=== PATIENT | female | born 1965 | race Two or more races ===

== ENCOUNTER → 2020-04-05 14:44 | Outpatient (BNVA) | payer OTHER, SELFPAY | PROVIDERS: PCP Internal Medicine; Visit Provider Internal Medicine | DX: J40 Bronchitis, not specified as acute or chronic (principal); J45.41 Moderate persistent asthma with (acute) exacerbation; J98.4 Other disorders of lung; G47.33 Obstructive sleep apnea (adult) (pediatric); E66.01 Morbid (severe) obesity due to excess calories; Z68.43 Body mass index [BMI] 50.0-59.9, adult; Z79.51 Long term (current) use of inhaled steroids; Z71.3 Dietary counseling and surveillance; Z87.891 Personal history of nicotine dependence | CPT/HCPCS: 99214 ==

== ENCOUNTER 2020-04-19 10:56 | Outpatient (REF) | payer OTHER, SELFPAY ==
[2020-04-19 11:46] LABS: MANUAL DIFF FLAG NO
[2020-04-19 12:02] LABS: Basophils Percent Auto 0.2 % (0-2); Eosinophils Absolute Auto 0.1 X10*3/uL (0.0-0.4); Eosinophils Percent Auto 1.7 % (0-4); Hematocrit 39.7 % (37-47); Hemoglobin 11.8 g/dl (12.0-16.0); Imm Gran Abs Auto 0.05 X10*3/uL (0.00-0.03); Imm Gran Pct Auto 0.8 % (0.0-0.4); Lymphocytes Absolute Auto 0.7 X10*3/uL (1.2-4.9); Lymphocytes Percent Auto 11.9 % (20-40); Mean Corpuscular HGB Conc 29.7 g/dl (31.0-35.0); Mean Corpuscular Hemoglobin 24.9 pg (27.0-33.0); Mean Corpuscular Volume 83.8 fL (80-98); Mean Platelet Volume 10.2 fL (9.4-12.3); Monocytes Absolute Auto 0.5 X10*3/uL (0.1-1.2); Monocytes Percent Auto 7.8 % (2-11); Neutrophils Absolute Auto 4.6 X10*3/uL (2.0-8.3); Neutrophils Percent Auto 77.6 % (45-73); Platelet Count 288 X10*3/uL (160-400); Red Blood Count 4.74 X10*6/uL (4.20-5.50); Red Cell Distribution Width 16.1 % (11.0-16.0); White Blood Count 5.9 X10*3/uL (4.8-10.8)
[2020-04-19 12:17] LABS: Estimated Average Glucose 123 mg/dL; Hemoglobin A1c % 5.9 %
[2020-04-19 12:28] LABS: Alanine Aminotransferase 15 U/L (0-31); Alkaline Phosphatase 74 U/L (39-117); Anion Gap 12 (12-20); Aspartate Amino Transferase 15 U/L (5-31); Bilirubin Total 0.2 mg/dL (0.0-1.0); Blood Urea Nitrogen 23 mg/dL (9-16); Calcium 8.5 mg/dL (8.4-10.2); Carbon Dioxide 27 mmol/L (22-29); Chloride 103 mmol/L (96-108); Cholesterol 142 mg/dL; Estimated Glomerular Filt Rate 51; Glucose Fasting 113 mg/dL (60-99); HDL Cholesterol 32 mg/dL; LDL Cholesterol Calculated 92 mg/dl; Potassium 4.9 mmol/l (3.3-5.1); Sodium 137 mmol/L (135-145); Total Protein 7.4 g/dL (6.5-8.0); Triglycerides 92 mg/dL
[2020-04-19 12:52] LABS: Thyroid Stimulating Hormone 1.64 uIU/mL (0.32-4.0)
== END 2020-04-19 10:57 | disposition home or self-care (01) ==
LOC: HO.LAB 10:56
PROVIDERS: Absent Provider Nurse Practitioner Gerontology; PCP Internal Medicine; Visit Provider Physician Assistant
DX: E11.8 Type 2 diabetes mellitus with unspecified complications (principal); I10 Essential (primary) hypertension; E11.42 Type 2 diabetes mellitus with diabetic polyneuropathy; J98.4 Other disorders of lung; G47.33 Obstructive sleep apnea (adult) (pediatric); E66.01 Morbid (severe) obesity due to excess calories; R05 Cough
CPT/HCPCS: 36415; 80053; 80061; 83036; 84443; 85025; 99212

== ENCOUNTER → 2020-04-23 09:06 | Outpatient (BNVA) | payer OTHER, SELFPAY | PROVIDERS: PCP Internal Medicine; Referring Provider Internal Medicine; Visit Provider Nurse Practitioner Gerontology | DX: Z76.89 Persons encountering health services in other specified circumstances (principal) ==

== ENCOUNTER → 2020-04-25 19:47 | Outpatient (REF) | payer OTHER, SELFPAY | LOC: HO.SL 19:47 | PROVIDERS: PCP Internal Medicine; Visit Provider Internal Medicine | DX: G47.33 Obstructive sleep apnea (adult) (pediatric) (principal); Z79.4 Long term (current) use of insulin; Z79.899 Other long term (current) drug therapy | CPT/HCPCS: 95811 ==

== ENCOUNTER → 2020-05-31 13:24 | Outpatient (BNVA) | payer OTHER, SELFPAY | PROVIDERS: PCP Internal Medicine; Visit Provider Internal Medicine | DX: G47.33 Obstructive sleep apnea (adult) (pediatric) (principal); E66.01 Morbid (severe) obesity due to excess calories; J45.41 Moderate persistent asthma with (acute) exacerbation; J98.4 Other disorders of lung | CPT/HCPCS: 99212 ==

== ENCOUNTER → 2020-06-30 13:29 | Outpatient (BNVA) | payer OTHER, SELFPAY | PROVIDERS: PCP Internal Medicine; Visit Provider Internal Medicine ==

== ENCOUNTER → 2020-07-15 12:56 | Outpatient (BNVA) | payer OTHER, SELFPAY | PROVIDERS: PCP Internal Medicine; Visit Provider Internal Medicine Cardiovascular Disease ==

== ENCOUNTER 2020-07-23 13:08 | Emergency (ER) | payer OTHER, SELFPAY ==
--- NOTE | ~2020-07-23 | XR_ITS ---
EXAMINATION: XR CHEST CLINICAL INFORMATION: SOB. COMPARISON: None TECHNIQUE: Frontal view of the chest was obtained. FINDINGS: No significant abnormality is noted involving the heart, lungs, mediastinum, bony thorax or soft tissues. XR/XR chest 1V IMPRESSION: Unremarkable chest examination.
[2020-07-23 13:20] VITALS: BP 171/86; PULSE 85; RESP 36; TEMP 36.8; O2SAT 97; BMI 56.9
--- NOTE | 2020-07-23 13:34 | ECG_ITS ---
Test Reason : SOB Blood Pressure : / mmHG Vent. Rate : 069 BPM Atrial Rate : 069 BPM P-R Int : 152 ms QRS Dur : 080 ms QT Int : 394 ms P-R-T Axes : 067 044 053 degrees QTc Int : 422 ms Normal sinus rhythm Low voltage QRS Borderline ECG No previous ECGs available Referred By: Olive Quispe Electronically Signed By:MAIRA SANCHEZ MD
[2020-07-23] MEDS: Albuterol Sulfate (0.083%) 2.5 MG/3 ML VIAL.NEB 10 MG INHALE (13:51)
[2020-07-23 13:54] VITALS: O2SAT 97
[2020-07-23 14:00] VITALS: PULSE 75; O2SAT 97
[2020-07-23 14:04] VITALS: PULSE 74; RESP 29; O2SAT 97
[2020-07-23 14:04] LABS: Pt Ventilation O2% ROOM AIR
--- NOTE | 2020-07-23 14:07 | ED_ITS ---
HPI - SOB/Dyspnea General Chief Complaint: Dyspnea Stated Complaint: sob Time Seen by Provider: 07/23/20 13:19 Source: patient and old records reviewed Mode of arrival: ambulatory Limitations: language barrier History of Present Illness HPI Narrative: 55 y/o female with history of morbid obesity with restrictive maria de jesus g disease, asthma, SHANIQUA on QHS BiPAP, HLD, DM2 with polyneuropathy, HTN, anxiety who presents with SOB, wheezing, and worsening asthma over the last 2 days. She has been using her inhalers & nebulizers at home without improvement. She has been coughing for the last 4-5 days. Non-productive, no fevers or body aches. No known COVID-19 exposures. MD elicited complaint: shortness of breath and asthma attack Pertinent past history: asthma Onset (ago): week(s) (1) Timing: constant Severity: moderate Exacerbating factors: movement Relieving factors: rest and bronchodilators Known history of: asthma and diabetes Associated symptoms: chest pain, pain with inspiration, cough and wheezing Treatment prior to arrival: none Related Data Home oxygen amount: none Home Medications Medication Instructions Recorded Confirmed albuterol sulfate 2.5 mg INHALATION Q8H PRN ml 03/19/20 07/15/20 albuterol sulfate 90 mcg/actuation 2 puff INHALATION Q6H PRN 03/19/20 07/15/20 aerosol inhaler aspirin 81 mg tablet 81 mg PO DAILY 03/19/20 07/15/20 cyclobenzaprine 10 mg tablet 10 mg PO TID 03/19/20 07/15/20 doxepin 100 mg capsule 100 mg PO BEDTIME 03/19/20 07/15/20 fluticasone propionate 50 1 spray INTRANASAL DAILY 03/19/20 07/15/20 mcg/actuation nasal spray,suspension levothyroxine 50 mcg tablet 50 mcg PO DAILY 03/19/20 07/15/20 meclizine 12.5 mg tablet 12.5 mg PO TID 03/19/20 07/15/20 pantoprazole 40 mg granules 40 mg PO DAILY 03/19/20 07/15/20 delayed-release for susp in packet lancets 28 gauge #100 ea 04/23/20 07/15/20 sertraline 100 mg tablet 100 mg PO DAILY 04/23/20 07/15/20 levocetirizine 5 mg tablet 5 mg PO DAILY 04/27/20 07/15/20 aspirin 81 mg chewable tablet 1 tab PO DAILY 05/31/20 07/15/20 buprenorphine 2 mg-naloxone 0.5 mg 5 mg SUBLINGUAL DAILY 05/31/20 07/15/20 sublingual film triamcinolone acetonide 0.5 % 1 appl TOPICAL DAILY 06/10/20 07/15/20 topical ointment pantoprazole 40 mg tablet,delayed 40 mg PO DAILY 07/15/20 07/15/20 release Previous Rx's Medication Instructions Recorded butalbital 50 mg-acetaminophen 300 1 cap PO Q6H PRN #15 cap 03/19/20 mg-caffeine 40 mg-codeine 30 mg cap dulaglutide 1.5 mg/0.5 mL 1.5 mg SUBCUT QWEEK 28 Days #2 ml 03/19/20 subcutaneous pen injector fluticasone 55 mcg-salmeterol 14 1 inh INHALATION Q12H 30 Days #1 ea 04/19/20 mcg/actuation breath activated powder insulin glargine 100 unit/mL (3 36 unit SUBCUT ONCE 30 Days #15 ml 04/23/20 mL) subcutaneous pen empagliflozin 10 mg tablet 10 mg PO DAILY #30 tab 04/27/20 levocetirizine 5 mg tablet 5 mg PO BEDTIME #30 tab 04/27/20 CPAP full face mask medium AF 20 #1 ea 05/24/20 bilevel pressure 25/16 cm humidified air blood sugar diagnostic 1 strip MISCELLANEOUS DAILY 30 05/27/20 Days #50 strip metformin 500 mg tablet,extended 500 mg PO BID #60 tab 05/30/20 release 24 hr pen needle, diabetic 32 gauge x 1 ea SUBCUT DAILY #30 ea 06/08/20 5/32 amlodipine 10 mg tablet 10 mg PO DAILY #30 tab 07/01/20 atorvastatin 80 mg tablet 80 mg PO QPM #30 tab 07/01/20 carvedilol 12.5 mg tablet 12.5 mg PO BID #60 tab 07/01/20 lisinopril 20 1 tab PO DAILY #30 tab 07/01/20 mg-hydrochlorothiazide 25 mg tablet cholecalciferol (vitamin D3) 50 50 mcg PO DAILY #30 cap 07/05/20 mcg (2,000 unit) capsule trazodone 50 mg tablet 50 mg PO BEDTIME PRN #30 tab 07/05/20 oxycodone 30 mg tablet 30 mg PO BID PRN #60 tab 07/22/20 azithromycin [Zithromax Z-Max] See Rx Instructions .ROUTE 07/23/20 .COMPLEX #6 tab prednisone 10 mg PO PER PKG DIR #48 ea 07/23/20 Allergies Allergy/AdvReac Type Severity Reaction Status Date / Time No Known Allergies Allergy Verified 07/15/20 12:17 Review of Systems Review of Systems: Constitutional: No Fever, No Chills ENT/Mouth: No sore throat, No Rhinorrhea, No Swallowing Difficulty Eyes: No Eye Pain, No Swelling, No Redness Cardiovascular: + Chest Pain, + SOB, + Orthopnea, No Edema Respiratory: + Cough, No Sputum, + Wheezing, + dyspnea Gastrointestinal: No Nausea, No Vomiting, No Diarrhea, No abdominal Pain, No Hematochezia, No Melena Genitourinary: No Dysuria, No Urinary Frequency, No Hematuria Musculoskeletal: No joint pain, No Myalgias Skin: No Skin Lesions, No rash Neuro: No Weakness, No Numbness, No Dizziness, No Headache Psych: N+ Anxiety/Panic, No Depression Heme/Lymph: No Bruising, No Lymphadenopathy Endocrine: No Polyuria, No Polydipsia PMFSH Past Medical History Medical History (Updated 07/23/20 @ 17:37 by ADAM Hernandez) Anxiety Asthma Diabetic nephropathy Essential hypertension GERD (gastroesophageal reflux disease) Hyperlipidemia LDL goal <70 Hypertension Hypothyroidism Hypoventilation associated with obesity syndrome Left ventricular hypertrophy Lumbar back pain Migraines Morbid obesity Opioid dependence SHANIQUA (obstructive sleep apnea) Restrictive lung disease Restrictive lung disease Type 2 diabetes mellitus with diabetic polyneuropathy Vitamin D deficiency Surgical History Deficient knowledge of leg surgery Hx of spinal surgery Family History Family History Father SHANIQUA (obstructive sleep apnea) Prostate cancer HTN (hypertension) Mother Asthma Diabetes Brother Epilepsy Social History Social History Alcohol intake: never Smoking Status: Never smoker Use of substances other than those prescribed or required for medical reasons: No Advance Directives: No Advance Directives Information Provided: No Physical Exam Vital Signs: Vital Signs: Last Vital Signs Temp 98.2 F 07/23/20 18:00 Pulse 88 07/23/20 18:00 Resp 16 07/23/20 18:00 BP 141/71 H 07/23/20 18:00 Pulse Ox 97 07/23/20 18:00 Body Mass Index 56.9 Appearance: Alert. Oriented X3. Moderate respiratory distress with increase WOB and RR Eyes: Pupils equal, round and reactive to light. ENT: Pharynx normal. Neck: Normal inspection. Neck supple. CVS: Normal heart rate and rhythm. Pulses normal. Respiratory: Moderate respiratory distress with inspiratory and expiratory wheezes throughout Abdomen: Morbidly obese, soft and nontender. +BS x4 Skin: Skin warm and dry. Normal skin color. Normal skin turgor. No rashes. Extremities: No lower extremity edema. Negative Abner's sign Neuro: Oriented X 3. Moves all 4 extremities spontaneously, non-focal Course Course Course Narrative: 55 y/o female presenting with asthma exacerbation. RR 30s on arrival with increased WOB and diffuse wheezing throughout. Will place on rescue BiPAP now. CXR, EKG, labs ordered and will treat with hour long nebulizer, IV solumedrol and IV Magnesium now. RT called to bedside to ABG and assessment. Reevaluation(s) Reevaluation #1: Improvement in WOB on BiPAP. Will monitor closely. Reevaluation #2: CXR unremarkable. COVID negative. She has been taken off the BiPAP and is feeling much better. She is on room air with SpO2 97%. RR now in the teens and wheezing has improved. Will monitor off BiPAP and see how she does. Reevaluation #3: Patient continues to be stable on room air. She feels well enough to be discharged home. Counseled on close follow up with her PCP next week as well as Pulmonology. Will start prednisone taper for acute asthma exacerbation. She is stable for discharge. MDM - SOB/Dyspnea Lab Data Attestation: I reviewed the patient's lab results. Result diagrams: 07/23/20 14:12 07/23/20 14:11 Labs: Lab Results 07/23/20 07/23/20 07/23/20 Range/Units 13:59 14:11 14:11 WBC (4.8-10.8) X10*3/uL RBC (4.20-5.50) X10*6/uL Hgb (12.0-16.0) g/dl Hct (37-47) % MCV (80-98) fL MCH (27.0-33.0) pg MCHC (31.0-35.0) g/dl RDW (11.0-16.0) % Plt Count (160-400) X10*3/uL MPV (9.4-12.3) fL Immature Gran % (Auto) (0.0-0.4) % Neut % (Auto) (45-73) % Lymph % (Auto) (20-40) % [place] % (Auto) (2-11) % Eos % (Auto) (0-4) % Baso % (Auto) (0-2) % Lymph # (Auto) (1.2-4.9) X10*3/uL [place] # (Auto) (0.1-1.2) X10*3/uL Eos # (Auto) (0.0-0.4) X10*3/uL Baso # (Auto) (0.0-0.2) X10*3/uL Abs Immat Gran (auto) (0.00-0.03) X10*3/uL Absolute Neuts (auto) (2.0-8.3) X10*3/uL Absolute Nucleated RBC (0.0-0.012) X10*3/uL Nucleated RBC % (auto) (0.0-0.2) /100WBC Hold Blue Top ABG pH 7.31 L (7.35-7.45) ABG pCO2 41 (32-45) mmHg ABG pO2 68 L (83-108) mmHg ABG HCO3 41 H (22-26) mmol/L ABG O2 Saturation 92.0 % ABG Base Excess -4.3 Oxygen Given ROOM AIR Sodium 139 (135-145) mmol/L Potassium 4.9 (3.3-5.1) mmol/L Chloride 104 (96-108) mmol/L Carbon Dioxide 28 (22-29) mmol/L Anion Gap 12 (12-20) BUN 50 H D (9-16) mg/dL Creatinine 1.36 (0.5-1.4) mg/dL Estim Creat Clear Calc 63.8 Estimated GFR 40 Random Glucose 87 (60-115) mg/dL Lactic Acid 0.8 (0.5-2.0) mmol/L Calcium 9.1 D (8.4-10.2) mg/dL Magnesium 2.2 (1.6-2.6) mg/dL Total Bilirubin 0.3 (0.0-1.0) mg/dL Direct Bilirubin 0.2 (0.0-0.5) mg/dL AST 20 (5-31) U/L ALT 41 H (0-31) U/L Alkaline Phosphatase 106 D (39-117) U/L Troponin I High Sens (<3.5-17.0) ng/L B-Natriuretic Peptide (<100) pg/mL Total Protein 8.5 H (6.5-8.0) g/dL Albumin 4.3 (3.5-5.0) g/dL COVID-19 ([facility]) (Negative) COVID-19 Clin Com 07/23/20 07/23/20 07/23/20 Range/Units 14:11 14:12 14:12 WBC 10.4 (4.8-10.8) X10*3/uL RBC 5.25 (4.20-5.50) X10*6/uL Hgb 12.8 (12.0-16.0) g/dl Hct 42.7 (37-47) % MCV 81.3 (80-98) fL MCH 24.4 L (27.0-33.0) pg MCHC 30.0 L (31.0-35.0) g/dl RDW 17.7 H (11.0-16.0) % Plt Count 248 (160-400) X10*3/uL MPV 10.8 (9.4-12.3) fL Immature Gran % (Auto) 0.3 (0.0-0.4) % Neut % (Auto) 68.8 (45-73) % Lymph % (Auto) 19.2 L (20-40) % [place] % (Auto) 5.4 (2-11) % Eos % (Auto) 6.0 H (0-4) % Baso % (Auto) 0.3 (0-2) % Lymph # (Auto) 2.0 (1.2-4.9) X10*3/uL [place] # (Auto) 0.6 (0.1-1.2) X10*3/uL Eos # (Auto) 0.6 H (0.0-0.4) X10*3/uL Baso # (Auto) 0.0 (0.0-0.2) X10*3/uL Abs Immat Gran (auto) 0.03 (0.00-0.03) X10*3/uL Absolute Neuts (auto) 7.1 (2.0-8.3) X10*3/uL Absolute Nucleated RBC 0.000 (0.0-0.012) X10*3/uL Nucleated RBC % (auto) 0.0 (0.0-0.2) /100WBC Hold Blue Top SEE NOTE ABG pH (7.35-7.45) ABG pCO2 (32-45) mmHg ABG pO2 (83-108) mmHg ABG HCO3 (22-26) mmol/L ABG O2 Saturation % ABG Base Excess Oxygen Given Sodium (135-145) mmol/L Potassium (3.3-5.1) mmol/L Chloride (96-108) mmol/L Carbon Dioxide (22-29) mmol/L Anion Gap (12-20) BUN (9-16) mg/dL Creatinine (0.5-1.4) mg/dL Estim Creat Clear Calc Estimated GFR Random Glucose (60-115) mg/dL Lactic Acid (0.5-2.0) mmol/L Calcium (8.4-10.2) mg/dL Magnesium (1.6-2.6) mg/dL Total Bilirubin (0.0-1.0) mg/dL Direct Bilirubin (0.0-0.5) mg/dL AST (5-31) U/L ALT (0-31) U/L Alkaline Phosphatase (39-117) U/L Troponin I High Sens < 3.5 (<3.5-17.0) ng/L B-Natriuretic Peptide < 10 (<100) pg/mL Total Protein (6.5-8.0) g/dL Albumin (3.5-5.0) g/dL COVID-19 ([facility]) (Negative) COVID-19 Clin Com 02/12/21 Range/Units 16:14 WBC (4.8-10.8) X10*3/uL RBC (4.20-5.50) X10*6/uL Hgb (12.0-16.0) g/dl Hct (37-47) % MCV (80-98) fL MCH (27.0-33.0) pg MCHC (31.0-35.0) g/dl RDW (11.0-16.0) % Plt Count (160-400) X10*3/uL MPV (9.4-12.3) fL Immature Gran % (Auto) (0.0-0.4) % Neut % (Auto) (45-73) % Lymph % (Auto) (20-40) % [place] % (Auto) (2-11) % Eos % (Auto) (0-4) % Baso % (Auto) (0-2) % Lymph # (Auto) (1.2-4.9) X10*3/uL [place] # (Auto) (0.1-1.2) X10*3/uL Eos # (Auto) (0.0-0.4) X10*3/uL Baso # (Auto) (0.0-0.2) X10*3/uL Abs Immat Gran (auto) (0.00-0.03) X10*3/uL Absolute Neuts (auto) (2.0-8.3) X10*3/uL Absolute Nucleated RBC (0.0-0.012) X10*3/uL Nucleated RBC % (auto) (0.0-0.2) /100WBC Hold Blue Top ABG pH (7.35-7.45) ABG pCO2 (32-45) mmHg ABG pO2 (83-108) mmHg ABG HCO3 (22-26) mmol/L ABG O2 Saturation % ABG Base Excess Oxygen Given Sodium (135-145) mmol/L Potassium (3.3-5.1) mmol/L Chloride (96-108) mmol/L Carbon Dioxide (22-29) mmol/L Anion Gap (12-20) BUN (9-16) mg/dL Creatinine (0.5-1.4) mg/dL Estim Creat Clear Calc Estimated GFR Random Glucose (60-115) mg/dL Lactic Acid (0.5-2.0) mmol/L Calcium (8.4-10.2) mg/dL Magnesium (1.6-2.6) mg/dL Total Bilirubin (0.0-1.0) mg/dL Direct Bilirubin (0.0-0.5) mg/dL AST (5-31) U/L ALT (0-31) U/L Alkaline Phosphatase (39-117) U/L Troponin I High Sens (<3.5-17.0) ng/L B-Natriuretic Peptide (<100) pg/mL Total Protein (6.5-8.0) g/dL Albumin (3.5-5.0) g/dL COVID-19 ([facility]) Negative (Negative) COVID-19 Clin Com See Note ECG Data Attestation: I personally reviewed and interpreted this ECG as follows: ECG interpretation date: 07/23/20 ECG interpretation time: 16:07 Interpretation: normal sinus rhythm, HR 69 bpm, normal NV interval, normal QTc Critical Care Time Critical Care Time Critical Care Time: Yes Total Critical Care Time: 45 Attestation: I attest to critical care time spent caring for this patient with acute respiratory failure requiring rescue BiPAP; time spent frequently reassessing the patient's respiratory status at the bedside as well as reviewing records and coordinating care. Discharge Plan Discharge Clinical Impression: Asthma Qualifiers: Asthma severity: moderate Asthma persistence: persistent Asthma complication type: with acute exacerbation Qualified Code(s): J45.41 - Moderate persistent asthma with (acute) exacerbation Patient Disposition: Home, Self-Care Instructions: Asthma (ED), Wheezing (ED) Additional Instructions: Recommend using your nebulizers every 4 hours until you are feeling better. Take the prednisone as directed. Follow up with your [employer] next week. If your breathing worsens come back to the ER for further evaluation. Prescriptions: New prednisone 10 mg tablets,dose pack 10 mg PO PER PKG DIR Qty: 48 RF: 0 azithromycin [Zithromax Z-Max] 250 mg tablet See Rx Instructions .ROUTE .COMPLEX Qty: 6 RF: 0 No Action Trulicity 1.5 mg/0.5 mL pen injector 1.5 mg subcut QWEEK 28 Days Qty: 2 RF: 3 levocetirizine 5 mg tablet 5 mg PO DAILY RF: 0 levocetirizine 5 mg tablet 5 mg PO BEDTIME Qty: 30 RF: 2 empagliflozin [Jardiance] 10 mg tablet 10 mg PO DAILY Qty: 30 RF: 5 (DME) CPAP full face mask medium AF 20 bilevel pressure 25/16 cm humidified air See Rx Instructions .Route .MEDSUPPLY Qty: 1 RF: 0 blood sugar diagnostic [FreeStyle Lite Strips] Strip 1 strip miscellaneous DAILY 30 Days Qty: 50 RF: 11 metformin 500 mg tablet extended release 24 hr 500 mg PO BID Qty: 60 RF: 5 pen needle, diabetic [BD Ultra-Fine Veena Pen Needle] 32 gauge x /32 needle 1 ea subcut DAILY Qty: 30 RF: 6 triamcinolone acetonide 0.5 % ointment 1 appl topical DAILY RF: 0 amlodipine 10 mg tablet 10 mg PO DAILY Qty: 30 RF: 1 atorvastatin 80 mg tablet 80 mg PO QPM Qty: 30 RF: 1 carvedilol 12.5 mg tablet 12.5 mg PO BID Qty: 60 RF: 1 lisinopril-hydrochlorothiazide 20-25 mg tablet 1 tab PO DAILY Qty: 30 RF: 1 cholecalciferol (vitamin D3) 50 mcg (2,000 unit) capsule 50 mcg PO DAILY Qty: 30 RF: 5 trazodone 50 mg tablet 50 mg PO BEDTIME PRN (Reason: insomnia) Qty: 30 RF: 5 oxycodone 30 mg tablet 30 mg PO BID PRN (Reason: pain) Qty: 60 RF: 0 meclizine 12.5 mg tablet 12.5 mg PO TID RF: 0 albuterol sulfate 2.5 mg /3 mL (0.083 %) solution for nebulization 2.5 mg inhalation Q8H PRNRF: 0 albuterol sulfate [Ventolin HFA] 90 mcg/actuation HFA aerosol inhaler 2 puff inhalation Q6H PRNRF: 0 doxepin 100 mg capsule 100 mg PO BEDTIME RF: 0 pantoprazole [Protonix] [address] for susp in packet 40 mg PO DAILY RF: 0 fluticasone propionate 50 mcg/actuation spray,suspension 1 spray intranasal DAILY RF: 0 levothyroxine 50 mcg tablet 50 mcg PO DAILY RF: 0 cyclobenzaprine 10 mg tablet 10 mg PO TID RF: 0 aspirin 81 mg tablet 81 mg PO DAILY RF: 0 [id number]-ugwqidefph-pxr-cod [Fioricet with Codeine] [id number] mg capsule 1 cap PO Q6H PRN (Reason: pain) Qty: 15 RF: 0 pantoprazole 40 mg tablet,delayed release (DR/EC) 40 mg PO DAILY RF: 0 sertraline 100 mg tablet 100 mg PO DAILY RF: 0 (DME) lancets 28 gauge misc See Rx Instructions lancet topical TID Qty: 100 RF: 0 Basaglar KwikPen U-100 Insulin 100 unit/mL (3 mL) insulin pen 36 unit subcut ONCE 30 Days Qty: 15 RF: 6 fluticasone propion-salmeterol [AirDuo RespiClick] 55-14 mcg/actuation aerosol powdr breath activated 1 inh inhalation Q12H 30 Days Qty: 1 RF: 3 aspirin 81 mg tablet,chewable 1 tab PO DAILY RF: 0 buprenorphine-naloxone 2-0.5 mg film 5 mg sublingual DAILY RF: 0 Interventions: ED Discharge Assessment Last Done: 07/23/20 19:02 Discharge Date/Time: 07/23/20 19:03
[2020-07-23 14:09] LABS: ABG PCO2 41 mmHg (32-45); PO2 ABG 68 mmHg (83-108); pH ABG 7.31 (7.35-7.45)
[2020-07-23 14:10] LABS: Base Excess ABG -4.3; HCO3 ABG 41 mmol/L (22-26)
[2020-07-23] MEDS: methylPREDNISolone Sod Succ/PF 125 MG/2 ML VIAL IVPUSH (14:14)
[2020-07-23] MEDS: Magnesium Sulfate/H2O 2 GM/50 ML PIGGYBACK IV (14:15)
[2020-07-23 14:24] LABS: MANUAL DIFF FLAG NO
[2020-07-23 14:25] LABS: Basophils Percent Auto 0.3 % (0-2); Eosinophils Absolute Auto 0.6 X10*3/uL (0.0-0.4); Hematocrit 42.7 % (37-47); Hemoglobin 12.8 g/dl (12.0-16.0); Imm Gran Abs Auto 0.03 X10*3/uL (0.00-0.03); Imm Gran Pct Auto 0.3 % (0.0-0.4); Lymphocytes Percent Auto 19.2 % (20-40); Mean Corpuscular Hemoglobin 24.4 pg (27.0-33.0); Mean Corpuscular Volume 81.3 fL (80-98); Mean Platelet Volume 10.8 fL (9.4-12.3); Monocytes Absolute Auto 0.6 X10*3/uL (0.1-1.2); Monocytes Percent Auto 5.4 % (2-11); Neutrophils Absolute Auto 7.1 X10*3/uL (2.0-8.3); Neutrophils Percent Auto 68.8 % (45-73); Platelet Count 248 X10*3/uL (160-400); Red Blood Count 5.25 X10*6/uL (4.20-5.50); Red Cell Distribution Width 17.7 % (11.0-16.0); White Blood Count 10.4 X10*3/uL (4.8-10.8)
[2020-07-23 14:49] LABS: Lactic Acid 0.8 mmol/L (0.5-2.0)
[2020-07-23 14:53] LABS: Alanine Aminotransferase 41 U/L (0-31); Albumin Level 4.3 g/dL (3.5-5.0); Alkaline Phosphatase 106 U/L (39-117); Anion Gap 12 (12-20); Aspartate Amino Transferase 20 U/L (5-31); Bilirubin Direct 0.2 mg/dL (0.0-0.5); Bilirubin Total 0.3 mg/dL (0.0-1.0); Blood Urea Nitrogen 50 mg/dL (9-16); Calcium 9.1 mg/dL (8.4-10.2); Carbon Dioxide 28 mmol/L (22-29); Chloride 104 mmol/L (96-108); Creatinine Clr Calc Pharmacy 63.8; Estimated Glomerular Filt Rate 40; Glucose Random 87 mg/dL (60-115); Magnesium 2.2 mg/dL (1.6-2.6); Potassium 4.9 mmol/L (3.3-5.1); Sodium 139 mmol/L (135-145); Total Protein 8.5 g/dL (6.5-8.0)
[2020-07-23 14:57] LABS: B Type Natriuretic Peptide < 10 pg/mL (<100); Troponin-I High Sensitivity < 3.5 ng/L (<3.5-17.0)
[2020-07-23] MEDS: 0.9 % Sodium Chloride 1,000 ML 999 ML IVCONT (15:18)
[2020-07-23 16:15] VITALS: BP 154/75; PULSE 72; RESP 14; O2SAT 100
[2020-07-23 16:39] LABS: COVID-19 Test Negative (Negative)
--- NOTE | 2020-07-23 16:54 | PC.NURSE ---
PT TAKEN ON BIPAP, PT REPORTS FEELING MARKEDLY BETTER, RR NOW 16, SPO REMAINS WNL ON RA, RR EVEN UNLABORED, PROVIDER AWARE.
[2020-07-23 18:00] VITALS: BP 141/71; PULSE 88; RESP 16; TEMP 36.8; O2SAT 97
== END 2020-07-23 19:03 | disposition home or self-care (01) ==
PROVIDERS: Physician Assistant; Emergency Provider Emergency Medicine Emergency Medical Services; PCP Internal Medicine
DX: J45.41 Moderate persistent asthma with (acute) exacerbation (principal); Z20.822 Contact with and (suspected) exposure to COVID-19; Z79.899 Other long term (current) drug therapy; I10 Essential (primary) hypertension; F11.20 Opioid dependence, uncomplicated; E11.9 Type 2 diabetes mellitus without complications
CPT/HCPCS: 36415; 71045; 80048; 80076; 82803; 83605; 83735; 83880; 84484; 85025; 87040; 87635; 93005; 94640; 94644; 94660; 96365; 96366; 96375; 99284; 99291; J2930; J3475

== ENCOUNTER → 2020-07-28 14:26 | Outpatient (BNVA) | payer OTHER, SELFPAY | PROVIDERS: PCP Internal Medicine; Visit Provider Internal Medicine | DX: E66.2 Morbid (severe) obesity with alveolar hypoventilation (principal); G47.33 Obstructive sleep apnea (adult) (pediatric); J45.41 Moderate persistent asthma with (acute) exacerbation | CPT/HCPCS: 99212 ==

== ENCOUNTER 2020-10-09 11:27 | Emergency (ER) | payer OTHER, SELFPAY ==
--- NOTE | ~2020-10-09 | XR_ITS ---
EXAMINATION: XR CHEST CLINICAL INFORMATION: Shortness of breath COMPARISON: Previous chest x-ray July 2020 TECHNIQUE: 2 views of the chest were obtained. FINDINGS: The cardiac silhouette appears slightly enlarged. There are increased hilar markings. Some of these changes may be due to AP and apical lordotic film technique. The lungs are otherwise clear. There is no pleural effusion or pneumothorax. There are degenerative changes of the spine. XR/XR chest 2V IMPRESSION: Slightly enlarged cardiac silhouette and increased perihilar markings. This may be due to AP apical lordotic film technique.
[2020-10-09 11:34] VITALS: BP 138/77; PULSE 81; RESP 22; TEMP 36.2; O2SAT 96
[2020-10-09 12:14] VITALS: BP 142/65; PULSE 76; RESP 20; TEMP 36.9; O2SAT 93; BMI 57.0
--- NOTE | 2020-10-09 12:19 | ECG_ITS ---
Test Reason : ASTHMA Blood Pressure : / mmHG Vent. Rate : 069 BPM Atrial Rate : 069 BPM P-R Int : 148 ms QRS Dur : 076 ms QT Int : 386 ms P-R-T Axes : 070 039 057 degrees QTc Int : 413 ms Normal sinus rhythm Normal ECG When compared with ECG of 23-JUL-2020 15:12, No significant change was found Referred By: Rebeca Larry Electronically Signed By:MAIRA SANCHEZ MD
--- NOTE | 2020-10-09 12:26 | ED.ASTHMA ---
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 History of hypercholesteremia, hypertension type 2 diabetes, hypoventilation associated with obesity syndrome, SHANIQUA, morbid obesity, lumbar back pain. She presents to ED with symptoms of SOB since yesterday. Today her SOB has worsened. She tried to rescue inhalers as well to updraft with no affect. Patient denies any fever or chills. Denies any nausea, vomiting, cough or body aches. Reports that she had COVID vaccine ( Moderna) about a month ago. She states that she received both doses. Denies any COVID exposures. MD complaint: asthma attack , shortness of breath and wheezing Onset (ago): day(s) (one) Severity: moderate and similar to prior Treatments Prior to Arrival: inhaled bronchodilator Related Data Home Medications Medication Instructions Recorded Confirmed albuterol sulfate 2.5 mg INHALATION Q8H PRN ml 03/19/20 09/02/20 albuterol sulfate 90 mcg/actuation 2 puff INHALATION Q6H PRN 03/19/20 09/02/20 aerosol inhaler aspirin 81 mg tablet 81 mg PO DAILY 03/19/20 09/02/20 cyclobenzaprine 10 mg tablet 10 mg PO TID 03/19/20 09/02/20 doxepin 100 mg capsule 100 mg PO BEDTIME 03/19/20 09/02/20 levothyroxine 50 mcg tablet 50 mcg PO DAILY 03/19/20 09/02/20 meclizine 12.5 mg tablet 12.5 mg PO TID 03/19/20 09/02/20 pantoprazole 40 mg granules 40 mg PO DAILY 03/19/20 09/02/20 delayed-release for susp in packet lancets 28 gauge #100 ea 04/23/20 07/29/20 sertraline 100 mg tablet 100 mg PO DAILY 04/23/20 09/02/20 levocetirizine 5 mg tablet 5 mg PO DAILY 04/27/20 09/02/20 buprenorphine 2 mg-naloxone 0.5 mg 5 mg SUBLINGUAL DAILY 12/21/20 03/25/21 sublingual film triamcinolone acetonide 0.5 % 1 appl TOPICAL DAILY 06/10/20 09/02/20 topical ointment Previous Rx's Medication Instructions Recorded fluticasone 55 mcg-salmeterol 14 1 inh INHALATION Q12H 30 Days #1 ea 04/19/20 mcg/actuation breath activated powder empagliflozin 10 mg tablet 10 mg PO DAILY #30 tab 04/27/20 CPAP full face mask medium AF 20 #1 ea 05/24/20 bilevel pressure 25/16 cm humidified air blood sugar diagnostic 1 strip MISCELLANEOUS DAILY 30 05/27/20 Days #50 strip metformin 500 mg tablet,extended 500 mg PO BID #60 tab 05/30/20 release 24 hr pen needle, diabetic 32 gauge x 1 ea SUBCUT DAILY #30 ea 06/08/20 amlodipine 10 mg tablet 10 mg PO DAILY #30 tab 07/01/20 atorvastatin 80 mg tablet 80 mg PO QPM #30 tab 07/01/20 carvedilol 12.5 mg tablet 12.5 mg PO BID #60 tab 07/01/20 lisinopril 20 1 tab PO DAILY #30 tab 07/01/20 mg-hydrochlorothiazide 25 mg tablet cholecalciferol (vitamin D3) 50 50 mcg PO DAILY #30 cap 07/05/20 mcg (2,000 unit) capsule trazodone 50 mg tablet 50 mg PO BEDTIME PRN #30 tab 07/05/20 oxycodone 30 mg tablet 30 mg PO BID PRN #60 tab 09/17/20 dulaglutide 1.5 mg/0.5 mL 1.5 mg SUBCUT QWEEK #2 ml 09/26/20 subcutaneous pen injector fluticasone propionate 50 1 spray INTRANASAL DAILY #16 ml 09/26/20 mcg/actuation nasal spray,suspension Lantus Solostar U-100 Insulin 100 36 unit SUBCUT ONCE 30 Days #15 ml 09/30/20 unit/mL (3 mL) subcutaneous pen NS fluticasone propionate [Flonase 1 spray INTRANASAL DAILY #16 g 10/09/20 Allergy Relief] loratadine [Claritin] 10 mg PO DAILY #20 tab 10/09/20 prednisone 40 mg PO DAILY #10 tab 10/09/20 Allergies Allergy/AdvReac Type Severity Reaction Status Date / Time No Known Allergies Allergy Verified 09/02/20 10:47 Review of Systems Review of Systems: Constitutional : No Weight loss, No Fever, No Chills, No Night Sweats, No Fatigue, No Malaise ENT/Mouth : No Hearing loss, No Ear Pain, No Nasal Congestion, No Sinus Pain, No Hoarseness, No sore throat, No Rhinorrhea, No Swallowing Difficulty Eyes: No Eye Pain, No Swelling, No Redness, No Foreign Body, No Discharge, No Vision Changes Cardiovascular : No Chest Pain, SOB, Dyspnea on Exertion, No Edema, No Palpitations Respiratory : No Cough, No Sputum, Wheezing, No Smoke Exposure, Dyspnea Gastrointestinal : No Nausea, No Vomiting, No Diarrhea, No Constipation, No abdominal Pain, No Hematochezia, No Melena Genitourinary : no irregular bleeding, No Dysuria, No Urinary Frequency, No Hematuria, No Urinary Incontinence, No Urgency, No Flank Pain, No Urinary Flow Changes, No Hesitancy Musculoskeletal : No joint pain, No Myalgias, No Joint Swelling Skin : No Skin Lesions, No rash Neuro : No Weakness, No Numbness, No Paresthesias, No Loss of Consciousness, No Dizziness, No Headache Psych : No Anxiety/Panic, No Depression, No SI/HI/AH/VH, No Social Issues, Heme/Lymph: No Bruising, No Bleeding,No Lymphadenopathy Endocrine : No Polyuria, No Polydipsia, No Temperature Intolerance Yes all other systems are reviewed and are negative [facility] Past Medical History Medical History Anxiety Asthma Diabetic nephropathy Essential hypertension GERD (gastroesophageal reflux disease) Hypertension Hypothyroidism Hypoventilation associated with obesity syndrome Left ventricular hypertrophy Lumbar back pain Migraines Morbid obesity Opioid dependence SHANIQUA (obstructive sleep apnea) Type 2 diabetes mellitus with diabetic polyneuropathy Vitamin D deficiency Surgical History Deficient knowledge of leg surgery Hx of spinal surgery Family History Family History Father SHANIQUA (obstructive sleep apnea) Prostate cancer HTN (hypertension) Mother Asthma Diabetes Brother Epilepsy Social History Social History Alcohol intake: never Smoking Status: Never smoker Smoked in Last 30 Days: No Use of substances other than those prescribed or required for medical reasons: No Advance Directives: Yes Advance Directives Information Provided: Yes Advance Directives on File: No Physical Exam Vital Signs: Vital Signs: Last Vital Signs Temp 98.4 F 10/09/20 12:14 Pulse 69 10/09/20 14:19 Resp 20 10/09/20 12:14 BP 142/65 H 10/09/20 12:14 Pulse Ox 93 10/09/20 12:14 Body Mass Index 57.0 Const: General: cooperative, healthy appearing and comfortable Nutritional Appearance: average body habitus Orientation/consciousness: patient oriented x3 Limitations: no limitations HENMT: Head: Yes normal to inspection Ears: hearing grossly normal bilaterally General nose exam: Normal external nose present Face and sinus: Yes normal facial exam Mouth: Normal oral and palatal mucosa present Throat: Yes posterior oropharynx normal Eyes: General: appearance normal, both eyes and all related structures Eyelids: Yes eyelids normal Conjunctivae: conjunctivae normal Sclerae: sclerae normal Pupils: Equal, round and reactive pupils present Neck: Neck: Yes normal visual inspection, Yes full ROM, Yes no lymphadenopathy, Yes trachea midline and Yes supple Thyroid: Thyroid normal Lymphatic: no lymphadenopathy noted Chest: Chest palpation & inspection: normal inspection of the chest Resp: Effort & Inspection: able to speak in complete sentences and audible wheezes Auscultation: wheezes expiratory wheezes, inspiratory wheezes and posterior Cardio: Rate: regular rate Rhythm: regular rhythm Heart sounds: no gallops, no murmurs and no rubs Peripheral pulses: Peripheral pulses 2+ throughout GI: Inspection: Yes normal to inspection and No distended Palpation (GI): No hepatosplenomegaly present and No Rebound tenderness present Percussion: Yes normal to percussion Auscultation: normal bowel sounds Back/Spine/Pelvis: Cervical Spine: cervical ROM normal and No cervical muscular tenderness Thoracic/Lumbar Spine: thoracic and lumbar spine normal to inspection Skin: General skin exam: no rashes or lesions noted, elasticity normal and turgor normal Neuro: General: patient oriented x3 Cranial nerves: Yes Equal, round and reactive pupils present Extrem: General: Yes normal to inspection, Yes full ROM and Yes capillary refill normal Psych: Appearance: grossly normal Mental Status: mental status grossly normal Speech and movement: Normal speech and movement present Affect: normal affect Attitude: cooperative Thought process: Normal thought process present Insight: Good insight present (Psych) Course Course Course Narrative: 55-year-old female here today for worsening SOB since yesterday. History of asthma and SHANIQUA with BiPAP use at night. Denies CP, PND, syncope, presyncope. Will ordered CXR, EKG, will give her dose of Solu-Medrol. Patient had Moderna COVID vaccine about a month ago no known COVID exposures. Will order nebulizer treatment. Reevaluation(s) Reevaluation #1: Chest x-ray negative for acute processes. Potassium mildly elevated at 5.8. Will give her 500 nl of fluid. Patient awaiting for her COVID test. Will receive nebulizer treatment. Patient reports feeling better after the Solu-Medrol. Reevaluation #2: COVID test negative. Patient is feeling better after updraft. Lung sounds clear O2 sat 98-100% on room air. Will send her home with Flonase, Claritin and prednisone. MDM - Asthma Differential Diagnosis Differential diagnosis: Likely Acute exacerbation and Acute asthmatic bronchitis Lab Data Result diagrams: 10/09/20 12:48 10/09/20 13:14 Labs: Lab Results 10/09/20 10/09/20 10/09/20 Range/Units 12:44 12:48 12:48 WBC 8.3 (4.8-10.8) X10*3/uL RBC 4.10 L D (4.20-5.50) X10*6/uL Hgb 10.9 L (12.0-16.0) g/dl Hct 34.8 L (37-47) % MCV 84.9 (80-98) fL MCH 26.6 L (27.0-33.0) pg MCHC 31.3 (31.0-35.0) g/dl RDW 17.2 H (11.0-16.0) % Plt Count 220 (160-400) X10*3/uL MPV 10.3 (9.4-12.3) fL Immature Gran % (Auto) 0.6 H (0.0-0.4) % Neut % (Auto) 69.0 (45-73) % Lymph % (Auto) 18.1 L (20-40) % Sebastian % (Auto) 6.6 (2-11) % Eos % (Auto) 5.5 H (0-4) % Baso % (Auto) 0.2 (0-2) % Lymph # (Auto) 1.5 (1.2-4.9) X10*3/uL Sebastian # (Auto) 0.6 (0.1-1.2) X10*3/uL Eos # (Auto) 0.5 H (0.0-0.4) X10*3/uL Baso # (Auto) 0.0 (0.0-0.2) X10*3/uL Abs Immat Gran (auto) 0.05 H (0.00-0.03) X10*3/uL Absolute Neuts (auto) 5.7 (2.0-8.3) X10*3/uL Absolute Nucleated RBC 0.000 (0.0-0.012) X10*3/uL Nucleated RBC % (auto) 0.0 (0.0-0.2) /100WBC Hold Blue Top SEE NOTE Sodium (135-145) mmol/L Potassium (3.3-5.1) mmol/L Chloride (96-108) mmol/L Carbon Dioxide (22-29) mmol/L Anion Gap (12-20) BUN (9-16) mg/dL Creatinine (0.5-1.4) mg/dL Estim Creat Clear Calc Estimated GFR Random Glucose (60-115) mg/dL Calcium (8.4-10.2) mg/dL Coronavirus (PCR) NEGATIVE (Negative) Influenza Type A (PCR) NEGATIVE (Negative) Influenza Type B (PCR) NEGATIVE (Negative) RSV RNA Qual (PCR) NEGATIVE (Negative) 10/09/20 Range/Units 13:14 WBC (4.8-10.8) X10*3/uL RBC (4.20-5.50) X10*6/uL Hgb (12.0-16.0) g/dl Hct (37-47) % MCV (80-98) fL MCH (27.0-33.0) pg MCHC (31.0-35.0) g/dl RDW (11.0-16.0) % Plt Count (160-400) X10*3/uL MPV (9.4-12.3) fL Immature Gran % (Auto) (0.0-0.4) % Neut % (Auto) (45-73) % Lymph % (Auto) (20-40) % Sebastian % (Auto) (2-11) % Eos % (Auto) (0-4) % Baso % (Auto) (0-2) % Lymph # (Auto) (1.2-4.9) X10*3/uL Sebastian # (Auto) (0.1-1.2) X10*3/uL Eos # (Auto) (0.0-0.4) X10*3/uL Baso # (Auto) (0.0-0.2) X10*3/uL Abs Immat Gran (auto) (0.00-0.03) X10*3/uL Absolute Neuts (auto) (2.0-8.3) X10*3/uL Absolute Nucleated RBC (0.0-0.012) X10*3/uL Nucleated RBC % (auto) (0.0-0.2) /100WBC Hold Blue Top Sodium 139 (135-145) mmol/L Potassium 5.8 H (3.3-5.1) mmol/L Chloride 103 (96-108) mmol/L Carbon Dioxide 27 (22-29) mmol/L Anion Gap 15 (12-20) BUN 26 H (9-16) mg/dL Creatinine 1.05 (0.5-1.4) mg/dL Estim Creat Clear Calc 82.8 Estimated GFR 54 Random Glucose 83 (60-115) mg/dL Calcium 9.4 (8.4-10.2) mg/dL Coronavirus (PCR) (Negative) Influenza Type A (PCR) (Negative) Influenza Type B (PCR) (Negative) RSV RNA Qual (PCR) (Negative) Imaging Data Chest x-ray: Radiologist's impression: FINDINGS: The cardiac silhouette appears slightly enlarged. There are increased hilar markings. Some of these changes may be due to AP and apical lordotic film technique. The lungs are otherwise clear. There is no pleural effusion or pneumothorax. There are degenerative changes of the spine. XR/XR chest 2V IMPRESSION: Slightly enlarged cardiac silhouette and increased perihilar markings. This may be due to AP apical lordotic film technique. ECG Data Attestation: I personally reviewed and interpreted this ECG as follows: (Normal sinus, rate 69, QTC 413 no ischemic changes) Discharge Plan Discharge Clinical Impression: Asthma Qualifiers: Asthma severity: mild Asthma persistence: unspecified Asthma complication type: uncomplicated Qualified Code(s): J45.909 - Unspecified asthma, uncomplicated Patient Disposition: Home, Self-Care Instructions: Asthma (ED), Allergies (ED) Additional Instructions: Lo vieron aqu? hoy por s?ntomas de asma. Le dieron medicamentos esteroides para ayudar con la inflamaci?n. Vallecillo radiograf?a de t?rax fue negativa para cualquier infecci?n. Se le jan? un freeman?n para Flonase, Claritin y prednisona. Puede regresar al departamento de emergencias si kami s?ntomas empeoran o si experimenta cualquier otro s?ntoma preocupante. Prescriptions: New prednisone 20 mg tablet 40 mg PO DAILY Qty: 10 RF: 0 fluticasone propionate [Flonase Allergy Relief] 50 mcg/actuation spray,suspension 1 spray intranasal DAILY Qty: 16 RF: 0 loratadine [Claritin] 10 mg tablet 10 mg PO DAILY Qty: 20 RF: 0 No Action levocetirizine 5 mg tablet 5 mg PO DAILY RF: 0 empagliflozin [Jardiance] 10 mg tablet 10 mg PO DAILY Qty: 30 RF: 5 (DME) CPAP full face mask medium AF 20 bilevel pressure 25/16 cm humidified air See Rx Instructions .Route .MEDSUPPLY Qty: 1 RF: 0 blood sugar diagnostic [FreeStyle Lite Strips] Strip 1 strip miscellaneous DAILY 30 Days Qty: 50 RF: 11 metformin 500 mg tablet extended release 24 hr 500 mg PO BID Qty: 60 RF: 5 pen needle, diabetic [BD Ultra-Fine Veena Pen Needle] 32 gauge x 5/32 needle 1 ea subcut DAILY Qty: 30 RF: 6 triamcinolone acetonide 0.5 % ointment 1 appl topical DAILY RF: 0 amlodipine 10 mg tablet 10 mg PO DAILY Qty: 30 RF: 1 atorvastatin 80 mg tablet 80 mg PO QPM Qty: 30 RF: 1 carvedilol 12.5 mg tablet 12.5 mg PO BID Qty: 60 RF: 1 lisinopril-hydrochlorothiazide 20-25 mg tablet 1 tab PO DAILY Qty: 30 RF: 1 cholecalciferol (vitamin D3) 50 mcg (2,000 unit) capsule 50 mcg PO DAILY Qty: 30 RF: 5 trazodone 50 mg tablet 50 mg PO BEDTIME PRN (Reason: insomnia) Qty: 30 RF: 5 oxycodone 30 mg tablet 30 mg PO BID PRN (Reason: pain) Qty: 60 RF: 0 fluticasone propionate 50 mcg/actuation spray,suspension 1 spray intranasal DAILY Qty: 16 RF: 2 dulaglutide [Trulicity] 1.5 mg/0.5 mL pen injector 1.5 mg subcut QWEEK Qty: 2 RF: 1 Lantus Solostar U-100 Insulin 100 unit/mL (3 mL) insulin pen 36 unit subcut ONCE 30 Days Qty: 15 RF: 6 meclizine 12.5 mg tablet 12.5 mg PO TID RF: 0 albuterol sulfate 2.5 mg /3 mL (0.083 %) solution for nebulization 2.5 mg inhalation Q8H PRNRF: 0 albuterol sulfate [Ventolin HFA] 90 mcg/actuation HFA aerosol inhaler 2 puff inhalation Q6H PRNRF: 0 doxepin 100 mg capsule 100 mg PO BEDTIME RF: 0 pantoprazole [Protonix] [address] for susp in packet 40 mg PO DAILY RF: 0 levothyroxine 50 mcg tablet 50 mcg PO DAILY RF: 0 cyclobenzaprine 10 mg tablet 10 mg PO TID RF: 0 aspirin 81 mg tablet 81 mg PO DAILY RF: 0 sertraline 100 mg tablet 100 mg PO DAILY RF: 0 (DME) lancets 28 gauge misc See Rx Instructions lancet topical TID Qty: 100 RF: 0 fluticasone propion-salmeterol [AirDuo RespiClick] 55-14 mcg/actuation aerosol powdr breath activated 1 inh inhalation Q12H 30 Days Qty: 1 RF: 3 buprenorphine-naloxone 2-0.5 mg film 5 mg sublingual DAILY RF: 0 Interventions: ED Discharge Assessment Last Done: 10/09/20 16:17 Discharge Date/Time: 10/09/20 16:20 Print Language: Persian
[2020-10-09 12:53] LABS: MANUAL DIFF FLAG NO
[2020-10-09 12:55] LABS: Basophils Percent Auto 0.2 % (0-2); Eosinophils Absolute Auto 0.5 X10*3/uL (0.0-0.4); Eosinophils Percent Auto 5.5 % (0-4); Hematocrit 34.8 % (37-47); Hemoglobin 10.9 g/dl (12.0-16.0); Imm Gran Abs Auto 0.05 X10*3/uL (0.00-0.03); Imm Gran Pct Auto 0.6 % (0.0-0.4); Lymphocytes Absolute Auto 1.5 X10*3/uL (1.2-4.9); Lymphocytes Percent Auto 18.1 % (20-40); Mean Corpuscular HGB Conc 31.3 g/dl (31.0-35.0); Mean Corpuscular Hemoglobin 26.6 pg (27.0-33.0); Mean Corpuscular Volume 84.9 fL (80-98); Mean Platelet Volume 10.3 fL (9.4-12.3); Monocytes Absolute Auto 0.6 X10*3/uL (0.1-1.2); Monocytes Percent Auto 6.6 % (2-11); Neutrophils Absolute Auto 5.7 X10*3/uL (2.0-8.3); Platelet Count 220 X10*3/uL (160-400); Red Cell Distribution Width 17.2 % (11.0-16.0); White Blood Count 8.3 X10*3/uL (4.8-10.8)
[2020-10-09] MEDS: methylPREDNISolone Sod Succ 125 MG/2 ML VIAL IVPUSH (13:05)
[2020-10-09 13:44] LABS: Anion Gap 15 (12-20); Blood Urea Nitrogen 26 mg/dL (9-16); Calcium 9.4 mg/dL (8.4-10.2); Carbon Dioxide 27 mmol/L (22-29); Chloride 103 mmol/L (96-108); Creatinine Clr Calc Pharmacy 82.8; Estimated Glomerular Filt Rate 54; Glucose Random 83 mg/dL (60-115); Potassium 5.8 mmol/L (3.3-5.1); Sodium 139 mmol/L (135-145)
[2020-10-09 13:46] LABS: Influenza A PCR NEGATIVE (Negative); Influenza B PCR NEGATIVE (Negative); Resp Syncy Virus RNA Qual PCR NEGATIVE (Negative); SARS COV2 PCR INHOUSE NEGATIVE (Negative)
[2020-10-09 14:19] VITALS: PULSE 69; O2SAT 97
[2020-10-09] MEDS: Albuterol Sulfate (0.083%) 2.5 MG/3 ML VIAL.NEB 5 MG INHALE (14:19)
[2020-10-09] MEDS: 0.9 % Sodium Chloride 500 ML IV (14:54)
== END 2020-10-09 16:20 | disposition home or self-care (01) ==
PROVIDERS: Nurse Practitioner Family; Emergency Provider Emergency Medicine; PCP Internal Medicine
DX: J45.909 Unspecified asthma, uncomplicated (principal); R06.02 Shortness of breath; Z20.822 Contact with and (suspected) exposure to COVID-19; Z79.899 Other long term (current) drug therapy
CPT/HCPCS: 0241U; 36415; 71046; 80048; 85025; 93005; 94640; 96365; 96375; 99285; J2930

== ENCOUNTER → 2020-10-13 13:16 | Outpatient (BNVA) | payer OTHER, SELFPAY | PROVIDERS: PCP Internal Medicine; Visit Provider Internal Medicine Cardiovascular Disease | DX: E78.5 Hyperlipidemia, unspecified (principal); E78.00 Pure hypercholesterolemia, unspecified; I10 Essential (primary) hypertension | CPT/HCPCS: 99212 ==

== ENCOUNTER 2020-10-21 10:43 | Outpatient (REF) | payer OTHER, SELFPAY ==
[2020-10-21 11:26] LABS: MANUAL DIFF FLAG NO
[2020-10-21 11:38] LABS: Glucose Urine UA NEG (NEG); Leukocyte Esterase Urine 2+ (NEG); Nitrite Urine NEG (NEG); PH 5.5 (5.0-8.0); UACC Culture Trigger YES; Urine Blood NEG (NEG); Urine Ketones NEG (NEG); Urine Protein NEG (NEG-TRACE)
[2020-10-21 11:39] LABS: Appearance Urine HAZY; Color Urine YELLOW
[2020-10-21 11:39] LABS: Basophils Percent Auto 0.3 % (0-2); Eosinophils Absolute Auto 0.3 X10*3/uL (0.0-0.4); Eosinophils Percent Auto 2.5 % (0-4); Hematocrit 36.3 % (37-47); Hemoglobin 11.3 g/dl (12.0-16.0); Imm Gran Abs Auto 0.14 X10*3/uL (0.00-0.03); Imm Gran Pct Auto 1.2 % (0.0-0.4); Lymphocytes Absolute Auto 1.5 X10*3/uL (1.2-4.9); Mean Corpuscular HGB Conc 31.1 g/dl (31.0-35.0); Mean Corpuscular Hemoglobin 26.6 pg (27.0-33.0); Mean Corpuscular Volume 85.4 fL (80-98); Mean Platelet Volume 10.1 fL (9.4-12.3); Monocytes Percent Auto 8.5 % (2-11); Neutrophils Absolute Auto 8.4 X10*3/uL (2.0-8.3); Neutrophils Percent Auto 74.5 % (45-73); Platelet Count 230 X10*3/uL (160-400); Red Blood Count 4.25 X10*6/uL (4.20-5.50); Red Cell Distribution Width 15.9 % (11.0-16.0); White Blood Count 11.3 X10*3/uL (4.8-10.8)
[2020-10-21 11:50] LABS: Estimated Average Glucose 117 mg/dL; Hemoglobin A1c % 5.7 %
[2020-10-21 11:51] LABS: Bacteria Urine 1+ /LPF; RBC Urine 0-2 /HPF (0); Squamous Epithelial Cell Urine 2+ /LPF
[2020-10-21 12:06] LABS: Blood Urea Nitrogen 24 mg/dL (9-16); Cholesterol 123 mg/dL; Estimated Glomerular Filt Rate 56; HDL Cholesterol 33 mg/dL; LDL Cholesterol Calculated 69 mg/dl; Potassium 5.3 mmol/L (3.3-5.1); Triglycerides 105 mg/dL
[2020-10-21 12:15] LABS: TSH reflex Free T4 4.04 uIU/mL (0.32-4.0)
[2020-10-21 12:20] LABS: Alanine Aminotransferase 31 U/L (0-31); Alkaline Phosphatase 95 U/L (39-117); Anion Gap 13 (12-20); Aspartate Amino Transferase 15 U/L (5-31); Bilirubin Total 0.4 mg/dL (0.0-1.0); Blood Urea Nitrogen 25 mg/dL (9-16); Carbon Dioxide 27 mmol/L (22-29); Chloride 99 mmol/L (96-108); Cholesterol 124 mg/dL; Estimated Glomerular Filt Rate 53; Glucose Fasting 119 mg/dL (60-99); HDL Cholesterol 33 mg/dL; LDL Cholesterol Calculated 70 mg/dl; Potassium 5.2 mmol/L (3.3-5.1); Sodium 134 mmol/L (135-145); Total Protein 7.4 g/dL (6.5-8.0); Triglycerides 107 mg/dL
[2020-10-21 12:28] LABS: Creatinine Urine 57.48 mg/dL
[2020-10-21 13:05] LABS: Free T4 (Free Thyroxine) 1.15 ng/dL (0.71-1.85)
== END 2020-10-21 10:44 | disposition home or self-care (01) ==
LOC: HO.LAB 10:43
PROVIDERS: Internal Medicine Cardiovascular Disease; Absent Provider Internal Medicine; PCP Internal Medicine; Referring Provider Nurse Practitioner Gerontology; Visit Provider Internal Medicine
DX: Z00.00 Encounter for general adult medical examination without abnormal findings (principal); E87.5 Hyperkalemia; G47.33 Obstructive sleep apnea (adult) (pediatric); I10 Essential (primary) hypertension; E78.00 Pure hypercholesterolemia, unspecified; E66.01 Morbid (severe) obesity due to excess calories; E11.65 Type 2 diabetes mellitus with hyperglycemia; E11.42 Type 2 diabetes mellitus with diabetic polyneuropathy; Z79.4 Long term (current) use of insulin
CPT/HCPCS: 36415; 80053; 80061; 81001; 81003; 82043; 82565; 83036; 84132; 84439; 84443; 84520; 85025; 87086

== ENCOUNTER → 2020-10-22 11:17 | Outpatient (BNVA) | payer OTHER, SELFPAY | PROVIDERS: PCP Internal Medicine; Visit Provider Nurse Practitioner Gerontology ==

== ENCOUNTER 2020-10-26 17:48 | Outpatient (REF) | payer OTHER, SELFPAY ==
[2020-10-26 18:21] LABS: Amphetamine Screen Urine Not Detected (Not Detect); Barbiturates, Urine Not Detected (Not Detect); Benzodiazepines Screen Urine Not Detected (Not Detect); Cannabinoid Screen Urine Not Detected (Not Detect); Cocaine Screen Urine Not Detected (Not Detect); Opiate Screen Urine POSITIVE (Not Detect); Phencyclidine Screen Urine Not Detected (Not Detect)
== END 2020-10-26 17:49 | disposition home or self-care (01) ==
LOC: HO.LNP 17:48
PROVIDERS: Visit Provider Internal Medicine
DX: M54.5 Low back pain (principal)
CPT/HCPCS: 80307

== ENCOUNTER → 2020-11-18 14:15 | Outpatient (BNVA) | payer OTHER, SELFPAY | PROVIDERS: PCP Internal Medicine; Visit Provider Internal Medicine | DX: E66.01 Morbid (severe) obesity due to excess calories (principal); G47.33 Obstructive sleep apnea (adult) (pediatric); E66.2 Morbid (severe) obesity with alveolar hypoventilation; J44.9 Chronic obstructive pulmonary disease, unspecified | CPT/HCPCS: 99212 ==

== ENCOUNTER → 2020-12-09 10:49 | Outpatient (BNVA) | payer OTHER, SELFPAY | PROVIDERS: PCP Internal Medicine; Visit Provider Nurse Practitioner Gerontology | DX: E11.42 Type 2 diabetes mellitus with diabetic polyneuropathy (principal); E78.5 Hyperlipidemia, unspecified; E66.01 Morbid (severe) obesity due to excess calories; I10 Essential (primary) hypertension; Z79.4 Long term (current) use of insulin; Z68.43 Body mass index [BMI] 50.0-59.9, adult | CPT/HCPCS: 82947; 99212 ==

== ENCOUNTER → 2020-12-20 12:53 | Outpatient (BNVA) | payer OTHER, SELFPAY | PROVIDERS: PCP Internal Medicine; Referring Provider Internal Medicine; Visit Provider Internal Medicine Cardiovascular Disease | DX: I10 Essential (primary) hypertension (principal) | CPT/HCPCS: 93005; 99212 ==

== ENCOUNTER → 2020-12-22 12:53 | Outpatient (BNVA) | payer OTHER, SELFPAY | PROVIDERS: PCP Internal Medicine; Visit Provider Internal Medicine | DX: E66.01 Morbid (severe) obesity due to excess calories (principal); G47.33 Obstructive sleep apnea (adult) (pediatric); J44.9 Chronic obstructive pulmonary disease, unspecified | CPT/HCPCS: 99212 ==

== ENCOUNTER 2021-01-17 07:43 | Outpatient (REF) | payer OTHER, SELFPAY ==
[2021-01-17 08:04] LABS: MANUAL DIFF FLAG NO
[2021-01-17 08:07] LABS: Basophils Percent Auto 0.2 % (0-2); Eosinophils Absolute Auto 0.3 X10*3/uL (0.0-0.4); Hematocrit 39.1 % (37-47); Hemoglobin 11.8 g/dl (12.0-16.0); Imm Gran Abs Auto 0.06 X10*3/uL (0.00-0.03); Imm Gran Pct Auto 0.7 % (0.0-0.4); Lymphocytes Absolute Auto 2.2 X10*3/uL (1.2-4.9); Lymphocytes Percent Auto 26.9 % (20-40); Mean Corpuscular HGB Conc 30.2 g/dl (31.0-35.0); Mean Corpuscular Hemoglobin 24.3 pg (27.0-33.0); Mean Corpuscular Volume 80.5 fL (80-98); Mean Platelet Volume 10.5 fL (9.4-12.3); Monocytes Absolute Auto 0.7 X10*3/uL (0.1-1.2); Monocytes Percent Auto 8.6 % (2-11); Neutrophils Percent Auto 59.6 % (45-73); Platelet Count 276 X10*3/uL (160-400); Red Blood Count 4.86 X10*6/uL (4.20-5.50); Red Cell Distribution Width 15.3 % (11.0-16.0); White Blood Count 8.3 X10*3/uL (4.8-10.8)
[2021-01-17 08:28] LABS: Estimated Average Glucose 114 mg/dL; Hemoglobin A1c % 5.6 %
[2021-01-17 08:40] LABS: Alanine Aminotransferase 17 U/L (0-31); Albumin Level 4.2 g/dL (3.5-5.0); Alkaline Phosphatase 91 U/L (39-117); Anion Gap 14 (12-20); Aspartate Amino Transferase 15 U/L (5-31); Bilirubin Total 0.2 mg/dL (0.0-1.0); Blood Urea Nitrogen 26 mg/dL (9-16); Calcium 9.2 mg/dL (8.4-10.2); Carbon Dioxide 24 mmol/L (22-29); Chloride 106 mmol/L (96-108); Estimated Glomerular Filt Rate 47; Glucose Random 111 mg/dL (60-115); Potassium 4.7 mmol/L (3.3-5.1); Sodium 139 mmol/L (135-145); Total Protein 8.6 g/dL (6.5-8.0)
[2021-01-17 08:54] LABS: Free T4 (Free Thyroxine) 1.27 ng/dL (0.71-1.85); Thyroid Stimulating Hormone 4.82 uIU/mL (0.32-4.0)
== END 2021-01-17 07:44 | disposition home or self-care (01) ==
LOC: HO.LAB 07:43
PROVIDERS: Absent Provider Internal Medicine Cardiovascular Disease; PCP Internal Medicine; Visit Provider Internal Medicine
DX: E11.65 Type 2 diabetes mellitus with hyperglycemia (principal); E11.42 Type 2 diabetes mellitus with diabetic polyneuropathy; I10 Essential (primary) hypertension; Z79.4 Long term (current) use of insulin
CPT/HCPCS: 36415; 80053; 83036; 84439; 84443; 85025

== ENCOUNTER → 2021-01-18 13:05 | Outpatient (BNVA) | payer OTHER, SELFPAY | PROVIDERS: PCP Internal Medicine; Referring Provider Internal Medicine; Visit Provider Nurse Practitioner Family | DX: I10 Essential (primary) hypertension (principal); E66.01 Morbid (severe) obesity due to excess calories; Z68.43 Body mass index [BMI] 50.0-59.9, adult | CPT/HCPCS: 99212 ==

== ENCOUNTER 2021-02-04 08:53 | Outpatient (REF) | payer OTHER, SELFPAY ==
--- NOTE | ~2021-02-04 | FL_ITS ---
EXAMINATION: FL BARIUM SWALLOW CLINICAL INFORMATION: E03.9 - Hypothyroidism, unspecified. Patient notes dysphagia and proximal cervical region. COMPARISON: Chest radiographs 10/09/2020 TECHNIQUE: Barium swallow examination is performed using fluoroscopic evaluation in addition to multiple fluoroscopic spot views, including cine images during swallowing. Barium pill used as well. The patient is imaged both upright and prone and using both thick and thin sulfate along with effervescent granules. Portions of exam assisted with Hospital provided stem threshing machine operator. Fluoroscopy time: 2.0 minutes DAP: 15.813 Gycm2 Images: 45 FINDINGS: Swallowing function is normal and there is no aspiration. The cervical esophagus has no definite cervical web. No Zenker's diverticulum or stricture. No cervical achalasia. The cervical thoracic junction appears normal. Barium pill rapidly progressed from the mouth to stomach with swallowing. The thoracic esophagus shows normal motility with patient upright and decreased primary peristaltic activity with some minimal tertiary contractions with prone imaging. There is no obstruction, stricture, or ulceration. Small intermittent sliding hiatal hernia only seen during prone Valsalva maneuver. No spontaneous reflux or reflux seen during water siphon test. No visible gastric outlet obstruction. FL/FL barium swallow IMPRESSION: 1. Decreased primary esophageal peristalsis with some minimal tertiary contractions when patient is positioned prone. Normal motility upright positioning. 2. Small intermittent sliding hiatal hernia only seen during prone Valsalva maneuver. No reflux.
[2021-02-04 10:20] LABS: Free T4 (Free Thyroxine) 1.09 ng/dL (0.71-1.85); Thyroid Stimulating Hormone 1.22 uIU/mL (0.32-4.0)
== END 2021-02-04 08:54 | disposition home or self-care (01) ==
LOC: HO.XRAY 08:53
PROVIDERS: PCP Internal Medicine; Visit Provider Internal Medicine
DX: E03.9 Hypothyroidism, unspecified (principal)
CPT/HCPCS: 36415; 74220; 84439; 84443

== ENCOUNTER → 2021-06-13 10:51 | Outpatient (BNVA) | payer OTHER, SELFPAY | PROVIDERS: PCP Internal Medicine; Visit Provider Nurse Practitioner Gerontology ==

== ENCOUNTER → 2021-06-16 13:03 | Outpatient (BNVA) | payer OTHER, SELFPAY | PROVIDERS: PCP Internal Medicine; Visit Provider Internal Medicine | DX: G47.33 Obstructive sleep apnea (adult) (pediatric) (principal); J44.9 Chronic obstructive pulmonary disease, unspecified; E66.01 Morbid (severe) obesity due to excess calories; J30.9 Allergic rhinitis, unspecified; Z68.43 Body mass index [BMI] 50.0-59.9, adult | CPT/HCPCS: 99212 ==

== ENCOUNTER 2021-07-19 13:23 | Outpatient (REF) | payer OTHER, SELFPAY ==
--- NOTE | ~2021-07-19 | MM_ITS ---
EXAMINATION: MM SCREENING DIGITAL BREAST TOMOSYNTHESIS, BILATERAL CLINICAL INFORMATION: Screening. Asymptomatic. The lifetime risk of breast cancer based on the Tyrer-Cuzick Model is 7%. COMPARISON: Mammography: 12/29/2019; outside exams 08/16/2017, 12/16/2015 ([facility] [place], [place]). TECHNIQUE: Digital breast tomosynthesis is performed in both the craniocaudal and mediolateral oblique views along with computer-aided detection (CAD). Synthesized 2D images are generated from the tomosynthesis. Additional views are obtained: Right CC x2, or right MLO, left CC x2, left MLO. FINDINGS: There are scattered areas of fibroglandular density (ACR BI-RADS breast composition Category b). Breast parenchymal is predominantly in the bilateral anterior breasts with remainder of the breasts fatty replaced. Background stromal and fibroglandular densities are similar to prior studies. There is no interval mass or architectural abnormality or abnormal calcifications. No developing density. No significant changes. MM/MM tomosynthesis screening BI IMPRESSION: There are no significant changes from prior study. ASSESSMENT: BI-RADS 2: Benign RECOMMENDATION: Routine annual mammography screening. This patient's information was entered into a reminder system with a target due date for their next mammogram.
== END 2021-07-19 13:24 | disposition home or self-care (01) ==
LOC: HO.MAMMO 13:23
PROVIDERS: PCP Internal Medicine; Visit Provider Internal Medicine
DX: Z12.31 Encounter for screening mammogram for malignant neoplasm of breast (principal)
CPT/HCPCS: 77063; 77067

== ENCOUNTER → 2021-07-21 12:54 | Outpatient (BNVA) | payer OTHER, SELFPAY | PROVIDERS: PCP Internal Medicine; Referring Provider Internal Medicine; Visit Provider Internal Medicine Cardiovascular Disease | DX: E66.01 Morbid (severe) obesity due to excess calories (principal); I10 Essential (primary) hypertension; Z68.43 Body mass index [BMI] 50.0-59.9, adult | CPT/HCPCS: 99212 ==

== ENCOUNTER → 2021-09-12 11:23 | Outpatient (BNVA) | payer OTHER, SELFPAY | PROVIDERS: PCP Internal Medicine; Visit Provider Nurse Practitioner Gerontology | DX: E11.42 Type 2 diabetes mellitus with diabetic polyneuropathy (principal); E11.21 Type 2 diabetes mellitus with diabetic nephropathy; Z79.4 Long term (current) use of insulin; E78.00 Pure hypercholesterolemia, unspecified; I10 Essential (primary) hypertension; E66.09 Other obesity due to excess calories; Z68.43 Body mass index [BMI] 50.0-59.9, adult | CPT/HCPCS: 82947; 99212 ==

== ENCOUNTER → 2021-09-19 14:36 | Outpatient (BNVA) | payer OTHER, SELFPAY | PROVIDERS: PCP Internal Medicine; Referring Provider Internal Medicine; Visit Provider Internal Medicine Cardiovascular Disease | DX: I10 Essential (primary) hypertension (principal) | CPT/HCPCS: 99212 ==

== ENCOUNTER → 2021-10-06 09:44 | Outpatient (BNVA) | payer OTHER, SELFPAY | PROVIDERS: PCP Internal Medicine; Referring Provider Internal Medicine; Visit Provider Physician Assistant | DX: E66.01 Morbid (severe) obesity due to excess calories (principal); Z68.43 Body mass index [BMI] 50.0-59.9, adult; K44.9 Diaphragmatic hernia without obstruction or gangrene; E03.9 Hypothyroidism, unspecified; J44.9 Chronic obstructive pulmonary disease, unspecified; E78.00 Pure hypercholesterolemia, unspecified; I10 Essential (primary) hypertension; E11.65 Type 2 diabetes mellitus with hyperglycemia; G47.33 Obstructive sleep apnea (adult) (pediatric); Z79.4 Long term (current) use of insulin; Z79.899 Other long term (current) drug therapy | CPT/HCPCS: 99202 ==

== ENCOUNTER → 2021-11-09 13:22 | Outpatient (BNVA) | payer OTHER, SELFPAY | PROVIDERS: PCP Internal Medicine; Visit Provider Internal Medicine | DX: G47.33 Obstructive sleep apnea (adult) (pediatric) (principal); J44.9 Chronic obstructive pulmonary disease, unspecified; J30.9 Allergic rhinitis, unspecified; E66.2 Morbid (severe) obesity with alveolar hypoventilation; Z68.43 Body mass index [BMI] 50.0-59.9, adult | CPT/HCPCS: 99212 ==

== ENCOUNTER 2021-12-19 10:48 | Outpatient (REF) | payer OTHER, SELFPAY ==
[2021-12-19 11:01] LABS: MANUAL DIFF FLAG NO
[2021-12-19 11:33] LABS: Basophils Percent Auto 0.3 % (0-2); Eosinophils Absolute Auto 0.3 X10*3/uL (0.0-0.4); Eosinophils Percent Auto 3.7 % (0-4); Hematocrit 39.2 % (37.0-47.0); Hemoglobin 11.7 g/dl (12.0-16.0); Imm Gran Abs Auto 0.05 X10*3/uL (0.00-0.03); Imm Gran Pct Auto 0.6 % (0.0-0.4); Lymphocytes Absolute Auto 1.7 X10*3/uL (1.2-4.9); Lymphocytes Percent Auto 21.3 % (20-40); Mean Corpuscular HGB Conc 29.8 g/dl (31.0-35.0); Mean Corpuscular Hemoglobin 24.5 pg (27.0-33.0); Mean Platelet Volume 10.7 fL (9.4-12.3); Monocytes Absolute Auto 0.6 X10*3/uL (0.1-1.2); Monocytes Percent Auto 7.7 % (2-11); Neutrophils Absolute Auto 5.1 x10*3/uL (2.0-8.3); Neutrophils Percent Auto 66.4 % (45-73); Platelet Count 232 X10*3/uL (160-400); Red Blood Count 4.78 X10*6/uL (4.20-5.50); Red Cell Distribution Width 16.4 % (11.0-16.0); White Blood Count 7.8 X10*3/uL (4.8-10.8)
[2021-12-19 11:51] LABS: Estimated Average Glucose 111 mg/dL; Hemoglobin A1c % 5.5 %
[2021-12-19 12:17] LABS: Alanine Aminotransferase 21 U/L (0-31); Albumin Level 4.1 g/dL (3.5-5.0); Alkaline Phosphatase 93 U/L (39-117); Anion Gap 14 (12-20); Aspartate Amino Transferase 16 U/L (5-31); Bilirubin Total < 0.2 mg/dL (0.0-1.0); Blood Urea Nitrogen 27 mg/dL (9-16); Calcium 9.2 mg/dL (8.4-10.2); Carbon Dioxide 23 mmol/L (22-29); Chloride 106 mmol/L (96-108); Cholesterol 126 mg/dL; Estimated Glomerular Filt Rate 41; Glucose Random 136 mg/dL (60-115); HDL Cholesterol 37 mg/dL; LDL Cholesterol Calculated 66 mg/dl; Potassium 4.6 mmol/L (3.3-5.1); Sodium 138 mmol/L (135-145); Total Protein 8.9 g/dL (6.5-8.0); Triglycerides 117 mg/dL
[2021-12-19 12:20] LABS: Free T4 (Free Thyroxine) 1.18 ng/dL (0.71-1.85); Thyroid Stimulating Hormone 3.09 uIU/mL (0.32-4.0); Vitamin D 25-OH Total 31.8 ng/mL (>30)
[2021-12-19 12:24] LABS: Creatinine Urine 93.74 mg/dL
[2021-12-19 12:48] LABS: Folate 7.7 ng/mL (> or = 4.0); Vitamin B12 1221 pg/mL (200-900)
== END 2021-12-19 10:49 | disposition home or self-care (01) ==
LOC: HO.LAB 10:48
PROVIDERS: Absent Provider Internal Medicine; PCP Internal Medicine; Visit Provider Nurse Practitioner Gerontology
DX: I10 Essential (primary) hypertension (principal); E11.65 Type 2 diabetes mellitus with hyperglycemia; E78.00 Pure hypercholesterolemia, unspecified; Z79.4 Long term (current) use of insulin
CPT/HCPCS: 36415; 80053; 80061; 82043; 82306; 82607; 82746; 83036; 84439; 84443; 85025

== ENCOUNTER → 2022-02-22 13:28 | Outpatient (BNVA) | payer OTHER, SELFPAY | PROVIDERS: PCP Internal Medicine; Visit Provider Internal Medicine | DX: G47.33 Obstructive sleep apnea (adult) (pediatric) (principal); J44.9 Chronic obstructive pulmonary disease, unspecified; J30.9 Allergic rhinitis, unspecified; E66.2 Morbid (severe) obesity with alveolar hypoventilation; E66.01 Morbid (severe) obesity due to excess calories; Z68.43 Body mass index [BMI] 50.0-59.9, adult | CPT/HCPCS: 99212 ==

== ENCOUNTER → 2022-03-01 12:50 | Outpatient (BNVA) | payer OTHER, SELFPAY | PROVIDERS: PCP Internal Medicine; Referring Provider Internal Medicine; Visit Provider Internal Medicine Cardiovascular Disease | DX: I10 Essential (primary) hypertension (principal); E78.00 Pure hypercholesterolemia, unspecified; Z79.899 Other long term (current) drug therapy | CPT/HCPCS: 93005; 99212 ==

== ENCOUNTER → 2022-06-20 11:08 | Outpatient (BNVA) | payer OTHER, SELFPAY | PROVIDERS: PCP Internal Medicine; Visit Provider Internal Medicine | DX: Z01.818 Encounter for other preprocedural examination (principal); R31.9 Hematuria, unspecified; J44.9 Chronic obstructive pulmonary disease, unspecified; E66.2 Morbid (severe) obesity with alveolar hypoventilation; G47.33 Obstructive sleep apnea (adult) (pediatric); Z68.43 Body mass index [BMI] 50.0-59.9, adult | CPT/HCPCS: 99202 ==

== ENCOUNTER 2022-06-21 12:24 | Outpatient (REF) | payer OTHER, SELFPAY ==
[2022-06-21 12:55] LABS: Appearance Urine Clear; Color Urine Yellow; Glucose Urine UA 500 mg/dL (Negative); Leukocyte Esterase Urine Moderate (2+) (Negative); Nitrite Urine Negative (Negative); UMIC TRIGGER UACC YES; Urine Blood Trace (Negative); Urine Ketones Negative (Negative); Urine Protein Trace mg/dL (Neg-Trace)
[2022-06-21 12:58] LABS: Bacteria Urine Trace (None Seen); Hyaline Casts Urine 0-2 /LPF (0-2); RBC Urine 0-2 /HPF (0-2); UACC Culture Trigger YES; WBC Urine >50 /HPF (0-5)
== END 2022-06-21 12:25 | disposition home or self-care (01) ==
LOC: HO.LAB 12:24
PROVIDERS: PCP Internal Medicine; Visit Provider Nurse Practitioner
DX: J44.9 Chronic obstructive pulmonary disease, unspecified (principal); J30.9 Allergic rhinitis, unspecified; E66.2 Morbid (severe) obesity with alveolar hypoventilation; R82.90 Unspecified abnormal findings in urine
CPT/HCPCS: 81001; 87086; 99212

== ENCOUNTER 2022-07-07 07:39 | Outpatient (REF) | payer OTHER, SELFPAY ==
--- NOTE | ~2022-07-07 | XR_ITS ---
EXAMINATION: XR HIP, LEFT CLINICAL INFORMATION: Pain COMPARISON: August 2019 TECHNIQUE: Two views of the left hip. FINDINGS: Redemonstration of chronic comminuted unhealed fracture of the left femoral neck, dystrophic changes around the left hip, soft tissue calcifications and new bone formations, fracture gap has not healed. There is migration of the left femoral shaft by approximately 2.4 cm cephalad. Adjacent pubic rami and iliac bone has not changed. XR/XR hip LT min 2V IMPRESSION: * Chronic unhealed comminuted fracture of the left femoral neck. * Dystrophic changes around the left hip, soft tissue calcifications and new bone formations. * migration of the left femoral shaft.
--- NOTE | ~2022-07-07 | XR_ITS ---
EXAMINATION: XR HIP, RIGHT , AP pelvis CLINICAL INFORMATION: Pain COMPARISON: None available at the time of this dictation. TECHNIQUE: Frontal and lateral views of the hip acquired. , AP pelvis FINDINGS: There is no evidence of acute fracture or dislocation right hip. There are mild to moderate degenerative arthritic changes of the hip evident by sclerotic changes of the acetabular roof and narrowing of the joint space. Mild degenerative changes of the symphysis pubis. Mild degenerative changes of the SI joints. Adjacent pubic rami are intact. Surrounding soft tissues are unremarkable. Old comminuted fracture of the left hip described on the x-ray of the left hip. XR/XR hip RT w [id number] IMPRESSION: * Right hip Mild to moderate degenerative osteoarthritis.
== END 2022-07-07 07:40 | disposition home or self-care (01) ==
LOC: HO.HOSX 07:39
PROVIDERS: Visit Provider Physician Assistant
DX: M16.52 Unilateral post-traumatic osteoarthritis, left hip (principal); M25.551 Pain in right hip
CPT/HCPCS: 73502; 99202

== ENCOUNTER 2022-07-11 09:02 | Outpatient (REF) | payer OTHER, SELFPAY ==
--- NOTE | ~2022-07-11 | XR_ITS ---
EXAMINATION: XR CHEST CLINICAL INFORMATION: Morbid/severe obesity due to excess calories COMPARISON: None TECHNIQUE: 2 views of the chest were obtained. FINDINGS: No significant abnormality is noted involving the heart, lungs, mediastinum, bony thorax or soft tissues. XR/XR chest 2V IMPRESSION: Unremarkable chest examination.
== END 2022-07-11 09:03 | disposition home or self-care (01) ==
LOC: HO.XRAY 09:02
PROVIDERS: PCP Internal Medicine; Visit Provider Internal Medicine
DX: E66.01 Morbid (severe) obesity due to excess calories (principal); E11.65 Type 2 diabetes mellitus with hyperglycemia; Z79.4 Long term (current) use of insulin
CPT/HCPCS: 71046

== ENCOUNTER → 2022-08-17 13:22 | Outpatient (BNVA) | payer OTHER, SELFPAY | PROVIDERS: PCP Internal Medicine; Referring Provider Internal Medicine; Visit Provider Internal Medicine Cardiovascular Disease | DX: I10 Essential (primary) hypertension (principal); E11.42 Type 2 diabetes mellitus with diabetic polyneuropathy; E66.01 Morbid (severe) obesity due to excess calories; E78.00 Pure hypercholesterolemia, unspecified; Z68.43 Body mass index [BMI] 50.0-59.9, adult; Z79.82 Long term (current) use of aspirin; Z79.4 Long term (current) use of insulin; Z79.899 Other long term (current) drug therapy | CPT/HCPCS: 99212 ==

== ENCOUNTER 2022-08-23 11:58 | Outpatient (REF) | payer OTHER, SELFPAY ==
--- NOTE | ~2022-08-23 | MM_ITS ---
EXAMINATION: MM SCREENING DIGITAL BREAST TOMOSYNTHESIS, BILATERAL CLINICAL INFORMATION: Screening. Asymptomatic. The lifetime risk of breast cancer based on the Tyrer-Cuzick Model is 7%. COMPARISON: Mammography: 07/19/2021, 12/29/2019, outside mammography 08/16/2017 and 12/16/2015. TECHNIQUE: Digital breast tomosynthesis is performed in both the craniocaudal and mediolateral oblique views along with computer-aided detection (CAD). Synthesized 2D images are generated from the tomosynthesis. Additional bilateral exaggerated CC views CAD bilateral additional MLO views are provided. FINDINGS: There are scattered areas of fibroglandular density (ACR BI-RADS breast composition Category b). There are no significant masses, abnormal calcifications, or other abnormalities. Parenchymal pattern is similar to prior studies. There is no developing density or architectural abnormality. The axilla and skin contours are unremarkable. No significant changes. MM/MM tomosynthesis screening BI IMPRESSION: No mammographic evidence of malignancy. ASSESSMENT: BI-RADS 1: Negative RECOMMENDATION: Routine annual mammography screening. This patient's information was entered into a reminder system with a target due date for their next mammogram.
== END 2022-08-23 11:59 | disposition home or self-care (01) ==
LOC: HO.MAMMO 11:58
PROVIDERS: Visit Provider Internal Medicine
DX: Z12.31 Encounter for screening mammogram for malignant neoplasm of breast (principal)
CPT/HCPCS: 77063; 77067

== ENCOUNTER → 2022-09-28 11:33 | Outpatient (BNVA) | payer OTHER, SELFPAY | PROVIDERS: PCP Internal Medicine; Visit Provider Nurse Practitioner | DX: Z12.11 Encounter for screening for malignant neoplasm of colon (principal); E66.2 Morbid (severe) obesity with alveolar hypoventilation; R31.9 Hematuria, unspecified; Z68.43 Body mass index [BMI] 50.0-59.9, adult | CPT/HCPCS: 99212 ==

== ENCOUNTER → 2022-10-18 13:37 | Outpatient (BNVA) | payer OTHER, SELFPAY | PROVIDERS: PCP Internal Medicine; Visit Provider Internal Medicine | DX: G47.33 Obstructive sleep apnea (adult) (pediatric) (principal); J44.9 Chronic obstructive pulmonary disease, unspecified; J30.9 Allergic rhinitis, unspecified; E66.2 Morbid (severe) obesity with alveolar hypoventilation; E66.01 Morbid (severe) obesity due to excess calories; Z68.43 Body mass index [BMI] 50.0-59.9, adult | CPT/HCPCS: 99212 ==

== ENCOUNTER 2023-01-02 10:44 | Outpatient (REF) | payer OTHER, SELFPAY | END 2023-01-02 10:45 | disposition home or self-care (01) | LOC: HO.SH 10:44 | PROVIDERS: Visit Provider Internal Medicine | DX: H93.293 Other abnormal auditory perceptions, bilateral (principal) | CPT/HCPCS: 92557 ==

== ENCOUNTER 2023-02-19 15:04 | Emergency (ER) | payer OTHER, SELFPAY ==
--- NOTE | ~2023-02-19 | CT_ITS ---
EXAMINATION: CTA CHEST PE STUDY CLINICAL INFORMATION: recent travel. SOB. PE? COMPARISON: No pertinent prior studies are available for comparison. TECHNIQUE: Prior to contrast administration, noncontrast localization images were obtained. After the administration of 80 mL of Omnipaque nonionic IV contrast, contiguous thin slice helical images were obtained through the thorax. Reformatted MIP images in the coronal and sagittal planes were obtained at the acquisition workstation. This CT examination was performed using dose optimization techniques as appropriate, variously including the following: *Automated exposure control *Adjustment of mA and/or kV according to patient size (this includes techniques or standardized protocols for targeted exams where dose is matched to indication/reason for exam; i.e. extremities or head) *Use of iterative reconstruction technique DLP: 575 mGy-cm. FINDINGS: The bolus timing on this study was acceptable for visualization of the pulmonary arterial tree. There are no intraluminal pulmonary arterial filling defects present to suggest pulmonary embolism. The lungs are clear. No abnormal pulmonary nodules or masses are appreciated. No significant hilar or mediastinal adenopathy. There is no evidence of pleural effusion or pneumothorax. The heart is normal in size. No evidence of ventricular septal bowing or right heart strain. Great vessels are normal. Otherwise the mediastinum is unremarkable. There is no pericardial effusion or pericardial thickening. Limited evaluation of the upper abdominal viscera demonstrates pneumobilia possibly from prior papillotomy. Gallbladder is not seen and presumably surgically absent.. CT/CT angio chest PE protocol IMPRESSION: 1. No evidence for pulmonary emboli. No focal airspace disease. 2. Partially visualized pneumobilia in the abdomen suggesting prior papillotomy and cholecystectomy. VTE: Negative
--- NOTE | ~2023-02-19 | XR_ITS ---
EXAMINATION: XR CHEST CLINICAL INFORMATION: Cough, shortness of breath COMPARISON: Chest 07/11/2022 TECHNIQUE: AP upright portable view of the chest was obtained. 1615 p.m. FINDINGS: Cardiac leads overlie the chest. The lungs are well expanded. No focal consolidation, interstitial pulmonary edema or pneumothorax. Mild central peribronchial thickening is noted, as before. No significant abnormality is noted involving the heart, mediastinum, bony thorax or soft tissues. XR/XR chest 1V IMPRESSION: No acute abnormality.
--- NOTE | ~2023-02-19 | US_ITS ---
EXAMINATION: US ABDOMEN LIMITED CLINICAL INFORMATION: Abdominal pain.. COMPARISON: Correlation made with CT performed the same day. TECHNIQUE: Real-time imaging of the right upper quadrant abdominal viscera. FINDINGS: There is limitation related to patient body habitus. PANCREAS: Visualized portions of the head and body of the pancreas are within normal limits. The tail of the pancreas is obscured by bowel gas. LIVER: Normal. The liver is normal in size. The liver contour is normal. Parenchymal echogenicity is normal. No focal hepatic lesion. There is no intrahepatic biliary duct dilatation seen. There are echogenic areas within the biliary ducts left lobe of the liver. GALLBLADDER: The gallbladder is not visualized. COMMON BILE DUCT: Normal in caliber measuring 0.6 cm in diameter. RIGHT KIDNEY: Normal. No hydronephrosis. No renal calculi or focal parenchymal lesions. The kidney measures 11.1 cm in maximum dimension. FREE FLUID: None. US/US abdomen limited IMPRESSION: The gallbladder is not seen and may have been surgically removed previously. Echogenic areas in the biliary ducts left lobe of the liver consistent with pneumobilia as seen on recent CT. No evidence of significant biliary dilatation.
[2023-02-19 15:14] VITALS: BP 134/59; BP 154/80; PULSE 85; PULSE 88; RESP 20; TEMP 36.7; O2SAT 92; O2SAT 95; BMI 55.7
--- NOTE | 2023-02-19 15:15 | ED_ITS ---
HPI - SOB/Dyspnea General Chief Complaint: Dyspnea Stated Complaint: Diff breathing, COPD Time Seen by Provider: 02/19/23 15:14 Source: patient, EMS, RN notes reviewed and old records reviewed Mode of arrival: EMS History of Present Illness HPI Narrative: 57-year-old female with a past medical history of COPD, hypoventilation associated with obesity, diabetes, SHANIQUA with use of BiPAP, GERD, hypothyroid, anxiety, asthma, presenting to the ED via EMS complaining of dry cough and SOB starting last night with associated chest tightness. Per EMS patient was satting 92% on room air, given albuterol and DuoNeb with treatment currently running on ED arrival. Patient admits to returning from [place] yesterday. Denies fever, pedal edema, calf pain, sick contacts, abdominal pain, nausea/vomiting. Admits to using inhalers at home without relief MD elicited complaint: shortness of breath Related Data Home Medications Medication Instructions Recorded Confirmed doxepin 25 mg capsule 25 mg PO BEDTIME 03/01/22 12/06/22 Previous Rx's Medication Instructions Recorded CPAP full face mask medium AF 20 #1 ea 05/24/20 bilevel pressure 25/16 cm humidified air levocetirizine 5 mg tablet 5 mg PO DAILY allergy 30 days #30 02/17/21 tabs triamcinolone acetonide 55 mcg 2 spray intranasal DAILY 30 days 06/16/21 nasal spray aerosol (Nasacort) #16.9 mL doxepin 100 mg capsule 100 mg PO BEDTIME 90 days #90 caps 01/10/22 blood sugar diagnostic (FreeStyle 1 strip miscellaneous DAILY 30 04/24/22 Lite Strips) days #50 strips flash glucose scanning reader #1 ea 05/26/22 (FreeStyle Telma 2 [place]) flash glucose sensor (FreeStyle #2 ea 05/26/22 Telma 2 Sensor kit) peg 3350-electrolytes 236 240 ml PO Q10M 1 day #4,000 mL 06/20/22 gram-22.74 gram-6.74 gram-5.86 gram solution (Golytely) levothyroxine 75 mcg tablet 75 mcg PO DAILY 90 days #90 tabs 06/24/22 blood pressure monitor (Blood #1 ea 07/13/22 Pressure Kit) lancets 28 gauge #100 ea 08/21/22 pen needle, diabetic 32 gauge x 1 ea subcut DAILY 90 days #100 ea 08/21/22 5/32 (BD Ultra-Fine Veena Pen Needle) sennosides 8.6 mg-docusate sodium 2 tab-cap (2 x 8.6-50 mg) PO 09/06/22 50 mg tablet (Senna-S) BEDTIME 30 days #60 tabs amlodipine 10 mg tablet 10 mg PO DAILY 90 days #90 tabs 09/08/22 dulaglutide 3 mg/0.5 mL 3 mg (0.5 mL) subcut QWEEK 28 days 10/14/22 subcutaneous pen injector #2 mL (Trulicity) empagliflozin 10 mg tablet 10 mg PO DAILY #30 tabs 10/14/22 (Jardiance) sertraline 100 mg tablet 100 mg PO DAILY 90 days #90 tabs 10/14/22 fluticasone 232 mcg-salmeterol 14 1 inh inhalation BID copd 30 days 10/18/22 mcg/actuation breath activated #1 ea powdr (AirDuo RespiClick) aspirin 81 mg tablet,delayed 81 mg PO DAILY #90 tabs 11/07/22 release insulin glargine 100 unit/mL (3 26 unit (0.26 mL) subcut DAILY 90 12/06/22 mL) subcutaneous pen (Lantus days #23.4 ea Solostar U-100 Insulin) metformin 500 mg tablet,extended 500 mg PO BID 90 days #180 tabs 12/07/22 release 24 hr cholecalciferol (vitamin D3) 50 50 mcg PO DAILY 90 days #90 caps 12/27/22 mcg (2,000 unit) capsule atorvastatin 80 mg tablet 80 mg PO QPM 90 days #90 tabs 01/08/23 oxycodone 30 mg tablet 30 mg PO BID PRN pain 30 days #60 01/19/23 tabs Ventolin HFA 90 mcg/actuation 2 puff inhalation Q4-6H PRN for 02/19/23 aerosol inhaler (albuterol sulfate) wheezing #18 ea carvedilol 25 mg tablet 25 mg PO BID #180 tabs 02/20/23 prednisone 20 mg tablet 60 mg (3 x 20 mg) PO DAILY 5 days 02/20/23 #15 tabs Allergies Allergy/AdvReac Type Severity Reaction Status Date / Time lisinopril AdvReac Severe hyperkalemi Verified 12/06/22 15:04 a Review of Systems 2 Review of Systems: Constitutional: No Fever, No Chills, No Fatigue, No Malaise ENT/Mouth: No Ear Pain, No Nasal Congestion, No sore throat, No Rhinorrhea, No Swallowing Difficulty Eyes: No Eye Pain, No Swelling, No Redness, No Vision Changes Cardiovascular: + Chest tightness, + SOB, + Dyspnea on Exertion, No Orthopnea, No Edema, No Palpitations Respiratory: + Cough, No Sputum, + Wheezing, No Smoke Exposure, No Dyspnea Gastrointestinal: No Nausea, No Vomiting, No Diarrhea, No Constipation, No Abdominal pain Genitourinary: No Dysuria, No Urinary Frequency, No Hematuria, No Flank Pain Musculoskeletal: No joint pain, No Myalgias, No Joint Swelling Skin: No Skin Lesions, No rash Neuro: No Weakness, No Dizziness, No Headache Yes all other systems are reviewed and are negative Constitutional: Constitutional: Reports as per [facility] Past Medical History Attestation statement: The following information was validated with the patient. Source: old records reviewed Medical History Allergic rhinitis COPD (chronic obstructive pulmonary disease) Hyperkalemia Hypoventilation associated with obesity syndrome Left ventricular hypertrophy Diabetic nephropathy Opioid dependence SHANIQUA (obstructive sleep apnea) Morbid obesity GERD (gastroesophageal reflux disease) Migraines Hypothyroidism Vitamin D deficiency Anxiety Essential hypertension Type 2 diabetes mellitus with diabetic polyneuropathy Lumbar back pain Asthma Surgical History History of hip surgery Hx of bladder endoscopy Deficient knowledge of leg surgery Hx of spinal surgery Family History Family History Father HTN (hypertension) SHANIQUA (obstructive sleep apnea) Prostate cancer Additional heart attack (anterolateral wall) Mother Asthma Diabetes Brother Epilepsy Sister HTN (hypertension) Maternal Aunt Throat cancer Social History Social History Household Members Other:: brother Housing: Apartment Alcohol intake: never Patient Tobacco Use Status: Former Tobacco user Quit Date: 2009 Years Smoked: 4 +/- Smoked in Last 30 Days: No e-Cigarette/Vaping Use: Never Used Second Hand Smoke Exposure: No Use of substances other than those prescribed or required for medical reasons: No Advance Directives: No Advance Directives Information Provided: Yes service: No Current occupational status: disabled Cognitive needs: Yes (cane ) Hearing needs: No Vision needs: Yes (glasses ) Physical Exam 2 Vital Signs: Vital Signs: Last Vital Signs Temp 98.3 F 02/19/23 22:35 Pulse 78 02/19/23 22:35 Resp 15 02/19/23 22:35 BP 129/54 L 02/19/23 22:35 Pulse Ox 93 02/19/23 22:35 O2 Del Method Room Air 02/19/23 22:35 BMI result Body Mass Index 55.7 Const: General: cooperative, healthy appearing and no acute distress O rientation/consciousness: patient oriented x3 Limitations: no limitations HEENT: Head: Yes normal to inspection and Yes atraumatic Ears: hearing grossly normal bilaterally General nose exam: Normal external nose present Face and sinus: Yes normal facial exam Eyes: General: appearance normal, both eyes and all related structures EOM: EOMs intact bilaterally Neck: Neck: Yes normal visual inspection and Yes no meningeal signs Chest: Chest palpation & inspection: normal inspection of the chest Resp: Effort & Inspection: labored and no respiratory distress A uscultation: wheezes expiratory wheezes, inspiratory wheezes and throughout Cardio: Rate: regular rate Heart sounds: S1 normal heart sound present and S2 normal heart sound present GI: Inspection: Yes normal to inspection Palpation (GI): Soft to palpation, nontender, no guarding and not rigid Skin: Rashes: no rashes Wounds: no wounds Neuro: General: patient oriented x3, tone normal, moves all extremities and no meningeal signs Cranial nerves: Yes CN's II-XII intact bilaterally Gait exam (Neuro): Normal gait present Extrem: General: Yes normal to inspection, Yes no pedal edema and Yes no calf tenderness Course Course Course Narrative: -1630--ED care transferred to [facility] pending labs and imaging and re-evaluation Reevaluation(s) Reevaluation #1: Patient states she feel better. Wheezing has improved significantly. On bed rest O2 saturation 95%. Patient would like to be discharged, but first admission was discussed.. On ambulation patient's O2 saturation dropped to 92- 93%. Case was discussed with hospitalist Dr. Tripp who evaluated patient and states if patient's chest CTA came back negative for PE patient could be discharged and states due to patient's Obesity and pmh of COPD and Asthma 92% oxygen saturation on ambulation is fine and normal. Chest CTA came back negative for PE but does show pneumobilia as per radiologist due to gallbladder being removed. Patient herself denies ever having any abdominal surgery and gallbladder removal. This was discussed with radiologist recommend doing ultrasound. Ultrasound confirmed pneumobilia and shows there is no gallbladder and patient had gallbladder removed in the past. Patient to be discharged with oral steroids as recommended by Dr. Tripp Time: 01:18 Medications Administered Discontinued Medications Generic Name Dose Route Start Last Admin Trade Name Freq PRN Reason Stop Dose Admin Albuterol Sulfate 7.5 mg/ 0 mg 02/19/23 16:12 02/19/23 16:32 Albuterol/Ipratropium 3 ml INHALE 02/19/23 16:13 5 each ONCE ONE Administration Magnesium Sulfate 2 gm in 50 mls @ 25 mls/hr 02/19/23 15:24 02/19/23 16:57 Magnesium Sulfate/H2o IV 02/19/23 17:23 Infused ONCE ONE Infusion Iohexol 100 ml 02/19/23 19:44 02/19/23 19:45 Iohexol 350 Mg/Ml 100 Ml Infus..Btl IV 02/19/23 19:45 80 ml ONCE ONE Administration Methylprednisolone Sodium Succinate 125 mg 02/19/23 15:24 02/19/23 16:00 Methylprednisolone Sod Succ 125 Mg/2 Ml Vial IVPUSH 02/19/23 15:25 125 mg ONCE ONE Administration Medical Decision Making Medical Decision Making MDM Narrative: 57-year-old female with a past medical history of COPD, hypoventilation associated with obesity, diabetes, SHANIQUA with use of BiPAP, GERD, hypothyroid, anxiety, asthma, presenting to the ED via EMS complaining of dry cough and SOB starting last night with associated chest tightness. On exam satting 100% on non-rebreather, 95% on room air, diffuse inspiratory and expiratory wheezing noted, dry cough appreciated, no pitting edema or calf tenderness. Concern for COPD/asthma exacerbation vs viral syndrome vs pneumonia. Lower suspicion for ACS/PE, PTX, DVT, dissection at this time Plan: EKG, labs, CXR, viral testing, DuoNeb currently running, IV Solu-Medrol, IV magnesium, re-evaluate Please refer to course for remaining clinical decision making, interpretation of labs/imaging results, and discussions with consultants and/or family members. Differential Diagnosis Differential Diagnoses: The differential diagnosis associated with the presentation includes As above Admission/Observation Consideration of admission/observation: Escalation of care including admission/observation considered Lab Data MDM Lab Attestation statement: I reviewed the patient's lab results. 02/19/23 15:59 02/19/23 15:59 Labs: Lab Results 02/19/23 02/19/23 02/19/23 Range/Units 15:58 15:59 16:20 WBC 8.5 (4.8-10.8) X10*3/uL RBC 5.35 (4.20-5.50) X10*6/uL Hgb 13.2 (12.0-16.0) g/dl Hct 43.8 (37.0-47.0) % MCV 81.9 (80.0-98.0) fL MCH 24.7 L (27.0-33.0) pg MCHC 30.1 L (31.0-35.0) g/dl RDW 16.5 H (11.0-16.0) % Plt Count 268 (160-400) X10*3/uL MPV 10.1 (9.4-12.3) fL Immature Gran % (Auto) 0.2 (0.0-0.4) % Neut % (Auto) 72.4 (45-73) % Lymph % (Auto) 15.1 L (20-40) % Greene % (Auto) 7.6 (2-11) % Eos % (Auto) 4.5 H (0-4) % Baso % (Auto) 0.2 (0-2) % Lymph # (Auto) 1.3 (1.2-4.9) X10*3/uL Greene # (Auto) 0.6 (0.1-1.2) X10*3/uL Eos # (Auto) 0.4 (0.0-0.4) X10*3/uL Baso # (Auto) 0.0 (0.0-0.2) X10*3/uL Abs Immat Gran (auto) 0.02 (0.00-0.03) X10*3/uL Absolute Neuts (auto) 6.1 (2.0-8.3) x10*3/uL Absolute Nucleated RBC 0.000 (0.0-0.012) X10*3/uL Nucleated RBC % (auto) 0.0 (0.0-0.2) /100WBC PT 12.6 (11.1-13.3) SEC INR 1.0 (0.9-1.1) D-Dimer High Sensitivty 176 NG/ML Sodium 140 (135-145) mmol/L Potassium 4.5 (3.3-5.1) mmol/L Chloride 108 (96-108) mmol/L Carbon Dioxide 25 (22-29) mmol/L Anion Gap 12 (12-20) BUN 21 H (9-16) mg/dL Creatinine 0.99 (0.5-1.4) mg/dL Estim Creat Clear Calc 84.4 Estimated GFR 58 Random Glucose 93 (60-115) mg/dL Calcium 9.6 (8.4-10.2) mg/dL Magnesium 2.1 (1.6-2.6) mg/dL Total Bilirubin 0.4 (0.0-1.0) mg/dL Direct Bilirubin 0.2 (0.0-0.5) mg/dL AST 13 (5-31) U/L ALT 14 (0-31) U/L Alkaline Phosphatase 89 (39-117) U/L Troponin I High Sens < 2.7 (<3.5-17.0) ng/L B-Natriuretic Peptide 29 (<100) pg/mL Total Protein 8.0 (6.5-8.0) g/dL Albumin 4.0 (3.5-5.0) g/dL COVID-19 ([facility]) Negative (Negative) COVID-19 Clin Com See Note Influenza Type A ([facility]) Negative (Negative) Influenza Type B ([facility]) Negative (Negative) Influenza A & B Note See Note 02/19/23 Range/Units 18:44 WBC (4.8-10.8) X10*3/uL RBC (4.20-5.50) X10*6/uL Hgb (12.0-16.0) g/dl Hct (37.0-47.0) % MCV (80.0-98.0) fL MCH (27.0-33.0) pg MCHC (31.0-35.0) g/dl RDW (11.0-16.0) % Plt Count (160-400) X10*3/uL MPV (9.4-12.3) fL Immature Gran % (Auto) (0.0-0.4) % Neut % (Auto) (45-73) % Lymph % (Auto) (20-40) % Greene % (Auto) (2-11) % Eos % (Auto) (0-4) % Baso % (Auto) (0-2) % Lymph # (Auto) (1.2-4.9) X10*3/uL Greene # (Auto) (0.1-1.2) X10*3/uL Eos # (Auto) (0.0-0.4) X10*3/uL Baso # (Auto) (0.0-0.2) X10*3/uL Abs Immat Gran (auto) (0.00-0.03) X10*3/uL Absolute Neuts (auto) (2.0-8.3) x10*3/uL Absolute Nucleated RBC (0.0-0.012) X10*3/uL Nucleated RBC % (auto) (0.0-0.2) /100WBC PT (11.1-13.3) SEC INR (0.9-1.1) D-Dimer High Sensitivty NG/ML Sodium (135-145) mmol/L Potassium (3.3-5.1) mmol/L Chloride (96-108) mmol/L Carbon Dioxide (22-29) mmol/L Anion Gap (12-20) BUN (9-16) mg/dL Creatinine (0.5-1.4) mg/dL Estim Creat Clear Calc Estimated GFR Random Glucose (60-115) mg/dL Calcium (8.4-10.2) mg/dL Magnesium (1.6-2.6) mg/dL Total Bilirubin (0.0-1.0) mg/dL Direct Bilirubin (0.0-0.5) mg/dL AST (5-31) U/L ALT (0-31) U/L Alkaline Phosphatase (39-117) U/L Troponin I High Sens < 2.7 (<3.5-17.0) ng/L B-Natriuretic Peptide (<100) pg/mL Total Protein (6.5-8.0) g/dL Albumin (3.5-5.0) g/dL COVID-19 ([facility]) (Negative) COVID-19 Clin Com Influenza Type A ([facility]) (Negative) Influenza Type B ([facility]) (Negative) Influenza A & B Note Independent Interpretation I performed an independent interpretation of an: EKG (EKG normal sinus rhythm at a rate of 71. ND interval 154. Low-voltage QRS. QTC 423. No STEMI) Radiology Impression Discussion of test interpretation with radiology: I have reviewed the radiologist's reading. Independent Historian Clinical information obtained from an independent historian. History obtained from or confirmed by: EMS External Record Review External record reviewed: Inpatient record, Office record, Outpatient record, Prior outpatient labs, Prior outpatient radiology, Primary care record and Outside ED record Tests considered The following testing was considered but not selected: As above Chronic Conditions Patient?s care impacted by: Hypertension and Other (Asthma/COPD) Critical Care Time Critical Care Time Critical Care Time: Yes Total Critical Care Time: 50 Attestation: I have personally provided critical care time exclusive of time spent on separately billable procedures. Time includes review of lab data, radiology results, discussion with consultants, and monitoring for potential decompensation. Intervention performed as documented. Discharge Plan Discharge Clinical Impression: Asthma with exacerbation Patient Disposition: Home, Self-Care Instructions: Asthma (DC) Additional Instructions: Se recomienda utilizar inhalador y nebulizador de albuterol en casa. Le jan?n el waqas con esteroides. Micheal un seguimiento con sandoval proveedor de atenci?n primaria. Regrese al servicio de urgencias de inmediato si presenta dolor en el pecho, dificultad para respirar, hinchaz?n de las piernas, dolor en la pantorrilla, tos con francheska, pleures?a, debilidad, mareos, tos con francheska, fiebre, escalofr?os o cualquier otro s?ntoma preocupante. Prescriptions: New prednisone 20 mg tablet 60 mg PO DAILY 5 Days Qty: 15 0RF No Action (DME) CPAP full face mask medium AF 20 bilevel pressure 25/16 cm humidified air See Rx Instructions .Route .MEDSUPPLY Qty: 1 0RF Rx Instructions: As directed levocetirizine 5 mg tablet 5 mg PO DAILY 30 Days Qty: 30 1RF doxepin 100 mg capsule 100 mg PO BEDTIME 90 Days Qty: 90 0RF FreeStyle Lite Strips Strip 1 strip miscellaneous DAILY 30 Days Qty: 50 11RF (DME) FreeStyle Telma 2 Sensor Kit See Rx Instructions .ROUTE .MEDSUPPLY Qty: 2 11RF Rx Instructions: every 2 weeks (DME) FreeStyle Telma 2 [place] Misc See Rx Instructions .ROUTE .MEDSUPPLY Qty: 1 0RF Rx Instructions: As directed levothyroxine 75 mcg tablet 75 mcg PO DAILY 90 Days Qty: 90 2RF (DME) lancets 28 gauge misc See Rx Instructions topical TID Qty: 100 0RF Rx Instructions: daily pen needle, diabetic [BD Ultra-Fine Veena Pen Needle] 32 gauge x 5/32 needle 1 ea subcut DAILY 90 Days Qty: 100 3RF amlodipine 10 mg tablet 10 mg PO DAILY 90 Days Qty: 90 2RF Trulicity 3 mg/0.5 mL pen injector 3 mg subcut QWEEK 28 Days Qty: 2 6RF Jardiance 10 mg tablet 10 mg PO DAILY Qty: 30 5RF sertraline 100 mg tablet 100 mg PO DAILY 90 Days Qty: 90 1RF aspirin 81 mg tablet,delayed release (DR/EC) 81 mg PO DAILY Qty: 90 3RF metformin 500 mg tablet extended release 24 hr 500 mg PO BID 90 Days Qty: 180 2RF cholecalciferol (vitamin D3) 50 mcg (2,000 unit) capsule 50 mcg PO DAILY 90 Days Qty: 90 3RF atorvastatin 80 mg tablet 80 mg PO QPM 90 Days Qty: 90 1RF oxycodone 30 mg tablet 30 mg PO BID PRN (Reason: pain) 30 Days Qty: 60 0RF albuterol sulfate [Ventolin HFA] 90 mcg/actuation HFA aerosol inhaler 2 puff inhalation Q4-6H PRN (Reason: for wheezing) Qty: 18 3RF carvedilol 25 mg tablet 25 mg PO BID Qty: 180 3RF sennosides-docusate sodium [Senna-S] 8.6-50 mg tablet 2 tab-cap PO BEDTIME 30 Days Qty: 60 5RF (DME) blood pressure monitor [Blood Pressure Kit] Kit See Rx Instructions .ROUTE .MEDSUPPLY Qty: 1 0RF Rx Instructions: As directed XXL blood pressure cuff insulin glargine [Lantus Solostar U-100 Insulin] 100 unit/mL (3 mL) insulin pen 26 unit subcut DAILY 90 Days Qty: 23.4 3RF Rx Instructions: taking 32 units - advised 26 units triamcinolone acetonide [Nasacort] 55 mcg aerosol,spray 2 spray intranasal DAILY 30 Days Qty: 16.9 5RF Rx Instructions: administer into each nostril doxepin 25 mg capsule 25 mg PO BEDTIME peg 3350-electrolytes [Golytely] 236-22.74-6.74 -5.86 gram recon soln 240 ml PO Q10M 1 Days Qty: 4000 0RF Rx Instructions: until fecal effluent is clear; do not exceed a total volume of 2,000 mL fluticasone propion-salmeterol [AirDuo RespiClick] 232-14 mcg/actuation aerosol powdr breath activated 1 inh inhalation BID 30 Days Qty: 1 5RF Stand Alone Forms: Work/School Release Interventions: ED Discharge Assessment Last Done: 02/20/23 01:44 Discharge Date/Time: 02/20/23 01:45 Print Language: Nigerien
--- NOTE | 2023-02-19 15:23 | ECG_ITS ---
Test Reason : DYSPNEA Blood Pressure : / mmHG Vent. Rate : 071 BPM Atrial Rate : 071 BPM P-R Int : 154 ms QRS Dur : 084 ms QT Int : 390 ms P-R-T Axes : 068 032 049 degrees QTc Int : 423 ms Normal sinus rhythm Low voltage QRS Borderline ECG When compared with ECG of 09-OCT-2020 11:43, No significant change was found Referred By: Sue Orr Electronically Signed By:ALFRED ABREU
[2023-02-19] MEDS: methylPREDNISolone Sod Succ 125 MG/2 ML VIAL IVPUSH (16:00)
[2023-02-19 16:05] LABS: MANUAL DIFF FLAG NO
[2023-02-19] MEDS: Magnesium Sulfate/H2O 2 GM/50 ML PIGGYBACK IV (16:07)
[2023-02-19 16:08] LABS: Basophils Percent Auto 0.2 % (0-2); Eosinophils Absolute Auto 0.4 X10*3/uL (0.0-0.4); Eosinophils Percent Auto 4.5 % (0-4); Hematocrit 43.8 % (37.0-47.0); Hemoglobin 13.2 g/dl (12.0-16.0); Imm Gran Abs Auto 0.02 X10*3/uL (0.00-0.03); Imm Gran Pct Auto 0.2 % (0.0-0.4); Lymphocytes Absolute Auto 1.3 X10*3/uL (1.2-4.9); Lymphocytes Percent Auto 15.1 % (20-40); Mean Corpuscular HGB Conc 30.1 g/dl (31.0-35.0); Mean Corpuscular Hemoglobin 24.7 pg (27.0-33.0); Mean Corpuscular Volume 81.9 fL (80.0-98.0); Mean Platelet Volume 10.1 fL (9.4-12.3); Monocytes Absolute Auto 0.6 X10*3/uL (0.1-1.2); Monocytes Percent Auto 7.6 % (2-11); Neutrophils Absolute Auto 6.1 x10*3/uL (2.0-8.3); Neutrophils Percent Auto 72.4 % (45-73); Platelet Count 268 X10*3/uL (160-400); Red Blood Count 5.35 X10*6/uL (4.20-5.50); Red Cell Distribution Width 16.5 % (11.0-16.0); White Blood Count 8.5 X10*3/uL (4.8-10.8)
[2023-02-19 16:20] LABS: COVID-19 Test Negative (Negative); IDNOW Serial# BCCEAD1C
[2023-02-19 16:22] LABS: Alanine Aminotransferase 14 U/L (0-31); Alkaline Phosphatase 89 U/L (39-117); Anion Gap 12 (12-20); Aspartate Amino Transferase 13 U/L (5-31); Bilirubin Direct 0.2 mg/dL (0.0-0.5); Bilirubin Total 0.4 mg/dL (0.0-1.0); Blood Urea Nitrogen 21 mg/dL (9-16); Calcium 9.6 mg/dL (8.4-10.2); Carbon Dioxide 25 mmol/L (22-29); Chloride 108 mmol/L (96-108); Creatinine Clr Calc Pharmacy 84.4; Estimated Glomerular Filt Rate 58; Glucose Random 93 mg/dL (60-115); Magnesium 2.1 mg/dL (1.6-2.6); Potassium 4.5 mmol/L (3.3-5.1); Sodium 140 mmol/L (135-145)
[2023-02-19 16:26] LABS: B Type Natriuretic Peptide 29 pg/mL (<100)
[2023-02-19 16:29] LABS: Troponin-I High Sensitivity < 2.7 ng/L (<3.5-17.0)
[2023-02-19] MEDS: Albuterol Sulfate 7.5 MG, Albuterol/Iprat 2.5/0.5MG 3 ML 3 ML INHALE (16:32)
[2023-02-19 16:35] VITALS: PULSE 68; RESP 24; O2SAT 93
[2023-02-19 16:41] LABS: IDNOW Serial# BCCEAD1C; Influenza A Negative (Negative); Influenza B2 Negative (Negative)
[2023-02-19 16:48] LABS: Prothrombin Time 12.6 SEC (11.1-13.3)
[2023-02-19 18:13] LABS: D Dimer High Sensitivity 176 NG/ML
[2023-02-19 18:24] VITALS: BP 141/60; PULSE 76; RESP 15; O2SAT 92
[2023-02-19 18:31] VITALS: O2SAT 92
[2023-02-19 19:12] LABS: Troponin-I High Sensitivity < 2.7 ng/L (<3.5-17.0)
[2023-02-19] MEDS: iohexoL 350 MG/ML 100 ML INFUS..BTL IV (19:45)
--- NOTE | 2023-02-19 19:48 | PC.NURSE ---
I assumed car eof the pt at 1900. Pt is resting in bed at this time, A&Ox4, GCS 15. Pt stated she feels better, denies pain. No apparent distress or shortness of breath. Pt has a 20g IV in her left AC. Pt CTA obtained, waiting results at this time.
[2023-02-19 20:23] VITALS: BP 131/59; PULSE 77; RESP 19; TEMP 37; O2SAT 93
[2023-02-19 22:35] VITALS: BP 129/54; PULSE 78; RESP 15; TEMP 36.8; O2SAT 93
--- NOTE | 2023-02-20 01:07 | PC.NURSE ---
Pt ambulated to bathroom with cane and standby assist. Pt is steady, but has a limp. Pt had no complaints while walking to bathroom.
== END 2023-02-20 01:45 | disposition home or self-care (01) ==
PROVIDERS: Physician Assistant; Emergency Provider Emergency Medicine; PCP Internal Medicine
DX: J45.901 Unspecified asthma with (acute) exacerbation (principal); J44.9 Chronic obstructive pulmonary disease, unspecified; R06.02 Shortness of breath; R05.9 Cough, unspecified; E11.9 Type 2 diabetes mellitus without complications; Z79.4 Long term (current) use of insulin; Z20.822 Contact with and (suspected) exposure to COVID-19; Z20.828 Contact with and (suspected) exposure to other viral communicable diseases; Z79.899 Other long term (current) drug therapy; Z87.891 Personal history of nicotine dependence
CPT/HCPCS: 36415; 71045; 71275; 76705; 80048; 80076; 83735; 83880; 84484; 85025; 85379; 85610; 87502; 87635; 93005; 94640; 96365; 96375; 99284; 99285; J2930; J3475; Q9967

== ENCOUNTER 2023-02-21 09:32 | Outpatient (AMB) | payer OTHER, SELFPAY ==
[2023-02-21 10:13] VITALS: BP 120/54; PULSE 66; BMI 55.5
--- NOTE | 2023-02-21 10:13 | A.OFFVIS_ITS ---
Intake Vital Signs 02/21/23 10:13 Height 5 ft 2 in Weight 303 lb 5.697 oz BMI 55.5 BP 120/54 L Blood Pressure Location Lt radial Position Sitting Pulse 66 Intake Visit Reasons: 6 mth f/up Intake Note: 6mth f/u System Administration Manager Required: Yes System Administration Manager Name: maría elena sepulveda [id number] Allergies lisinopril Adverse Reaction (Severe, Verified 02/21/23 11:39) hyperkalemia Medication List - Last Reconciled 02/21/23 by Leoncio Le MD amlodipine 10 mg PO DAILY 90 days aspirin 81 mg PO DAILY atorvastatin 80 mg PO QPM 90 days blood pressure monitor (Blood Pressure Kit) As directed XXL blood pressure cuff blood sugar diagnostic (FreeStyle Lite Strips) 1 strip miscellaneous DAILY 30 days carvedilol 25 mg PO BID cholecalciferol (vitamin D3) 50 mcg PO DAILY 90 days [CPAP full face mask medium AF 20 bilevel pressure 25/16 cm humidified air As directed] doxepin 100 mg PO BEDTIME 90 days doxepin 25 mg PO BEDTIME dulaglutide (Trulicity) 3 mg (0.5 mL) subcut QWEEK 28 days empagliflozin (Jardiance) 10 mg PO DAILY flash glucose scanning reader (SkyhoodStyle Telma 2 [place]) As directed flash glucose sensor (FreeStyle Telma 2 Sensor kit) every 2 weeks fluticasone propion-salmeterol 232-14 mcg/actuation (AirDuo RespiClick) 1 inh inhalation BID 30 days insulin glargine (Lantus Solostar U-100 Insulin) 26 units (0.26 mL) subcut DAILY 90 days lancets daily levocetirizine 5 mg PO DAILY 30 days levothyroxine 75 mcg PO DAILY 90 days metformin ER 500 mg PO BID 90 days oxycodone 30 mg PO BID PRN 30 days peg 3350-electrolytes 236-22.74-6.74 -5.86 gram (Golytely) 240 mL PO Q10M 1 day pen needle, diabetic (BD Ultra-Fine Veena Pen Needle) 1 ea subcut DAILY 90 days prednisone 60 mg (3 x 20 mg) PO DAILY 5 days sennosides-docusate sodium 8.6-50 mg (Senna-S) 2 tab-caps (2 x 8.6-50 mg) PO BEDTIME 30 days sertraline 100 mg PO DAILY 90 days triamcinolone acetonide (Nasacort) 2 sprays intranasal DAILY 30 days Ventolin HFA 90 mcg/actuation (albuterol sulfate) 2 puffs inhalation Q4-6H PRN NS HPI HPI Comments History of Present Illness Details Pleasant 57-year-old female who is here for follow-up. She has background history of hypertension. She has been doing well. 02/21/2023: She returns for follow-up. B lood pressure control is good. She is taking amlodipine 10 mg daily along with carvedilol 25 mg twice a day. Blood pressure control is good. She is denying chest discomfort shortness of breath. Overall clinically stable. [facility]LY [facility] Medical History Allergic rhinitis COPD (chronic obstructive pulmonary disease) Hyperkalemia Hypoventilation associated with obesity syndrome Left ventricular hypertrophy Diabetic nephropathy Opioid dependence SHANIQUA (obstructive sleep apnea) Morbid obesity GERD (gastroesophageal reflux disease) Migraines Hypothyroidism Vitamin D deficiency Anxiety Essential hypertension Type 2 diabetes mellitus with diabetic polyneuropathy Lumbar back pain Asthma Surgical History History of hip surgery Hx of bladder endoscopy Deficient knowledge of leg surgery Hx of spinal surgery Family History Father HTN (hypertension) SHANIQUA (obstructive sleep apnea) Prostate cancer Additional heart attack (anterolateral wall) Mother Asthma Diabetes Brother Epilepsy Sister HTN (hypertension) Maternal Aunt Throat cancer Social History Household Members Other:: brother Housing: Apartment Alcohol intake: never Patient Tobacco Use Status: Former Tobacco user Quit Date: 2009 Years Smoked: 4 +/- e-Cigarette/Vaping Use: Never Used Second Hand Smoke Exposure: No service: No Current occupational status: disabled Cognitive needs: Yes (cane ) Hearing needs: No Vision needs: Yes (glasses ) Review of Systems ENT Reports dizziness Card Denies chest pain, Denies chest pain at rest, Denies chest pain with activity, Denies rapid heart rate, Denies pedal edema, Denies edema, Denies leg edema, Denies lightheadedness, Denies palpitations, Denies dyspnea, Denies dyspnea on exertion and Denies orthopnea Resp Denies cough, Denies dyspnea and Denies dyspnea on exertion GI Denies hematochezia and Denies change in stool character Musc Denies abnormal gait, Reports limited range of motion, Reports muscle cramps, Denies muscle weakness, Denies numbness, Denies radiating pain into limb, Denies stiffness and Denies tingling Neuro Denies abnormal gait, Reports dizziness, Denies numbness and Denies tingling Endo Denies palpitations Physical Exam Vital Signs: Last Vital Signs Pulse 66 02/21/23 10:13 BP 120/54 L 02/21/23 10:13 BMI result Body Mass Index 55.5 GENERAL APPEARANCE: in no acute distress, pleasant. NECK/THYROID: no carotid bruit, no jugular venous distention. SKIN: no suspicious lesions, warm and dry. HEART: no murmurs, regular rate and rhythm. LUNGS: clear to auscultation bilaterally. ABDOMEN: soft, nontender. EXTREMITIES: no edema. PERIPHERAL PULSES: equal. NEUROLOGIC: No gross deficits, AAO X 3 Office Procedures EKG Details: Sinus rhythm 66 beats per minute, normal ECG, QTC 425 milliseconds. [id number], Complete Assessment & Plan Assessment & Plan (1) Hypertension: Code(s): I10 - Essential (primary) hypertension (2) Essential hypertension: Code(s): I10 - Essential (primary) hypertension (3) Hypercholesterolemia: Code(s): E78.00 - Pure hypercholesterolemia, unspecified Plan Pleasant 57-year-old lady here for follow-up. She has background history of hypertension and hyperlipidemia. She is on atorvastatin 80 mg once a day. She should have repeat lipid panel once a year. Her last LDL was 66. Blood pressure control is good with amlodipine 10 mg and carvedilol 25 mg twice a day. Clinically stable. Thank you for allowing me to participate in the care of your patient. Please feel free to contact me if you have any questions. Coding Level of Care Code Est Pt Level 3 (04123) Diagnoses Hypertension I10 Essential hypertension I10 Hypercholesterolemia E78.00 CPT Codes EKG - CPT: 63296-[id number], Complete ([id number])
== END 2023-02-21 10:38 | disposition home or self-care (01) ==
PROVIDERS: PCP Internal Medicine; Referring Provider Internal Medicine; Visit Provider Internal Medicine Cardiovascular Disease
DX: I10 Essential (primary) hypertension (principal); E78.00 Pure hypercholesterolemia, unspecified
CPT/HCPCS: 93010; 99213

== ENCOUNTER → 2023-02-21 09:32 | Outpatient (BNVA) | payer OTHER, SELFPAY | PROVIDERS: PCP Internal Medicine; Referring Provider Internal Medicine; Visit Provider Internal Medicine Cardiovascular Disease | DX: I12.9 Hypertensive chronic kidney disease with stage 1 through stage 4 chronic kidney disease, or unspecified chronic kidney disease (principal); E11.65 Type 2 diabetes mellitus with hyperglycemia; E11.42 Type 2 diabetes mellitus with diabetic polyneuropathy; E11.21 Type 2 diabetes mellitus with diabetic nephropathy; E66.2 Morbid (severe) obesity with alveolar hypoventilation; E78.00 Pure hypercholesterolemia, unspecified; J44.9 Chronic obstructive pulmonary disease, unspecified; J30.9 Allergic rhinitis, unspecified; Z68.43 Body mass index [BMI] 50.0-59.9, adult; Z79.4 Long term (current) use of insulin; Z99.89 Dependence on other enabling machines and devices; Z79.52 Long term (current) use of systemic steroids | CPT/HCPCS: 93005; 99212 ==

== ENCOUNTER 2023-02-21 10:46 | Outpatient (AMB) | payer OTHER, SELFPAY ==
[2023-02-21 11:13] VITALS: BP 130/82; PULSE 72; O2SAT 98; BMI 56.2
--- NOTE | 2023-02-21 11:13 | A.OFFVIS_ITS ---
Intake Vital Signs 02/21/23 11:13 Height 5 ft 2 in Weight 307 lb 8.717 oz BMI 56.2 BP 130/82 Blood Pressure Location Lt radial Position Sitting Pulse 72 Pulse Source Pulse Oximeter Pulse Oximetry (%) 98 Oxygen Delivery Method Room Air Intake Visit Reasons: Obstructive sleep apnea Intake Note: pt is here for follow up of SHANIQUA and states she is feeling good, and doing well with cpap. pt is on prednisone for asthma right now, started taper yesterday Commander Internal Affairs Required: Yes Commander Internal Affairs Name: [id number] amai Allergies lisinopril Adverse Reaction (Severe, Verified 02/21/23 11:39) hyperkalemia Medication List - Last Reconciled 02/21/23 by Yusuf Whitfield MD amlodipine 10 mg PO DAILY 90 days aspirin 81 mg PO DAILY atorvastatin 80 mg PO QPM 90 days blood pressure monitor (Blood Pressure Kit) As directed XXL blood pressure cuff blood sugar diagnostic (FreeStyle Lite Strips) 1 strip miscellaneous DAILY 30 days carvedilol 25 mg PO BID cholecalciferol (vitamin D3) 50 mcg PO DAILY 90 days [CPAP full face mask medium AF 20 bilevel pressure 25/16 cm humidified air As directed] doxepin 100 mg PO BEDTIME 90 days doxepin 25 mg PO BEDTIME dulaglutide (Trulicity) 3 mg (0.5 mL) subcut QWEEK 28 days empagliflozin (Jardiance) 10 mg PO DAILY flash glucose scanning reader (ProximicStyle Telma 2 [place]) As directed flash glucose sensor (FreeStyle Telma 2 Sensor kit) every 2 weeks fluticasone propion-salmeterol 232-14 mcg/actuation (AirDuo RespiClick) 1 inh inhalation BID 30 days insulin glargine (Lantus Solostar U-100 Insulin) 26 units (0.26 mL) subcut DAILY 90 days lancets daily levocetirizine 5 mg PO DAILY 30 days levothyroxine 75 mcg PO DAILY 90 days metformin ER 500 mg PO BID 90 days oxycodone 30 mg PO BID PRN 30 days peg 3350-electrolytes 236-22.74-6.74 -5.86 gram (Golytely) 240 mL PO Q10M 1 day pen needle, diabetic (BD Ultra-Fine Veena Pen Needle) 1 ea subcut DAILY 90 days prednisone 60 mg (3 x 20 mg) PO DAILY 5 days sennosides-docusate sodium 8.6-50 mg (Senna-S) 2 tab-caps (2 x 8.6-50 mg) PO BEDTIME 30 days sertraline 100 mg PO DAILY 90 days triamcinolone acetonide (Nasacort) 2 sprays intranasal DAILY 30 days Ventolin HFA 90 mcg/actuation (albuterol sulfate) 2 puffs inhalation Q4-6H PRN NS Do you need a note to return to daycare/school/sports/work: No HPI Obstructive sleep apnea HPI Details This 57 years old very pleasant Panamanian-speaking female comes for follow-up for her sleep apnea. She remains morbidly obese current BMI 56.3. She is on BiPAP ( ) and uses it very regularly every night.. Recently she had gone to [place] for about 10 days and missed using the BiPAP over there. Now that she is back she is starting to use every night. He has no issues with the CPAP machine or the mask. Breathing has remained okay except that after she came back from [place] she had some cough and wheezing. She has been seen by her primary care physician and started on a short course of prednisone. Today she feels better and denies having any. cough or wheezing PFSH Medical History Allergic rhinitis COPD (chronic obstructive pulmonary disease) Hyperkalemia Hypoventilation associated with obesity syndrome Left ventricular hypertrophy Diabetic nephropathy Opioid dependence SHANIQUA (obstructive sleep apnea) Morbid obesity GERD (gastroesophageal reflux disease) Migraines Hypothyroidism Vitamin D deficiency Anxiety Essential hypertension Type 2 diabetes mellitus with diabetic polyneuropathy Lumbar back pain Asthma Surgical History History of hip surgery Hx of bladder endoscopy Deficient knowledge of leg surgery Hx of spinal surgery Family History Father HTN (hypertension) SHANIQUA (obstructive sleep apnea) Prostate cancer Additional heart attack (anterolateral wall) Mother Asthma Diabetes Brother Epilepsy Sister HTN (hypertension) Maternal Aunt Throat cancer Social History Household Members Other:: brother Housing: Apartment Alcohol intake: never Patient Tobacco Use Status: Former Tobacco user Quit Date: 2009 Years Smoked: 4 +/- e-Cigarette/Vaping Use: Never Used Second Hand Smoke Exposure: No service: No Current occupational status: disabled Cognitive needs: Yes (cane ) Hearing needs: No Vision needs: Yes (glasses ) Review of Systems Const All systems reviewed & are unremarkable except as noted in HPI and below Eyes Reports no additional complaints ENT Reports nasal congestion (Off and on) Card Denies chest pain, Denies irregular heart rhythm and Denies leg edema Resp Reports as per HPI GI Denies no additional complaints Denies no additional complaints Musc Reports abnormal gait (Slightly impaired locomotion due to morbid obesity, uses cane), Reports back pain and Reports arthralgias Skin/Breast Reports system reviewed and no additional complaints, except as documented Neuro Reports abnormal gait (Slightly impaired locomotion due to morbid obesity, uses cane) Psych Reports no additional complaints Physical Exam Vital Signs: Last Vital Signs Pulse 72 02/21/23 11:13 BP 130/82 02/21/23 11:13 Pulse Ox 98 02/21/23 11:13 Oxygen Delivery Method Room Air 02/21/23 11:13 BMI result Body Mass Index 56.2 Const General: comfortable, no acute distress, alert and awake Orientation/consciousness: patient oriented x3 HEENT Head: Yes normal to inspection General nose exam: No nasal polyps present and No nasal discharge present Face and sinus: Yes sinuses nontender Mouth: oropharynx abnormals (Crowded with Mallampati class 4) Throat: Yes posterior oropharynx normal Eyes General: appearance normal, both eyes and all related structures Neck Neck: Yes normal visual inspection, Yes no lymphadenopathy, Yes trachea midline, Yes no JVD and Yes other (Neck is grossly obese) Thyroid: Thyroid normal Chest Chest palpation & inspection: normal inspection of the chest, normal palpation of entire chest wall and no tenderness Resp Other: Percussion note not perceptible due to thick chest wall Breath sounds are distant especially over the basilar areas. No audible wheezes rhonchi or Creps. Cardio Palpation: PMI not normal (Not palpable) Rate: regular rate Rhythm: regular rhythm Heart sounds: no gallops and no murmurs GI Palpation (GI): Soft to palpation, nontender, No hepatosplenomegaly present, no masses and Other GI palpation findings present (Abdomen is grossly obese and protuberant) Auscultation: normal bowel sounds Back/Spine/Pelvis Thoracic/Lumbar Spine: thoracic and lumbar spine normal to inspection and thoraco-lumbar ROM limited Skin General skin exam: no rashes or lesions noted Neuro General: patient oriented x3, No gait normal (Slightly impaired and uses cane) and no focal motor deficits Cranial nerves: Yes CN's II-XII intact bilaterally Extrem General: Yes normal to inspection, Yes no clubbing, cyanosis or edema and Yes no calf tenderness Psych Appearance: grossly normal Speech and movement: Normal speech and movement present Results Reviewed Results Reviewed: Compliance report for the last 30 nights is reviewed. She missed using for about 13 nights as she was visiting in [place]. Otherwise she has been very compliant. Average use per night 7 hours 16 minutes. There is slight air leak, Residual AHI 4.0 Assessment & Plan Assessment & Plan (1) Morbid obesity: Comment: THIS IS A CHRONIC PROBLEM, DIFFICULT FOR HER TO LOSE WEIGHT. BUT SHE IS TRYING HER BEST TO RESTRICT THE CALORIES INTAKE AND FOLLOW THE DIETARY INSTRUCTIONS. Code(s): E66.01 - Morbid (severe) obesity due to excess calories (2) SHANIQUA (obstructive sleep apnea): Comment: CHRONIC SLEEP APNEA ALONG WITH CHRONIC HYPOVENTILATION SYNDROME. WELL TREATED WITH THE USE OF BIPAP.( AF-20 PRESSURE 25/16 CMs ) SHE IS VERY COMPLIANT AND BENEFITTING. ADVISED TO CONTINUE THE SAME AND INSTRUCTED TO TIGHTEN THE STRAPS LITTLE BIT MORE AT NIGHT. Code(s): G47.33 - Obstructive sleep apnea (adult) (pediatric) (3) Hypoventilation associated with obesity syndrome: Comment: SEE UNDER SHANIQUA , BEING TREATED SUCCESSFULLY WITH THE USE OF BIPAP. Code(s): E66.2 - Morbid (severe) obesity with alveolar hypoventilation (4) Allergic rhinitis: Comment: HAS INTERMITTENT NASAL CONGESTION DUE TO ALLERGIC RHINITIS, CONTROLLED WITH USE OF NASACORT NASAL SPRAY 2 SPRAYS IN EACH NOSTRIL DAILY. Code(s): J30.9 - Allergic rhinitis, unspecified (5) COPD (chronic obstructive pulmonary disease): Comment: DOING WELL ON THE CURRENT REGIMEN, AND WILL CONTINUE THE SAME. [place] AirDuo 232-14 2 puffs BID VENTOLIN 2 PUFFS Q 4-6 HRS PRN ALSO USES ALBUTEROL SOLUTION IN THE NEBULIZER, Q 4-6 HOURS P.R.N. WHEN AT HOME. Code(s): J44.9 - Chronic obstructive pulmonary disease, unspecified Coding Level of Care Code Est Pt Level 3 (49832) Diagnoses Morbid obesity E66.01 SHANIQUA (obstructive sleep apnea) G47.33 Hypoventilation associated with obesity syndrome E66.2 Allergic rhinitis J30.9 COPD (chronic obstructive pulmonary disease) J44.9
== END 2023-02-21 11:36 | disposition home or self-care (01) ==
PROVIDERS: PCP Internal Medicine; Visit Provider Internal Medicine
DX: J44.9 Chronic obstructive pulmonary disease, unspecified (principal); G47.33 Obstructive sleep apnea (adult) (pediatric); E66.01 Morbid (severe) obesity due to excess calories; Z68.43 Body mass index [BMI] 50.0-59.9, adult
CPT/HCPCS: 99213

== ENCOUNTER 2023-03-15 09:46 | Outpatient (REF) | payer OTHER, SELFPAY | END 2023-03-15 09:47 | disposition home or self-care (01) | LOC: HO.LAB 09:46 | PROVIDERS: PCP Internal Medicine; Visit Provider Internal Medicine | DX: E11.65 Type 2 diabetes mellitus with hyperglycemia (principal); E78.00 Pure hypercholesterolemia, unspecified; Z79.4 Long term (current) use of insulin | CPT/HCPCS: 36415; 80053; 80061; 82043; 82306; 82570; 82607; 82746; 83036; 83735; 84439; 84443; 85025 ==

== ENCOUNTER 2023-03-19 12:41 | Outpatient (AMB) | payer OTHER, SELFPAY ==
[2023-03-19 12:43] VITALS: BP 134/66; PULSE 87; O2SAT 97; BMI 55.6
--- NOTE | 2023-03-19 12:43 | MHC.PC.OV ---
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 Last seen in November 2022. Patient follows up with Pulmonary February 2023 for the obstructive sleep apnea on BiPAP very compliant benefiting from this has the COPD with Ventolin and AirDuo.. Patient also follows up with Cardiology good blood pressure control. Patient did have an ER visit for shortness of breath diagnosis of asthma exacerbation given steroids. [facility] Medical History (Updated 03/19/23 @ 13:17 by Bozena Dobbins MD) Hearing decreased Hypertension Post-traumatic osteoarthritis of left hip Hematuria Leg length discrepancy Otitis externa Colon cancer screening Allergic rhinitis COPD (chronic obstructive pulmonary disease) Hyperkalemia Hypoventilation associated with obesity syndrome Left ventricular hypertrophy Diabetic nephropathy Opioid dependence SHANIQUA (obstructive sleep apnea) Morbid obesity GERD (gastroesophageal reflux disease) Migraines Hypothyroidism Vitamin D deficiency Anxiety Essential hypertension Type 2 diabetes mellitus with diabetic polyneuropathy Lumbar back pain Asthma Surgical History (Updated 03/19/23 @ 13:08 by Bozena Dobbins MD) Deficient knowledge of leg surgery History of hip surgery Hx of bladder endoscopy Hx of spinal surgery Family History Father HTN (hypertension) SHANIQUA (obstructive sleep apnea) Prostate cancer Additional heart attack (anterolateral wall) Mother Asthma Diabetes Brother Epilepsy Sister HTN (hypertension) Maternal Aunt Throat cancer Social History Household Members Other:: brother Housing: Apartment Alcohol intake: never Patient Tobacco Use Status: Former Tobacco user Quit Date: 2009 Tobacco use type: Cigarette Years Smoked: 4 +/- e-Cigarette/Vaping Use: Never Used Second Hand Smoke Exposure: No service: No Current occupational status: disabled Cognitive needs: Yes (cane ) Hearing needs: No Vision needs: Yes (glasses ) Questionnaire PHQ-9 Over the last 2 weeks, how often have you been bothered by any of the following problems? 1. Little interest or pleasure in doing things: not at all 2. Feeling down, depressed, or hopeless: not at all 3. Trouble falling or staying asleep, or sleeping too much: not at all 4. Feeling tired or having little energy: not at all 5. Poor appetite or overeating: not at all 6. Feeling bad about yourself - or that you are a failure or have let yourself or your family down: not at all 7. Trouble concentrating on things, such as reading the newspaper or watching television: not at all 8. Moving or speaking so slowly that other people could have noticed. Or the opposite - being so fidgety or restless that you have been moving around a lot more than usual: not at all 9. Thoughts that you would be better off or of hurting yourself in some way: not at all Total score: 0 Depression Screening Interpretation: Negative Depression Screening Done: Yes Source: Developed by Drs. Waqas Albarran, Thelma Dumont, Ruben Oden and colleagues, with an educational valente from [employer]. Thrive Questionnaire Date Thrive assessed: 09/06/22 AUDIT C Alcohol Use Questionnaire (AUDIT-C) 1. How often do you have a drink containing alcohol?: Never 2. How many drinks containing alcohol do you have on a typical day when you are drinking?: 1 or 2 3. How often do you have six or more drinks on one occasion?: Never Total Score: 0 BEULAH-7 AMB Questionnaire BEULAH-7 Date BEULAH - 7 assessed: 09/06/22 Source: Developed by Drs. Waqas Albarran, Thelma Dumont, Ruben Oden and colleagues, with an educational valente from [employer]. Physical exam (Primary Care) Vital Signs: Last Vital Signs Pulse 87 03/19/23 12:43 BP 134/66 10/09/23 12:43 Pulse Ox 97 03/19/23 12:43 Oxygen Delivery Method Room Air 03/19/23 12:43 BMI result Body Mass Index 55.6 Tobacco/Smoking Status: Tobacco use Status Tobacco use date assessed 03/19/23 03/19/23 12:50 Patient Tobacco Use Status Former Tobacco user 03/19/23 12:50 Tobacco use type Cigarette 03/19/23 12:50 e-Cigarette/Vaping Use Never Used 03/19/23 12:50 PHQ-9: PHQ-9 Score PHQ-9: Total score 0 03/19/23 19:21 Depression Screening Interpretation: Negative Thrive Assessment: Date of Thrive Assessment Date Thrive assessed 09/06/22 03/19/23 12:50 Const General: alert; No acute distress Eyes Conjunctivae: conjunctivae normal Resp Auscultation: clear to auscultation bilaterally Cardio Rate: regular rate Rhythm: regular rhythm GI Inspection: Yes normal to inspection Extrem General: Yes normal to inspection and No edema Office Procedures Flu Questionnaire Does the patient have a severe egg allergy?: No Does the patient have severe life threatening allergies?: No Does the patient have a fever or illness today?: No Has the patient ever had Guillain-Blackstone Syndrome?: No Has the patient ever had any past reaction to a flu shot?: No Immunizations flu vacc [id number] 6mos up(PF) 60 mcg(15 mcgx4)/0.5 mL IM syringe Performing Provider: Bozena Dobbins MD Performing Location: [facility] Administered by: REBECA Cristobal on 03/19/23 12:52 Dose Route Admin Location Dispensed Lot Number Expiration Date NDC [employer] 0.5 mL IM Left Deltoid 0.5 mL [id number] 12/09/23 [id number] [employer] VIS Given Date VIS Provided VIS Publication Date 03/19/23 Single Vaccine 21 Eligibility Eligibility Date Funding Source Not [facility] Eligible 03/19/23 Private Assessment and Plan Assessment & Plan (1) Type 2 diabetes mellitus with hyperglycemia: Comment: Tre eye 03/2023 Code(s): E11.65 - Type 2 diabetes mellitus with hyperglycemia Qualifiers: Diabetes mellitus intermission coordinator insulin use: with group home use Qualified Code(s): E11.65 - Type 2 diabetes mellitus with hyperglycemia; Z79.4 - FDC (current) use of insulin Plan: Decrease the amount of carbohydrate intake, pasta, bread, rice and potatoes are all sugar and that is aside from all the sweet stuff, remember that fruits are good but they are Sweet also. Hemoglobin A1c goal of less than 6.5. Patient is on Trulicity, Jardiance Lantus metformin 500 twice a day (2) SHANIQUA (obstructive sleep apnea): Comment: CHRONIC SLEEP APNEA ALONG WITH CHRONIC HYPOVENTILATION SYNDROME. WELL TREATED WITH THE USE OF BIPAP.( AF-20 PRESSURE 25/16 CMs ) SHE IS VERY COMPLIANT AND BENEFITTING. ADVISED TO CONTINUE THE SAME AND INSTRUCTED TO TIGHTEN THE STRAPS LITTLE BIT MORE AT NIGHT. Code(s): G47.33 - Obstructive sleep apnea (adult) (pediatric) Plan: Patient follows up with Pulmonary continue with CPAP more than 4 hours a night and benefits from this (3) Morbid obesity: Comment: THIS IS A CHRONIC PROBLEM, DIFFICULT FOR HER TO LOSE WEIGHT. BUT SHE IS TRYING HER BEST TO RESTRICT THE CALORIES INTAKE AND FOLLOW THE DIETARY INSTRUCTIONS. Code(s): E66.01 - Morbid (severe) obesity due to excess calories Plan: Diet and exercise (4) Essential hypertension: Code(s): I10 - Essential (primary) hypertension Plan: Continue with blood pressure medication. Decrease salt intake and exercise continue with carvedilol 25 mg twice a day amlodipine 10 mg once a day. Had hyperkalemia with lisinopril (5) Hypercholesterolemia: Code(s): E78.00 - Pure hypercholesterolemia, unspecified Plan: Avoid fried foods, chicken skin, eggs, butter margarine, pastries and meat. Be it pork or beef they have a lot of cholesterol LDL goal of less than 100. Patient on atorvastatin 80 mg once a day (6) Hypothyroidism: Code(s): E03.9 - Hypothyroidism, unspecified Plan: Continue with thyroid medication (7) GERD (gastroesophageal reflux disease): Code(s): K21.9 - Gastro-esophageal reflux disease without esophagitis Plan: Avoid the foods that causes that usually spicy foods, tomato products, juices, coffee, soda and foods that your sensitive to. After eating do not lie down, allow 3-4 hours before in lie down. And keep the head of bed above 30 degrees to avoid the acid from going up. (8) Generalized anxiety disorder: Comment: psychiatry q 2 weeks with counselling Code(s): F41.1 - Generalized anxiety disorder Plan: Continue with counseling and therapy (9) Closed left hip fracture: Comment: X-ray April 2022 Chronic unhealed comminuted fracture of the left femoral neck. * Dystrophic changes around the left hip, soft tissue calcifications and new bone formations. * migration of the left femoral shaft. hx of L hip surgery 6 screws Code(s): S72.002A - Fracture of unspecified part of neck of left femur, initial encounter for closed fracture Orders: Orders Influenza [id number] Immunization Today Z23 - Encounter for immunization XR lumbar spine 2-3V Today M54.5 - Low back pain Coding Level of Care Code Est Pt Level 4 (50316) Diagnoses Type 2 diabetes mellitus with hyperglycemia, with long-term current use of insulin E11.65; Z79.4 Diabetes mellitus group home insulin use: with group home use SHANIQUA (obstructive sleep apnea) G47.33 Morbid obesity E66.01 Essential hypertension I10 Hypercholesterolemia E78.00 Hypothyroidism E03.9 GERD (gastroesophageal reflux disease) K21.9 Generalized anxiety disorder F41.1 Closed left hip fracture S72.002A
== END 2023-03-19 13:23 | disposition home or self-care (01) ==
PROVIDERS: PCP Internal Medicine; Visit Provider Internal Medicine
DX: E11.65 Type 2 diabetes mellitus with hyperglycemia (principal); Z79.4 Long term (current) use of insulin; E66.01 Morbid (severe) obesity due to excess calories; Z68.43 Body mass index [BMI] 50.0-59.9, adult; S72.002A Fracture of unspecified part of neck of left femur, initial encounter for closed fracture; Z23 Encounter for immunization; G47.33 Obstructive sleep apnea (adult) (pediatric); I10 Essential (primary) hypertension; E78.00 Pure hypercholesterolemia, unspecified; E03.9 Hypothyroidism, unspecified; K21.9 Gastro-esophageal reflux disease without esophagitis; F41.1 Generalized anxiety disorder
CPT/HCPCS: 90471; 90686; 99214

== ENCOUNTER 2023-06-15 11:08 | Outpatient (REF) | payer OTHER, SELFPAY ==
--- NOTE | ~2023-06-15 | XR_ITS ---
EXAMINATION: XR LUMBOSACRAL SPINE CLINICAL INFORMATION: Low back pain COMPARISON: None available. TECHNIQUE: Three views of the lumbosacral spine. FINDINGS: Vertebral bodies are well aligned there is grade 1 anterior listhesis of L4 over L5 and marginal spurring along the entire lumbar spine. Pedicles are preserved. There is narrowing of L5-S1 as well. There is facets arthropathy at the level of L2-L5. There are changes of severe osteoarthritis in the partially visualized left hip joint. XR/XR lumbar spine 2-3V IMPRESSION: Multilevel degenerative changes with grade 1 anterior listhesis of L4 over L5 and facets arthropathy. Severe changes of osteoarthritis of the partially visualized left hip joint.
== END 2023-06-15 11:09 | disposition home or self-care (01) ==
LOC: HO.XRAY 11:08
PROVIDERS: PCP Internal Medicine; Visit Provider Internal Medicine
DX: M54.50 Low back pain, unspecified (principal)
CPT/HCPCS: 72100

== ENCOUNTER 2023-06-21 12:58 | Outpatient (AMB) | payer OTHER, SELFPAY ==
[2023-06-21 13:02] VITALS: BP 178/90; PULSE 88; O2SAT 98; BMI 56.3
--- NOTE | 2023-06-21 13:02 | A.OFFPC_ITS ---
Vital Signs 06/21/23 13:02 Height 5 ft 2 in Weight 308 lb 0.4 oz BMI 56.3 BP 178/90 H Blood Pressure Location Lt radial Position Sitting Pulse 88 Pulse Source Pulse Oximeter Pulse Oximetry (%) 98 Oxygen Delivery Method Room Air Intake Visit Reasons: LBP Director Heart Required: No Allergies lisinopril Adverse Reaction (Severe, Verified 06/21/23 13:03) hyperkalemia Tobacco use date assessed: 06/21/23 HPI LBP HPI Details 58-year-old morbidly obese female with c ontrolled diabetes mellitus hypertension hypercholesterolemia hypothyroidism GERD and generalized anxiety disorder last seen in March 2023. Pap mammogram is up-to-date. Patient has chronic low back pain having multilevel degenerative changes with grade 1 anterior listhesis L4 over L5 and severe osteoarthritis of the left hip joint. went to [place] and weight is up - had fall last may and still has pain on the knee Left [facility] Medical History (Updated 06/21/23 @ 13:57 by Bozena Dobbins MD) Hearing decreased Hypertension Post-traumatic osteoarthritis of left hip Hematuria Leg length discrepancy Otitis externa Colon cancer screening Allergic rhinitis COPD (chronic obstructive pulmonary disease) Hyperkalemia Hypoventilation associated with obesity syndrome Left ventricular hypertrophy Diabetic nephropathy Opioid dependence SHANIQUA (obstructive sleep apnea) Morbid obesity GERD (gastroesophageal reflux disease) Migraines Hypothyroidism Vitamin D deficiency Anxiety Essential hypertension Type 2 diabetes mellitus with diabetic polyneuropathy Lumbar back pain Asthma Surgical History (Updated 03/19/23 @ 13:08 by Bozena Dobbins MD) Deficient knowledge of leg surgery History of hip surgery Hx of bladder endoscopy Hx of spinal surgery Family History Father HTN (hypertension) SHANIQUA (obstructive sleep apnea) Prostate cancer Additional heart attack (anterolateral wall) Mother Asthma Diabetes Brother Epilepsy Sister HTN (hypertension) Maternal Aunt Throat cancer Social History Household Members Other:: brother Housing: Apartment Alcohol intake: never Patient Tobacco Use Status: Former Tobacco user Quit Date: 2009 Tobacco use type: Cigarette Years Smoked: 4 +/- e-Cigarette/Vaping Use: Never Used Second Hand Smoke Exposure: No service: No Current occupational status: disabled Cognitive needs: Yes (cane ) Hearing needs: No Vision needs: Yes (glasses ) Questionnaire PHQ-9 Over the last 2 weeks, how often have you been bothered by any of the following problems? 1. Little interest or pleasure in doing things: not at all 2. Feeling down, depressed, or hopeless: not at all 3. Trouble falling or staying asleep, or sleeping too much: not at all 4. Feeling tired or having little energy: not at all 5. Poor appetite or overeating: not at all 6. Feeling bad about yourself - or that you are a failure or have let yourself or your family down: not at all 7. Trouble concentrating on things, such as reading the newspaper or watching television: not at all 8. Moving or speaking so slowly that other people could have noticed. Or the opposite - being so fidgety or restless that you have been moving around a lot more than usual: not at all 9. Thoughts that you would be better off or of hurting yourself in some way: not at all Total score: 0 Depression Screening Interpretation: Negative Depression Screening Done: Yes Source: Developed by Drs. Waqas Albarran, Thelma Dumont, Ruben Oden and colleagues, with an educational valente from [employer] Thrive Questionnaire Date Thrive assessed: 06/21/23 AUDIT C Alcohol Use Questionnaire (AUDIT-C) 1. How often do you have a drink containing alcohol?: Never 2. How many drinks containing alcohol do you have on a typical day when you are drinking?: 1 or 2 3. How often do you have six or more drinks on one occasion?: Never Total Score: 0 BEULAH-7 AMB Questionnaire BEULAH-7 Date BEULAH - 7 assessed: 06/21/23 Source: Developed by Drs. Waqas Albarran, Thelma Dumont, Ruben Oden and colleagues, with an educational valente from [employer] Physical exam (Primary Care) Vital Signs: Last Vital Signs Pulse 88 06/21/23 13:02 BP 178/90 H 06/21/23 13:02 Pulse Ox 98 06/21/23 13:02 Oxygen Delivery Method Room Air 06/21/23 13:02 BMI result Body Mass Index 56.3 Tobacco/Smoking Status: Tobacco use Status Tobacco use date assessed 06/21/23 06/21/23 13:04 Patient Tobacco Use Status Former Tobacco user 06/21/23 13:04 Tobacco use type Cigarette 06/21/23 13:04 e-Cigarette/Vaping Use Never Used 06/21/23 13:04 PHQ-9: PHQ-9 Score PHQ-9: Total score 0 06/21/23 13:30 Depression Screening Interpretation: Negative Thrive Assessment: Date of Thrive Assessment Date Thrive assessed 06/21/23 06/21/23 13:04 Const General: alert; No acute distress Eyes Conjunctivae: conjunctivae normal Resp Auscultation: clear to auscultation bilaterally Cardio Rate: regular rate Rhythm: regular rhythm GI Inspection: Yes normal to inspection Extrem General: Yes normal to inspection and No edema Results AMB Hemoglobin A1c AMB Hemoglobin A1c 5.8 % Last Edit by REBECA Cristobal on 06/21/23 13:31 Results Reviewed Results Reviewed: Laboratory Last Values Hgb A1c (Clinic) 5.8 % (4.0-6.0) 06/21/23 13:31 Assessment and Plan Assessment & Plan (1) Colon cancer screening: Code(s): Z12.11 - Encounter for screening for malignant neoplasm of colon (2) GERD (gastroesophageal reflux disease): Code(s): K21.9 - Gastro-esophageal reflux disease without esophagitis Plan: Avoid the foods that causes that usually spicy foods, tomato products, juices, coffee, soda and foods that your sensitive to. After eating do not lie down, allow 3-4 hours before in lie down. And keep the head of bed above 30 degrees to avoid the acid from going up. (3) Morbid obesity: Comment: THIS IS A CHRONIC PROBLEM, DIFFICULT FOR HER TO LOSE WEIGHT. BUT SHE IS TRYING HER BEST TO RESTRICT THE CALORIES INTAKE AND FOLLOW THE DIETARY INSTRUCTIONS. Code(s): E66.01 - Morbid (severe) obesity due to excess calories Plan: Diet and exercise (4) SHANIQUA (obstructive sleep apnea): Comment: CHRONIC SLEEP APNEA ALONG WITH CHRONIC HYPOVENTILATION SYNDROME. WELL TREATED WITH THE USE OF BIPAP.( AF-20 PRESSURE 25/16 CMs ) SHE IS VERY COMPLIANT AND BENEFITTING. ADVISED TO CONTINUE THE SAME AND INSTRUCTED TO TIGHTEN THE STRAPS LITTLE BIT MORE AT NIGHT. 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 Hemoglobin A1c goal of less than 6.5 patient is on Trulicity Jardiance metformin (6) Essential hypertension: Code(s): I10 - Essential (primary) hypertension Plan: Continue with blood pressure medication. Decrease salt intake and exercise patient is taking carvedilol 25 mg twice a day and amlodipine 10 mg once a day (7) Hypercholesterolemia: Code(s): E78.00 - Pure hypercholesterolemia, unspecified Plan: Avoid fried foods, chicken skin, eggs, butter margarine, pastries and meat. Be it pork or beef they have a lot of cholesterol March 2023 last blood work LDL goal of less than 100 and triglyceride of less than 150 (8) COPD (chronic obstructive pulmonary disease): Comment: DOING WELL ON THE CURRENT REGIMEN, AND WILL CONTINUE THE SAME. [place] AirDuo [id number] 2 puffs BID VENTOLIN 2 PUFFS Q 4-6 HRS PRN ALSO USES ALBUTEROL SOLUTION IN THE NEBULIZER, Q 4-6 HOURS P.R.N. WHEN AT HOME. Code(s): J44.9 - Chronic obstructive pulmonary disease, unspecified Plan: Continue with the inhalers (9) Hypothyroidism: Code(s): E03.9 - Hypothyroidism, unspecified Plan: Continue with thyroid medication March 2023 last blood work (10) Knee pain, left: Code(s): M25.562 - Pain in left knee (11) Osteoarthritis of left hip: Comment: severe xray 06/2023 Code(s): M16.12 - Unilateral primary osteoarthritis, left hip (12) Lumbar degenerative disc disease: Code(s): M51.36 - Other intervertebral disc degeneration, lumbar region Orders: Orders AMB Hemoglobin A1c Today E11.42 - Type 2 diabetes mellitus with diabetic polyneuropathy XR knee LT 2V Today M25.562 - Pain in left knee Referrals Gastroenterology Referral Z12.11 - Encounter for screening for malignant neoplasm of colon Medications: New [transport Wheelchair] As directed 1 ea 0RF M16.12 - Unilateral primary osteoarthritis, left hip, M51.36 - Other intervertebral disc degeneration, lumbar region, M54.5 - Low back pain Refilled oxycodone 30 mg PO BID PRN 60 tabs 0RF pain 30 days M54.5 - Low back pain Coding Level of Care Code Est Pt Level 4 (38371) Diagnoses Colon cancer screening Z12.11 GERD (gastroesophageal reflux disease) K21.9 Morbid obesity E66.01 SHANIQUA (obstructive sleep apnea) G47.33 Type 2 diabetes mellitus with hyperglycemia, with long-term current use of insulin E11.65; Z79.4 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
== END 2023-06-21 14:08 | disposition home or self-care (01) ==
PROVIDERS: PCP Internal Medicine; Visit Provider Internal Medicine
DX: E11.42 Type 2 diabetes mellitus with diabetic polyneuropathy (principal)
CPT/HCPCS: 83036; 99214

== ENCOUNTER 2023-06-28 10:59 | Outpatient (REF) | payer OTHER, SELFPAY ==
--- NOTE | ~2023-06-28 | XR_ITS ---
EXAMINATION: XR KNEE, LEFT CLINICAL INFORMATION: Reason for Exam M25.562 - Pain in left knee COMPARISON: None TECHNIQUE: 3 views of the knee FINDINGS: No acute fracture or dislocation. Advanced degenerative changes of the knee with complete loss of lateral compartment joint space. An bulky tricompartmental osteophytes. There is angulation of the knee. Cortical thickening and trabeculation is noted.. No joint effusion. Soft tissues are unremarkable. XR/XR knee LT 2V IMPRESSION: * No acute osseous abnormality. * Advanced degenerative changes of the knee.
== END 2023-06-28 11:00 | disposition home or self-care (01) ==
LOC: HO.XRAY 10:59
PROVIDERS: Absent Provider Internal Medicine; PCP Internal Medicine; Visit Provider Internal Medicine
DX: M25.562 Pain in left knee (principal); J44.9 Chronic obstructive pulmonary disease, unspecified; J30.9 Allergic rhinitis, unspecified; G47.33 Obstructive sleep apnea (adult) (pediatric); E66.01 Morbid (severe) obesity due to excess calories; Z68.43 Body mass index [BMI] 50.0-59.9, adult; Z99.89 Dependence on other enabling machines and devices
CPT/HCPCS: 73560; 99212

== ENCOUNTER 2023-06-28 10:59 | Outpatient (AMB) | payer OTHER, SELFPAY ==
--- NOTE | 2023-06-28 11:04 | A.OFFVIS_ITS ---
Intake Vital Signs 06/28/23 11:06 Height 5 ft 2 in Weight 314 lb 2.539 oz BMI 57.5 BP 122/80 Blood Pressure Location Lt radial Position Sitting Pulse 82 Pulse Source Pulse Oximeter Pulse Oximetry (%) 97 Oxygen Delivery Method Room Air Intake Visit Reasons: Obstructive sleep apnea Intake Note: pt is here for follow up of SHANIQUA, she is feeling well and using the machine. Senior Engineering Tech Required: Yes Senior Engineering Tech Name: Vivian Allergies lisinopril Adverse Reaction (Severe, Verified 06/28/23 11:17) hyperkalemia Medication List - Last Reconciled 06/28/23 by Yusuf Whitfield MD amlodipine 10 mg PO DAILY 90 days aspirin 81 mg PO DAILY atorvastatin 80 mg PO QPM 90 days blood pressure monitor (Blood Pressure Kit) As directed XXL blood pressure cuff blood sugar diagnostic (FreeStyle Lite Strips) 1 strip miscellaneous DAILY 30 days budesonide-formoterol 160-4.5 mcg/actuation 2 puffs inhalation BID carvedilol 25 mg PO BID cholecalciferol (vitamin D3) 50 mcg PO DAILY 90 days [CPAP full face mask medium AF 20 bilevel pressure 25/16 cm humidified air As directed] doxepin 100 mg PO BEDTIME 90 days doxepin 25 mg PO BEDTIME dulaglutide (Trulicity) 3 mg (0.5 mL) subcut QWEEK 28 days empagliflozin (Jardiance) 10 mg PO DAILY flash glucose scanning reader (EmbueStyle Telma 2 [place]) As directed flash glucose sensor (FreeStyle Telma 2 Sensor kit) every 2 weeks insulin glargine (Lantus Solostar U-100 Insulin) 26 units (0.26 mL) subcut DAILY 90 days lancets daily levocetirizine 5 mg PO DAILY 30 days levothyroxine 75 mcg PO DAILY 90 days metformin ER 500 mg PO BID 90 days oxycodone 30 mg PO BID PRN 30 days peg 3350-electrolytes 236-22.74-6.74 -5.86 gram (Golytely) 240 mL PO Q10M 1 day pen needle, diabetic (BD Ultra-Fine Veena Pen Needle) 1 ea subcut DAILY 90 days sennosides-docusate sodium 8.6-50 mg (Senexon-S) 2 tabs PO BEDTIME sertraline 100 mg PO DAILY 90 days [transport Wheelchair As directed] triamcinolone acetonide (Nasacort) 2 sprays intranasal DAILY 30 days Ventolin HFA 90 mcg/actuation (albuterol sulfate) 2 puffs inhalation Q4-6H PRN NS Do you need a note to return to daycare/school/sports/work: No HPI Obstructive sleep apnea HPI Details GISELE IS 58 YEARS OLD MORBIDLY OBESE PATIENT, WITH DIAGNOSIS OBSTRUCTIVE SLEEP APNEA. SHE IS BEING TREATED WITH BILEVEL CPAP, USING FULLFACE MASK, PRESSURE SETTING 25/16 CM. SHE USES THE BIPAP EVERY NIGHT REGULARLY, AND SLEEPS WELL. SHE DENIES ANY AIR LEAK OR OTHER ISSUES WITH THE MASK. SHE REMAINS ALERT DURING THE DAYTIME. HER BREATHING HAS BEEN RELATIVELY CONTROLLED AND STABLE, AND SHE CONTINUES TO USE SYMBICORT 2 PUFFS B.I.D. WELL ALBUTEROL HFA P.R.N.. THERE HAS BEEN NO PROGRESS IN HER WEIGHT REDUCTION, HAS IN THE WINTER MONTHS SHE IS NOT ABLE TO WALK OUTDOORS. [facility] Medical History Hearing decreased Hypertension Post-traumatic osteoarthritis of left hip Hematuria Leg length discrepancy Otitis externa Colon cancer screening Allergic rhinitis COPD (chronic obstructive pulmonary disease) Hyperkalemia Hypoventilation associated with obesity syndrome Left ventricular hypertrophy Diabetic nephropathy Opioid dependence SHANIQUA (obstructive sleep apnea) Morbid obesity GERD (gastroesophageal reflux disease) Migraines Hypothyroidism Vitamin D deficiency Anxiety Essential hypertension Type 2 diabetes mellitus with diabetic polyneuropathy Lumbar back pain Asthma Surgical History Deficient knowledge of leg surgery History of hip surgery Hx of bladder endoscopy Hx of spinal surgery Family History Father HTN (hypertension) SHANIQUA (obstructive sleep apnea) Prostate cancer Additional heart attack (anterolateral wall) Mother Asthma Diabetes Brother Epilepsy Sister HTN (hypertension) Maternal Aunt Throat cancer Social History Household Members Other:: brother Housing: Apartment Alcohol intake: never Patient Tobacco Use Status: Former Tobacco user Quit Date: 2009 Tobacco use type: Cigarette Years Smoked: 4 +/- e-Cigarette/Vaping Use: Never Used Second Hand Smoke Exposure: No service: No Current occupational status: disabled Cognitive needs: Yes (cane ) Hearing needs: No Vision needs: Yes (glasses ) Review of Systems Const All systems reviewed & are unremarkable except as noted in HPI and below Eyes Reports no additional complaints ENT Reports nasal congestion (Off and on) Card Denies chest pain, Denies irregular heart rhythm and Denies leg edema Resp Reports as per HPI GI Denies no additional complaints Denies no additional complaints Musc Reports abnormal gait (Slightly impaired locomotion due to morbid obesity, uses cane), Reports back pain and Reports arthralgias Skin/Breast Reports system reviewed and no additional complaints, except as documented Neuro Reports abnormal gait (Slightly impaired locomotion due to morbid obesity, uses cane) Psych Reports no additional complaints Physical Exam Vital Signs: Last Vital Signs Pulse 82 06/28/23 11:06 BP 122/80 06/28/23 11:06 Pulse Ox 97 06/28/23 11:06 Oxygen Delivery Method Room Air 06/28/23 11:06 BMI result Body Mass Index 57.5 Const General: comfortable, no acute distress, alert and awake Orientation/consciousness: patient oriented x3 HEENT Head: Yes normal to inspection General nose exam: No nasal polyps present and No nasal discharge present Face and sinus: Yes sinuses nontender Mouth: oropharynx abnormals (Crowded with Mallampati class 4) Throat: Yes posterior oropharynx normal Eyes General: appearance normal, both eyes and all related structures Neck Neck: Yes normal visual inspection, Yes no lymphadenopathy, Yes trachea midline, Yes no JVD and Yes other (Neck is grossly obese) Thyroid: Thyroid normal Chest Chest palpation & inspection: normal inspection of the chest, normal palpation of entire chest wall and no tenderness Resp Other: Percussion note not perceptible due to thick chest wall Breath sounds are distant especially over the basilar areas. No audible wheezes rhonchi or Creps. Cardio Palpation: PMI not normal (Not palpable) Rate: regular rate Rhythm: regular rhythm Heart sounds: no gallops and no murmurs GI Palpation (GI): Soft to palpation, nontender, No hepatosplenomegaly present, no masses and Other GI palpation findings present (Abdomen is grossly obese and protuberant) Auscultation: normal bowel sounds Back/Spine/Pelvis Thoracic/Lumbar Spine: thoracic and lumbar spine normal to inspection and thoraco-lumbar ROM limited Skin General skin exam: no rashes or lesions noted Neuro General: patient oriented x3, No gait normal (Slightly impaired and uses cane) and no focal motor deficits Cranial nerves: Yes CN's II-XII intact bilaterally Extrem General: Yes normal to inspection, Yes no clubbing, cyanosis or edema and Yes no calf tenderness Psych Appearance: grossly normal Speech and movement: Normal speech and movement present Results Reviewed Results Reviewed: Compliance report for the last 30 nights is reviewed She has used 30/30 nights, 100%. Average use per night 9 hours 26 minutes that is excellent. There is moderate degree of air leak maximum 69 L/minute. Residual AHI 7.9. No central apneas were recorded Assessment & Plan Assessment & Plan (1) Morbid obesity: Comment: THIS IS A CHRONIC PROBLEM, DIFFICULT FOR HER TO LOSE WEIGHT. BUT SHE IS TRYING HER BEST TO RESTRICT THE CALORIES INTAKE AND FOLLOW THE DIETARY INSTRUCTIONS. Code(s): E66.01 - Morbid (severe) obesity due to excess calories Plan: Once again discussed with him about the need to lose weight. Diet and any possible amount of walking or exercise is explained. (2) SHANIQUA (obstructive sleep apnea): Comment: CHRONIC SLEEP APNEA ALONG WITH CHRONIC HYPOVENTILATION SYNDROME. WELL TREATED WITH THE USE OF BIPAP.( AF-20 PRESSURE 25/16 CMs ) SHE IS VERY COMPLIANT AND BENEFITTING. ADVISED TO CONTINUE THE SAME AND INSTRUCTED TO TIGHTEN THE STRAPS LITTLE BIT MORE AT NIGHT. Code(s): G47.33 - Obstructive sleep apnea (adult) (pediatric) Plan: COMMENDED HER FOR EXCELLENT COMPLIANCE. ADVISED TO KEEP THE STRAPS TIGHT SO THAT TO AVOID THE AIR LEAKAGE. (3) Allergic rhinitis: Comment: HAS INTERMITTENT NASAL CONGESTION DUE TO ALLERGIC RHINITIS, CONTROLLED WITH USE OF NASACORT NASAL SPRAY 2 SPRAYS IN EACH NOSTRIL DAILY. Code(s): J30.9 - Allergic rhinitis, unspecified Plan: ABOVE (4) COPD (chronic obstructive pulmonary disease): Comment: DOING WELL ON THE CURRENT REGIMEN, AND WILL CONTINUE THE SAME. Code(s): J44.9 - Chronic obstructive pulmonary disease, unspecified Plan: [place] SYMBICORT 160/4.5 2 PUFFS BID VENTOLIN 2 PUFFS Q 4-6 HRS PRN ALSO USES ALBUTEROL SOLUTION IN THE NEBULIZER, Q 4-6 HOURS P.R.N. WHEN AT HOME. Coding Level of Care Code Est Pt Level 3 (93863) Diagnoses Morbid obesity E66.01 SHANIQUA (obstructive sleep apnea) G47.33 Allergic rhinitis J30.9 COPD (chronic obstructive pulmonary disease) J44.9
[2023-06-28 11:06] VITALS: BP 122/80; PULSE 82; O2SAT 97; BMI 57.5
== END 2023-06-28 11:18 | disposition home or self-care (01) ==
PROVIDERS: PCP Internal Medicine; Visit Provider Internal Medicine
DX: E66.01 Morbid (severe) obesity due to excess calories (principal); G47.33 Obstructive sleep apnea (adult) (pediatric); J30.9 Allergic rhinitis, unspecified; J44.9 Chronic obstructive pulmonary disease, unspecified
CPT/HCPCS: 99213

== ENCOUNTER 2023-08-29 11:43 | Outpatient (REF) | payer OTHER, SELFPAY | END 2023-08-29 11:44 | disposition home or self-care (01) | LOC: HO.MAMMO 11:43 | PROVIDERS: PCP Internal Medicine; Visit Provider Internal Medicine | DX: Z12.31 Encounter for screening mammogram for malignant neoplasm of breast (principal) | CPT/HCPCS: 77063; 77067 ==

== ENCOUNTER → 2023-08-29 12:15 | Outpatient (BNV) | payer OTHER, SELFPAY | PROVIDERS: PCP Internal Medicine; Visit Provider Radiology Diagnostic Radiology | DX: Z12.31 Encounter for screening mammogram for malignant neoplasm of breast (principal) | CPT/HCPCS: 77063; 77067 ==

== ENCOUNTER 2023-09-18 11:15 | Outpatient (AMB) | payer OTHER, SELFPAY ==
[2023-09-18 11:26] VITALS: BP 158/98; PULSE 88; O2SAT 96; BMI 55.8
--- NOTE | 2023-09-18 11:26 | MHC.PC.OV ---
Vital Signs 09/18/23 11:26 Height 5 ft 2 in Weight 305 lb BMI 55.8 BP 158/98 H Blood Pressure Location Lt brachial Position Sitting Pulse 88 Pulse Source Pulse Oximeter Pulse Oximetry (%) 96 Oxygen Delivery Method Room Air Intake Visit Reasons: Abdomen pain, CLBP, DM morbid obesity, Cough and congested Allergies lisinopril Adverse Reaction (Severe, Verified 09/18/23 11:27) hyperkalemia Tobacco use date assessed: 06/21/23 Dental Screening Dental Screen Date: 09/18/23 Did you have a dental visit in the last 12 months?: No Did you have a dental problem in the last 6 months where you did not have access to dental care?: No Was dental information given to patient?: No HPI CLBP, DM morbid obesity HPI Details 58-year-old morbidly obese female with controlled diabetes mellitus obstructive sleep apnea hypertension hypercholesterolemia COPD hypothyroidism patient has osteoarthritis of the hip as well as lumbar degenerative disc disease on narcotic pain medication. Last seen in June 2023. Patient follows up with Pulmonary seen in June for the obstructive sleep apnea on BiPAP compliance has COPD inhalers Ventolin Symbicort. yoli [id number] interpret. noted BP high today. for the COPD- has the inhalers. [facility] Medical History Hearing decreased Hypertension Post-traumatic osteoarthritis of left hip Hematuria Leg length discrepancy Otitis externa Colon cancer screening Allergic rhinitis COPD (chronic obstructive pulmonary disease) Hyperkalemia Hypoventilation associated with obesity syndrome Left ventricular hypertrophy Diabetic nephropathy Opioid dependence SHANIQUA (obstructive sleep apnea) Morbid obesity GERD (gastroesophageal reflux disease) Migraines Hypothyroidism Vitamin D deficiency Anxiety Essential hypertension Type 2 diabetes mellitus with diabetic polyneuropathy Lumbar back pain Asthma Surgical History Deficient knowledge of leg surgery History of hip surgery Hx of bladder endoscopy Hx of spinal surgery Family History Father HTN (hypertension) SHANIQUA (obstructive sleep apnea) Prostate cancer Additional heart attack (anterolateral wall) Mother Asthma Diabetes Brother Epilepsy Sister HTN (hypertension) Maternal Aunt Throat cancer Social History Household Members Other:: brother Housing: Apartment Alcohol intake: never Patient Tobacco Use Status: Former Tobacco user Quit Date: 2009 Tobacco use type: Cigarette Years Smoked: 4 +/- e-Cigarette/Vaping Use: Never Used Second Hand Smoke Exposure: No service: No Current occupational status: disabled Cognitive needs: Yes (cane ) Hearing needs: No Vision needs: Yes (glasses ) Questionnaire PHQ-9 Over the last 2 weeks, how often have you been bothered by any of the following problems? 1. Little interest or pleasure in doing things: not at all 2. Feeling down, depressed, or hopeless: not at all 3. Trouble falling or staying asleep, or sleeping too much: not at all 4. Feeling tired or having little energy: not at all 5. Poor appetite or overeating: not at all 6. Feeling bad about yourself - or that you are a failure or have let yourself or your family down: not at all 7. Trouble concentrating on things, such as reading the newspaper or watching television: not at all 8. Moving or speaking so slowly that other people could have noticed. Or the opposite - being so fidgety or restless that you have been moving around a lot more than usual: not at all 9. Thoughts that you would be better off or of hurting yourself in some way: not at all Total score: 0 Depression Screening Interpretation: Negative Depression Screening Done: Yes Source: Developed by Drs. Waqas Albarran, Thelma Dumont, Ruben Oden and colleagues, with an educational valente from [employer]. Thrive Questionnaire Date Thrive assessed: 09/18/23 I am a: Patient What is your living situation today?: I have a steady place to live Within the past 12 months, did the food you bought not last and you didn't have the money to get more?: Never true Within the past 12 months, did you worry whether your food would run out before you got money to buy more?: Never true Do you have trouble paying for medicines?: No Do you have trouble getting transportation to medical appointments?: No Do you have trouble paying your heating and electricity bill?: No Do you have trouble taking care of your child, family member or friend?: No Do you have trouble with day-to-day activities such as bathing, preparing meals, shopping, managing finances, etc.?: No Are you currently unemployed and looking for a job?: No Are you interested in more education?: No Currently or been in a relationship where the following occur: no concerns reported THRIVE Score: 0 AUDIT C Alcohol Use Questionnaire (AUDIT-C) 1. How often do you have a drink containing alcohol?: Never 2. How many drinks containing alcohol do you have on a typical day when you are drinking?: 1 or 2 3. How often do you have six or more drinks on one occasion?: Never Total Score: 0 BEULAH-7 AMB Questionnaire BEULAH-7 Date BEULAH - 7 assessed: 09/18/23 Feeling nervous, anxious, or on edge: 0 = Not at all Not being able to stop or control worryin = Not at all Worrying too much about different things: 0 = Not at all Trouble relaxin = Not at all Being so restless that it is hard to sit still: 0 = Not at all Becoming easily annoyed or irritable: 0 = Not at all Feeling afraid as if something awful might happen: 0 = Not at all Total BEULAH-7 score (0-4 normal; 5-9 mild; 10-14 moderate; 15-21 severe): 0 Source: Developed by Drs. Waqas Albarran, Thelma Dumont, Ruben Oden and colleagues, with an educational valente from [employer]. Physical exam (Primary Care) Vital Signs: Last Vital Signs Pulse 88 09/18/23 11:26 BP 158/98 H 09/18/23 11:26 Pulse Ox 96 09/18/23 11:26 Oxygen Delivery Method Room Air 09/18/23 11:26 BMI result Body Mass Index 55.8 Tobacco/Smoking Status: Tobacco use Status Tobacco use date assessed 06/21/23 09/18/23 11:26 Patient Tobacco Use Status Former Tobacco user 09/18/23 11:26 Tobacco use type Cigarette 09/18/23 11:26 e-Cigarette/Vaping Use Never Used 09/18/23 11:26 PHQ-9: PHQ-9 Score PHQ-9: Total score 0 09/18/23 11:42 Depression Screening Interpretation: Negative Thrive Assessment: Date of Thrive Assessment Date Thrive assessed 09/18/23 09/18/23 11:36 Currently or been in a relationship where the following occur: no concerns reported Const General: alert; No acute distress Eyes Conjunctivae: conjunctivae normal Resp Auscultation: clear to auscultation bilaterally Cardio Rate: regular rate Rhythm: regular rhythm GI Inspection: Yes normal to inspection Extrem General: Yes normal to inspection and No edema Results AMB Hemoglobin A1c AMB Hemoglobin A1c 5.9 % Last Edit by Marissa Humphrey CMA on 09/18/23 11:44 Results Reviewed Results Reviewed: Laboratory Last Values Hgb A1c (Clinic) 5.9 % (4.0-6.0) 09/18/23 11:43 Assessment and Plan Assessment & Plan (1) Morbid obesity: Comment: THIS IS A CHRONIC PROBLEM, DIFFICULT FOR HER TO LOSE WEIGHT. BUT SHE IS TRYING HER BEST TO RESTRICT THE CALORIES INTAKE AND FOLLOW THE DIETARY INSTRUCTIONS. Code(s): E66.01 - Morbid (severe) obesity due to excess calories Plan: Diet and exercise continue to lose the weight (2) Type 2 diabetes mellitus with hyperglycemia: Comment: [place] [facility] 03/2023 Code(s): E11.65 - Type 2 diabetes mellitus with hyperglycemia Qualifiers: Diabetes mellitus long term care administrator insulin use: with long term care administrator use Qualified Code(s): E11.65 - Type 2 diabetes mellitus with hyperglycemia; Z79.4 - long term care administrator (current) use of insulin Plan: Decrease the amount of carbohydrate intake, pasta, bread, rice and potatoes are all sugar and that is aside from all the sweet stuff, remember that fruits are good but they are Sweet also. Hemoglobin A1c goal of less than 6.5 presently on Trulicity, Jardiance Lantus and metformin (3) SHANIQUA (obstructive sleep apnea): Comment: CHRONIC SLEEP APNEA ALONG WITH CHRONIC HYPOVENTILATION SYNDROME. WELL TREATED WITH THE USE OF BIPAP.( AF-20 PRESSURE 25/16 CMs ) SHE IS VERY COMPLIANT AND BENEFITTING. ADVISED TO CONTINUE THE SAME AND INSTRUCTED TO TIGHTEN THE STRAPS LITTLE BIT MORE AT NIGHT. Code(s): G47.33 - Obstructive sleep apnea (adult) (pediatric) Plan: Patient follows up with Pulmonary and continues to use the CPAP more than 4 hours a night and benefits from this (4) Essential hypertension: Code(s): I10 - Essential (primary) hypertension Plan: Continue with blood pressure medication. Decrease salt intake and exercise on carvedilol 25 mg twice a day amlodipine 10 mg once a day. BP is high today. admits has not taken med for today (5) Hypercholesterolemia: Code(s): E78.00 - Pure hypercholesterolemia, unspecified Plan: Avoid fried foods, chicken skin, eggs, butter margarine, pastries and meat. Be it pork or beef they have a lot of cholesterol LDL goal of less than 100 and triglyceride of less than 150 on atorvastatin 80 mg once a day (6) COPD (chronic obstructive pulmonary disease): Comment: DOING WELL ON THE CURRENT REGIMEN, AND WILL CONTINUE THE SAME. Code(s): J44.9 - Chronic obstructive pulmonary disease, unspecified Plan: Follows up with Pulmonary and continuing with the inhalers Symbicort (7) Hypothyroidism: Code(s): E03.9 - Hypothyroidism, unspecified Plan: Continue with thyroid medication (8) Generalized anxiety disorder: Comment: psychiatry q 2 weeks with counselling Code(s): F41.1 - Generalized anxiety disorder Plan: Continue with counseling and therapy (9) Osteoarthritis of left hip: Comment: severe xray 06/2023 Code(s): M16.12 - Unilateral primary osteoarthritis, left hip Plan: Narcotic pain meds: Is being prescribed with the understanding that these medications are potentially addictive and should be used only when absolutely necessary and must always be secured. Any remaining pills should be safely disposed off appropriately. Patient is advised that narcotics can impaired judgment and one should not drive or operate heavy machinery while taking these medications. Never share these medications with anybody and do not leave them unattended. They will not be replaced under any circumstances. Orders: Orders AMB Hemoglobin A1c Today Z13.9 - Encounter for screening, unspecified Medications: Refilled flash glucose sensor (FreeStyle Telma 2 Sensor kit) every 2 weeks 2 ea 11RF E11.42 - Type 2 diabetes mellitus with diabetic polyneuropathy, Z79.4 - penitentiary (current) use of insulin oxycodone 30 mg PO BID 30 days PRN 60 tabs 0RF pain M54.5 - Low back pain flash glucose sensor (FreeStyle Telma 2 Sensor kit) every 2 weeks 2 ea 11RF E11.42 - Type 2 diabetes mellitus with diabetic polyneuropathy, Z79.4 - long term care administrator (current) use of insulin Coding Level of Care Code Est Pt Level 4 (52130) Diagnoses Morbid obesity E66.01 Type 2 diabetes mellitus with hyperglycemia, with long-term current use of insulin E11.65; Z79.4 Diabetes mellitus long term care administrator insulin use: with long term care administrator use SHANIQUA (obstructive sleep apnea) G47.33 Essential hypertension I10 Hypercholesterolemia E78.00 COPD (chronic obstructive pulmonary disease) J44.9 Hypothyroidism E03.9 Generalized anxiety disorder F41.1 Osteoarthritis of left hip M16.12
== END 2023-09-18 12:28 | disposition home or self-care (01) ==
PROVIDERS: PCP Internal Medicine; Visit Provider Internal Medicine
DX: E11.65 Type 2 diabetes mellitus with hyperglycemia (principal); E66.01 Morbid (severe) obesity due to excess calories; Z79.4 Long term (current) use of insulin; Z68.43 Body mass index [BMI] 50.0-59.9, adult; J44.9 Chronic obstructive pulmonary disease, unspecified; G47.33 Obstructive sleep apnea (adult) (pediatric); I10 Essential (primary) hypertension; E78.00 Pure hypercholesterolemia, unspecified; E03.9 Hypothyroidism, unspecified; F41.1 Generalized anxiety disorder; M16.12 Unilateral primary osteoarthritis, left hip
CPT/HCPCS: 83036; 99214

== ENCOUNTER 2023-11-01 13:05 | Outpatient (AMB) | payer OTHER, SELFPAY ==
[2023-11-01 13:16] VITALS: BP 140/68; PULSE 77; O2SAT 97; BMI 56.2
--- NOTE | 2023-11-01 13:16 | MHC.OFFVIS ---
Vital Signs 11/01/23 13:16 Height 5 ft 2 in Weight 307 lb 8.717 oz BMI 56.2 BP 140/68 H Blood Pressure Location Lt radial Position Sitting Pulse 77 Pulse Source Pulse Oximeter Pulse Oximetry (%) 97 Oxygen Delivery Method Room Air Intake Visit Reasons: Obstructive sleep apnea Intake Note: pt is here for follow up and states she is having issues with allergies, and also cpap is going well, with only the machine shutting off yesterday for a few hours, back on last night Teaching Fellow Required: Yes Teaching Fellow Name: Derian Allergies lisinopril Adverse Reaction (Severe, Verified 11/01/23 13:38) hyperkalemia Medication List - Last Reconciled 11/01/23 by Yusuf Whitfield MD amlodipine 10 mg PO DAILY aspirin 81 mg PO DAILY atorvastatin 80 mg PO QPM 90 days blood pressure monitor (Blood Pressure Kit) As directed XXL blood pressure cuff blood sugar diagnostic (FreeStyle Lite Strips) 1 strip miscellaneous DAILY 30 days budesonide-formoterol 160-4.5 mcg/actuation (Symbicort) 2 puffs inhalation BID carvedilol 25 mg PO BID cholecalciferol (vitamin D3) 50 mcg PO DAILY 90 days [CPAP full face mask medium AF 20 bilevel pressure 25/16 cm humidified air As directed] doxepin 100 mg PO BEDTIME 90 days doxepin 25 mg PO BEDTIME dulaglutide (Trulicity) 3 mg (0.5 mL) subcut QWEEK 28 days empagliflozin (Jardiance) 10 mg PO DAILY flash glucose scanning reader (FreeStyle Telma 2 [place]) As directed flash glucose sensor (FreeStyle Telma 2 Sensor kit) every 2 weeks insulin glargine (Lantus Solostar U-100 Insulin) 26 units (0.26 mL) subcut DAILY 90 days lancets daily levocetirizine 5 mg PO DAILY 30 days levothyroxine 75 mcg PO DAILY 90 days metformin ER 500 mg PO BID 90 days oxycodone 30 mg PO BID PRN 30 days peg 3350-electrolytes 236-22.74-6.74 -5.86 gram (Golytely) 240 mL PO Q10M 1 day pen needle, diabetic (BD Ultra-Fine Veena Pen Needle) 1 ea subcut DAILY 90 days sennosides-docusate sodium 8.6-50 mg (Senexon-S) 2 tabs PO BEDTIME sertraline 100 mg PO DAILY 90 days [transport Wheelchair As directed] triamcinolone acetonide (Nasacort) 2 sprays intranasal DAILY 30 days Ventolin HFA 90 mcg/actuation (albuterol sulfate) 2 puffs inhalation Q4-6H PRN NS Do you need a note to return to daycare/school/sports/work: No HPI HPI Obstructive sleep apnea: Details: 58 YEARS OLD FEMALE WITH SUPER MORBID OBESITY CURRENT BMI 56, COMES FOR FOLLOW-UP FOR HAS SHANIQUA AND CPAP USAGE. SHE IS USING BIPAP DEVICE EVERY NIGHT. SHE CLAIMS THAT SHE SLEEPS GOOD DURING. THE NIGHT HER BREATHING REMAINS GOOD DURING THE DAYTIME SHE DOES NOT COMPLAIN OF ANY COUGH. OR WHEEZING THESE DAYS .SHE USES HER INHALERS REGULARLY SHE HAS NOT MADE ANY PROGRESS. IN LOSING WEIGHT PFSH Medical History Hearing decreased Hypertension Post-traumatic osteoarthritis of left hip Hematuria Leg length discrepancy Otitis externa Colon cancer screening Allergic rhinitis COPD (chronic obstructive pulmonary disease) Hyperkalemia Hypoventilation associated with obesity syndrome Left ventricular hypertrophy Diabetic nephropathy Opioid dependence SHANIQUA (obstructive sleep apnea) Morbid obesity GERD (gastroesophageal reflux disease) Migraines Hypothyroidism Vitamin D deficiency Anxiety Essential hypertension Type 2 diabetes mellitus with diabetic polyneuropathy Lumbar back pain Asthma Surgical History Deficient knowledge of leg surgery History of hip surgery Hx of bladder endoscopy Hx of spinal surgery Family History Father HTN (hypertension) SHANIQUA (obstructive sleep apnea) Prostate cancer Additional heart attack (anterolateral wall) Mother Asthma Diabetes Brother Epilepsy Sister HTN (hypertension) Maternal Aunt Throat cancer Social History Household Members Other:: brother Housing: Apartment Alcohol intake: never Patient Tobacco Use Status: Former Tobacco user Quit Date: 2009 Tobacco use type: Cigarette Years Smoked: 4 +/- e-Cigarette/Vaping Use: Never Used Second Hand Smoke Exposure: No service: No Current occupational status: disabled Cognitive needs: Yes (cane ) Hearing needs: No Vision needs: Yes (glasses ) Review of Systems Const All systems reviewed & are unremarkable except as noted in HPI and below Eyes Reports no additional complaints ENT Reports nasal congestion (Off and on) Card Denies chest pain, Denies irregular heart rhythm and Denies leg edema Resp Reports as per HPI GI Denies no additional complaints Denies no additional complaints Musc Reports abnormal gait (Slightly impaired locomotion due to morbid obesity, uses cane), Reports back pain and Reports arthralgias Skin/Breast Reports system reviewed and no additional complaints, except as documented Neuro Reports abnormal gait (Slightly impaired locomotion due to morbid obesity, uses cane) Psych Reports no additional complaints Physical Exam Vital Signs: Last Vital Signs Pulse 77 11/01/23 13:16 BP 140/68 H 11/01/23 13:16 Pulse Ox 97 11/01/23 13:16 Oxygen Delivery Method Room Air 11/01/23 13:16 BMI result Body Mass Index 56.2 Const General: comfortable, no acute distress, alert and awake Orientation/consciousness: patient oriented x3 HEENT Head: Yes normal to inspection General nose exam: No nasal polyps present and No nasal discharge present Face and sinus: Yes sinuses nontender Mouth: oropharynx abnormals (Crowded with Mallampati class 4) Throat: Yes posterior oropharynx normal Eyes General: appearance normal, both eyes and all related structures Neck Neck: Yes normal visual inspection, Yes no lymphadenopathy, Yes trachea midline, Yes no JVD and Yes other (Neck is grossly obese) Thyroid: Thyroid normal Chest Chest palpation & inspection: normal inspection of the chest, normal palpation of entire chest wall and no tenderness Resp Other: Percussion note not perceptible due to thick chest wall Breath sounds are distant especially over the basilar areas. No audible wheezes rhonchi or Creps. Cardio Palpation: PMI not normal (Not palpable) Rate: regular rate Rhythm: regular rhythm Heart sounds: no gallops and no murmurs GI Palpation (GI): Soft to palpation, nontender, No hepatosplenomegaly present, no masses and Other GI palpation findings present (Abdomen is grossly obese and protuberant) Auscultation: normal bowel sounds Back/Spine/Pelvis Thoracic/Lumbar Spine: thoracic and lumbar spine normal to inspection and thoraco-lumbar ROM limited Skin General skin exam: no rashes or lesions noted Neuro General: patient oriented x3, No gait normal (Slightly impaired and uses cane) and no focal motor deficits Cranial nerves: Yes CN's II-XII intact bilaterally Extrem General: Yes normal to inspection, Yes no clubbing, cyanosis or edema and Yes no calf tenderness Psych Appearance: grossly normal Speech and movement: Normal speech and movement present Results Reviewed Results Reviewed: COMPLIANCE REPORT FOR THE LAST 30 NIGHTS IS REVIEWED. SHE HAS USED 30/30 NIGHTS, 100%. AVERAGE USE IT PER NIGHT 9 HOURS 20 MINUTES. PRESSURE 25/16 CM ( BIPAP ) THERE IS SOME AIR LEAK MAXIMUM 76 L/MINUTE, THIS IS DUE TO HER URGE TO SCRATCH HER NOSE DURING THE NIGHT. RESIDUAL AHI 4.6 Assessment & Plan Assessment & Plan (1) Morbid obesity: Comment: THIS IS A CHRONIC PROBLEM, DIFFICULT FOR HER TO LOSE WEIGHT. BUT SHE IS TRYING HER BEST TO RESTRICT THE CALORIES INTAKE AND FOLLOW THE DIETARY INSTRUCTIONS. Code(s): E66.01 - Morbid (severe) obesity due to excess calories Category: Medical Plan: AGAIN STRESS THE IMPORTANCE OF DIET AND ALSO WALKING DAILY MUCH POSSIBLE (2) SHANIQUA (obstructive sleep apnea): Comment: CHRONIC SLEEP APNEA ALONG WITH CHRONIC HYPOVENTILATION SYNDROME. WELL TREATED WITH THE USE OF BIPAP.( AF-20 PRESSURE 25/16 CMs ) SHE IS VERY COMPLIANT AND BENEFITTING. ADVISED TO CONTINUE THE SAME AND INSTRUCTED TO TIGHTEN THE STRAPS LITTLE BIT MORE AT NIGHT. Code(s): G47.33 - Obstructive sleep apnea (adult) (pediatric) Category: Medical Plan: COMMENDED FOR EXCELLENT COMPLIANCE. ADVISED TO TIGHTEN. THE STRAPS LITTLE BUT MORE KEEP ON USING REGULARLY EVERY NIGHT (3) Hypoventilation associated with obesity syndrome: Comment: SEE UNDER SHANIQUA , BEING TREATED SUCCESSFULLY WITH THE USE OF BIPAP. Code(s): E66.2 - Morbid (severe) obesity with alveolar hypoventilation Category: Medical Plan: UNDER SHANIQUA (4) COPD (chronic obstructive pulmonary disease): Comment: DOING WELL ON THE CURRENT REGIMEN, AND WILL CONTINUE THE SAME. Code(s): J44.9 - Chronic obstructive pulmonary disease, unspecified Category: Medical Plan: CONTINUE USING BUDESONIDE-FORMOTEROL 160-4.52 PUFFS B.I.D. AND VENTOLIN HFA 2 PUFFS Q.6 HOURS ONLY P.R.N. (5) Allergic rhinitis: Comment: HAS INTERMITTENT NASAL CONGESTION DUE TO ALLERGIC RHINITIS, CONTROLLED WITH USE OF NASACORT NASAL SPRAY 2 SPRAYS IN EACH NOSTRIL DAILY. Code(s): J30.9 - Allergic rhinitis, unspecified Category: Medical Plan: USE NASACORT NASAL SPRAY 2 SPRAY IN EACH NOSTRIL DAILY Coding Level of Care Code Est Pt Level 4 (66322) Diagnoses Morbid obesity E66.01 SHANIQUA (obstructive sleep apnea) G47.33 Hypoventilation associated with obesity syndrome E66.2 COPD (chronic obstructive pulmonary disease) J44.9 Allergic rhinitis J30.9
== END 2023-11-01 13:41 | disposition home or self-care (01) ==
PROVIDERS: PCP Internal Medicine; Visit Provider Internal Medicine
DX: G47.33 Obstructive sleep apnea (adult) (pediatric) (principal); J44.9 Chronic obstructive pulmonary disease, unspecified; E66.01 Morbid (severe) obesity due to excess calories; J30.9 Allergic rhinitis, unspecified
CPT/HCPCS: 99214

== ENCOUNTER → 2023-11-01 13:05 | Outpatient (BNVA) | payer OTHER, SELFPAY | PROVIDERS: PCP Internal Medicine; Visit Provider Internal Medicine | DX: E66.2 Morbid (severe) obesity with alveolar hypoventilation (principal); J44.9 Chronic obstructive pulmonary disease, unspecified; J30.9 Allergic rhinitis, unspecified; Z68.43 Body mass index [BMI] 50.0-59.9, adult; Z99.89 Dependence on other enabling machines and devices | CPT/HCPCS: 99212 ==

== ENCOUNTER 2023-11-07 12:25 | Outpatient (AMB) | payer OTHER, SELFPAY ==
[2023-11-07 12:47] VITALS: BP 124/64; PULSE 73; O2SAT 97; BMI 56.4
--- NOTE | 2023-11-07 12:47 | MHC.OFFVIS ---
Vital Signs 11/07/23 12:47 Height 5 ft 2 in Weight 308 lb 10.354 oz BMI 56.4 BP 124/64 Blood Pressure Location Lt radial Position Sitting Pulse 73 Pulse Source Pulse Oximeter Pulse Oximetry (%) 97 Intake Visit Reasons: 6 mnth f/up Community Health Program Coordinator Required: Yes Community Health Program Coordinator Name: [id number]/galejanelle/Ukrainian Accompanied by: Self / Same As Patient Allergies lisinopril Adverse Reaction (Severe, Verified 11/01/23 13:38) hyperkalemia Medication List - Last Reconciled 11/07/23 by Leoncio Le MD amlodipine 10 mg PO DAILY aspirin 81 mg PO DAILY atorvastatin 80 mg PO QPM 90 days blood pressure monitor (Blood Pressure Kit) As directed XXL blood pressure cuff blood sugar diagnostic (FreeStyle Lite Strips) 1 strip miscellaneous DAILY 30 days budesonide-formoterol 160-4.5 mcg/actuation (Symbicort) 2 puffs inhalation BID carvedilol 25 mg PO BID cholecalciferol (vitamin D3) 50 mcg PO DAILY 90 days [CPAP full face mask medium AF 20 bilevel pressure 25/16 cm humidified air As directed] doxepin 100 mg PO BEDTIME 90 days doxepin 25 mg PO BEDTIME dulaglutide (Trulicity) 3 mg (0.5 mL) subcut QWEEK 28 days empagliflozin (Jardiance) 10 mg PO DAILY flash glucose scanning reader (FreeStyle Telma 2 [place]) As directed flash glucose sensor (FreeStyle Telma 2 Sensor kit) every 2 weeks insulin glargine (Lantus Solostar U-100 Insulin) 26 units (0.26 mL) subcut DAILY 90 days lancets daily levocetirizine 5 mg PO DAILY 30 days levothyroxine 75 mcg PO DAILY 90 days metformin ER 500 mg PO BID 90 days oxycodone 30 mg PO BID PRN 30 days peg 3350-electrolytes 236-22.74-6.74 -5.86 gram (Golytely) 240 mL PO Q10M 1 day pen needle, diabetic (BD Ultra-Fine Veena Pen Needle) 1 ea subcut DAILY 90 days sennosides-docusate sodium 8.6-50 mg (Senexon-S) 2 tabs PO BEDTIME sertraline 100 mg PO DAILY 90 days [transport Wheelchair As directed] triamcinolone acetonide (Nasacort) 2 sprays intranasal DAILY 30 days Ventolin HFA 90 mcg/actuation (albuterol sulfate) 2 puffs inhalation Q4-6H PRN NS HPI Comments Details: Pleasant 58-year-old female who is here for follow-up. She has background history of hypertension. She has been doing well. 02/21/2023: She returns for follow-up. Blood pressure control is good. She is taking amlodipine 10 mg daily along with carvedilol 25 mg twice a day. Blood pressure control is good. She is denying chest discomfort shortness of breath. Overall clinically stable. 11/07/23: She is here for follow-up. Blood pressure is well controlled. She is taking atorvastatin and last LDL cholesterol was 69, total cholesterol 122, triglycerides 98 and HDL 34. Denying chest pain or shortness of breath. [facility] Medical History Hearing decreased Hypertension Post-traumatic osteoarthritis of left hip Hematuria Leg length discrepancy Otitis externa Colon cancer screening Allergic rhinitis COPD (chronic obstructive pulmonary disease) Hyperkalemia Hypoventilation associated with obesity syndrome Left ventricular hypertrophy Diabetic nephropathy Opioid dependence SHANIQUA (obstructive sleep apnea) Morbid obesity GERD (gastroesophageal reflux disease) Migraines Hypothyroidism Vitamin D deficiency Anxiety Essential hypertension Type 2 diabetes mellitus with diabetic polyneuropathy Lumbar back pain Asthma Surgical History Deficient knowledge of leg surgery History of hip surgery Hx of bladder endoscopy Hx of spinal surgery Family History Father HTN (hypertension) SHANIQUA (obstructive sleep apnea) Prostate cancer Additional heart attack (anterolateral wall) Mother Asthma Diabetes Brother Epilepsy Sister HTN (hypertension) Maternal Aunt Throat cancer Social History Household Members Other:: brother Housing: Apartment Alcohol intake: never Patient Tobacco Use Status: Former Tobacco user Quit Date: 2009 Tobacco use type: Cigarette Years Smoked: 4 +/- e-Cigarette/Vaping Use: Never Used Second Hand Smoke Exposure: No service: No Current occupational status: disabled Cognitive needs: Yes (cane ) Hearing needs: No Vision needs: Yes (glasses ) Review of Systems Const Denies chills, Denies fatigue, Denies fever(s), Denies frequent falls, Denies weakness, Denies weight gain and Denies weight loss ENT Denies dizziness Card Denies chest pain, Denies leg edema, Denies lightheadedness, Denies palpitations, Denies dyspnea and Denies dyspnea on exertion Resp Denies cough, Denies dyspnea and Denies dyspnea on exertion GI Denies hematochezia Musc Denies abnormal gait, Denies muscle weakness, Denies numbness, Denies radiating pain into limb and Denies tingling Neuro Denies abnormal gait, Denies dizziness, Denies frequent falls, Denies numbness, Denies tingling and Denies weakness Endo Denies fatigue and Denies palpitations Physical Exam Vital Signs: Last Vital Signs Pulse 73 11/07/23 12:47 BP 124/64 11/07/23 12:47 Pulse Ox 97 11/07/23 12:47 BMI result Body Mass Index 56.4 GENERAL APPEARANCE: in no acute distress, pleasant. NECK/THYROID: no carotid bruit, no jugular venous distention. SKIN: no suspicious lesions, warm and dry. HEART: no murmurs, regular rate and rhythm. LUNGS: clear to auscultation bilaterally. ABDOMEN: soft, nontender. EXTREMITIES: no edema. PERIPHERAL PULSES: equal. NEUROLOGIC: No gross deficits, AAO X 3 Assessment & Plan Assessment & Plan (1) Hypercholesterolemia: Code(s): E78.00 - Pure hypercholesterolemia, unspecified Category: Medical (2) Essential hypertension: Code(s): I10 - Essential (primary) hypertension Category: Medical Plan Pleasant 57-year-old lady here for follow-up. She has background history of hypertension and hyperlipidemia. She is on atorvastatin 80 mg once a day. Lipid panel appears stable. Blood pressure is well controlled currently. She will get do same medications for now. She will see us back in 1 year Thank you for allowing me to participate in the care of your patient. Please feel free to contact me if you have any questions. Coding Level of Care Code Est Pt Level 4 (09670) Diagnoses Hypercholesterolemia E78.00 Essential hypertension I10
== END 2023-11-07 13:29 | disposition home or self-care (01) ==
PROVIDERS: PCP Internal Medicine; Visit Provider Internal Medicine Cardiovascular Disease
DX: E78.00 Pure hypercholesterolemia, unspecified (principal); I10 Essential (primary) hypertension
CPT/HCPCS: 99214

== ENCOUNTER → 2023-11-07 12:25 | Outpatient (BNVA) | payer OTHER, SELFPAY | PROVIDERS: PCP Internal Medicine; Visit Provider Internal Medicine Cardiovascular Disease | DX: E78.00 Pure hypercholesterolemia, unspecified (principal); I10 Essential (primary) hypertension | CPT/HCPCS: 99212 ==

== ENCOUNTER 2024-01-31 10:41 | Outpatient (AMB) | payer OTHER, SELFPAY ==
[2024-01-31 10:44] VITALS: BP 158/68; PULSE 88; O2SAT 95; BMI 55.6
--- NOTE | 2024-01-31 10:44 | A.OFFPC_ITS ---
Vital Signs 01/31/24 10:44 Height 5 ft 2 in Weight 304 lb BMI 55.6 BP 158/68 H Blood Pressure Location Lt brachial Position Sitting Pulse 88 Pulse Source Pulse Oximeter Pulse Oximetry (%) 95 Oxygen Delivery Method Room Air Intake Visit Reasons: DM , HTN , CLBP Intake Note: Patient did have coffee and breakfast prior to coming in. Allergies lisinopril Adverse Reaction (Severe, Verified 01/31/24 10:44) hyperkalemia Tobacco use date assessed: 06/21/23 Dental Screening Dental Screen Date: 01/31/24 Did you have a dental visit in the last 12 months?: Yes Did you have a dental problem in the last 6 months where you did not have access to dental care?: No Was dental information given to patient?: Patient has dentist HPI DM , HTN , CLBP HPI Details 58-year-old morbidly obese female with c ontrolled diabetes mellitus obstructive sleep apnea hypertension hypercholesterolemia COPD hypothyroidism generalized anxiety disorder and left hip osteoarthritis coming in for follow- up. Last seen in 09/29/2023. Patient's mammogram is up-to-date August 2023. Re view of the notes has seen Cardiology in October controlled blood pressure with amlodipine and carvedilol. She has followed with Pulmonary 11/01/2023 for the obstructive sleep apnea compliant with the BiPAP and benefitting from this continuing with inhalers for the COPD 100-78 ([id number]) complains of pain on R shouolder to wrist - 1 week [facility] Medical History Hearing decreased Hypertension Post-traumatic osteoarthritis of left hip Hematuria Leg length discrepancy Otitis externa Colon cancer screening Allergic rhinitis COPD (chronic obstructive pulmonary disease) Hyperkalemia Hypoventilation associated with obesity syndrome Left ventricular hypertrophy Diabetic nephropathy Opioid dependence SHANIQUA (obstructive sleep apnea) Morbid obesity GERD (gastroesophageal reflux disease) Migraines Hypothyroidism Vitamin D deficiency Anxiety Essential hypertension Type 2 diabetes mellitus with diabetic polyneuropathy Lumbar back pain Asthma Surgical History Deficient knowledge of leg surgery History of hip surgery Hx of bladder endoscopy Hx of spinal surgery Family History Father HTN (hypertension) SHANIQUA (obstructive sleep apnea) Prostate cancer Additional heart attack (anterolateral wall) Mother Asthma Diabetes Brother Epilepsy Sister HTN (hypertension) Maternal Aunt Throat cancer Social History (Reviewed 11/07/23 @ 12:50 by Alexandria Reis [facility]) Household Members Other:: brother Housing: Apartment Alcohol intake: never Patient Tobacco Use Status: Former Tobacco user Tobacco use type: Cigarette Years Smoked: 4 +/- e-Cigarette/Vaping Use: Never Used Second Hand Smoke Exposure: No service: No Current occupational status: disabled Cognitive needs: Yes (cane ) Hearing needs: No Vision needs: Yes (glasses ) Questionnaire PHQ-9 Over the last 2 weeks, how often have you been bothered by any of the following problems? 1. Little interest or pleasure in doing things: not at all 2. Feeling down, depressed, or hopeless: not at all 3. Trouble falling or staying asleep, or sleeping too much: not at all 4. Feeling tired or having little energy: not at all 5. Poor appetite or overeating: not at all 6. Feeling bad about yourself - or that you are a failure or have let yourself or your family down: not at all 7. Trouble concentrating on things, such as reading the newspaper or watching television: not at all 8. Moving or speaking so slowly that other people could have noticed. Or the opposite - being so fidgety or restless that you have been moving around a lot more than usual: not at all 9. Thoughts that you would be better off or of hurting yourself in some way: not at all Total score: 0 Depression Screening Interpretation: Negative Depression Screening Done: Yes Source: Developed by Drs. Waqas Albarran, Thelma Dumont, Ruben Oden and colleagues, with an educational valente from [employer]. Thrive Questionnaire Date Thrive assessed: 09/18/23 AUDIT C Alcohol Use Questionnaire (AUDIT-C) 1. How often do you have a drink containing alcohol?: Never 2. How many drinks containing alcohol do you have on a typical day when you are drinking?: 1 or 2 3. How often do you have six or more drinks on one occasion?: Never Total Score: 0 BEULAH-7 AMB Questionnaire BEULAH-7 Date BEULAH - 7 assessed: 04/09/24 Source: Developed by Drs. Waqas Albarran, Thelma Dumont, Ruben Oden and colleagues, with an educational valente from [employer]. Physical exam (Primary Care) Vital Signs: Last Vital Signs Pulse 88 01/31/24 10:44 BP 158/68 H 01/31/24 10:44 Pulse Ox 95 01/31/24 10:44 Oxygen Delivery Method Room Air 01/31/24 10:44 BMI result Body Mass Index 55.6 Tobacco/Smoking Status: Tobacco use Status Tobacco use date assessed 06/21/23 01/31/24 10:50 Patient Tobacco Use Status Former Tobacco user 01/31/24 10:50 Tobacco use type Cigarette 01/31/24 10:50 e-Cigarette/Vaping Use Never Used 01/31/24 10:50 PHQ-9: PHQ-9 Score PHQ-9: Total score 0 01/31/24 10:55 Depression Screening Interpretation: Negative Thrive Assessment: Date of Thrive Assessment Date Thrive assessed 09/18/23 01/31/24 10:50 Const General: alert; No acute distress Eyes Conjunctivae: conjunctivae normal Resp Auscultation: clear to auscultation bilaterally Cardio Rate: regular rate Rhythm: regular rhythm GI Inspection: Yes normal to inspection Extrem General: Yes normal to inspection and No edema Results AMB Hemoglobin A1c AMB Hemoglobin A1c 5.7 % Last Edit by Marissa Humphrey CMA on 01/31/24 10 :56 Results Reviewed Results Reviewed: Laboratory Last Values Hgb A1c (Clinic) 5.7 % (4.0-6.0) 01/31/24 10:55 Assessment and Plan Assessment & Plan (1) SHANIQUA (obstructive sleep apnea): Comment: CHRONIC SLEEP APNEA ALONG WITH CHRONIC HYPOVENTILATION SYNDROME. WELL TREATED WITH THE USE OF BIPAP.( AF-20 PRESSURE 25/16 CMs ) SHE IS VERY COMPLIANT AND BENEFITTING. ADVISED TO CONTINUE THE SAME AND INSTRUCTED TO TIGHTEN THE STRAPS LITTLE BIT MORE AT NIGHT. Code(s): G47.33 - Obstructive sleep apnea (adult) (pediatric) Plan: Continue to use the CPAP more than 4 hours a night and benefits from this patient follows up with Pulmonary (2) Morbid obesity: Comment: THIS IS A CHRONIC PROBLEM, DIFFICULT FOR HER TO LOSE WEIGHT. BUT SHE IS TRYING HER BEST TO RESTRICT THE CALORIES INTAKE AND FOLLOW THE DIETARY INSTRUCTIONS. Code(s): E66.01 - Morbid (severe) obesity due to excess calories Plan: Diet and exercise (3) Type 2 diabetes mellitus with hyperglycemia: Comment: [place] eye 03/2023 Code(s): E11.65 - Type 2 diabetes mellitus with hyperglycemia Qualifiers: Diabetes mellitus retirement insulin use: with retirement use Qualified Code(s): E11.65 - Type 2 diabetes mellitus with hyperglycemia; Z79.4 - shelter (current) use of insulin Plan: Decrease the amount of carbohydrate intake, pasta, bread, rice and potatoes are all sugar and that is aside from all the sweet stuff, remember that fruits are good but they are Sweet also. Hemoglobin A1c has been under control on Trulicity 3 mg once a week Jardiance 10 mg once a day Lantus 26 units once a day metformin 500 twice a day (4) Essential hypertension: Code(s): I10 - Essential (primary) hypertension Plan: Continue with blood pressure medication. Decrease salt intake and exercise continue with carvedilol 25 mg twice a day and amlodipine 10 mg once a day patient had hyperkalemia with lisinopril (5) Hypercholesterolemia: Code(s): E78.00 - Pure hypercholesterolemia, unspecified Plan: Avoid fried foods, chicken skin, eggs, butter margarine, pastries and meat. Be it pork or beef they have a lot of cholesterol patient needs to have blood work done on atorvastatin 80 mg at bedtime. (6) COPD (chronic obstructive pulmonary disease): Comment: DOING WELL ON THE CURRENT REGIMEN, AND WILL CONTINUE THE SAME. Code(s): J44.9 - Chronic obstructive pulmonary disease, unspecified Plan: Continue with the inhalers follows up with Pulmonary (7) Hypothyroidism: Code(s): E03.9 - Hypothyroidism, unspecified Plan: Continue with thyroid medication and blood work requested. (8) Generalized anxiety disorder: Comment: psychiatry q 2 weeks with counselling Code(s): F41.1 - Generalized anxiety disorder Plan: Continue with counseling and therapy (9) GERD (gastroesophageal reflux disease): Code(s): K21.9 - Gastro-esophageal reflux disease without esophagitis Plan: Avoid the foods that causes that usually spicy foods, tomato products, juices, coffee, soda and foods that your sensitive to. After eating do not lie down, allow 3-4 hours before in lie down. And keep the head of bed above 30 degrees to avoid the acid from going up. (10) Osteoarthritis of left hip: Comment: severe xray 06/2023 Code(s): M16.12 - Unilateral primary osteoarthritis, left hip Plan: Narcotic pain meds: Is being prescribed with the understanding that these medications are potentially addictive and should be used only when absolutely necessary and must always be secured. Any remaining pills should be safely disposed off appropriately. Patient is advised that narcotics can impaired judgment and one should not drive or operate heavy machinery while taking these medications. Never share these medications with anybody and do not leave them unattended. They will not be replaced under any circumstances. (11) Wrist pain, right: Code(s): M25.531 - Pain in right wrist (12) Right shoulder pain: Code(s): M25.511 - Pain in right shoulder Orders: Orders Thyroid Stimulating Hormone Today E11.65 - Type 2 diabetes mellitus with hyperglycemia, Z79.4 - shelter (current) use of insulin Lipid Panel Today E11.65 - Type 2 diabetes mellitus with hyperglycemia, E78.00 - Pure hypercholesterolemia, unspecified, Z79.4 - shelter (current) use of insulin Hemoglobin A1c Today E11.65 - Type 2 diabetes mellitus with hyperglycemia, Z79.4 - long term acute care registered nurse (current) use of insulin Creatinine Urine Today E11.65 - Type 2 diabetes mellitus with hyperglycemia, Z79.4 - shelter (current) use of insulin Vitamin D 25-OH Total Today E11.65 - Type 2 diabetes mellitus with h yperglycemia, Z79.4 - shelter (current) use of insulin AMB Hemoglobin A1c Today Z13.9 - Encounter for screening, unspecified Complete Blood Count Auto Diff Today E11.65 - Type 2 diabetes mellitus with hyperglycemia, Z79.4 - long term acute care registered nurse (current) use of insulin Comprehensive Met. Panel Today E11.65 - Type 2 diabetes mellitus with hyperglycemia, Z79.4 - shelter (current) use of insulin Free T4 (Free Thyroxine) Today E11.65 - Type 2 diabetes mellitus with hyperglycemia, Z79.4 - shelter (current) use of insulin Microalbumin, Random (w Creat) Today E11.65 - Type 2 diabetes mellitus with hyperglycemia, Z79.4 - long term acute care registered nurse (current) use of insulin Vitamin B12 and Folate Today E11.65 - Type 2 diabetes mellitus with hyperglycemia, Z79.4 - long term acute care registered nurse (current) use of insulin XR shoulder RT min 2V Today M25.511 - Pain in right shoulder XR hand wrist RT Today M25.531 - Pain in right wrist Medications: New tirzepatide (Mounjaro) 7.5 mg (0.5 mL) subcut QWEEK 2 mL 2RF E11.65 - Type 2 diabetes mellitus with hyperglycemia, Z79.4 - shelter (current) use of insulin Discontinued dulaglutide (Trulicity) Discontinued Reason: Doctor's Order 3 mg (0.5 mL) subcut QWEEK 28 days 2 mL 6RF I10 - Essential (primary) hypertension Coding Level of Care Code Est Pt Level 4 (85867) Complex EM visit Add On G2211 Diagnoses SHANIQUA (obstructive sleep apnea) G47.33 Morbid obesity E66.01 Type 2 diabetes mellitus with hyperglycemia, with long-term current use of insulin E11.65; Z79.4 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
== END 2024-01-31 11:47 | disposition home or self-care (01) ==
PROVIDERS: PCP Internal Medicine; Visit Provider Internal Medicine
DX: G47.33 Obstructive sleep apnea (adult) (pediatric) (principal); E66.01 Morbid (severe) obesity due to excess calories; E11.65 Type 2 diabetes mellitus with hyperglycemia; Z68.43 Body mass index [BMI] 50.0-59.9, adult; Z79.4 Long term (current) use of insulin; J44.9 Chronic obstructive pulmonary disease, unspecified; I10 Essential (primary) hypertension; E78.00 Pure hypercholesterolemia, unspecified; E03.9 Hypothyroidism, unspecified; F41.1 Generalized anxiety disorder; K21.9 Gastro-esophageal reflux disease without esophagitis; M16.12 Unilateral primary osteoarthritis, left hip
CPT/HCPCS: 83036; 99214; G2211

== ENCOUNTER 2024-02-04 11:37 | Outpatient (REF) | payer OTHER, SELFPAY ==
--- NOTE | ~2024-02-04 | XR_ITS ---
EXAMINATION: XR HAND/WRIST, RIGHT CLINICAL INFORMATION: Right wrist pain. COMPARISON: None available. TECHNIQUE: PA, lateral, oblique, and scaphoid views of the right hand and wrist. FINDINGS: No acute fracture or dislocation. Mild joint space narrowing with tiny marginal osteophytes at the first carpometacarpal joint. Normal carpal alignment. No osseous erosion. No abnormal soft tissue calcification. XR/XR hand wrist RT IMPRESSION: Mild osteoarthritis at the first carpometacarpal joint. Electronically signed by: Wayne Chapa MD 02/08/2024 10:23 AM EDT
--- NOTE | ~2024-02-04 | XR_ITS ---
EXAMINATION: XR SHOULDER, RIGHT CLINICAL INFORMATION: Right shoulder pain. COMPARISON: None available. TECHNIQUE: AP external rotation, Grashey, scapular Y, and axillary views of the right shoulder. FINDINGS: Severe acromioclavicular joint space narrowing with large marginal osteophytes. Prominent subacromial spurring and lateral acromial spurring. Moderate glenohumeral joint space narrowing with prominent marginal osteophytes. No acute fracture or dislocation. Mild chronic superior subluxation of the humeral head, likely indicating underlying rotator cuff tendon tears. Lobulated calcification adjacent to the greater tuberosity measuring up to 0.7 cm which could represent a loose body versus distal infraspinatus calcific tendinitis. No concerning lytic or blastic osseous lesion. XR/XR shoulder RT min 2V IMPRESSION: 1. Severe acromioclavicular osteoarthritis with prominent subacromial spurring and lateral acromial spurring. 2. Moderate glenohumeral osteoarthritis. 3. Mild superior subluxation of the humeral head, likely indicating underlying rotator cuff tendon tears. 4. Calcification adjacent to the greater tuberosity which could represent a loose body versus distal infraspinatus calcific tendinitis. Electronically signed by: Wayne Chapa MD 02/08/2024 10:45 AM EDT
[2024-02-04 12:00] LABS: MANUAL DIFF FLAG NO
[2024-02-04 12:44] LABS: Basophils Percent Auto 0.3 % (0-2); Eosinophils Absolute Auto 0.3 X10*3/uL (0.0-0.4); Eosinophils Percent Auto 3.6 % (0-4); Hematocrit 43.1 % (37.0-47.0); Imm Gran Abs Auto 0.04 X10*3/uL (0.00-0.03); Imm Gran Pct Auto 0.5 % (0.0-0.4); Lymphocytes Absolute Auto 1.4 X10*3/uL (1.2-4.9); Lymphocytes Percent Auto 17.6 % (20-40); Mean Corpuscular HGB Conc 30.2 g/dl (31.0-35.0); Mean Corpuscular Hemoglobin 24.6 pg (27.0-33.0); Mean Corpuscular Volume 81.5 fL (80.0-98.0); Mean Platelet Volume 10.6 fL (9.4-12.3); Monocytes Absolute Auto 0.6 X10*3/uL (0.1-1.2); Monocytes Percent Auto 7.1 % (2-11); Neutrophils Absolute Auto 5.6 x10*3/uL (2.0-8.3); Neutrophils Percent Auto 70.9 % (45-73); Platelet Count 258 X10*3/uL (160-400); Red Blood Count 5.29 X10*6/uL (4.20-5.50); Red Cell Distribution Width 16.1 % (11.0-16.0); White Blood Count 7.9 X10*3/uL (4.8-10.8)
[2024-02-04 13:10] LABS: Estimated Average Glucose 108 mg/dL; Hemoglobin A1c % 5.4 % (<6.0)
[2024-02-04 13:16] LABS: Alanine Aminotransferase 21 U/L (0-31); Albumin Level 4.2 g/dL (3.5-5.0); Alkaline Phosphatase 99 U/L (39-117); Anion Gap 13 (12-20); Aspartate Amino Transferase 14 U/L (5-31); Bilirubin Total 0.3 mg/dL (0.0-1.0); Blood Urea Nitrogen 30 mg/dL (9-16); Calcium 9.9 mg/dL (8.4-10.2); Carbon Dioxide 27 mmol/L (22-29); Chloride 106 mmol/L (96-108); Cholesterol 127 mg/dL (<200); Estimated Glomerular Filt Rate 50; Glucose Random 118 mg/dL (60-115); HDL Cholesterol 34 mg/dL (>40); LDL Cholesterol Calculated 74 mg/dL (<100); Potassium 4.5 mmol/L (3.3-5.1); Sodium 141 mmol/L (135-145); Total Protein 8.4 g/dL (6.5-8.0); Triglycerides 96 mg/dL (<150)
[2024-02-04 13:33] LABS: Free T4 (Free Thyroxine) 1.09 ng/dL (0.71-1.85); Thyroid Stimulating Hormone 1.81 uIU/mL (0.32-4.0); Vitamin D 25-OH Total 33.7 ng/mL (>30)
[2024-02-04 13:41] LABS: Folate 9.9 ng/mL (> or = 4.0); Vitamin B12 783 pg/mL (200-900)
[2024-02-04 14:01] LABS: Creatinine Urine 114.78 mg/dL; Microalbum/Creatinine Ratio Ur 145.4 ug/mg cr (<30)
== END 2024-02-04 11:38 | disposition home or self-care (01) ==
LOC: HO.LAB 11:37
PROVIDERS: PCP Internal Medicine; Visit Provider Internal Medicine
DX: M25.531 Pain in right wrist (principal); E11.65 Type 2 diabetes mellitus with hyperglycemia; Z79.4 Long term (current) use of insulin; E78.00 Pure hypercholesterolemia, unspecified; M25.511 Pain in right shoulder
CPT/HCPCS: 36415; 73030; 73110; 73130; 80053; 80061; 82043; 82306; 82570; 82607; 82746; 83036; 84439; 84443; 85025

== ENCOUNTER 2024-02-19 12:56 | Outpatient (AMB) | payer OTHER, SELFPAY ==
[2024-02-19 13:14] VITALS: BP 160/70; PULSE 82; O2SAT 97; BMI 55.6
--- NOTE | 2024-02-19 13:14 | MHC.OFFVIS ---
Vital Signs 02/19/24 13:14 Height 5 ft 2 in Weight 304 lb 3.806 oz BMI 55.6 BP 160/70 H Blood Pressure Location Lt brachial Position Sitting Pulse 82 Pulse Source Pulse Oximeter Pulse Oximetry (%) 97 Oxygen Delivery Method Room Air Intake Visit Reasons: Obstructive sleep apnea Intake Note: pt is here for SHANIQUA follow up and is feeling well. Corrugated Sheet Material Sheeter Required: Yes Corrugated Sheet Material Sheeter Name: [email or web address] [id number] Allergies lisinopril Adverse Reaction (Severe, Verified 02/19/24 13:26) hyperkalemia Medication List - Last Reconciled 02/19/24 by Yusuf Whitfield MD amlodipine 10 mg PO DAILY aspirin 81 mg PO DAILY atorvastatin 80 mg PO QPM 90 days blood pressure monitor (Blood Pressure Kit) As directed XXL blood pressure cuff blood sugar diagnostic (FreeStyle Lite Strips) 1 strip miscellaneous DAILY 30 days budesonide-formoterol 160-4.5 mcg/actuation (Symbicort) 2 puffs inhalation BID carvedilol 25 mg PO BID cholecalciferol (vitamin D3) 50 mcg PO DAILY 90 days [CPAP full face mask medium AF 20 bilevel pressure 25/16 cm humidified air As directed] doxepin 100 mg PO BEDTIME 90 days doxepin 25 mg PO BEDTIME dulaglutide 4.5 mg (0.5 mL) subcut QWEEK 28 days empagliflozin (Jardiance) 10 mg PO DAILY flash glucose scanning reader (FreeStyle Telma 2 [place]) As directed flash glucose sensor (FreeStyle Telma 2 Sensor kit) every 2 weeks insulin glargine (Lantus Solostar U-100 Insulin) 26 units (0.26 mL) subcut DAILY 90 days lancets daily levocetirizine 5 mg PO DAILY 30 days levothyroxine 75 mcg PO DAILY 90 days metformin ER 500 mg PO BID 90 days oxycodone 30 mg PO BID PRN 30 days peg 3350-electrolytes 236-22.74-6.74 -5.86 gram (Golytely) 240 mL PO Q10M 1 day pen needle, diabetic (BD Ultra-Fine Veena Pen Needle) 1 ea subcut DAILY 90 days sennosides-docusate sodium 8.6-50 mg (Senexon-S) 2 tabs PO BEDTIME sertraline 100 mg PO DAILY 90 days [transport Wheelchair As directed] triamcinolone acetonide (Nasacort) 2 sprays intranasal DAILY 30 days Ventolin HFA 90 mcg/actuation (albuterol sulfate) 2 puffs inhalation Q4-6H PRN NS Do you need a note to return to daycare/school/sports/work: No HPI HPI Obstructive sleep apnea: Details: 58 YEARS OLD SUPER MORBIDLY OBESE, WITH DIAGNOSIS OF SEVERE OBSTRUCTIVE SLEEP APNEA, AND BRONCHIAL ASTHMA. IS HERE FOR HER 6 MONTHS FOLLOW-UP. STATES THAT SHE HAS BEEN VERY STABLE, WITHOUT ANY NEW OR ACTIVE SYMPTOMS. USES BIPAP 25/16 CM WITH FULL FACE MASK, EVERY NIGHT AND SLEEPS WELL. BREATHING DOWNING STABLE SHE CONTINUES TO USE SYMBICORT TWICE A DAY AND VENTOLIN ONLY ONCE IN A WHILE. SHE HAS MILD INTERMITTENT NASAL CONGESTION AND USES FLONASE NEEDED. WEIGHT DOWNING THERE HAS BEEN NO PROGRESS IT IS DIFFICULT FOR HER TO LOSE WEIGHT. [facility] Medical History (Updated 02/19/24 @ 13:34 by Yusuf Whitfield MD) Asthma Right shoulder pain Hearing decreased Hypertension Post-traumatic osteoarthritis of left hip Hematuria Leg length discrepancy Otitis externa Colon cancer screening Allergic rhinitis COPD (chronic obstructive pulmonary disease) Hyperkalemia Hypoventilation associated with obesity syndrome Left ventricular hypertrophy Diabetic nephropathy Opioid dependence SHANIQUA (obstructive sleep apnea) Morbid obesity GERD (gastroesophageal reflux disease) Migraines Hypothyroidism Vitamin D deficiency Anxiety Essential hypertension Type 2 diabetes mellitus with diabetic polyneuropathy Lumbar back pain Surgical History Deficient knowledge of leg surgery History of hip surgery Hx of bladder endoscopy Hx of spinal surgery Family History Father HTN (hypertension) SHANIQUA (obstructive sleep apnea) Prostate cancer Additional heart attack (anterolateral wall) Mother Asthma Diabetes Brother Epilepsy Sister HTN (hypertension) Maternal Aunt Throat cancer Social History Household Members Other:: brother Housing: Apartment Alcohol intake: never Patient Tobacco Use Status: Former Tobacco user Tobacco use type: Cigarette Years Smoked: 4 +/- e-Cigarette/Vaping Use: Never Used Second Hand Smoke Exposure: No service: No Current occupational status: disabled Cognitive needs: Yes (cane ) Hearing needs: No Vision needs: Yes (glasses ) Review of Systems Const All systems reviewed & are unremarkable except as noted in HPI and below Eyes Reports no additional complaints ENT Reports nasal congestion (Off and on) Card Denies chest pain, Denies irregular heart rhythm and Denies leg edema Resp Reports as per HPI GI Denies no additional complaints Denies no additional complaints Musc Reports abnormal gait (Slightly impaired locomotion due to morbid obesity, uses cane), Reports back pain and Reports arthralgias Skin/Breast Reports system reviewed and no additional complaints, except as documented Neuro Reports abnormal gait (Slightly impaired locomotion due to morbid obesity, uses cane) Psych Reports no additional complaints Physical Exam Vital Signs: Last Vital Signs Pulse 82 02/19/24 13:14 BP 160/70 H 02/19/24 13:14 Pulse Ox 97 02/19/24 13:14 Oxygen Delivery Method Room Air 02/19/24 13:14 BMI result Body Mass Index 55.6 Const General: comfortable, no acute distress, alert and awake Orientation/consciousness: patient oriented x3 HEENT Head: Yes normal to inspection General nose exam: No nasal polyps present and No nasal discharge present Face and sinus: Yes sinuses nontender Mouth: oropharynx abnormals (Crowded with Mallampati class 4) Throat: Yes posterior oropharynx normal Eyes General: appearance normal, both eyes and all related structures Neck Neck: Yes normal visual inspection, Yes no lymphadenopathy, Yes trachea midline, Yes no JVD and Yes other (Neck is grossly obese) Thyroid: Thyroid normal Chest Chest palpation & inspection: normal inspection of the chest, normal palpation of entire chest wall and no tenderness Resp Other: Percussion note not perceptible due to thick chest wall Breath sounds are distant especially over the basilar areas. No audible wheezes rhonchi or Creps. Cardio Palpation: PMI not normal (Not palpable) Rate: regular rate Rhythm: regular rhythm Heart sounds: no gallops and no murmurs GI Palpation (GI): Soft to palpation, nontender, No hepatosplenomegaly present, no masses and Other GI palpation findings present (Abdomen is grossly obese and protuberant) Auscultation: normal bowel sounds Back/Spine/Pelvis Thoracic/Lumbar Spine: thoracic and lumbar spine normal to inspection and thoraco-lumbar ROM limited Skin General skin exam: no rashes or lesions noted Neuro General: patient oriented x3, No gait normal (Slightly impaired and uses cane) and no focal motor deficits Cranial nerves: Yes CN's II-XII intact bilaterally Extrem General: Yes normal to inspection, Yes no clubbing, cyanosis or edema and Yes no calf tenderness Psych Appearance: grossly normal Speech and movement: Normal speech and movement present Results Reviewed Results Reviewed: COMPLIANCE REPORT FOR THE LAST 30 NIGHTS IS REVIEWED AND SHOWS THAT SHE HAS USED 30/30 NIGHTS,. 100% AVERAGE USE PER NIGHT 8 HOURS 45 MINUTES. BILEVEL PRESSURE 25-16 CM, FULLFACE MASK. THERE IS SOME AIR LEAK AND THERE IS RESIDUAL AHI OF 6.2. Assessment & Plan Assessment & Plan (1) Morbid obesity: Comment: BMI= 55.6 THIS IS A CHRONIC PROBLEM, DIFFICULT FOR HER TO LOSE WEIGHT. BUT SHE IS TRYING HER BEST TO RESTRICT THE CALORIES INTAKE AND FOLLOW THE DIETARY INSTRUCTIONS. Code(s): E66.01 - Morbid (severe) obesity due to excess calories Category: Medical Plan: TALKED TO HER ABOUT HER DIET AGAIN . TRY TO CUT DOWN THE CARBOHYDRATES MUCH POSSIBLE. SHE IS NOT ABLE TO DO MUCH EXERCISE (2) SHANIQUA (obstructive sleep apnea): Comment: CHRONIC SLEEP APNEA ALONG WITH CHRONIC HYPOVENTILATION SYNDROME. WELL TREATED WITH THE USE OF BIPAP.( AF-20 PRESSURE 25/16 CMs ) SHE IS VERY COMPLIANT AND BENEFITTING. Code(s): G47.33 - Obstructive sleep apnea (adult) (pediatric) Category: Medical Plan: ADVISED TO CONTINUE THE SAME AND INSTRUCTED TO TIGHTEN THE STRAPS LITTLE BIT MORE AT NIGHT. (3) Hypoventilation associated with obesity syndrome: Comment: SEE UNDER SHANIQUA , BEING TREATED SUCCESSFULLY WITH THE USE OF BIPAP. Code(s): E66.2 - Morbid (severe) obesity with alveolar hypoventilation Category: Medical Plan: ABOVE (4) Allergic rhinitis: Comment: HAS INTERMITTENT NASAL CONGESTION DUE TO ALLERGIC RHINITIS, CONTROLLED WITH USE OF NASACORT NASAL SPRAY 2 SPRAYS IN EACH NOSTRIL DAILY. Code(s): J30.9 - Allergic rhinitis, unspecified Category: Medical Plan: CONTINUE TO USE NASACORT NASAL SPRAY 1 SPRAY IN EACH NOSTRIL DAILY (5) Asthma: Comment: SHE HAS MILD REACTIVE AIRWAYS AND HAS INTERMITTENT COUGH WITH SOME WHEEZING, PROBABLY DUE TO MILD BRONCHIAL ASTHMA. Code(s): J45.909 - Unspecified asthma, uncomplicated Category: Medical Qualifiers: Asthma severity: mild Asthma persistence: unspecified Asthma complication type: uncomplicated Qualified Code(s): J45.909 - Unspecified asthma, uncomplicated Plan: CONTINUE SYMBICORT 160-4.5 2 PUFFS B.I.D. AND USE ALBUTEROL HFA Q 6 HOURS P.R.N. Coding Level of Care Code Est Pt Level 4 (68238) Diagnoses Morbid obesity E66.01 SHANIQUA (obstructive sleep apnea) G47.33 Hypoventilation associated with obesity syndrome E66.2 Allergic rhinitis J30.9 Moderate persistent asthma with acute exacerbation J45.909 Asthma severity: mild Asthma persistence: unspecified Asthma complication type: uncomplicated
== END 2024-02-19 13:27 | disposition home or self-care (01) ==
PROVIDERS: PCP Internal Medicine; Visit Provider Internal Medicine
DX: E66.01 Morbid (severe) obesity due to excess calories (principal); G47.33 Obstructive sleep apnea (adult) (pediatric); E66.2 Morbid (severe) obesity with alveolar hypoventilation; J30.9 Allergic rhinitis, unspecified; J45.909 Unspecified asthma, uncomplicated
CPT/HCPCS: 99214

== ENCOUNTER → 2024-02-19 12:56 | Outpatient (BNVA) | payer OTHER, SELFPAY | PROVIDERS: PCP Internal Medicine; Visit Provider Internal Medicine | DX: G47.33 Obstructive sleep apnea (adult) (pediatric) (principal); J45.909 Unspecified asthma, uncomplicated; E66.01 Morbid (severe) obesity due to excess calories; E66.2 Morbid (severe) obesity with alveolar hypoventilation; Z68.43 Body mass index [BMI] 50.0-59.9, adult | CPT/HCPCS: 99212 ==

== ENCOUNTER 2024-03-14 12:38 | Outpatient (AMB) | payer OTHER, SELFPAY ==
--- NOTE | 2024-03-14 12:57 | A.OFFVIS_ITS ---
Intake Visit Reasons: Newprob-Primary osteoarthritis, right shoulder Intake Note: Irene is a 58 year old female who presents today for anew patient visit with complaints of right shoulder pain. Patient was referred to us by Bozena De Jesus for primary OA of right shoulder. Pt states she has had the pain for about 2-3 months with no known injury. Pt denies any previous surgeries or injections. News Specialist Required: Yes News Specialist Language: Raw Shellfish Preparer Services: News Specialist Present News Specialist Name: Cory ([id number])[email or web address]-LM Allergies lisinopril Adverse Reaction (Severe, Verified 03/14/24 12:59) hyperkalemia HPI HPI Newprob-Primary osteoarthritis, right shoulder: Details: 58-year-old female who presents in the office today, as a new patient, referred by Bozena DE JESUS for an evaluation of primary osteoarthritis of right shoulder. While in the office today, the patient reports she has been experiencing pain for about 2-3 months with no known injury. She denies any surgeries or injections in the past. Patient has a significant medical history of Type 2 diabetes mellitus, hypercholesterolemia, hypertension and COPD. [facility], LATER [facility] Medical History Asthma Right shoulder pain Hearing decreased Hypertension Post-traumatic osteoarthritis of left hip Hematuria Leg length discrepancy Otitis externa Colon cancer screening Allergic rhinitis COPD (chronic obstructive pulmonary disease) Hyperkalemia Hypoventilation associated with obesity syndrome Left ventricular hypertrophy Diabetic nephropathy Opioid dependence SHANIQUA (obstructive sleep apnea) Morbid obesity GERD (gastroesophageal reflux disease) Migraines Hypothyroidism Vitamin D deficiency Anxiety Essential hypertension Type 2 diabetes mellitus with diabetic polyneuropathy Lumbar back pain Surgical History Deficient knowledge of leg surgery History of hip surgery Hx of bladder endoscopy Hx of spinal surgery Family History Father HTN (hypertension) SHANIQUA (obstructive sleep apnea) Prostate cancer Additional heart attack (anterolateral wall) Mother Asthma Diabetes Brother Epilepsy Sister HTN (hypertension) Maternal Aunt Throat cancer Social History Household Members Other:: brother Housing: Apartment Alcohol intake: never Patient Tobacco Use Status: Former Tobacco user Tobacco use type: Cigarette Years Smoked: 4 +/- e-Cigarette/Vaping Use: Never Used Second Hand Smoke Exposure: No service: No Current occupational status: disabled Cognitive needs: Yes (cane ) Hearing needs: No Vision needs: Yes (glasses ) Physical Exam Extrem Other: Right shoulder: Normal to inspection. No ecchymosis, erythema, or edema. Forward flexion lacking 20 degrees. Abduction to 90 degrees. Able to reach the back pocket. 45 degrees external rotation. Pain with crossbody reach. 3/5 strength with an empty can. Negative drop arm. NVI. Office Procedures Joint Injection/Aspiration Joint Injection/Aspiration Primary Site: right shoulder Prep: site was prepped using aseptic technique, ethochloride spray was applied and injection warnings given Injected: 40 mg of, DepoMedrol, with 8 mL of (2% plain lido ) and in the subcromial space Approach Used: posterolateral Procedure: The patient tolerated the procedure well, but had some pain with the injection and there was some relief with the local anesthesia Coding 00668 - Large joint Procedure code (CPT) selection complete Assessment & Plan Assessment & Plan (1) Osteoarthritis of right shoulder: Comment: Severe osteoarthritis 01/29/2024 Code(s): M19.011 - Primary osteoarthritis, right shoulder Category: Medical (2) Diabetes: Code(s): E11.9 - Type 2 diabetes mellitus without complications Plan Ms. Bello Rocha is a 58-year-old female who presents in the office today, as a new patient, referred by Bozena DE JESUS for an evaluation of primary osteoarthritis of right shoulder. While in the office today, the patient reports she has been experiencing pain for about 2-3 months with no known injury. She denies any surgeries or injections in the past. Patient has a significant medical history of Type 2 diabetes mellitus, hypercholesterolemia, hypertension and COPD. The patient was offered a cortisone injection in the right shoulder with 40 mg of Depo-Medrol. The patient was explained the risks, benefits, and alternatives to receiving this injection. After receiving consent for the injection, the patient had the procedure done while in the office today. The patient tolerated the procedure well with no complication. Due to the patient?s history of diabetes, they were instructed to monitor her blood glucose level. The patient was informed that they could see a rise in their numbers and if the numbers became too high, they were instructed to call their pcp. The patient was also informed that they could have facial flushing as a side effect of the injection, but this will pass. We discussed the role of physical therapy; however, the patient deferred at this time. She will contact the office should the injection fails to provide her any relief. We will then discuss potential proceeding with a glenohumeral joint injection, under imaging guidance. Follow up will be PRN, or sooner if needed. X-rays of the right shoulder, obtained on 02/04/24, revealed: 1. Severe acromioclavicular osteoarthritis with prominent subacromial spurring and lateral acromial spurring. 2. Moderate glenohumeral osteoarthritis. 3. Mild superior subluxation of the humeral head, likely indicating underlying rotator cuff tendon tears. 4. Calcification adjacent to the greater tuberosity which could represent a loose body versus distal infraspinatus calcific tendinitis. Patient Instructions: Scribed by Dee Gatica district medical examiner, for Katy White PA-C on 03/14/24 at 1:18 pm EST. Coding Level of Care Code Est Pt Level 4 (09821) Diagnoses Osteoarthritis of right shoulder M19.011 Diabetes E11.9 CPT Codes Coding - 11646 Large joint: 67059 - Large joint ([id number])
== END 2024-03-14 14:00 | disposition home or self-care (01) ==
PROVIDERS: PCP Internal Medicine; Visit Provider Physician Assistant
DX: M19.011 Primary osteoarthritis, right shoulder (principal); E11.9 Type 2 diabetes mellitus without complications
CPT/HCPCS: 20610; 99214

== ENCOUNTER → 2024-03-14 12:38 | Outpatient (BNVA) | payer OTHER, SELFPAY | PROVIDERS: PCP Internal Medicine; Visit Provider Physician Assistant | DX: M19.011 Primary osteoarthritis, right shoulder (principal) | CPT/HCPCS: 20610; 99212; J1010; J2003 ==

== ENCOUNTER 2024-04-08 15:21 | Outpatient (AMB) | payer OTHER, SELFPAY ==
[2024-04-08 15:27] VITALS: BP 150/78; PULSE 84; O2SAT 97; BMI 54.3
--- NOTE | 2024-04-08 15:27 | A.OFFPC_ITS ---
Vital Signs 04/08/24 15:27 Height 5 ft 2 in Weight 297 lb BMI 54.3 BP 150/78 H Blood Pressure Location Lt radial Position Sitting Pulse 84 Pulse Source Pulse Oximeter Pulse Oximetry (%) 97 Oxygen Delivery Method Room Air Intake Visit Reasons: Cataract Surgery with [facility] Intake Note: Patient is here for a Pre-op for Cataract Surgery scheduled with on Allergies lisinopril Adverse Reaction (Severe, Verified 04/08/24 15:29) hyperkalemia Medication List - Last Reconciled 04/08/24 by Bozena Dobbins MD amlodipine 10 mg PO DAILY aspirin 81 mg PO DAILY atorvastatin 80 mg PO QPM 90 days blood pressure monitor (Blood Pressure Kit) As directed XXL blood pressure cuff blood sugar diagnostic (FreeStyle Lite Strips) 1 strip miscellaneous DAILY 30 days budesonide-formoterol 160-4.5 mcg/actuation (Symbicort) 2 puffs PO BID carvedilol 25 mg PO BID cholecalciferol (vitamin D3) 50 mcg PO DAILY 90 days [CPAP full face mask medium AF 20 bilevel pressure 25/16 cm humidified air As directed] doxepin 100 mg PO BEDTIME 90 days doxepin 25 mg PO BEDTIME dulaglutide 4.5 mg (0.5 mL) subcut QWEEK 28 days empagliflozin (Jardiance) 10 mg PO DAILY flash glucose scanning reader (FreeStyle Telma 2 Gobles) As directed flash glucose sensor (FreeStyle Telma 2 Sensor kit) every 2 weeks insulin glargine (Lantus Solostar U-100 Insulin) 26 units (0.26 mL) subcut DAILY 90 days lancets daily levothyroxine 75 mcg PO DAILY 90 days metformin ER 500 mg PO BID 90 days oxycodone 30 mg PO BID PRN 30 days peg 3350-electrolytes 236-22.74-6.74 -5.86 gram (Golytely) 240 mL PO Q10M 1 day pen needle, diabetic (BD Ultra-Fine Veena Pen Needle) 1 ea subcut DAILY 90 days sennosides-docusate sodium 8.6-50 mg (Senexon-S) 2 tabs PO BEDTIME sertraline 100 mg PO DAILY 90 days [transport Wheelchair As directed] Ventolin HFA 90 mcg/actuation (albuterol sulfate) 2 puffs inhalation Q4-6H PRN NS Tobacco use date assessed: 06/21/23 Dental Screening Dental Screen Date: 01/31/24 HPI Cataract Surgery with [facility] HPI Details 58-year-old morbidly obese female with a BMI of 54.3(noted 7 lb weight loss) with obstructive sleep apnea diabetes mellitus controlled hypertension hypercholesterolemia COPD hypothyroidism generalized anxiety disorder GERD with left hip osteoarthritis coming in for preoperative evaluation for cataract surgery. Last seen in January 2024. Review of the notes has seen Orthopedics for the right shoulder arthritis and was given a shot with steroids. January 2024 severe osteoarthritis of the right shoulder. Patient also follows up with Pulmonary 02/29/2024 for the obstructive sleep apnea patient is compliant with the CPAP and uses it 8 hours and 45 minutes every night this is benefitting her. For the asthma on Symbicort. Scheduled cataract April 14 right April 28 left [facility] [id number] interpret. does bike exercise . has stairs at home. [facility] Medical History Asthma Right shoulder pain Hearing decreased Hypertension Post-traumatic osteoarthritis of left hip Hematuria Leg length discrepancy Otitis externa Colon cancer screening Allergic rhinitis COPD (chronic obstructive pulmonary disease) Hyperkalemia Hypoventilation associated with obesity syndrome Left ventricular hypertrophy Diabetic nephropathy Opioid dependence SHANIQUA (obstructive sleep apnea) Morbid obesity GERD (gastroesophageal reflux disease) Migraines Hypothyroidism Vitamin D deficiency Anxiety Essential hypertension Type 2 diabetes mellitus with diabetic polyneuropathy Lumbar back pain Surgical History Deficient knowledge of leg surgery History of hip surgery Hx of bladder endoscopy Hx of spinal surgery Family History Father HTN (hypertension) SHANIQUA (obstructive sleep apnea) Prostate cancer Additional heart attack (anterolateral wall) Mother Asthma Diabetes Brother Epilepsy Sister HTN (hypertension) Maternal Aunt Throat cancer Social History Household Members Other:: brother Housing: Apartment Alcohol intake: never Patient Tobacco Use Status: Former Tobacco user Tobacco use type: Cigarette Years Smoked: 4 +/- e-Cigarette/Vaping Use: Never Used Second Hand Smoke Exposure: No service: No Current occupational status: disabled Cognitive needs: Yes (cane ) Hearing needs: No Vision needs: Yes (glasses ) Questionnaire PHQ-9 Over the last 2 weeks, how often have you been bothered by any of the following problems? 1. Little interest or pleasure in doing things: not at all 2. Feeling down, depressed, or hopeless: not at all 3. Trouble falling or staying asleep, or sleeping too much: not at all 4. Feeling tired or having little energy: not at all 5. Poor appetite or overeating: not at all 6. Feeling bad about yourself - or that you are a failure or have let yourself or your family down: not at all 7. Trouble concentrating on things, such as reading the newspaper or watching television: not at all 8. Moving or speaking so slowly that other people could have noticed. Or the opposite - being so fidgety or restless that you have been moving around a lot more than usual: not at all 9. Thoughts that you would be better off or of hurting yourself in some way: not at all Total score: 0 Depression Screening Interpretation: Negative Depression Screening Done: Yes Source: Developed by Drs. Waqas Albarran, Thelma Dumont, Ruben Oden and colleagues, with an educational valente from [employer]. Thrive Questionnaire Date Thrive assessed: 09/18/23 AUDIT C Alcohol Use Questionnaire (AUDIT-C) 1. How often do you have a drink containing alcohol?: Never 2. How many drinks containing alcohol do you have on a typical day when you are drinking?: 1 or 2 3. How often do you have six or more drinks on one occasion?: Never Total Score: 0 BEULAH-7 AMB Questionnaire BEULAH-7 Date BEULAH - 7 assessed: 09/18/23 Source: Developed by Drs. Waqas Albarran, Ruben Chicas and colleagues, with an educational valenet from [employer]. Review of Systems Const Denies poor appetite and Denies weakness Eyes Denies no additional complaints ENT Reports Normal hearing present, Denies dizziness, Denies nasal congestion, Denies tinnitus and Denies sore throat Card Denies chest pain, Denies syncope, Denies rapid heart rate and Denies dyspnea Resp Denies cough and Denies dyspnea GI Denies change in stool character, Reports constipation, Denies diarrhea, Denies nausea and Denies vomiting Denies urinary frequency, Denies difficulty voiding and Denies dysuria Neuro Reports Normal hearing present, Denies confusion, Denies dizziness, Denies syncope and Denies weakness Psych Denies confusion Physical exam (Primary Care) Vital Signs: Last Vital Signs Pulse 84 04/08/24 15:27 BP 150/78 H 04/08/24 15:27 Pulse Ox 97 04/08/24 15:27 Oxygen Delivery Method Room Air 04/08/24 15:27 BMI result Body Mass Index 54.3 Tobacco/Smoking Status: Tobacco use Status Tobacco use date assessed 06/21/23 04/08/24 15:27 Patient Tobacco Use Status Former Tobacco user 04/08/24 15:27 Tobacco use type Cigarette 04/08/24 15:27 e-Cigarette/Vaping Use Never Used 04/08/24 15:27 PHQ-9: PHQ-9 Score PHQ-9: Total score 0 04/08/24 15:39 Depression Screening Interpretation: Negative Thrive Assessment: Date of Thrive Assessment Date Thrive assessed 09/18/23 04/08/24 15:27 Const General: alert; No acute distress or confusion Orientation/consciousness: No confusion Eyes Conjunctivae: conjunctivae normal Resp Auscultation: clear to auscultation bilaterally Cardio Rate: regular rate Rhythm: regular rhythm GI Inspection: Yes normal to inspection Neuro General: No confusion Cranial nerves: Yes Normal hearing present Extrem General: Yes normal to inspection and No edema Office Procedures Flu Questionnaire Does the patient have a severe egg allergy?: No Does the patient have severe life threatening allergies?: No Does the patient have a fever or illness today?: No Has the patient ever had Guillain-[place] Syndrome?: No Has the patient ever had any past reaction to a flu shot?: No Immunizations Fluarix Triv [id number] (PF) 45 mcg (15 mcg x 3)/0.5 mL IM syringe Performing Provider: Bozena Dobbins MD [facility] Administered by: REBECA Cristobal on 04/08/24 15:39 Dose Route Admin Location Dispensed Lot Number Expiration Date [facility] Fur 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 Supervisor 0.5 mL IM Left Deltoid 0.5 mL [id number] 12/08/24 [id number] [employer] VIS Given Date VIS Provided VIS Publication Date 04/08/24 Single Vaccine 21 Eligibility Eligibility Date Funding Source Not [facility] Eligible 04/08/24 Private Coding Level of Care Code Est Pt Level 4 (84592) Diagnoses Preop exam for internal medicine Z01.818 Type 2 diabetes mellitus with hyperglycemia, with long-term current use of insulin E11.65; Z79.4 Diabetes mellitus superintendent terminal insulin use: with residential use Morbid obesity E66.01 SHANIQUA (obstructive sleep apnea) G47.33 Essential hypertension I10 Hypercholesterolemia E78.00 COPD (chronic obstructive pulmonary disease) J44.9 Hypothyroidism E03.9 Generalized anxiety disorder F41.1 Osteoarthritis of left hip M16.12 Assessment & Plan Assessment & Plan (1) Preop exam for internal medicine: Code(s): Z01.818 - Encounter for other preprocedural examination Category: Medical Plan: With the controlled diabetes patient is in the intermediate risk group but this is controlled and to continue with medications. (2) Type 2 diabetes mellitus with hyperglycemia: Comment: [place] eye 03/2023 Code(s): E11.65 - Type 2 diabetes mellitus with hyperglycemia Category: Medical Qualifiers: Diabetes mellitus superintendent terminal insulin use: with superintendent terminal use Qualified Code(s): E11.65 - Type 2 diabetes mellitus with hyperglycemia; Z79.4 - termite exterminator (current) use of insulin Plan: Decrease the amount of carbohydrate intake, pasta, bread, rice and potatoes are all sugar and that is aside from all the sweet stuff, remember that fruits are good but they are Sweet also. Patient is on Trulicity once a week Jardiance 10 mg once a day Lantus insulin 26 units once a day metformin is 500 mg twice a day Jardiance . Advised to stop Jardiance 3 days prior to the surgery and as for insulin patient is advised to take half the dose of Lantus the night before the procedure. (3) Morbid obesity: Comment: BMI= 55.6 THIS IS A CHRONIC PROBLEM, DIFFICULT FOR HER TO LOSE WEIGHT. BUT SHE IS TRYING HER BEST TO RESTRICT THE CALORIES INTAKE AND FOLLOW THE DIETARY INSTRUCTIONS. Code(s): E66.01 - Morbid (severe) obesity due to excess calories Category: Medical Plan: Diet and exercise (4) SHANIQUA (obstructive sleep apnea): Comment: CHRONIC SLEEP APNEA ALONG WITH CHRONIC HYPOVENTILATION SYNDROME. WELL TREATED WITH THE USE OF BIPAP.( AF-20 PRESSURE 25/16 CMs ) SHE IS VERY COMPLIANT AND BENEFITTING. Code(s): G47.33 - Obstructive sleep apnea (adult) (pediatric) Category: Medical Plan: Continue to use the CPAP more than 4 hours a night and benefits from this. (5) Essential hypertension: Code(s): I10 - Essential (primary) hypertension Category: Medical Plan: Continue with blood pressure medication. Decrease salt intake and exercise patient is on multiple medications carvedilol 25 mg twice a day amlodipine 10 mg once a day (6) Hypercholesterolemia: Code(s): E78.00 - Pure hypercholesterolemia, unspecified Category: Medical Plan: Avoid fried foods, chicken skin, eggs, butter margarine, pastries and meat. Be it pork or beef they have a lot of cholesterol (7) COPD (chronic obstructive pulmonary disease): Comment: DOING WELL ON THE CURRENT REGIMEN, AND WILL CONTINUE THE SAME. Code(s): J44.9 - Chronic obstructive pulmonary disease, unspecified Category: Medical Plan: Continue with the inhalers (8) Hypothyroidism: Code(s): E03.9 - Hypothyroidism, unspecified Category: Medical Plan: Continue with thyroid medication (9) Generalized anxiety disorder: Comment: psychiatry q 2 weeks with counselling Code(s): F41.1 - Generalized anxiety disorder Category: Medical Plan: Continue with sertraline (10) Osteoarthritis of left hip: Comment: severe xray 06/2023 Code(s): M16.12 - Unilateral primary osteoarthritis, left hip Category: Medical Plan: Narcotic pain meds: Is being prescribed with the understanding that these medications are potentially addictive and should be used only when absolutely necessary and must always be secured. Any remaining pills should be safely disposed off appropriately. Patient is advised that narcotics can impaired judgment and one should not drive or operate heavy machinery while taking these medications. Never share these medications with anybody and do not leave them unattended. They will not be replaced under any circumstances. Orders: Orders Influenza [id number] Immunization Today Z23 - Encounter for immunization
== END 2024-04-08 16:26 | disposition home or self-care (01) ==
LOC: HO.HMCH 15:22
PROVIDERS: PCP Internal Medicine; Visit Provider Internal Medicine
DX: E11.65 Type 2 diabetes mellitus with hyperglycemia (principal); Z79.4 Long term (current) use of insulin; E66.01 Morbid (severe) obesity due to excess calories; Z68.43 Body mass index [BMI] 50.0-59.9, adult; J44.9 Chronic obstructive pulmonary disease, unspecified; Z01.818 Encounter for other preprocedural examination; G47.33 Obstructive sleep apnea (adult) (pediatric); I10 Essential (primary) hypertension; E78.00 Pure hypercholesterolemia, unspecified; E03.9 Hypothyroidism, unspecified; F41.1 Generalized anxiety disorder; M16.12 Unilateral primary osteoarthritis, left hip

== ENCOUNTER → 2024-04-08 15:21 | Outpatient (BNVA) | payer OTHER, SELFPAY | PROVIDERS: PCP Internal Medicine; Visit Provider Internal Medicine | DX: Z01.818 Encounter for other preprocedural examination (principal); Z23 Encounter for immunization; E11.65 Type 2 diabetes mellitus with hyperglycemia; Z79.4 Long term (current) use of insulin; E66.01 Morbid (severe) obesity due to excess calories; G47.33 Obstructive sleep apnea (adult) (pediatric); E78.00 Pure hypercholesterolemia, unspecified; I10 Essential (primary) hypertension; J44.9 Chronic obstructive pulmonary disease, unspecified; E03.9 Hypothyroidism, unspecified; F41.1 Generalized anxiety disorder; M16.12 Unilateral primary osteoarthritis, left hip | CPT/HCPCS: 90471; 90656; 96127; 99212 ==

== ENCOUNTER 2024-04-29 14:53 | Outpatient (AMB) | payer OTHER, SELFPAY ==
[2024-04-29 14:56] VITALS: BP 154/80; PULSE 81; BMI 54.6
--- NOTE | 2024-04-29 14:56 | A.OFFVIS_ITS ---
Vital Signs 04/29/24 14:56 Height 5 ft 2 in Weight 298 lb 4.567 oz BMI 54.6 BP 154/80 H Blood Pressure Location Lt brachial Position Sitting Pulse 81 Pulse Source Pulse Oximeter Intake Visit Reasons: Type 2 DM/CONF Intake Note: Patient present today to follow up on Type 2 Diabetes Mellitus. Last Diabetic Eye exam: 11/09/23 Last Podiatry Visit: 10/2023 Random Glucose: 103 mg/dl HgA1C: 5.7% Assistant Professor Surgical Technology Required: Yes Assistant Professor Surgical Technology Language: Pulp Making Plant Operator Services: Assistant Professor Surgical Technology Present Assistant Professor Surgical Technology Name: Luz Maria Information Interpreted: non-clinical & clinical Accompanied by: Self / Same As Patient Allergies lisinopril Adverse Reaction (Severe, Verified 04/29/24 15:04) hyperkalemia Medication List - Last Reconciled 04/29/24 by ADAM Carpenter amlodipine 10 mg PO DAILY aspirin 81 mg PO DAILY atorvastatin 80 mg PO QPM 90 days blood pressure monitor (Blood Pressure Kit) As directed XXL blood pressure cuff blood sugar diagnostic (FreeStyle Lite Strips) 1 strip miscellaneous DAILY 30 days budesonide-formoterol 160-4.5 mcg/actuation (Symbicort) 2 puffs PO BID carvedilol 25 mg PO BID cholecalciferol (vitamin D3) 50 mcg PO DAILY 90 days [CPAP full face mask medium AF 20 bilevel pressure 25/16 cm humidified air As directed] doxepin 100 mg PO BEDTIME 90 days doxepin 25 mg PO BEDTIME empagliflozin (Jardiance) 10 mg PO DAILY flash glucose scanning reader (FreeStyle Telma 2 [place]) As directed flash glucose sensor (FreeStyle Telma 2 Sensor kit) every 2 weeks insulin glargine (Lantus Solostar U-100 Insulin) 20 units subcut DAILY lancets daily levothyroxine 75 mcg PO DAILY 90 days metformin ER 500 mg PO BID 90 days oxycodone 30 mg PO BID PRN 30 days peg 3350-electrolytes 236-22.74-6.74 -5.86 gram (Golytely) 240 mL PO Q10M 1 day pen needle, diabetic (BD Ultra-Fine Veena Pen Needle) 1 ea subcut DAILY 90 days sennosides-docusate sodium 8.6-50 mg (Senexon-S) 2 tabs PO BEDTIME sertraline 100 mg PO DAILY 90 days [transport Wheelchair As directed] Ventolin HFA 90 mcg/actuation (albuterol sulfate) 2 puffs inhalation Q4-6H PRN NS HPI Comments Details: This is a 58-year-old female with a past medical history of asthma, osteoarthritis, GERD, anxiety, hypothyroidism, COPD, hyperlipidemia, hypertension, type 2 diabetes and SHANIQUA presenting for diabetic management. She was last seen in endocrinology in 2021. manager gift present for visit. The patient is using the [employer] Telma 2. I reviewed today's CGM download: CGM active: 56%. Average glucose: 90 Very high (>250): 0% High (181-250): 1% Target range (70-180): 85% Low (55-69): 13% Very low (<55): 1% Trend: Frequent episodes of hypoglycemia observed between 05:00 and 19:00. Hemoglobin a1c 5.7%. Current medication regimen: Trulicity 4.5 mg weekly, Jardiance 10 mg daily, Lantus 25 units nightly, metformin ER 500 mg twice daily. Compliance issues: None Diet: Breakfast- cereal, toast with butter, coffee with milk and 1 splenda Lunch-sometimes crackers or fruit Dinner-pasta, rice, protein Snacks/desserts: crackers and peanut butter No alcohol Occasionally she has apple juice. No soda Nonsmoker. Patient unable to exercise. Uses cane to ambulate. She has had multiple surgeries following an accident years ago. Hypoglycemia symptoms: Shaky, dizzy, hands cold. Patient says she has been having frequent episodes of hypoglycemia for a long time. No LOC with hypoglycemia. Patient treats with orange juice or candy. Hyperglycemia symptoms: none Eye exam: October 2023 Patient sees Podiatry. Microvascular complications: neuropathy, nephropathy (CKD and microalbuminuria) Macrovascular complications: none Hypertension: treated with amlodipine 10 mg, carvedilol 25 mg twice daily. Her blood pressure is elevated today. Patient says this happens at appointments, but her home readings are 120-130/78-80. Lisinopril discontinued in the past due to hyperkalemia. Hyperlipidemia: treated with Atorvastatin. LDL at goal <100. ROS: Constitutional: No unexplained weight loss, fever, chills. Eyes: No vision changes Respiratory: No shortness of breath Cardiovascular: No chest pain Gastrointestinal: No anorexia, nausea, vomiting or diarrhea. No abdominal pain Skin: No rash or open wounds. Endocrine: No cold or heat intolerance. No polyuria or polydipsia. Physical exam: Constitutional: Alert, in no distress. Neck: Supple, Full range of motion. No lymphadenopathy. No palpable thyroid masses. Respiratory: Clear to auscultation. Cardiovascular: S1 S2 regular. No murmurs. Neurologic: No focal neurological deficits Extremities: Warm and well perfused. 1+ bilateral lower extremity edema. [facility] Medical History (Updated 04/29/24 @ 15:54 by ADAM Carpenter) Controlled type 2 diabetes mellitus Asthma Right shoulder pain Hearing decreased Hypertension Post-traumatic osteoarthritis of left hip Hematuria Leg length discrepancy Otitis externa Colon cancer screening Allergic rhinitis COPD (chronic obstructive pulmonary disease) Hyperkalemia Hypoventilation associated with obesity syndrome Left ventricular hypertrophy Diabetic nephropathy Opioid dependence SHANIQUA (obstructive sleep apnea) Morbid obesity GERD (gastroesophageal reflux disease) Migraines Hypothyroidism Vitamin D deficiency Anxiety Essential hypertension Type 2 diabetes mellitus with diabetic polyneuropathy Lumbar back pain Surgical History Deficient knowledge of leg surgery History of hip surgery Hx of bladder endoscopy Hx of spinal surgery Family History Father HTN (hypertension) SHANIQUA (obstructive sleep apnea) Prostate cancer Additional heart attack (anterolateral wall) Mother Asthma Diabetes Brother Epilepsy Sister HTN (hypertension) Maternal Aunt Throat cancer Social History Household Members Other:: brother Housing: Apartment Are you a primary care mgr to a significant other at home: No Alcohol intake: never Patient Tobacco Use Status: Former Tobacco user Tobacco use type: Cigarette Years Smoked: 4 +/- e-Cigarette/Vaping Use: Never Used Second Hand Smoke Exposure: No service: No Current occupational status: disabled Cognitive needs: Yes (cane ) Hearing needs: No Vision needs: Yes (glasses ) Physical Exam Vital Signs: Last Vital Signs Pulse 81 04/29/24 14:56 BP 154/80 H 04/29/24 14:56 BMI result Body Mass Index 54.6 Results AMB Hemoglobin A1c AMB Hemoglobin A1c 5.7 % Last Edit by REBECA Tran on 04/29/24 15:23 Results Reviewed Results Reviewed: Laboratory Last Values Glucose (Clinic) 103 mg/dL (60-115) 04/29/24 15:05 Hgb A1c (Clinic) 5.7 % (4.0-6.0) 04/29/24 15:08 Laboratory Tests 01/31/24 02/04/24 02/04/24 10:55 11:55 11:58 Creatinine 1.12 Estimated GFR 50 Hgb A1c (Clinic) 5.7 Hemoglobin A1c % 5.4 Triglycerides 96 Cholesterol 127 LDL Cholesterol, Calc 74 HDL Cholesterol 34 L Vitamin B12 783 TSH 1.81 Free T4 1.09 Urine Creatinine 114.78 Urine Microalbumin 167.0 Microalb/Creat Ratio 145.4 H Assessment & Plan Assessment & Plan (1) Controlled type 2 diabetes mellitus: Code(s): E11.9 - Type 2 diabetes mellitus without complications Category: Medical (2) Hypoglycemia associated with diabetes: Code(s): E11.649 - Type 2 diabetes mellitus with hypoglycemia without coma Plan In summary this is a 58-year-old female with controlled type 2 diabetes experiencing frequent hypoglycemia on her current treatment regimen. Decrease Lantus from 25 units to 20 units daily and decrease Trulicity from 4.5 to 3 mg once weekly. Continue Jardiance 10 mg daily and metformin ER 500 mg twice daily. If you experience low blood sugar, treat this by eating a chewable fruit candy like skittles or jelly beans (about 8 pieces), 4 ounces (1/2 cup) of fruit juice (not diet), 1 tablespoon of honey or 4 glucose tablets. If your blood sugar is under 50, take double the amount of one of the above. Recheck your blood sugar in 15 minutes. Glucose tablets sent to pharmacy. Patient to consider referral to [place] and sales professional bilingual. We will revisit this at her follow up appointment in 4 weeks. Orders: Orders AMB Hemoglobin A1c Today E11.42 - Type 2 diabetes mellitus with diabetic polyneuropathy, E11.65 - Type 2 diabetes mellitus with hyperglycemia, Z13.9 - Encounter for screening, unspecified, Z79.4 - salvage determiner (current) use of insulin Medications: New dulaglutide (Trulicity) 3 mg (0.5 mL) subcut QWEEK 2 mL 5RF glucose (Dex4 Glucose) until symptoms of low blood sugar are controlled 16 grams (4 x 4 gram) PO Q15M PRN 10 tabs 3RF hypoglycemia Patient Instructions: Disminuir Lantus a 20 unidades diarias. Disminuya Trulicity a 3 mg ganesh vez por semana. Contin?e con Jardiance 10 mg al d?a. Contin?e con 1 tableta de metformina dos veces al d?a. Si experimenta un nivel bajo de az?car en la [place], tr?telo comiendo un patsy de fruta masticable lily bolos o gominolas (aproximadamente 8 piezas), 4 onzas (1/2 taza) de jugo de fruta (no diet?madeline), 1 cucharada de miel o 4 tabletas de glucosa. . Si sandoval nivel de az?car en [place] es inferior a 50, tome el doble de ez de los anteriores. Vuelva a controlar sandoval nivel de az?car en la fr[place] en 15 minutos. Coding Level of Care Code Est Pt Level 4 (30770) Complex EM visit Add On G2211 Diagnoses Controlled type 2 diabetes mellitus E11.9 Hypoglycemia associated with diabetes E11.649
[2024-04-29 15:10] LABS: Glucose, Whole Blood 103 mg/dL (60-115)
== END 2024-04-29 15:45 | disposition home or self-care (01) ==
PROVIDERS: PCP Internal Medicine; Visit Provider Physician Assistant Medical
DX: Z13.9 Encounter for screening, unspecified (principal); E11.42 Type 2 diabetes mellitus with diabetic polyneuropathy; Z79.4 Long term (current) use of insulin; E11.65 Type 2 diabetes mellitus with hyperglycemia; E11.649 Type 2 diabetes mellitus with hypoglycemia without coma

== ENCOUNTER → 2024-04-29 14:53 | Outpatient (BNVA) | payer OTHER, SELFPAY | PROVIDERS: PCP Internal Medicine; Visit Provider Physician Assistant Medical | DX: E11.649 Type 2 diabetes mellitus with hypoglycemia without coma (principal) | CPT/HCPCS: 82947; 83036; 99212 ==

== ENCOUNTER 2024-05-30 14:49 | Outpatient (AMB) | payer OTHER, SELFPAY ==
[2024-05-30 14:54] VITALS: BP 132/68; PULSE 86; BMI 54.0
--- NOTE | 2024-05-30 14:54 | MHC.OFFVIS ---
Vital Signs 05/30/24 14:54 Height 5 ft 2 in Weight 295 lb 6.711 oz BMI 54.0 BP 132/68 Blood Pressure Location Rt brachial Position Sitting Pulse 86 Pulse Source Pulse Oximeter Intake Visit Reasons: Type II Diabetes/CONF Intake Note: Patient present today to follow up on Type 2 Diabetes Mellitus. Last Diabetic Eye exam: 11/09/23 Last Podiatry Visit: 10/2023 Most Recent HgA1C: 5.7%, 04/29/2024 Random Glucose: 145 mg/dL, Today Avionics Systems Repairer Required: Yes Avionics Systems Repairer Language: Pneumatic Hoist Operator Services: Avionics Systems Repairer Present Avionics Systems Repairer Name: Mina Silver, REBECA/CASI SHORE Information Interpreted: non-clinical & clinical Accompanied by: Self / Same As Patient Allergies lisinopril Adverse Reaction (Severe, Verified 04/29/24 15:04) hyperkalemia HPI Comments Details: This is a 58-year-old female with a past medical history of asthma, osteoarthritis, GERD, anxiety, hypothyroidism, COPD, hyperlipidemia, hypertension, type 2 diabetes and SHANIQUA presenting for diabetic management. The patient is using the [employer] Telma 2. Reviewed data on her phone today: CGM active: 56%. 2 scans per day. Average glucose: 99 Very high (>250): 0% High (181-250): 7% Target range (70-180): 76% Low (55-69): 17% Very low (<55): 0 Patient had 3 episodes of sugars in the 60s while in [place]. She just got back 3 days ago. Hemoglobin a1c 5.7% 04/29/24. Current medication regimen: Trulicity 3 mg weekly, Jardiance 10 mg daily, Lantus 20 units nightly, metformin ER 500 mg twice daily. Compliance issues: None Hypoglycemia symptoms: Shaky, dizzy, hands cold. Patient treats with orange juice or candy. Hyperglycemia symptoms: none Eye exam: October 2023 Her head strength and conditioning coach . She is referred to Podiatry today. Microvascular complications: neuropathy, nephropathy (CKD and microalbuminuria) Macrovascular complications: none Hypertension: treated with amlodipine 10 mg, carvedilol 25 mg twice daily. Lisinopril discontinued in the past due to hyperkalemia. Hyperlipidemia: treated with Atorvastatin. LDL at goal <100. ROS: Constitutional: No unexplained weight loss, fever, chills. Eyes: No vision changes Respiratory: No shortness of breath Cardiovascular: No chest pain Gastrointestinal: No anorexia, nausea, vomiting or diarrhea. No abdominal pain Skin: No rash or open wounds. Endocrine: No cold or heat intolerance. No polyuria or polydipsia. Physical exam: Constitutional: Alert, in no distress. Neck: Supple, Full range of motion. No lymphadenopathy. No palpable thyroid masses. Respiratory: Clear to auscultation. Cardiovascular: S1 S2 regular. No murmurs. Neurologic: No focal neurological deficits Extremities: Warm and well perfused. 1+ bilateral lower extremity edema. COUNT INCLUDES THE [facility] Medical History (Updated 04/29/24 @ 15:54 by ADAM Carpenter) Controlled type 2 diabetes mellitus Asthma Right shoulder pain Hearing decreased Hypertension Post-traumatic osteoarthritis of left hip Hematuria Leg length discrepancy Otitis externa Colon cancer screening Allergic rhinitis COPD (chronic obstructive pulmonary disease) Hyperkalemia Hypoventilation associated with obesity syndrome Left ventricular hypertrophy Diabetic nephropathy Opioid dependence SHANIQUA (obstructive sleep apnea) Morbid obesity GERD (gastroesophageal reflux disease) Migraines Hypothyroidism Vitamin D deficiency Anxiety Essential hypertension Type 2 diabetes mellitus with diabetic polyneuropathy Lumbar back pain Surgical History Deficient knowledge of leg surgery History of hip surgery Hx of bladder endoscopy Hx of spinal surgery Family History Father HTN (hypertension) SHANIQUA (obstructive sleep apnea) Prostate cancer Additional heart attack (anterolateral wall) Mother Asthma Diabetes Brother Epilepsy Sister HTN (hypertension) Maternal Aunt Throat cancer Social History Household Members Other:: brother Housing: Apartment Are you a primary regular senior care provider to a significant other at home: No Alcohol intake: never Patient Tobacco Use Status: Former Tobacco user Tobacco use type: Cigarette Years Smoked: 4 +/- e-Cigarette/Vaping Use: Never Used Second Hand Smoke Exposure: No service: No Current occupational status: disabled Cognitive needs: Yes (cane ) Hearing needs: No Vision needs: Yes (glasses ) Physical Exam Vital Signs: Last Vital Signs Pulse 86 05/30/24 14:54 BP 132/68 05/30/24 14:54 BMI result Body Mass Index 54.0 Results Reviewed Results Reviewed: Laboratory Last Values Glucose (Clinic) 145 mg/dL (60-115) H 05/30/24 14:57 Laboratory Tests 01/31/24 02/04/24 02/04/24 10:55 11:55 11:58 Creatinine 1.12 Estimated GFR 50 Hgb A1c (Clinic) 5.7 Hemoglobin A1c % 5.4 Triglycerides 96 Cholesterol 127 LDL Cholesterol, Calc 74 HDL Cholesterol 34 L Vitamin B12 783 TSH 1.81 Free T4 1.09 Urine Creatinine 114.78 Urine Microalbumin 167.0 Microalb/Creat Ratio 145.4 H Assessment & Plan Assessment & Plan (1) Controlled type 2 diabetes mellitus: Code(s): E11.9 - Type 2 diabetes mellitus without complications Category: Medical (2) Hypoglycemia associated with diabetes: Code(s): E11.649 - Type 2 diabetes mellitus with hypoglycemia without coma Plan In summary this is a 58-year-old female with controlled type 2 diabetes experiencing hypoglycemia on her current treatment regimen. Decrease Lantus from 20 to 15 units daily. Continue Trulicity 3 mg weekly. Continue Jardiance 10 mg daily and metformin ER 500 mg twice daily. If you experience low blood sugar, treat this by eating a chewable fruit candy like skittles or jelly beans (about 8 pieces), 4 ounces (1/2 cup) of fruit juice (not diet), 1 tablespoon of honey or 4 glucose tablets. If your blood sugar is under 50, take double the amount of one of the above. Recheck your blood sugar in 15 minutes. Glucose tablets sent to pharmacy. Sent telma 3 sensors to pharmacy which will require prior authorization. Patient to consider referral to [place] and railroad engineer. Follow up in 4 weeks for type 2 diabetes. Medications: New blood-glucose sensor (FreeStyle Telma 3 Plus Sensor device) Apply 1 new sensor every 15 days as directed to monitor blood glucose continuously. 2 ea 11RF Coding Level of Care Code Est Pt Level 4 (24770) Complex EM visit Add On G2211 Diagnoses Controlled type 2 diabetes mellitus E11.9 Hypoglycemia associated with diabetes E11.649
[2024-05-30 15:03] LABS: Glucose, Whole Blood 145 mg/dL (60-115)
== END 2024-05-30 15:15 | disposition home or self-care (01) ==
PROVIDERS: PCP Internal Medicine; Visit Provider Physician Assistant Medical
DX: E11.9 Type 2 diabetes mellitus without complications (principal); E11.649 Type 2 diabetes mellitus with hypoglycemia without coma

== ENCOUNTER → 2024-05-30 14:49 | Outpatient (BNVA) | payer OTHER, SELFPAY | PROVIDERS: PCP Internal Medicine; Visit Provider Physician Assistant Medical | DX: E11.649 Type 2 diabetes mellitus with hypoglycemia without coma (principal); Z79.4 Long term (current) use of insulin; Z79.899 Other long term (current) drug therapy | CPT/HCPCS: 82947; 99212 ==

== ENCOUNTER 2024-06-13 08:07 | Emergency (ER) | payer OTHER, SELFPAY ==
[2024-06-13 08:11] VITALS: BP 160/67; PULSE 85; RESP 20; TEMP 36.1; O2SAT 95; BMI 53.9
--- NOTE | 2024-06-13 08:56 | ED_ITS ---
HPI - Skin/Abscess/Foreign Bdy General Chief complaint: Extremity Injury, Lower Stated complaint: Fall toe pain Time Seen by Provider: 06/13/24 08:39 Source: patient and RN notes reviewed Mode of arrival: ambulatory Limitations: no limitations History of Present Illness ED Provider: Aruna Quispe PA-C HPI narrative: 59 yo Filipino speaking female with history of DM2, HTN, HLD, SHANIQUA/OHS, asthma, who presents to the ER for evaluation of wounds to her left 2nd and 3rd toes that have been there for almost 1 week after she sustained a rug burn type abrasion to the tops of the toes when she fell at home. She reports the area started as a burn and has now scabbed over with some drainage and redness extending to the bases of the toes. No numbness, tingling, fevers, severe pain. No foot pain. She reports her sugars have been under good control. MD complaint: lesion Onset (ago): day(s) (6) Location: L foot Severity: mild Severity scale (1-10): 3 Quality: aching Pain Consistency: intermittent Relieving factors: rest Exacerbating factors: palpation Associated symptoms: denies other symptoms Treatments prior to arrival: none Related Data Home Medications ?Medication ?Instructions ?Recorded ?Confirmed doxepin 25 mg capsule 25 mg PO BEDTIME 03/01/22 05/30/24 insulin glargine 100 unit/mL (3 15 unit subcut DAILY 05/30/24 05/30/24 mL) subcutaneous pen (Lantus Solostar U-100 Insulin) Previous Rx's ?Medication ?Instructions ?Recorded CPAP full face mask medium AF 20 #1 ea 05/24/20 bilevel pressure 25/16 cm humidified air flash glucose scanning reader #1 ea 05/26/22 (FreeStyle Telma 2 Riner) peg 3350-electrolytes 236 240 ml PO Q10M 1 day #4,000 mL 06/20/22 gram-22.74 gram-6.74 gram-5.86 gram solution (Mobypark) blood pressure monitor (Blood #1 ea 07/13/22 Pressure Kit) lancets 28 gauge #100 ea 03/22/23 blood sugar diagnostic (FreeStyle 1 strip miscellaneous DAILY 30 05/28/23 Lite Strips) days #50 strips transport Wheelchair #1 ea 06/21/23 flash glucose sensor (FreeStyle #2 ea 09/18/23 Telma 2 Sensor kit) doxepin 100 mg capsule 100 mg PO BEDTIME 90 days #90 caps 09/30/23 sennosides 8.6 mg-docusate sodium 2 tab PO BEDTIME #180 tabs 10/16/23 50 mg tablet (Senexon-S) aspirin 81 mg tablet,delayed 81 mg PO DAILY #90 tabs 10/22/23 release pen needle, diabetic 32 gauge x 1 ea subcut DAILY 90 days #100 ea 12/14/23/32 (BD Ultra-Fine Veena Pen Needle) Ventolin HFA 90 mcg/actuation 2 puff inhalation Q4-6H PRN for 12/31/23 aerosol inhaler (albuterol sulfate) wheezing #18 ea sertraline 100 mg tablet 100 mg PO DAILY 90 days #90 tabs 01/17/24 empagliflozin 10 mg tablet 10 mg PO DAILY #30 tabs 02/10/24 (Jardiance) carvedilol 25 mg tablet 25 mg PO BID #180 tabs 02/11/24 amlodipine 10 mg tablet 10 mg PO DAILY #90 tabs 04/24/24 dulaglutide 3 mg/0.5 mL 3 mg (0.5 mL) subcut QWEEK #2 mL 04/29/24 subcutaneous pen injector (Trulicity) glucose 4 gram chewable tablet 16 g (4 x 4 gram) PO Q15M PRN 04/29/24 (Dex4 Glucose) hypoglycemia #10 tabs metformin 500 mg tablet,extended 500 mg PO BID 90 days #180 tabs 05/12/24 release 24 hr cholecalciferol (vitamin D3) 50 50 mcg PO DAILY 90 days #90 caps 05/14/24 mcg (2,000 unit) capsule levothyroxine 75 mcg tablet 75 mcg PO DAILY 90 days #90 tabs 05/14/24 oxycodone 30 mg tablet 30 mg PO BID PRN pain 30 days #60 05/14/24 tabs budesonide-formoterol HFA 160 2 puff PO BID #10.2 ea 05/21/24 mcg-4.5 mcg/actuation aerosol inhaler (Symbicort) blood-glucose sensor (FreeStyle #2 ea 05/30/24 Telma 3 Plus Sensor device) atorvastatin 80 mg tablet 80 mg PO QPM 90 days #90 tabs 06/08/24 cephalexin 500 mg tablet 500 mg PO Q6H 7 days #28 tabs 06/13/24 doxycycline monohydrate 100 mg 100 mg PO BID #14 caps 06/13/24 capsule Allergies Allergy/AdvReac Type Severity Reaction Status Date / Time lisinopril AdvReac Severe hyperkalemi Verified 06/13/24 08:14 a Review of Systems Review of Systems: Yes all other systems are reviewed and are negative [facility] Past Medical History Medical History (Updated 06/13/24 @ 08:55 by ADAM Hernandez) At risk for foot problem Controlled type 2 diabetes mellitus Asthma Right shoulder pain Hearing decreased Hypertension Post-traumatic osteoarthritis of left hip Hematuria Leg length discrepancy Otitis externa Colon cancer screening Allergic rhinitis COPD (chronic obstructive pulmonary disease) Hyperkalemia Hypoventilation associated with obesity syndrome Left ventricular hypertrophy Diabetic nephropathy Opioid dependence SHANIQUA (obstructive sleep apnea) Morbid obesity GERD (gastroesophageal reflux disease) Migraines Hypothyroidism Vitamin D deficiency Anxiety Essential hypertension Type 2 diabetes mellitus with diabetic polyneuropathy Lumbar back pain Surgical History Deficient knowledge of leg surgery History of hip surgery Hx of bladder endoscopy Hx of spinal surgery Family History Family History Father HTN (hypertension) SHANIQUA (obstructive sleep apnea) Prostate cancer Additional heart attack (anterolateral wall) Mother Asthma Diabetes Brother Epilepsy Sister HTN (hypertension) Maternal Aunt Throat cancer Social History Social History Household Members Other:: brother Housing: Apartment Are you a primary critical care educator to a significant other at home: No Alcohol intake: never Patient Tobacco Use Status: Former Tobacco user Tobacco use type: Cigarette Years Smoked: 4 +/- e-Cigarette/Vaping Use: Never Used Second Hand Smoke Exposure: No Advance Directives: Yes Advance Directives Information Provided: Yes Advance Directives on File: No Do you have a plan to hurt others: No Plan service: No Current occupational status: disabled Cognitive needs: Yes (cane ) Hearing needs: No Vision needs: Yes (glasses ) Physical Exam Vital Signs: Vital Signs: Last Vital Signs Temp 96.9 F 06/13/24 08:11 Pulse 85 06/13/24 08:11 Resp 20 06/13/24 08:11 BP 160/67 H 06/13/24 08:11 Pulse Ox 95 06/13/24 08:11 O2 Del Method Room Air 06/13/24 08:11 BMI result Body Mass Index 53.9 Appearance: Alert. Oriented X3. No acute distress. HEENT: normal inspection CVS: Normal heart rate and rhythm. Pulses normal. Respiratory: No respiratory distress. Skin: Skin warm and dry. Normal skin color. Normal skin turgor. No rashes. Extremities: left 2nd and 3rd toes with scabbing and mild erythema and warmth to the bases of the toes. scant clear/yellow drainage from the scab of the 3rd toe. cap refill brisk. no metatarsal tenderness. no calf swelling. Neuro: Oriented X 3. No motor deficit. No sensory deficit. Medical Decision Making Medical Decision Making MDM Narrative: 59 yo female with history of DM2 presenting with scabbing and redness to the 2nd and 3rd toes on her left foot after she sustained a rug burn about 1 week ago. she arrives with no socks, the wounds rubbing on her cloth slippers. there is a small amount of drainage. no evidence of abscess. there is some cellulitis prox imal to the wounds. NV intact. low suspicion for osteomyelitis at this time however we discussed the possibility of this turning into a complicated diabetic foot infection and potentially extending to the bone if she does not follow up with her doctor and ensure resolution. also discussed importance of wound care, abx compliance, and trying to get into the wound clinic. will d/c with doxy/keflex and have her f/u with her PCP next week. return precautions were discussed. Differential Diagnosis Differential Diagnoses: The differential diagnosis associated with the presentation includes cellulitis, infected wound, osteomyelitis, open fracture Admission/Observation Consideration of admission/observation: Escalation of care including admission/observation considered External Record Review External record reviewed: Outpatient record and Prior outpatient labs Tests considered The following testing was considered but not selected: xr considered, low suspicion for fracture given mechanism and low suspicion for osteomyelitis at this time Prescription Management I considered prescription management with: Pain Medication and Antibiotic Chronic Conditions Patient?s care impacted by: Diabetes Critical Care Time Critical Care Time Critical Care Time: No Discharge Plan Discharge Clinical Impression: Cellulitis Qualifiers: Site of cellulitis: extremity Site of cellulitis of extremity: toe Laterality: left Qualified Code(s): L03.032 - Cellulitis of left toe Open toe wound Qualifiers: Encounter type: initial encounter Qualified Code(s): S91.109A - Unspecified open wound of unspecified toe(s) without damage to nail, initial encounter Patient Disposition: Home, Self-Care Instructions: Cellulitis (DC), Acute Wounds (DC) Additional Instructions: Take the prescribed antibiotics as directed, complete the entire course and do not miss any doses Use antibiotic ointment once per day Keep clean and covered Follow up with your doctor next week Follow up with the Wound Clinic Keep your glucose under tight control to optimize wound healing If you develop new or worsening symptoms call 911 or come back to the ER for further evaluation. Prescriptions: New doxycycline monohydrate 100 mg capsule 100 mg PO BID Qty: 14 0RF cephalexin 500 mg tablet 500 mg PO Q6H 7 Days Qty: 28 0RF No Action (DME) CPAP full face mask medium AF 20 bilevel pressure 25/16 cm humidified air See Rx Instructions .Route .MEDSUPPLY Qty: 1 0RF Rx Instructions: As directed (DME) FreeStyle Telma 2 Riner Misc See Rx Instructions .ROUTE .MEDSUPPLY Qty: 1 0RF Rx Instructions: As directed (DME) lancets 28 gauge misc See Rx Instructions topical TID Qty: 100 3RF Rx Instructions: daily FreeStyle Lite Strips Strip 1 strip miscellaneous DAILY 30 Days Qty: 50 11RF doxepin 100 mg capsule 100 mg PO BEDTIME 90 Days Qty: 90 0RF sennosides-docusate sodium [Senexon-S] 8.6-50 mg tablet 2 tab PO BEDTIME Qty: 180 1RF aspirin 81 mg tablet,delayed release (DR/EC) 81 mg PO DAILY Qty: 90 3RF pen needle, diabetic [BD Ultra-Fine Veena Pen Needle] 32 gauge x 5/32 needle 1 ea subcut DAILY 90 Days Qty: 100 3RF albuterol sulfate [Ventolin HFA] 90 mcg/actuation HFA aerosol inhaler 2 puff inhalation Q4-6H PRN (Reason: for wheezing) Qty: 18 3RF sertraline 100 mg tablet 100 mg PO DAILY 90 Days Qty: 90 1RF Jardiance 10 mg tablet 10 mg PO DAILY Qty: 30 5RF carvedilol 25 mg tablet 25 mg PO BID Qty: 180 3RF amlodipine 10 mg tablet 10 mg PO DAILY Qty: 90 3RF metformin 500 mg tablet extended release 24 hr 500 mg PO BID 90 Days Qty: 180 2RF cholecalciferol (vitamin D3) 50 mcg (2,000 unit) capsule 50 mcg PO DAILY 90 Days Qty: 90 3RF levothyroxine 75 mcg tablet 75 mcg PO DAILY 90 Days Qty: 90 2RF oxycodone 30 mg tablet 30 mg PO BID PRN (Reason: pain) 30 Days Qty: 60 0RF budesonide-formoterol [Symbicort] 160-4.5 mcg/actuation HFA aerosol inhaler 2 puff PO BID Qty: 10.2 0RF atorvastatin 80 mg tablet 80 mg PO QPM 90 Days Qty: 90 1RF (DME) transport Wheelchair See Rx Instructions .Route .MEDSUPPLY Qty: 1 0RF Rx Instructions: As directed (DME) blood pressure monitor [Blood Pressure Kit] Kit See Rx Instructions .ROUTE .MEDSUPPLY Qty: 1 0RF Rx Instructions: As directed XXL blood pressure cuff (DME) FreeStyle Telma 2 Sensor Kit See Rx Instructions .ROUTE .MEDSUPPLY Qty: 2 11RF Rx Instructions: every 2 weeks doxepin 25 mg capsule 25 mg PO BEDTIME peg 3350-electrolytes [Golytely] 236-22.74-6.74 -5.86 gram recon soln 240 ml PO Q10M 1 Days Qty: 4000 0RF Rx Instructions: until fecal effluent is clear; do not exceed a total volume of 2,000 mL Trulicity 3 mg/0.5 mL pen injector 3 mg subcut QWEEK Qty: 2 5RF glucose [Dex4 Glucose] 4 gram tablet,chewable 16 g PO Q15M PRN (Reason: hypoglycemia) Qty: 10 3RF Rx Instructions: until symptoms of low blood sugar are controlled insulin glargine [Lantus Solostar U-100 Insulin] 100 unit/mL (3 mL) insulin pen 15 unit subcut DAILY (DME) FreeStyle Telma 3 Plus Sensor Device See Rx Instructions .ROUTE .MEDSUPPLY Qty: 2 11RF Rx Instructions: Apply 1 new sensor every 15 days as directed to monitor blood glucose continuously. Referrals: [facility] [Provider Group] Bozena Dobbins MD [Primary Care Provider] - Print Language: Filipino
[2024-06-13] MEDS: Bacitracin Oint 0.9 GM PACKET 1 APPL TOPICAL (09:02)
--- NOTE | 2024-06-13 09:06 | PC.NURSE ---
pt medicated per order, wound covered per provider request
[2024-06-13 09:19] VITALS: BP 156/68; PULSE 82; RESP 18; TEMP 36.3; O2SAT 96
== END 2024-06-13 09:20 | disposition home or self-care (01) ==
PROVIDERS: Emergency Provider Emergency Medicine; PCP Internal Medicine
DX: L03.032 Cellulitis of left toe (principal); S91.105A Unspecified open wound of left lesser toe(s) without damage to nail, initial encounter; W18.40XA Slipping, tripping and stumbling without falling, unspecified, initial encounter; Y93.9 Activity, unspecified; Y92.039 Unspecified place in apartment as the place of occurrence of the external cause; Y99.9 Unspecified external cause status; M79.675 Pain in left toe(s); E11.42 Type 2 diabetes mellitus with diabetic polyneuropathy; I10 Essential (primary) hypertension; J45.909 Unspecified asthma, uncomplicated; Z87.891 Personal history of nicotine dependence; Z79.4 Long term (current) use of insulin; Z79.899 Other long term (current) drug therapy; Z79.84 Long term (current) use of oral hypoglycemic drugs; Z79.85 Long-term (current) use of injectable non-insulin antidiabetic drugs
CPT/HCPCS: 99282; 99283

== ENCOUNTER 2024-06-24 14:27 | Outpatient (AMB) | payer OTHER, SELFPAY ==
--- NOTE | 2024-06-24 14:40 | MHC.OFFVIS ---
Vital Signs 06/24/24 14:45 Height 5 ft 2 in Weight 295 lb 6.711 oz BMI 54.0 BP 128/66 Blood Pressure Location Lt radial Position Sitting Pulse 85 Pulse Source Pulse Oximeter Intake Visit Reasons: Type II diabetes Intake Note: Patient present today to follow up on Type 2 Diabetes Mellitus. Last Diabetic Eye exam: 11/09/2023 Last Podiatry Visit: 10/2023 Random Glucose: mg/dl HgA1C: 5.7% 04/29/2024 Flute Teacher Required: Yes Flute Teacher Language: Wire Twisting Machine Operator Services: Flute Teacher Present Flute Teacher Name: BENJAMIN [id number] Information Interpreted: non-clinical & clinical Accompanied by: Self / Same As Patient Allergies lisinopril Adverse Reaction (Severe, Verified 06/24/24 14:45) hyperkalemia HPI Comments Details: This is a 58-year-old female with a past medical history of asthma, osteoarthritis, GERD, anxiety, hypothyroidism, COPD, hyperlipidemia, hypertension, type 2 diabetes and SHANIQUA presenting for diabetic management. Telma 2 download reviewed from June 11 through 06/24/2024 CGM active 64% Average glucose 109 Glucose variability 17.2% 100% of readings are in target range She received the Telma 3 sensors, but she is going to use up her old prescription for Telma 2 first. Hemoglobin a1c 5.7% 04/29/24. Current medication regimen: Trulicity 3 mg weekly, Jardiance 10 mg daily, Lantus 15 units nightly, metformin ER 500 mg twice daily. Compliance issues: None Hypoglycemia symptoms: No interval episodes. Hypoglycemia resolved after reducing her dose of insulin at her last appointment. Hyperglycemia symptoms: none Eye exam: October 2023 She has an appointment with Podiatry in August. Microvascular complications: neuropathy, nephropathy (CKD and microalbuminuria) Macrovascular complications: none She had an abdominal ultrasound in 2022 which demonstrated a normal appearing liver. Hypertension: treated with amlodipine 10 mg, carvedilol 25 mg twice daily. Lisinopril discontinued in the past due to hyperkalemia. Hyperlipidemia: treated with Atorvastatin. LDL at goal <100. ROS: Constitutional: No unexplained weight loss, fever, chills. Eyes: No vision changes Respiratory: No shortness of breath Cardiovascular: No chest pain Gastrointestinal: No anorexia, nausea, vomiting or diarrhea. No abdominal pain Skin: No rash or open wounds. Endocrine: No cold or heat intolerance. No polyuria or polydipsia. Physical exam: Constitutional: Alert, in no distress. Neck: Supple, Full range of motion. No lymphadenopathy. No palpable thyroid masses. Respiratory: Clear to auscultation. Cardiovascular: S1 S2 regular. No murmurs. Neurologic: No focal neurological deficits Extremities: Warm and well perfused. 1+ bilateral lower extremity edema. [facility] Medical History (Updated 06/14/24 @ 00:02 by Oneal Tsai) At risk for foot problem Controlled type 2 diabetes mellitus Asthma Right shoulder pain Hearing decreased Hypertension Post-traumatic osteoarthritis of left hip Hematuria Leg length discrepancy Otitis externa Colon cancer screening Allergic rhinitis COPD (chronic obstructive pulmonary disease) Hyperkalemia Hypoventilation associated with obesity syndrome Left ventricular hypertrophy Diabetic nephropathy Opioid dependence SHANIQUA (obstructive sleep apnea) Morbid obesity GERD (gastroesophageal reflux disease) Migraines Hypothyroidism Vitamin D deficiency Anxiety Essential hypertension Type 2 diabetes mellitus with diabetic polyneuropathy Lumbar back pain Surgical History Deficient knowledge of leg surgery History of hip surgery Hx of bladder endoscopy Hx of spinal surgery Family History Father HTN (hypertension) SHANIQUA (obstructive sleep apnea) Prostate cancer Additional heart attack (anterolateral wall) Mother Asthma Diabetes Brother Epilepsy Sister HTN (hypertension) Maternal Aunt Throat cancer Social History Household Members Other:: brother Housing: Apartment Are you a primary assistant child care teacher to a significant other at home: No Alcohol intake: never Patient Tobacco Use Status: Former Tobacco user Tobacco use type: Cigarette Years Smoked: 4 +/- e-Cigarette/Vaping Use: Never Used Second Hand Smoke Exposure: No service: No Current occupational status: disabled Cognitive needs: Yes (cane ) Hearing needs: No Vision needs: Yes (glasses ) Physical Exam Vital Signs: Last Vital Signs Pulse 85 06/24/24 14:45 BP 128/66 06/24/24 14:45 BMI result Body Mass Index 54.0 Results Reviewed Results Reviewed: Laboratory Last Values Glucose (Clinic) 95 mg/dL (60-115) 06/24/24 14:50 Laboratory Tests 01/31/24 02/04/24 02/04/24 10:55 11:55 11:58 Creatinine 1.12 Estimated GFR 50 Hgb A1c (Clinic) 5.7 Hemoglobin A1c % 5.4 Triglycerides 96 Cholesterol 127 LDL Cholesterol, Calc 74 HDL Cholesterol 34 L Vitamin B12 783 TSH 1.81 Free T4 1.09 Urine Creatinine 114.78 Urine Microalbumin 167.0 Microalb/Creat Ratio 145.4 H Assessment & Plan Assessment & Plan (1) Controlled type 2 diabetes mellitus: Code(s): E11.9 - Type 2 diabetes mellitus without complications Category: Medical Plan In summary this is a 58-year-old female with controlled type 2 diabetes. Decrease Lantus 15 units daily. Continue Trulicity 3 mg weekly. Continue Jardiance 10 mg daily and metformin ER 500 mg twice daily. If you experience low blood sugar, treat this by eating a chewable fruit candy like skittles or jelly beans (about 8 pieces), 4 ounces (1/2 cup) of fruit juice (not diet), 1 tablespoon of honey or 4 glucose tablets. If your blood sugar is under 50, take double the amount of one of the above. Recheck your blood sugar in 15 minutes. Glucose tablets sent to pharmacy. Patient to consider referral to DE and assurance sourcing manager. Follow up in 3 months for type 2 diabetes. Coding Level of Care Code Est Pt Level 4 (11722) Complex EM visit Add On G2211 Diagnoses Controlled type 2 diabetes mellitus E11.9
[2024-06-24 14:45] VITALS: BP 128/66; PULSE 85; BMI 54.0
[2024-06-24 14:54] LABS: Glucose, Whole Blood 95 mg/dL (60-115)
== END 2024-06-24 15:37 | disposition home or self-care (01) ==
PROVIDERS: PCP Internal Medicine; Visit Provider Physician Assistant Medical
DX: E11.9 Type 2 diabetes mellitus without complications (principal)

== ENCOUNTER → 2024-06-24 14:27 | Outpatient (BNVA) | payer OTHER, SELFPAY | PROVIDERS: PCP Internal Medicine; Visit Provider Physician Assistant Medical | DX: E11.9 Type 2 diabetes mellitus without complications (principal) | CPT/HCPCS: 82947; 99212 ==

== ENCOUNTER 2024-07-21 15:19 | Outpatient (AMB) | payer OTHER, SELFPAY ==
--- NOTE | 2024-07-21 15:22 | A.OFFPC_ITS ---
Vital Signs 3 07/21/24 15:25 Height 5 ft 2 in Weight 291 lb BMI 53.2 BP 138/82 Blood Pressure Location Lt brachial Position Sitting Pulse 75 Pulse Source Pulse Oximeter Pulse Oximetry (%) 96 Oxygen Delivery Method Room Air Intake Visit Reasons: DM Intake Note: Patient here for a follow up DM French Folder Required: Yes French Folder Language: Pakistani Accompanied by: Self / Same As Patient Allergies lisinopril Adverse Reaction (Severe, Verified 07/21/24 15:30) hyperkalemia Tobacco use date assessed: 07/21/24 Dental Screening Dental Screen Date: 07/21/24 Did you have a dental visit in the last 12 months?: No Did you have a dental problem in the last 6 months where you did not have access to dental care?: No Was dental information given to patient?: Patient has dentist HPI DM 2 HPI0 Luke Degroot interpret [id number] COUNTS INCLUDE 234 BEDS AT THE [facility] Medical History (Updated 07/21/24 @ 15:45 by Bozena Dobbins MD) At risk for foot problem Controlled type 2 diabetes mellitus Asthma Right shoulder pain Hearing decreased Hypertension Post-traumatic osteoarthritis of left hip Hematuria Leg length discrepancy Otitis externa Colon cancer screening Allergic rhinitis COPD (chronic obstructive pulmonary disease) Hyperkalemia Hypoventilation associated with obesity syndrome Left ventricular hypertrophy Diabetic nephropathy Opioid dependence SHANIQUA (obstructive sleep apnea) Morbid obesity GERD (gastroesophageal reflux disease) Migraines Hypothyroidism Vitamin D deficiency Anxiety Essential hypertension Type 2 diabetes mellitus with diabetic polyneuropathy Lumbar back pain Surgical History Deficient knowledge of leg surgery History of hip surgery Hx of bladder endoscopy Hx of spinal surgery Family History Father HTN (hypertension) SHANIQUA (obstructive sleep apnea) Prostate cancer Additional heart attack (anterolateral wall) Mother Asthma Diabetes Brother Epilepsy Sister HTN (hypertension) Maternal Aunt Throat cancer Social History Household Members Other:: brother Housing: Apartment Are you a primary child care supervisor to a significant other at home: No Alcohol intake: never Patient Tobacco Use Status: Former Tobacco user Tobacco use type: Cigarette Years Smoked: 4 +/- e-Cigarette/Vaping Use: Never Used Second Hand Smoke Exposure: No service: No Current occupational status: disabled Cognitive needs: Yes (cane ) Hearing needs: No Vision needs: Yes (glasses ) Questionnaire PHQ-9 Over the last 2 weeks, how often have you been bothered by any of the following problems? 1. Little interest or pleasure in doing things: not at all 2. Feeling down, depressed, or hopeless: not at all 3. Trouble falling or staying asleep, or sleeping too much: not at all 4. Feeling tired or having little energy: not at all 5. Poor appetite or overeating: not at all 6. Feeling bad about yourself - or that you are a failure or have let yourself or your family down: not at all 7. Trouble concentrating on things, such as reading the newspaper or watching television: not at all 8. Moving or speaking so slowly that other people could have noticed. Or the opposite - being so fidgety or restless that you have been moving around a lot more than usual: not at all 9. Thoughts that you would be better off or of hurting yourself in some way: not at all Total score: 0 Depression Screening Interpretation: Negative Depression Screening Done: Yes Source: Developed by Drs. Waqas Albarran, Thelma Dumont, Ruben Oden and colleagues, with an educational valente from Dr [employer]. Thrive Questionnaire Date Thrive assessed: 07/21/24 I am a: Patient What is your living situation today?: I have a steady place to live Within the past 12 months, did the food you bought not last and you didn't have the money to get more?: Never true Within the past 12 months, did you worry whether your food would run out before you got money to buy more?: Never true Do you have trouble paying for medicines?: No Do you have trouble getting transportation to medical appointments?: No Do you have trouble paying your heating and electricity bill?: No Do you have trouble taking care of your child, family member or friend?: No Do you have trouble with day-to-day activities such as bathing, preparing meals, shopping, managing finances, etc.?: No Are you currently unemployed and looking for a job?: No Are you interested in more education?: No Please select the resources that you would like help with: None Currently or been in a relationship where the following occur: No concerns reported THRIVE Score: 0 AUDIT C Alcohol Use Questionnaire (AUDIT-C) 1. How often do you have a drink containing alcohol?: Never Total Score: 0 BEULAH-7 AMB Questionnaire BEULAH-7 Date BEULAH - 7 assessed: 07/21/24 Feeling nervous, anxious, or on edge: 0 = Not at all Not being able to stop or control worryin = Not at all Worrying too much about different things: 0 = Not at all Trouble relaxin = Not at all Being so restless that it is hard to sit still: 0 = Not at all Becoming easily annoyed or irritable: 0 = Not at all Feeling afraid as if something awful might happen: 0 = Not at all Total BEULAH-7 score (0-4 normal; 5-9 mild; 10-14 moderate; 15-21 severe): 0 Source: Developed by Drs. Waqas Albarran, Thelma Dumont, Ruben Oden and colleagues, with an educational valente from Dr [employer]. Physical exam (Primary Care) Vital Signs: Last Vital Signs Pulse 75 07/21/24 15:25 BP 138/82 07/21/24 15:25 Pulse Ox 96 07/21/24 15:25 Oxygen Delivery Method Room Air 07/21/24 15:25 BMI result Body Mass Index 53.2 Tobacco/Smoking Status: Tobacco use Status Tobacco use date assessed 07/21/24 07/21/24 15:36 Patient Tobacco Use Status Former Tobacco user 07/21/24 15:25 Tobacco use type Cigarette 07/21/24 15:25 e-Cigarette/Vaping Use Never Used 07/21/24 15:25 PHQ-9: PHQ-9 Score PHQ-9: Total score 0 07/21/24 15:40 Depression Screening Interpretation: Negative Thrive Assessment: Date of Thrive Assessment Date Thrive assessed 07/21/24 07/21/24 15:25 Currently or been in a relationship where the following occur: No concerns reported Const General: alert; No acute distress Eyes Conjunctivae: conjunctivae normal Resp Auscultation: clear to auscultation bilaterally Cardio Rate: regular rate Rhythm: regular rhythm GI Inspection: Yes normal to inspection Extrem General: Yes normal to inspection and No edema Ankle/foot/toe images: 2 1. 2nd and thrid toe wound , whitish with desquamation 2. Results AMB Hemoglobin A1c 2 AMB Hemoglobin A1c 5.5 % Last Edit by REBECA Vivar on 07/21/24 15:3 7 Results Reviewed Results Reviewed: Laboratory Last Values Hgb A1c (Clinic) 5.5 % (4.0-6.0) 07/21/24 15:21 Coding Level of Care Code Est Pt Level 4 (52433) Complex EM visit Add On G2211 Diagnoses Type 2 diabetes mellitus with hyperglycemia, with long-term current use of insulin E11.65; Z79.4 Diabetes mellitus medical terminologist insulin use: with medical terminologist use SHANIQUA (obstructive sleep apnea) G47.33 Morbid obesity E66.01 Lumbar back pain M54.5 Essential hypertension I10 Hypercholesterolemia E78.00 Generalized anxiety disorder F41.1 Abrasion of toe of left foot S90.415A Assessment & Plan Assessment & Plan (1) Type 2 diabetes mellitus with hyperglycemia: Comment: [facility] 03/2023 Code(s): E11.65 - Type 2 diabetes mellitus with hyperglycemia Category: Medical Qualifiers: Diabetes mellitus medical terminologist insulin use: with medical terminologist use Qualified Code(s): E11.65 - Type 2 diabetes mellitus with hyperglycemia; Z79.4 - retirement (current) use of insulin Plan: Decrease the amount of carbohydrate intake, pasta, bread, rice and potatoes are all sugar and that is aside from all the sweet stuff, remember that fruits are good but they are Sweet also. Continue to follow-up with he Endocrinology hemoglobin A1c is controlled (2) SHANIQUA (obstructive sleep apnea): Comment: CHRONIC SLEEP APNEA ALONG WITH CHRONIC HYPOVENTILATION SYNDROME. WELL TREATED WITH THE USE OF BIPAP.( AF-20 PRESSURE 25/16 CMs ) SHE IS VERY COMPLIANT AND BENEFITTING. Code(s): G47.33 - Obstructive sleep apnea (adult) (pediatric) Category: Medical Plan: Continue to use the CPAP more than 4 hours a night and benefits from this. (3) Morbid obesity: Comment: BMI= 55.6 THIS IS A CHRONIC PROBLEM, DIFFICULT FOR HER TO LOSE WEIGHT. BUT SHE IS TRYING HER BEST TO RESTRICT THE CALORIES INTAKE AND FOLLOW THE DIETARY INSTRUCTIONS. Code(s): E66.01 - Morbid (severe) obesity due to excess calories Category: Medical Plan: Diet and exercise on Trulicity (4) Lumbar back pain: Code(s): M54.5 - Low back pain Category: Medical Plan: Narcotic pain meds: Is being prescribed with the understanding that these medications are potentially addictive and should be used only when absolutely necessary and must always be secured. Any remaining pills should be safely disposed off appropriately. Patient is advised that narcotics can impaired judgment and one should not drive or operate heavy machinery while taking these medications. Never share these medications with anybody and do not leave them unattended. They will not be replaced under any circumstances. (5) Essential hypertension: Code(s): I10 - Essential (primary) hypertension Category: Medical Plan: Continue with blood pressure medication. Decrease salt intake and exercise (6) Hypercholesterolemia: Code(s): E78.00 - Pure hypercholesterolemia, unspecified Category: Medical Plan: Avoid fried foods, chicken skin, eggs, butter margarine, pastries and meat. Be it pork or beef they have a lot of cholesterol LDL goal of less than 100 and triglyceride of less than 150 on atorvastatin 80 mg once a day (7) Generalized anxiety disorder: Comment: psychiatry q 2 weeks with counselling Code(s): F41.1 - Generalized anxiety disorder Category: Medical Plan: Continue with sertraline (8) Abrasion of toe of left foot: Code(s): S90.415A - Abrasion, left lesser toe(s), initial encounter Category: Medical Plan: Urgent referral to wound care recommended Plan - Refer the patient to a wound care center for the non-healing wound on the left foot due to its persistence and higher risk of infection given her diabetic status. - Continue management of diabetes mellitus with current medication regimen, including Lantus, Trulicity, Jardiance, and metformin, with the patient maintaining her hemoglobin A1c at an optimal level. - Advise continued use of CPAP machine nightly for obstructive sleep apnea. - Continue current antihypertensive and cardiovascular risk reduction therapy with a focus on maintaining LDL below 70 mg/dL, and ensure adherence to atorvastatin 80 mg daily. - Encourage the patient to follow through with rescheduling cataract surgery and monitor any changes in her vision. - Continue current management for chronic low back pain with narcotic analgesics while ensuring monitoring of pain levels and potential side effects. - Recommend ongoing psychological support and continuation of sertraline for managing generalized anxiety disorder. Orders: Orders 2 AMB Hemoglobin A1c Today E11.9 - Type 2 diabetes mellitus without complications Referrals 2 Wound Care Referral S90.415A - Abrasion, left lesser toe(s), initial encounter
[2024-07-21 15:25] VITALS: BP 138/82; PULSE 75; O2SAT 96; BMI 53.2
--- OUTSIDE RECORDS SUMMARY | 2024-07-21 16:19 | XMS_ITS | Clinical Summary ---
Author Organization [address] [facility] Address [address] [place] [address] Phone Care Team Providers Care Scrum Product Owner Name Role Phone Bozena Dobbins MD Primary Care Provider [phone] Social History Tobacco Use Types Packs/Day Years Used Date Smoking Tobacco: Never Assessed Comments Unknown Sex and Gender Information Value Date Recorded Sex Assigned at Not on file Legal Sex Female 7:16 AM EST Gender Identity Not on file Sexual Orientation Not on file Plan of Treatment Upcoming Encounters Date Type Department Care Team ([facility] st Contact Info) Description 08/13/2024 3:30 PM EST Office Visit Orthopedic Surgery [place] [id number] [id number] Mata [place], DPM [address] [address] Health Maintenance Due Date Last Done Comments Breast Cancer Screening 1965 Diabetes: Annual GFR (Glomer ular Filtration Rate) 1965 Pneumococcal Vaccine: Pediat rics (0 to 5 Years) and At-Risk Patients (6 to 64 Years) (1 of 2 - PCV) 1971 Diabetes: Annual Foot Exam 1975 Diabetes: Annual Retina Eye Exam 1975 DTaP,Tdap,and Td Vaccines (1 - Tdap) 1984 Hepatitis B Vaccines (1 of 3 - 19+ 3-dose series) 1984 Cervical Cancer Screening: P ap Smear 1986 Zoster Vaccines (1 of 2) 2015 COVID-19 Vaccine ( - 2023-2 5 season) 2024 Influenza Vaccine (#1) 2024 Cholesterol Screening (Lipid Panel) 06/03/2024 Colorectal Cancer Screening: Colonoscopy 06/03/2024 Depression Screening 06/03/2024 Diabetes: Annual Urine Albumin-Creatinine Ratio (uACR) 06/03/2024 Diabetes: Blood Sugar Contro l Test (HGBA1C) 06/03/2024 HIV Screening 06/03/2024 Hepatitis C Screening 06/03/2024 Social Influencers of Health Screening 06/03/2024 RSV Immunization Patients 60 + Years Old (1 - 1-dose 75+ series) 2040 HIB Vaccines Aged Out No longer eligi ble based on patient's age to complete this topic HPV Vaccines Aged Out No longer eligi ble based on patient's age to complete this topic Hepatitis A Vaccines Aged Out No long er eligible based on patient's age to complete this topic IPV Vaccines Aged Out No longer eligi ble based on patient's age to complete this topic MMR Vaccines Aged Out No longer eligi ble based on patient's age to complete this topic Meningococcal ACWY Vaccine Aged Out N o longer eligible based on patient's age to complete this topic RSV Immunization Patients Un shamika 20 months Aged Out No longer eligible b ased on patient's age to complete this topic Varicella Vaccines Aged Out No longer eligible based on patient's age to complete this topic Insurance [facility] Care Teams Scrum Product Owner Relationship Specialty Start Date End Date Bozena Dobbins MD [address] [place] [address] [address] [facility] [place] [address] PCP - General Internal Medicine 06/03/24
== END 2024-07-21 15:56 | disposition home or self-care (01) ==
PROVIDERS: PCP Internal Medicine; Visit Provider Internal Medicine
DX: E11.65 Type 2 diabetes mellitus with hyperglycemia (principal); E11.9 Type 2 diabetes mellitus without complications; E66.01 Morbid (severe) obesity due to excess calories; Z68.43 Body mass index [BMI] 50.0-59.9, adult; Z79.4 Long term (current) use of insulin; G47.33 Obstructive sleep apnea (adult) (pediatric); M54.50 Low back pain, unspecified; I10 Essential (primary) hypertension; E78.00 Pure hypercholesterolemia, unspecified; F41.1 Generalized anxiety disorder; S90.415A Abrasion, left lesser toe(s), initial encounter

== ENCOUNTER → 2024-07-21 15:19 | Outpatient (BNVA) | payer OTHER, SELFPAY | PROVIDERS: PCP Internal Medicine; Visit Provider Internal Medicine | DX: E11.65 Type 2 diabetes mellitus with hyperglycemia (principal); G47.33 Obstructive sleep apnea (adult) (pediatric); E66.01 Morbid (severe) obesity due to excess calories; M54.50 Low back pain, unspecified; I10 Essential (primary) hypertension; E78.00 Pure hypercholesterolemia, unspecified; F41.1 Generalized anxiety disorder; S90.415A Abrasion, left lesser toe(s), initial encounter; Z79.4 Long term (current) use of insulin | CPT/HCPCS: 83036; 99212 ==

== ENCOUNTER 2024-08-13 14:52 | Outpatient (AMB) | payer OTHER, SELFPAY ==
--- NOTE | 2024-08-13 15:01 | A.OFFVIS_ITS ---
Vital Signs 08/13/24 15:02 Height 5 ft 2 in Weight 291 lb BMI 53.2 BP 122/72 Blood Pressure Location Lt radial Position Sitting Pulse 71 Pulse Source Pulse Oximeter Pulse Oximetry (%) 96 Oxygen Delivery Method Room Air Intake Visit Reasons: Obstructive sleep apnea Intake Note: pt is here for follow up of SHANIQUA,using every night Presser All Around Required: Yes Presser All Around Services: Presser All Around Present Presser All Around Name: Karri [id number] Allergies lisinopril Adverse Reaction (Severe, Verified 08/13/24 15:22) hyperkalemia Medication List - Last Reconciled 08/13/24 by Yusuf Whitfield MD albuterol sulfate 2.5 mg (3 mL) inhalation Q6-8H 15 days amlodipine 10 mg PO DAILY aspirin 81 mg PO DAILY atorvastatin 80 mg PO QPM 90 days blood pressure monitor (Blood Pressure Kit) As directed XXL blood pressure cuff blood sugar diagnostic (FreeStyle Lite Strips) 1 strip miscellaneous DAILY 30 days blood-glucose sensor (FreeStyle Telma 3 Plus Sensor device) Apply 1 new sensor every 15 days as directed to monitor blood glucose continuously. budesonide-formoterol 160-4.5 mcg/actuation (Symbicort) 2 puffs PO BID carvedilol 25 mg PO BID cholecalciferol (vitamin D3) 50 mcg PO DAILY 90 days [CPAP full face mask medium AF 20 bilevel pressure 25/16 cm humidified air As directed] doxepin 100 mg PO BEDTIME 90 days doxepin 25 mg PO BEDTIME dulaglutide (Trulicity) 3 mg (0.5 mL) subcut QWEEK empagliflozin (Jardiance) 10 mg PO DAILY flash glucose scanning reader (FreeStyle Telma 2 [place]) As directed flash glucose sensor (FreeStyle Telma 2 Sensor kit) every 2 weeks glucose (Dex4 Glucose) 16 grams (4 x 4 gram) PO Q15M PRN insulin glargine (Lantus Solostar U-100 Insulin) 15 units subcut DAILY lancets daily levothyroxine 75 mcg PO DAILY 90 days metformin ER 500 mg PO BID 90 days oxycodone 30 mg PO BID PRN 30 days peg 3350-electrolytes 236-22.74-6.74 -5.86 gram (Golytely) 240 mL PO Q10M 1 day pen needle, diabetic (BD Ultra-Fine Veena Pen Needle) 1 ea subcut DAILY 90 days sennosides-docusate sodium 8.6-50 mg (Senexon-S) 2 tabs PO BEDTIME sertraline 100 mg PO DAILY 90 days [transport Wheelchair As directed] Ventolin HFA 90 mcg/actuation (albuterol sulfate) 2 puffs inhalation Q4-6H PRN NS Do you need a note to return to daycare/school/sports/work: No HPI HPI Obstructive sleep apnea: Details: This 59 years old female with super morbid obesity, history of chronic narcotics usage, has COPD with chronic respiratory failure, as well as SHANIQUA and hypoventilation syndrome. She comes after 6 months for follow-up, and during the past 6 months has been doing well, without any acute exacerbations. She is on BiPAP therapy at nighttime and she uses BiPAP for 6-8 hours every night. She claims that she remains alert and energetic during the daytime. She has only mild intermittent cough but no attacks of wheezing. In the past 6 months she has had no acute exacerbation. [facility] Medical History At risk for foot problem Controlled type 2 diabetes mellitus Asthma Right shoulder pain Hearing decreased Hypertension Post-traumatic osteoarthritis of left hip Hematuria Leg length discrepancy Otitis externa Colon cancer screening Allergic rhinitis COPD (chronic obstructive pulmonary disease) Hyperkalemia Hypoventilation associated with obesity syndrome Left ventricular hypertrophy Diabetic nephropathy Opioid dependence SHANIQUA (obstructive sleep apnea) Morbid obesity GERD (gastroesophageal reflux disease) Migraines Hypothyroidism Vitamin D deficiency Anxiety Essential hypertension Type 2 diabetes mellitus with diabetic polyneuropathy Lumbar back pain Surgical History Deficient knowledge of leg surgery History of hip surgery Hx of bladder endoscopy Hx of spinal surgery Family History Father HTN (hypertension) SHANIQUA (obstructive sleep apnea) Prostate cancer Additional heart attack (anterolateral wall) Mother Asthma Diabetes Brother Epilepsy Sister HTN (hypertension) Maternal Aunt Throat cancer Social History Household Members Other:: brother Housing: Apartment Are you a primary childcare administrator to a significant other at home: No Alcohol intake: never Patient Tobacco Use Status: Former Tobacco user Tobacco use type: Cigarette Years Smoked: 4 +/- e-Cigarette/Vaping Use: Never Used Second Hand Smoke Exposure: No service: No Current occupational status: disabled Cognitive needs: Yes (cane ) Hearing needs: No Vision needs: Yes (glasses ) Review of Systems Const All systems reviewed & are unremarkable except as noted in HPI and below Eyes Reports no additional complaints ENT Reports nasal congestion (Off and on) Card Denies chest pain, Denies irregular heart rhythm and Denies leg edema Resp Reports as per HPI GI Denies no additional complaints Denies no additional complaints Musc Reports abnormal gait (Slightly impaired locomotion due to morbid obesity, uses cane), Reports back pain and Reports arthralgias Skin/Breast Reports system reviewed and no additional complaints, except as documented Neuro Reports abnormal gait (Slightly impaired locomotion due to morbid obesity, uses cane) Psych Reports no additional complaints Physical Exam Vital Signs: Last Vital Signs Pulse 71 08/13/24 15:02 BP 122/72 08/13/24 15:02 Pulse Ox 96 08/13/24 15:02 Oxygen Delivery Method Room Air 08/13/24 15:02 BMI result Body Mass Index 53.2 Const General: comfortable, no acute distress, alert and awake Orientation/consciousness: patient oriented x3 HEENT Head: Yes normal to inspection General nose exam: No nasal polyps present and No nasal discharge present Face and sinus: Yes sinuses nontender Mouth: oropharynx abnormals (Crowded with Mallampati class 4) Throat: Yes posterior oropharynx normal Eyes General: appearance normal, both eyes and all related structures Neck Neck: Yes normal visual inspection, Yes no lymphadenopathy, Yes trachea midline, Yes no JVD and Yes other (Neck is grossly obese) Thyroid: Thyroid normal Chest Chest palpation & inspection: normal inspection of the chest, normal palpation of entire chest wall and no tenderness Resp Other: Percussion note not perceptible due to thick chest wall Breath sounds are distant especially over the basilar areas. No audible wheezes rhonchi or Creps. Cardio Palpation: PMI not normal (Not palpable) Rate: regular rate Rhythm: regular rhythm Heart sounds: no gallops and no murmurs GI Palpation (GI): Soft to palpation, nontender, No hepatosplenomegaly present, no masses and Other GI palpation findings present (Abdomen is grossly obese and protuberant) Auscultation: normal bowel sounds Back/Spine/Pelvis Thoracic/Lumbar Spine: thoracic and lumbar spine normal to inspection and tho raco-lumbar ROM limited Skin General skin exam: no rashes or lesions noted Neuro General: patient oriented x3, No gait normal (Slightly impaired and uses cane) and no focal motor deficits Cranial nerves: Yes CN's II-XII intact bilaterally Extrem General: Yes normal to inspection, Yes no clubbing, cyanosis or edema and Yes no calf tenderness Psych Appearance: grossly normal Speech and movement: Normal speech and movement present Assessment & Plan Assessment & Plan (1) COPD (chronic obstructive pulmonary disease): Comment: Patient does have advanced chronic obstructive as well as restrictive pulmonary disease. Clinically it is staying very stable without any acute exacerbations. She does have chronic hypercapnic failure due to hypoventilation as well as COPD. She uses BiPAP very regularly and so her respiratory failure has been under control. Code(s): J44.9 - Chronic obstructive pulmonary disease, unspecified Category: Medical Plan: Continue to use Symbicort 160-4.5 2 puffs b.i.d. Albuterol 2.5 mg solution in the nebulizer Q 4-6 hours p.r.n.. (2) SHANIQUA (obstructive sleep apnea): Comment: CHRONIC SLEEP APNEA ALONG WITH CHRONIC HYPOVENTILATION SYNDROME. WELL TREATED WITH THE USE OF BIPAP.( AIR- FIT F-20 PRESSURE 25/16 CMs ) SHE IS VERY COMPLIANT AND BENEFITTING. Code(s): G47.33 - Obstructive sleep apnea (adult) (pediatric) Category: Medical Plan: Commended for good compliance and advised to keep on using BiPAP at least for 8 hours every night (3) Morbid obesity: Comment: BMI= 53.2 THIS IS A CHRONIC PROBLEM, DIFFICULT FOR HER TO LOSE WEIGHT. BUT SHE IS TRYING HER BEST TO RESTRICT THE CALORIES INTAKE AND FOLLOW THE DIETARY INSTRUCTIONS. Code(s): E66.01 - Morbid (severe) obesity due to excess calories Category: Medical Plan: Watch the diet try to walk around during the daytime as much as possible. (4) Hypoventilation associated with obesity syndrome: Comment: SEE UNDER SHANIQUA , BEING TREATED SUCCESSFULLY WITH THE USE OF BIPAP. Code(s): E66.2 - Morbid (severe) obesity with alveolar hypoventilation Category: Medical Plan: Continue to use the BiPAP regularly (5) Allergic rhinitis: Comment: HAS INTERMITTENT NASAL CONGESTION DUE TO ALLERGIC RHINITIS, CONTROLLED WITH USE OF NASACORT NASAL SPRAY 2 SPRAYS IN EACH NOSTRIL DAILY. Code(s): J30.9 - Allergic rhinitis, unspecified Category: Medical Plan: Continue same medication Coding Level of Care Code Est Pt Level 4 (12942) Diagnoses COPD (chronic obstructive pulmonary disease) J44.9 SHANIQUA (obstructive sleep apnea) G47.33 Morbid obesity E66.01 Hypoventilation associated with obesity syndrome E66.2 Allergic rhinitis J30.9
[2024-08-13 15:02] VITALS: BP 122/72; PULSE 71; O2SAT 96; BMI 53.2
== END 2024-08-13 15:23 | disposition home or self-care (01) ==
PROVIDERS: PCP Internal Medicine; Visit Provider Internal Medicine
DX: J44.9 Chronic obstructive pulmonary disease, unspecified (principal); G47.33 Obstructive sleep apnea (adult) (pediatric); E66.01 Morbid (severe) obesity due to excess calories
CPT/HCPCS: 99214

== ENCOUNTER → 2024-08-13 14:52 | Outpatient (BNVA) | payer OTHER, SELFPAY | PROVIDERS: PCP Internal Medicine; Visit Provider Internal Medicine | DX: G47.33 Obstructive sleep apnea (adult) (pediatric) (principal); E66.2 Morbid (severe) obesity with alveolar hypoventilation; J44.9 Chronic obstructive pulmonary disease, unspecified; J30.9 Allergic rhinitis, unspecified; Z68.43 Body mass index [BMI] 50.0-59.9, adult; Z99.89 Dependence on other enabling machines and devices; Z87.891 Personal history of nicotine dependence | CPT/HCPCS: 99212 ==

== ENCOUNTER 2024-08-22 16:05 | Inpatient (IN) | payer OTHER, SELFPAY ==
[2024-08-22] VITALS (8 sets, daily range): BP systolic 142–166; BP diastolic 52–79; PULSE 77–96; RESP 16–24; TEMP 36.2–37.1; O2SAT 89–97; BMI 52.2
--- NOTE | ~2024-08-22 | XR_ITS ---
CLINICAL HISTORY: dyspnea 2 view chest x-ray Comparison: CR/SR - XR CHEST 1V - 02/19/23 16:07 EDT Findings: There are hazy opacities in the right lower lobe suggesting infiltrates. No pleural effusion or pneumothorax. The cardiac silhouette is mildly enlarged. No CHF. No acute fracture. IMPRESSION: Probable right lower lobe infiltrates. This document has been electronically signed by: Joceline Kaur DO on 08/22/2024 16:45:06
--- NOTE | 2024-08-22 16:08 | ED.GENADULT ---
HPI - General Adult General Chief complaint: Asthma Stated complaint: asthma Time Seen by Provider: 08/22/24 16:30 Source: patient, RN notes reviewed and old records reviewed Mode of arrival: ambulatory History of Present Illness ED Provider: Sue Orr PA-C HPI narrative: 59-year-old female with a past medical history asthma, COPD, diabetes, obesity, OA, GERD, HTN, presenting to the ED complaining of asthma exacerbation with dry cough and SOB x2 days. Reports intermittent chest discomfort with coughing, denies chest pain at present. Also reports fever yesterday. Denies chills, travel, pedal edema, calf tenderness, sick contacts Related Data Home Medications ?Medication ?Instructions ?Recorded ?Confirmed insulin glargine 100 unit/mL (3 15 unit subcut DAILY 05/30/24 08/13/24 mL) subcutaneous pen (Lantus Solostar U-100 Insulin) Previous Rx's ?Medication ?Instructions ?Recorded CPAP full face mask medium AF 20 #1 ea 05/24/20 bilevel pressure 25/16 cm humidified air flash glucose scanning reader #1 ea 05/26/22 (FreeStyle Telma 2 [place]) peg 3350-electrolytes 236 240 ml PO Q10M 1 day #4,000 mL 06/20/22 gram-22.74 gram-6.74 gram-5.86 gram solution (Golytely) blood pressure monitor (Blood #1 ea 07/13/22 Pressure Kit) lancets 28 gauge #100 ea 03/22/23 blood sugar diagnostic (FreeStyle 1 strip miscellaneous DAILY 30 05/28/23 Lite Strips) days #50 strips transport Wheelchair #1 ea 06/21/23 flash glucose sensor (FreeStyle #2 ea 09/18/23 Telma 2 Sensor kit) sennosides 8.6 mg-docusate sodium 2 tab PO BEDTIME #180 tabs 10/16/23 50 mg tablet (Senexon-S) aspirin 81 mg tablet,delayed 81 mg PO DAILY #90 tabs 10/22/23 release pen needle, diabetic 32 gauge x 1 ea subcut DAILY 90 days #100 ea 12/14/23 (BD Ultra-Fine Veena Pen Needle) Ventolin HFA 90 mcg/actuation 2 puff inhalation Q4-6H PRN for 12/31/23 aerosol inhaler (albuterol sulfate) wheezing #18 ea sertraline 100 mg tablet 100 mg PO DAILY 90 days #90 tabs 01/17/24 carvedilol 25 mg tablet 25 mg PO BID #180 tabs 02/11/24 amlodipine 10 mg tablet 10 mg PO DAILY #90 tabs 04/24/24 dulaglutide 3 mg/0.5 mL 3 mg (0.5 mL) subcut QWEEK #2 mL 04/29/24 subcutaneous pen injector (Trulicity) glucose 4 gram chewable tablet 16 g (4 x 4 gram) PO Q15M PRN 04/29/24 (Dex4 Glucose) hypoglycemia #10 tabs metformin 500 mg tablet,extended 500 mg PO BID 90 days #180 tabs 05/12/24 release 24 hr cholecalciferol (vitamin D3) 50 50 mcg PO DAILY 90 days #90 caps 05/14/24 mcg (2,000 unit) capsule levothyroxine 75 mcg tablet 75 mcg PO DAILY 90 days #90 tabs 05/14/24 budesonide-formoterol HFA 160 2 puff PO BID #10.2 ea 05/21/24 mcg-4.5 mcg/actuation aerosol inhaler (Symbicort) blood-glucose sensor (FreeStyle #2 ea 05/30/24 Telma 3 Plus Sensor device) atorvastatin 80 mg tablet 80 mg PO QPM 90 days #90 tabs 06/08/24 doxepin 100 mg capsule 100 mg PO BEDTIME 90 days #90 caps 07/07/24 empagliflozin 10 mg tablet 10 mg PO DAILY #30 tabs 07/30/24 (Jardiance) doxepin 25 mg capsule 25 mg PO BEDTIME #90 caps 08/03/24 albuterol sulfate 2.5 mg/3 mL 2.5 mg (3 mL) inhalation Q6-8H 08/05/24 (0.083 %) solution for nebulization copd excerbation 15 days #180 mL oxycodone 30 mg tablet 30 mg PO BID PRN pain 30 days #60 08/12/24 tabs Allergies Allergy/AdvReac Type Severity Reaction Status Date / Time lisinopril AdvReac Severe hyperkalemi Verified 08/22/24 16:08 a Review of Systems Review of Systems: Yes all other systems are reviewed and are negative Constitutional: Constitutional: Reports as per [facility] Past Medical History Attestation statement: The following information was validated with the patient. Source: old records reviewed Medical History At risk for foot problem Controlled type 2 diabetes mellitus Asthma Right shoulder pain Hearing decreased Hypertension Post-traumatic osteoarthritis of left hip Hematuria Leg length discrepancy Otitis externa Colon cancer screening Allergic rhinitis COPD (chronic obstructive pulmonary disease) Hyperkalemia Hypoventilation associated with obesity syndrome Left ventricular hypertrophy Diabetic nephropathy Opioid dependence SHANIQUA (obstructive sleep apnea) Morbid obesity GERD (gastroesophageal reflux disease) Migraines Hypothyroidism Vitamin D deficiency Anxiety Essential hypertension Type 2 diabetes mellitus with diabetic polyneuropathy Lumbar back pain Surgical History Deficient knowledge of leg surgery History of hip surgery Hx of bladder endoscopy Hx of spinal surgery Family History Family History Father HTN (hypertension) SHANIQUA (obstructive sleep apnea) Prostate cancer Additional heart attack (anterolateral wall) Mother Asthma Diabetes Brother Epilepsy Sister HTN (hypertension) Maternal Aunt Throat cancer Social History Social History Household Members Other:: brother Housing: Apartment Are you a primary director of managed care to a significant other at home: No Alcohol intake: never Patient Tobacco Use Status: Former Tobacco user Tobacco use type: Cigarette Years Smoked: 4 +/- Smoked in Last 30 Days: No e-Cigarette/Vaping Use: Never Used Second Hand Smoke Exposure: No Use of substances other than those prescribed or required for medical reasons: No Advance Directives: No Advance Directives Information Provided: No Do you have a plan to hurt others: No Plan Patient : No service: No Current occupational status: disabled Cognitive needs: Yes (cane ) Hearing needs: No Vision needs: Yes (glasses ) Physical Exam ED Vital Signs: Vital Signs - 24 hr 08/22/24 16:08 08/22/24 16:44 08/22/24 17:31 Temperature 97.2 F 98.7 F Pulse Rate 96 77 78 Respiratory Rate 16 24 H 18 Blood Pressure 166/66 H 151/76 H Pulse Oximetry 89 L 92 Oxygen Delivery Method Room Air Room Air 08/22/24 18:21 Temperature Pulse Rate 77 Respiratory Rate 19 Blood Pressure Pulse Oximetry Oxygen Delivery Method BMI result Body Mass Index 52.2 Const General: cooperative, healthy appearing and no acute distress Orientation/consciousness: patient oriented x3 Limitations: no limitations HENMT Head: Yes normal to inspection and Yes atraumatic Ears: hearing grossly normal bilaterally General nose exam: Normal external nose present Face and sinus: Yes normal facial exam Eyes General: appearance normal, both eyes and all related structures EOM: EOMs intact bilaterally Neck Neck: Yes normal visual inspection and Yes no meningeal signs Resp Effort & Inspection: normal respiratory effort and no respiratory distress Auscultation: wheezes expiratory wheezes, inspiratory wheezes and throughout and diminished lung sounds Cardio Rate: regular rate Heart sounds: S1 normal heart sound present and S2 normal heart sound present GI Inspection: Yes normal to inspection Palpation (GI): Soft to palpation, nontender, no guarding and not rigid General: Yes no CVA tenderness Back/Spine/Pelvis Back: no CVA tenderness Skin Rashes: no rashes Wounds: no wounds Neuro General: patient oriented x3, tone normal and no meningeal signs Cranial nerves: Yes CN's II-XII intact bilaterally Gait exam (Neuro): Normal gait present Extrem General: Yes normal to inspection Course Course Course Narrative: This is a rapid medical exam performed by Daniel Fu NP: Additional HPI, ROS, PE not included below will be deferred to primary provider. Patient is a 59-year-old female with history of asthma, COPD, T2DM, SHANIQUA, obesity, HTN presenting with shortness of breath x 2 days. Inspiratory and expiratory wheezing as well as rhonchi, O2 89-90% on room air in triage. Plan: vortex operator aware, viral panel, CXR, ed bronch protocol -1816--no leukocytosis. Labs otherwise reassuring. Troponin negative. -RSV positive XR chest 2V IMPRESSION: Probable right lower lobe infiltrates. > on re-evaluation patient is still with diffuse inspiratory/expiratory wheeze. Will give IV magnesium and additional DuoNeb. -1900--on re-evaluation patient is still with diffuse expiratory wheeze, and satting 91% on RA at rest. Plan to admit for further management. Medications Administered Discontinued Medications Generic Name Dose Route Start Last Admin Trade Name Freq PRN Reason Stop Dose Admin Ceftriaxone Sodium 1 gm 08/22/24 16:53 08/22/24 17:11 Ceftriaxone Sodium 1 Gm Vial IVPUSH 08/22/24 16:54 1 gm ONCE ONE Administration Albuterol Sulfate 5 mg/ 0 mg 08/22/24 16:40 08/22/24 16:42 Albuterol/Ipratropium 3 ml INHALE 08/22/24 16:41 1 each ONCE ONE Administration Albuterol Sulfate 2.5 mg/ 0 mg 08/22/24 18:17 08/22/24 18:21 Albuterol/Ipratropium 3 ml INHALE 08/22/24 18:18 1 dose ONCE ONE Administration Azithromycin 500 mg/ Sodium 250 mls @ 125 mls/hr 08/22/24 16:53 08/22/24 17:15 Chloride IV 08/22/24 18:52 125 mls/hr ONCE ONE Administration Methylprednisolone Sodium Succinate 60 mg 08/22/24 16:41 08/22/24 17:10 Methylprednisolone Sod Succ 125 Mg/2 Ml Vial IVPUSH 08/22/24 16:42 60 mg ONCE ONE Administration Medical Decision Making Medical Decision Making MDM Narrative: 59-year-old female with a past medical history asthma, COPD, diabetes, obesity, OA, GERD, HTN, presenting to the ED complaining of asthma exacerbation with dry cough and SOB x2 days. On exam hypoxic 89-90% on RA initially, NAD, diffuse inspiratory and expiratory weekly diminished lung sounds throughout, no pedal edema. Concern for asthma/COPD exacerbation vs pneumonia vs bronchitis. Lower suspicion for acute CHF at this time. Unlikely severe sepsis. Lower suspicion for acute PE/DVT Plan: EKG, labs, CXR, viral testing, ED bronch protocol, IV Solu-Medrol, re-evaluate Please refer to course for remaining clinical decision making, interpretation of labs/imaging results, and discussions with consultants and/or family members. Differential Diagnosis Differential Diagnoses: The differential diagnosis associated with the presentation includes As above Admission/Observation Consideration of admission/observation: Escalation of care including admission/observation considered Lab Data [facility] Lab Attestation statement: I reviewed the patient's lab results. 08/22/24 17:22 08/22/24 17:22 Labs: Lab Results 08/22/24 08/22/24 Range/Units 17:05 17:22 WBC 5.6 (4.8-10.8) X10*3/uL RBC 5.07 (4.20-5.50) X10*6/uL Hgb 12.6 (12.0-16.0) g/dl Hct 39.4 (37.0-47.0) % MCV 77.7 L (80.0-98.0) fL MCH 24.9 L (27.0-33.0) pg MCHC 32.0 (31.0-35.0) g/dl RDW 15.9 (11.0-16.0) % Plt Count 195 (160-400) X10*3/uL MPV 10.5 (9.4-12.3) fL Immature Gran % (Auto) 0.4 (0.0-0.4) % Neut % (Auto) 83.9 H (45-73) % Lymph % (Auto) 11.9 L (20-40) % [place] % (Auto) 3.4 (2-11) % Eos % (Auto) 0.2 (0-4) % Baso % (Auto) 0.2 (0-2) % Lymph # (Auto) 0.7 L (1.2-4.9) X10*3/uL [place] # (Auto) 0.2 (0.1-1.2) X10*3/uL Eos # (Auto) 0.0 (0.0-0.4) X10*3/uL Baso # (Auto) 0.0 (0.0-0.2) X10*3/uL Abs Immat Gran (auto) 0.02 (0.00-0.03) X10*3/uL Absolute Neuts (auto) 4.7 (2.0-8.3) x10*3/uL Absolute Nucleated RBC 0.000 (0.0-0.012) X10*3/uL Nucleated RBC % (auto) 0.0 (0.0-0.2) /100WBC Sodium 139 (135-145) mmol/L Potassium 4.1 (3.3-5.1) mmol/L Chloride 103 (96-108) mmol/L Carbon Dioxide 24 (22-29) mmol/L Anion Gap 16 (12-20) BUN 17 H (9-16) mg/dL Creatinine 0.82 (0.5-1.4) mg/dL Estim Creat Clear Calc 95.5 Estimated GFR > 60 Random Glucose 117 H (60-115) mg/dL Lactic Acid 1.5 (0.5-2.0) mmol/L Calcium 9.4 (8.4-10.2) mg/dL Magnesium 1.8 (1.6-2.6) mg/dL Total Bilirubin 0.3 (0.0-1.0) mg/dL AST 22 (5-31) U/L ALT 27 (0-31) U/L Alkaline Phosphatase 100 (39-117) U/L Troponin I High Sens 3.3 (<3.5-17.0) ng/L B-Natriuretic Peptide 46 (<100) pg/mL Total Protein 8.8 H (6.5-8.0) g/dL Albumin 4.1 (3.5-5.0) g/dL Influenza Type A (PCR) NEGATIVE (Negative) Influenza Type B (PCR) NEGATIVE (Negative) RSV RNA Qual (PCR) POSITIVE A (Negative) SARS-CoV-2 RNA (RT-PCR) NEGATIVE (Negative) Independent Interpretation I performed an independent interpretation of an: EKG and Plain X-Ray Radiology Impression Discussion of test interpretation with radiology: I have reviewed the radiologist's reading. External Record Review External record reviewed: Inpatient record, Office record, Outpatient record, Prior outpatient labs, Prior outpatient radiology, Primary care record and Outside ED record Tests considered The following testing was considered but not selected: As above Prescription Management I considered prescription management with: Pain Medication and Antibiotic Chronic Conditions Patient?s care impacted by: Diabetes, Hypertension and Other (Asthma/COPD) Social Determinants Patient?s care significantly limited by Social Determinants of Health including: Other Social Determinant of Health Critical Care Time Critical Care Time Critical Care Time: Yes Total Critical Care Time: 45 Attestation: I have personally provided critical care time exclusive of time spent on separately billable procedures. Time includes review of lab data, radiology results, discussion with consultants, and monitoring for potential decompensation. Intervention performed as documented. Discharge Plan Discharge Clinical Impression: Respiratory syncytial virus (RSV), Pneumonia Patient Disposition: Admitted As Inpatient Print Language: Malawian
--- NOTE | 2024-08-22 16:35 | ECG_ITS ---
Test Reason : sob Blood Pressure : */* mmHG Vent. Rate : 78 BPM Atrial Rate : 78 BPM P-R Int : 148 ms QRS Dur : 84 ms QT Int : 374 ms P-R-T Axes : 60 28 42 degrees QTcB Int : 426 ms Normal sinus rhythm Normal ECG When compared with ECG of 19-Feb-2023 15:29, No significant change was found Referred By: Sue Orr Electronically Signed By: KERA CRUZ
[2024-08-22] MEDS: Albuterol Sulfate 5 MG, Albuterol/Iprat 2.5/0.5MG 3 ML 3 ML INHALE (16:42)
[2024-08-22] MEDS: methylPREDNISolone Sod Succ 125 MG/2 ML VIAL 60 MG IVPUSH (17:10)
[2024-08-22] MEDS: cefTRIAXone sodium 1 GM VIAL IVPUSH (17:11)
[2024-08-22] MEDS: Azithromycin 500 MG in 0.9 % Sodium Chloride 250 ML 125 MG IV (17:15)
[2024-08-22 17:27] LABS: MANUAL DIFF FLAG NO
[2024-08-22 17:30] LABS: Basophils Percent Auto 0.2 % (0-2); Eosinophils Percent Auto 0.2 % (0-4); Hematocrit 39.4 % (37.0-47.0); Hemoglobin 12.6 g/dl (12.0-16.0); Imm Gran Abs Auto 0.02 X10*3/uL (0.00-0.03); Imm Gran Pct Auto 0.4 % (0.0-0.4); Lymphocytes Absolute Auto 0.7 X10*3/uL (1.2-4.9); Lymphocytes Percent Auto 11.9 % (20-40); Mean Corpuscular Hemoglobin 24.9 pg (27.0-33.0); Mean Corpuscular Volume 77.7 fL (80.0-98.0); Mean Platelet Volume 10.5 fL (9.4-12.3); Monocytes Absolute Auto 0.2 X10*3/uL (0.1-1.2); Monocytes Percent Auto 3.4 % (2-11); Neutrophils Absolute Auto 4.7 x10*3/uL (2.0-8.3); Neutrophils Percent Auto 83.9 % (45-73); Platelet Count 195 X10*3/uL (160-400); Red Blood Count 5.07 X10*6/uL (4.20-5.50); Red Cell Distribution Width 15.9 % (11.0-16.0); White Blood Count 5.6 X10*3/uL (4.8-10.8)
--- NOTE | 2024-08-22 17:33 | PC.NURSE ---
At arrival to [facility] pt was tachipnic with increased WOB. LS ins/exp wheezing and moderate air movement. LS have improved and WOB decreased after treatment, solumedrol, rest. At rest SaO2 is 92. 2L reapplied.
[2024-08-22 17:35] LABS: Lactic Acid 1.5 mmol/L (0.5-2.0)
[2024-08-22 17:44] LABS: Alanine Aminotransferase 27 U/L (0-31); Albumin Level 4.1 g/dL (3.5-5.0); Alkaline Phosphatase 100 U/L (39-117); Anion Gap 16 (12-20); Aspartate Amino Transferase 22 U/L (5-31); Bilirubin Total 0.3 mg/dL (0.0-1.0); Blood Urea Nitrogen 17 mg/dL (9-16); Calcium 9.4 mg/dL (8.4-10.2); Carbon Dioxide 24 mmol/L (22-29); Chloride 103 mmol/L (96-108); Creatinine Clr Calc Pharmacy 95.5; Estimated Glomerular Filt Rate > 60; Glucose Random 117 mg/dL (60-115); Magnesium 1.8 mg/dL (1.6-2.6); Potassium 4.1 mmol/L (3.3-5.1); Sodium 139 mmol/L (135-145); Total Protein 8.8 g/dL (6.5-8.0)
[2024-08-22 17:49] LABS: B Type Natriuretic Peptide 46 pg/mL (<100)
[2024-08-22 17:51] LABS: Troponin-I High Sensitivity 3.3 ng/L (<3.5-17.0)
[2024-08-22 18:08] LABS: Influenza A PCR NEGATIVE (Negative); Influenza B PCR NEGATIVE (Negative); Resp Syncy Virus RNA Qual PCR POSITIVE (Negative); SARS COV2 PCR INHOUSE NEGATIVE (Negative)
[2024-08-22] MEDS: Albuterol Sulfate 2.5 MG, Albuterol/Iprat 2.5/0.5MG 3 ML 3 ML INHALE (18:21)
[2024-08-22] MEDS: Magnesium Sulfate/H2O 2 GM/50 ML PIGGYBACK IV (20:15)
--- NOTE | 2024-08-22 22:00 | P.HPHOSP_ITS ---
History of Present Illness Date of Service: 08/22/24 Chief Complaint: sob 59-year-old female with a past medical history of HTN, HLD, dm, asthma, GERD, degenerative spine disease, obesity, SHANIQUA, anxiety presented to the hospital today with a chief complaint of shortness of breath. Patient reported that since yesterday she has been not feeling well; has been having cough and shortness of breath. Also had fevers yesterday. Reports having sputum production. Denies any chest pain or palpitations. Denies any nausea vomiting or diarrhea. Denies any urinary symptoms. Review of all other systems is negative except mentioned above ER course: Per ER team, patient on presentation noted to be short of breath, diffusely wheezing, chest x-ray showed right lower lobe pneumonia, patient tested positive for RSV. Patient was given ceftriaxone, azithromycin, nebulizers, steroids. Patient was also hypoxic to 89%. Placed on supplemental oxygen. [facility] Medical History At risk for foot problem Controlled type 2 diabetes mellitus Asthma Right shoulder pain Hearing decreased Hypertension Post-traumatic osteoarthritis of left hip Hematuria Leg length discrepancy Otitis externa Colon cancer screening Allergic rhinitis COPD (chronic obstructive pulmonary disease) Hyperkalemia Hypoventilation associated with obesity syndrome Left ventricular hypertrophy Diabetic nephropathy Opioid dependence SHANIQUA (obstructive sleep apnea) Morbid obesity GERD (gastroesophageal reflux disease) Migraines Hypothyroidism Vitamin D deficiency Anxiety Essential hypertension Type 2 diabetes mellitus with diabetic polyneuropathy Lumbar back pain Family History Father HTN (hypertension) SHANIQUA (obstructive sleep apnea) Prostate cancer Additional heart attack (anterolateral wall) Mother Asthma Diabetes Brother Epilepsy Sister HTN (hypertension) Maternal Aunt Throat cancer Surgical History Deficient knowledge of leg surgery History of hip surgery Hx of bladder endoscopy Hx of spinal surgery Social History Household Members Other:: brother Housing: Apartment Are you a primary acute care clinical nurse specialist to a significant other at home: No Alcohol intake: never Patient Tobacco Use Status: Former Tobacco user Tobacco use type: Cigarette Years Smoked: 4 +/- Smoked in Last 30 Days: No e-Cigarette/Vaping Use: Never Used Second Hand Smoke Exposure: No Use of substances other than those prescribed or required for medical reasons: No Advance Directives: No Advance Directives Information Provided: No Do you have a plan to hurt others: No Plan Patient : No service: No Current occupational status: disabled Cognitive needs: Yes (cane ) Hearing needs: No Vision needs: Yes (glasses ) Meds Allergies Allergy/AdvReac Type Severity Reaction Status Date / Time lisinopril AdvReac Severe hyperkalemi Verified 08/22/24 16:08 a Active Medications: Current Medications Acetaminophen (Acetaminophen 325 Mg Tablet) 650 mg PO Q6H PRN PRN Reason: Pain, Mild 1-3,fever,headache Albuterol/Ipratropium (Albuterol/Iprat 2.5/0.5mg 3 Ml Ampul.Neb) 3 ml INHALE Q4H PRN PRN Reason: Shortness of Breath/Wheezing Albuterol/Ipratropium (Albuterol/Iprat 2.5/0.5mg 3 Ml Ampul.Neb) 3 ml INHALE RQ4H WHILE AWAKE LELE Azithromycin (Azithromycin 500 Mg Tablet) 500 mg PO Q24H LELE Calcium Carbonate (Calcium Carbonate 750 Mg Tab.Chew) 750 mg PO Q4H PRN PRN Reason: Heartburn Ceftriaxone Sodium (Ceftriaxone Sodium 1 Gm Vial) 1 gm IVPUSH Q24H LELE Dextrose (Dextrose 50 % 25 Gm/50 Ml Syringe) 25 gm IVPUSH Q15M PRN; Protocol PRN Reason: per Hypoglycemia Standing Ord. Enoxaparin Sodium (Enoxaparin Sodium 40 Mg/0.4 Ml Syringe) 40 mg SUBCUT Q24H LELE Glucose (Glucose Gel 15 Gm Gel..Gram.) 15 gm PO Q15M PRN; Protocol PRN Reason: per Hypoglycemia Standing Ord. Insulin Glargine (Insulin Glargine,Hum.Rec.Anlog 100 Unit/Ml 10 Ml Vial) 10 unit SUBCUT BEDTIME LELE Insulin Human Lispro (Insulin Lispro 100 Unit/Ml 3 Ml Vial) 0 unit SUBCUT QIDACHS LELE; Protocol Magnesium Hydroxide (Milk Of Magnesia 30 Ml Oral.Susp) 30 ml PO DAILY PRN PRN Reason: Constipation Melatonin (Melatonin 3 Mg Tablet) 6 mg PO BEDTIME PRN PRN Reason: Insomnia Methylprednisolone Sodium Succinate (Methylprednisolone Sod Succ 40 Mg/Ml Vial) 40 mg IVPUSH Q8H LELE Sodium Chloride (0.9 % Sodium Chloride Flush 3 Ml Syringe) 3 ml IVFLUSH QSHIFT LELE Home Medications ?Medication ?Instructions ?Recorded ?Confirmed ?Last Taken ?Type insulin glargine 100 unit/mL (3 15 unit subcut BEDTIME 05/30/24 08/22/24 Unknown History mL) subcutaneous pen (Lantus Solostar U-100 Insulin) dulaglutide 3 mg/0.5 mL 3 mg subcut TU 08/22/24 08/22/24 Unknown History subcutaneous pen injector (Trulicity) levothyroxine 75 mcg tablet 75 mcg PO DAILY@0600 08/22/24 08/22/24 Unknown History sennosides 8.6 mg-docusate sodium 1 tab PO DAILY 08/22/24 08/22/24 Unknown History 50 mg tablet (Senexon-S) Physical Exam 2 Vital Signs and Narrative: Vital Signs: Last Vital Signs Temp 98.1 F 08/22/24 20:19 Pulse 83 08/22/24 20:19 Resp 18 08/22/24 20:19 BP 154/79 H 08/22/24 20:19 Pulse Ox 97 08/22/24 20:19 O2 Del Method Nasal Cannula 08/22/24 20:19 O2 Flow Rate 2 08/22/24 20:19 BMI result Body Mass Index 52.2 Gen: Appears be in no acute distress HEENT: NCAT, Moist mucosa. Pulmonary: Coarse breath sounds CVS: Normal S1-S2 Abdomen: BS+, Soft, Nontender Extremities: Warm well perfused Neuro: Alert and awake. Results Labs 08/22/24 17:22 08/22/24 17:22 Labs: Laboratory Results - last 24 hr 08/22/24 08/22/24 17:05 17:22 MCV 77.7 L MCH 24.9 L MCHC 32.0 RDW 15.9 Plt Count 195 MPV 10.5 Immature Gran % (Auto) 0.4 Neut % (Auto) 83.9 H Lymph % (Auto) 11.9 L [place] % (Auto) 3.4 Eos % (Auto) 0.2 Baso % (Auto) 0.2 Lymph # (Auto) 0.7 L [place] # (Auto) 0.2 Eos # (Auto) 0.0 Baso # (Auto) 0.0 Abs Immat Gran (auto) 0.02 Absolute Neuts (auto) 4.7 Absolute Nucleated RBC 0.000 Nucleated RBC % (auto) 0.0 Anion Gap 16 Estim Creat Clear Calc 95.5 Estimated GFR > 60 Random Glucose 117 H Lactic Acid 1.5 Calcium 9.4 Magnesium 1.8 Total Bilirubin 0.3 AST 22 ALT 27 Alkaline Phosphatase 100 B-Natriuretic Peptide 46 Total Protein 8.8 H Albumin 4.1 Influenza Type A (PCR) NEGATIVE Influenza Type B (PCR) NEGATIVE RSV RNA Qual (PCR) POSITIVE A SARS-CoV-2 RNA (RT-PCR) NEGATIVE Assessment and Plan (1) Pneumonia: Qualifiers: Laterality: right Lung location: lower lobe of lung Pneumonia type: d ue to unspecified organism Qualified Code(s): J18.9 - Pneumonia, unspecified organism Status: Acute Plan 59-year-old female with a past medical history of HTN, HLD, dm, asthma, GERD, degenerative spine disease, obesity, SHANIQUA, anxiety presented to the hospital today with a chief complaint of shortness of breath. Admitted for following Acute hypoxic respiratory failure: Right lower lobe pneumonia: RSV positive: Asthma/COPD exacerbation: Patient was mildly hypoxic, placed on supplemental oxygen. Continue nebulizations standing and p.r.n. 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
--- NOTE | 2024-08-22 22:02 | PC.NURSE ---
resting quietly. NAD. unlabored resp at rest.
[2024-08-22] MEDS: Enoxaparin Sodium 40 MG/0.4 ML SYRINGE SUBCUT (22:04)
--- NOTE | 2024-08-22 22:33 | PHA.MEDREC ---
Pharmacy Consult ? Medication Reconciliation Pharmacy has completed the medication reconciliation. audiovisual technician spoke to patient. Knew all medications and told tech she stopped amlodipine because she was allergic
[2024-08-22] MEDS: 0.9 % Sodium Chloride Flush 3 ML SYRINGE IVFLUSH (23:18)
[2024-08-23] VITALS (13 sets, daily range): BP systolic 131–157; BP diastolic 64–78; PULSE 68–102; RESP 14–24; TEMP 36.2–37; O2SAT 91–97; BMI 52.5
--- NOTE | 2024-08-23 00:06 | MHC.EDTECH ---
Pt placed in hospital bed for comfort
[2024-08-23] MEDS: methylPREDNISolone Sod Succ 40 MG/ML VIAL IVPUSH ×3 (00:43→17:04)
[2024-08-23 04:28] LABS: Hematocrit 39.6 % (37.0-47.0); Hemoglobin 12.5 g/dl (12.0-16.0); Mean Corpuscular HGB Conc 31.6 g/dl (31.0-35.0); Mean Corpuscular Hemoglobin 25.1 pg (27.0-33.0); Mean Corpuscular Volume 79.5 fL (80.0-98.0); Mean Platelet Volume 10.8 fL (9.4-12.3); Platelet Count 200 X10*3/uL (160-400); Red Blood Count 4.98 X10*6/uL (4.20-5.50); Red Cell Distribution Width 15.6 % (11.0-16.0); White Blood Count 4.6 X10*3/uL (4.8-10.8)
[2024-08-23 04:53] LABS: Alanine Aminotransferase 23 U/L (0-31); Albumin Level 3.7 g/dL (3.5-5.0); Alkaline Phosphatase 92 U/L (39-117); Anion Gap 15 (12-20); Aspartate Amino Transferase 33 U/L (5-31); Bilirubin Total 0.2 mg/dL (0.0-1.0); Blood Urea Nitrogen 17 mg/dL (9-16); Calcium 9.2 mg/dL (8.4-10.2); Carbon Dioxide 22 mmol/L (22-29); Chloride 107 mmol/L (96-108); Creatinine Clr Calc Pharmacy 94.3; Estimated Glomerular Filt Rate > 60; Glucose Random 120 mg/dL (60-115); Potassium 4.5 mmol/L (3.3-5.1); Sodium 139 mmol/L (135-145); Total Protein 8.2 g/dL (6.5-8.0)
[2024-08-23] MEDS: Levothyroxine Sodium 75 MCG TABLET PO (05:52)
[2024-08-23 07:37] LABS: Glucose, Whole Blood 138 mg/dL (60-115)
[2024-08-23] MEDS: Albuterol/Iprat 2.5/0.5MG 3 ML AMPUL.NEB INHALE ×4 (08:20→18:59)
[2024-08-23] MEDS: 0.9 % Sodium Chloride Flush 3 ML SYRINGE IVFLUSH ×2 (08:22→17:05)
[2024-08-23] MEDS: Sertraline HCL 100 MG TABLET PO (09:15)
[2024-08-23] MEDS: carvediloL 25 MG TABLET PO ×2 (09:15→21:21)
[2024-08-23] MEDS: Aspirin Enteric Coated 81 MG TABLET.DR PO (09:15)
--- NOTE | 2024-08-23 10:55 | P.PNIM_ITS ---
Subjective Subjective Date of Service: 08/23/24 Interval History: sob improving Physical Exam 2 Vital Signs: Vital Signs: Last Vital Signs Temp 98.3 F 08/23/24 09:31 Pulse 83 08/23/24 09:31 Resp 24 H 08/23/24 09:31 BP 157/76 H 08/23/24 09:31 Pulse Ox 91 L 08/23/24 09:31 O2 Del Method Nasal Cannula 08/23/24 09:31 O2 Flow Rate 1 08/23/24 09:31 BMI result Body Mass Index 52.5 General: AO X 3, sob Resp: dimisnihed bilateral, no accessory muscles used CVS: S1,S2,RRR GI: soft, non tender, non distended Neuro: motor grossly intact, alert Psych: appropriate affect, appropriate insight Objective Data Active Medications Acetaminophen (Acetaminophen 325 Mg Tablet) 650 mg PO Q6H PRN PRN Reason: Pain, Mild 1-3,fever,headache Albuterol/Ipratropium (Albuterol/Iprat 2.5/0.5mg 3 Ml Ampul.Neb) 3 ml INHALE Q4H PRN PRN Reason: Shortness of Breath/Wheezing Albuterol/Ipratropium (Albuterol/Iprat 2.5/0.5mg 3 Ml Ampul.Neb) 3 ml INHALE RQ4H WHILE AWAKE [facility] Last Admin: 08/23/24 08:20 Dose: 3 ml Documented By: VAMSI Aspirin (Aspirin Enteric Coated 81 Mg Tablet.) 81 mg PO DAILY [facility] Last Admin: 08/23/24 09:15 Dose: 81 mg Documented By: DAMIEN Atorvastatin Calcium (Atorvastatin Calcium 80 Mg Tablet) 80 mg PO BEDTIME [facility] Azithromycin (Azithromycin 500 Mg Tablet) 500 mg PO Q24H [facility] Calcium Carbonate (Calcium Carbonate 750 Mg Tab.Chew) 750 mg PO Q4H PRN PRN Reason: Heartburn Carvedilol (Carvedilol 25 Mg Tablet) 25 mg PO BID [facility]; Protocol Last Admin: 08/23/24 09:15 Dose: 25 mg Documented By: DAMIEN Ceftriaxone Sodium (Ceftriaxone Sodium 1 Gm Vial) 1 gm IVPUSH Q24H [facility] Dextrose (Dextrose 50 % 25 Gm/50 Ml Syringe) 25 gm IVPUSH Q15M PRN; Protocol PRN Reason: per Hypoglycemia Standing Ord. Doxepin HCl (Doxepin Hcl 25 Mg Capsule) 25 mg PO BEDTIME [facility] Enoxaparin Sodium (Enoxaparin Sodium 40 Mg/0.4 Ml Syringe) 40 mg SUBCUT Q24H [facility] Last Admin: 08/22/24 22:04 Dose: 40 mg Documented By: FATUMA Glucose (Glucose Gel 15 Gm Gel..Gram.) 15 gm PO Q15M PRN; Protocol PRN Reason: per Hypoglycemia Standing Ord. Insulin Glargine (Insulin Glargine,Hum.Rec.Anlog 100 Unit/Ml 10 Ml Vial) 10 unit SUBCUT BEDTIME LELE Insulin Human Lispro (Insulin Lispro 100 Unit/Ml 3 Ml Vial) 0 unit SUBCUT QIDACHS [facility]; Protocol Last Admin: 08/23/24 07:35 Dose: Not Given Documented By: JAQUELINE Non-Admin Reason: No Insulin Coverage Comments: POC 138 Levothyroxine Sodium (Levothyroxine Sodium 75 Mcg Tablet) 75 mcg PO DAILY@0600 [facility] Last Admin: 08/23/24 05:52 Dose: 75 mcg Documented By: RENA Magnesium Hydroxide (Milk Of Magnesia 30 Ml Oral.Susp) 30 ml PO DAILY PRN PRN Reason: Constipation Melatonin (Melatonin 3 Mg Tablet) 6 mg PO BEDTIME PRN PRN Reason: Insomnia Methylprednisolone Sodium Succinate (Methylprednisolone Sod Succ 40 Mg/Ml Vial) 40 mg IVPUSH Q8H [facility] Last Admin: 08/23/24 09:14 Dose: 40 mg Documented By: DAMIEN Sertraline HCl (Sertraline Hcl 100 Mg Tablet) 100 mg PO DAILY [facility] Last Admin: 08/23/24 09:15 Dose: 100 mg Documented By: DAMIEN Sodium Chloride (0.9 % Sodium Chloride Flush 3 Ml Syringe) 3 ml IVFLUSH QSHIFT [facility] Last Admin: 08/23/24 08:22 Dose: 3 ml Documented By: JAQUELINE Labs 08/23/24 04:02 08/23/24 04:02 Labs: Laboratory Results - last 24 hr 08/22/24 08/22/24 08/23/24 17:05 17:22 04:02 MCV 77.7 L 79.5 L MCH 24.9 L 25.1 L MCHC 32.0 31.6 RDW 15.9 15.6 Plt Count 195 200 MPV 10.5 10.8 Immature Gran % (Auto) 0.4 Neut % (Auto) 83.9 H Lymph % (Auto) 11.9 L [place] % (Auto) 3.4 Eos % (Auto) 0.2 Baso % (Auto) 0.2 Lymph # (Auto) 0.7 L [place] # (Auto) 0.2 Eos # (Auto) 0.0 Baso # (Auto) 0.0 Abs Immat Gran (auto) 0.02 Absolute Neuts (auto) 4.7 Absolute Nucleated RBC 0.000 0.000 Nucleated RBC % (auto) 0.0 0.0 Anion Gap 16 15 Estim Creat Clear Calc 95.5 94.3 Estimated GFR > 60 > 60 POC Glucose Random Glucose 117 H 120 H Lactic Acid 1.5 Calcium 9.4 9.2 Magnesium 1.8 Total Bilirubin 0.3 0.2 AST 22 33 H ALT 27 23 Alkaline Phosphatase 100 92 B-Natriuretic Peptide 46 Total Protein 8.8 H 8.2 H Albumin 4.1 3.7 Influenza Type A (PCR) NEGATIVE Influenza Type B (PCR) NEGATIVE RSV RNA Qual (PCR) POSITIVE A SARS-CoV-2 RNA (RT-PCR) NEGATIVE 08/23/24 07:33 MCV MCH MCHC RDW Plt Count MPV Immature Gran % (Auto) Neut % (Auto) Lymph % (Auto) [place]roy[place] % (Auto) Eos % (Auto) Baso % (Auto) Lymph # (Auto) [place] # (Auto) Eos # (Auto) Baso # (Auto) Abs Immat Gran (auto) Absolute Neuts (auto) Absolute Nucleated RBC Nucleated RBC % (auto) Anion Gap Estim Creat Clear Calc Estimated GFR POC Glucose 138 H Random Glucose Lactic Acid Calcium Magnesium Total Bilirubin AST ALT Alkaline Phosphatase B-Natriuretic Peptide Total Protein Albumin Influenza Type A (PCR) Influenza Type B (PCR) RSV RNA Qual (PCR) SARS-CoV-2 RNA (RT-PCR) Assessment and Plan (1) Generalized anxiety disorder: Status: Acute Plan 59F PMH moderate persistent asthma, hypertension, hyperlipidemia, diabetes, morbid obesity, SHANIQUA, anxiety presented with shortness of breaths Acute hypoxic respiratory failure secondary to moderate persistent asthma with acute decompensation due to RSV with possible bacterial pneumonia as well as acute on chronic diastolic CHF Steroids, DuoNebs, ceftriaxone azithromycin, wean O2 as tolerated, IV Lasix Diabetes Basal bolus insulin Hypothyroid Levothyroxine Morbid obesity Weight loss recommended SHANIQUA CPAP at night DVT prophylaxis with Lovenox Full Code reason for continued hospitalization: Still short of breath Quality Stroke Does the patient have a stroke diagnosis?: No VTE Prior VTE?: No VTE Risk Level:: Medical - moderate - high VTE Device Contraindication: Patient Refused VTE Drug Contraindication: N/A - Med Ordered
[2024-08-23 11:37] LABS: Glucose, Whole Blood 148 mg/dL (60-115)
[2024-08-23 17:04] LABS: Glucose, Whole Blood 154 mg/dL (60-115)
[2024-08-23] MEDS: Azithromycin 500 MG TABLET PO (17:04)
[2024-08-23] MEDS: cefTRIAXone sodium 1 GM VIAL IVPUSH (17:04)
[2024-08-23] MEDS: Furosemide 40 MG/4 ML VIAL IVPUSH (17:04)
[2024-08-23] MEDS: Insulin Lispro 100 UNIT/ML 3 ML VIAL SUBCUT ×2 (17:05→21:21)
--- NOTE | 2024-08-23 18:59 | HO.SKINPHOTO ---
Location: Category: Stage: Length: Width: Depth: cm Location: Category: Stage: Length: Width: Depth: cm Location: Category: Stage: Length: Width: Depth: cm Location: Category: Stage: Length: Width: Depth: cm Location: Category: Stage: Length: Width: Depth: cm Location: Category: Stage: Length: Width: Depth: cm
[2024-08-23 20:44] LABS: Glucose, Whole Blood 155 mg/dL (60-115)
[2024-08-23] MEDS: Doxepin HCl 25 MG CAPSULE PO (21:20)
[2024-08-23] MEDS: Melatonin 3 MG TABLET 6 MG PO (21:21)
[2024-08-23] MEDS: Atorvastatin Calcium 80 MG TABLET PO (21:21)
[2024-08-23] MEDS: Enoxaparin Sodium 40 MG/0.4 ML SYRINGE SUBCUT (21:21)
[2024-08-23] MEDS: Insulin Glargine,Hum.rec.anlog 100 UNIT/ML 10 ML VIAL 10 UNIT SUBCUT (21:22)
[2024-08-24] VITALS (7 sets, daily range): BP systolic 125–147; BP diastolic 65–74; PULSE 60–113; RESP 14–18; TEMP 36.1–36.3; O2SAT 87–96
[2024-08-24] MEDS: methylPREDNISolone Sod Succ 40 MG/ML VIAL IVPUSH ×2 (01:16→09:39)
[2024-08-24] MEDS: Levothyroxine Sodium 75 MCG TABLET PO (06:06)
[2024-08-24 07:31] LABS: Hemoglobin 13.1 g/dl (12.0-16.0); Mean Corpuscular Hemoglobin 25.1 pg (27.0-33.0); Mean Corpuscular Volume 78.7 fL (80.0-98.0); Mean Platelet Volume 10.4 fL (9.4-12.3); Platelet Count 238 X10*3/uL (160-400); Red Blood Count 5.21 X10*6/uL (4.20-5.50); Red Cell Distribution Width 15.9 % (11.0-16.0); White Blood Count 7.7 X10*3/uL (4.8-10.8)
[2024-08-24 07:36] LABS: Glucose, Whole Blood 140 mg/dL (60-115)
[2024-08-24 07:47] LABS: Anion Gap 13 (12-20); Blood Urea Nitrogen 33 mg/dL (9-16); Calcium 9.2 mg/dL (8.4-10.2); Carbon Dioxide 26 mmol/L (22-29); Chloride 105 mmol/L (96-108); Creatinine Clr Calc Pharmacy 76.2; Estimated Glomerular Filt Rate 55; Glucose Random 138 mg/dL (60-115); Potassium 4.2 mmol/L (3.3-5.1); Sodium 140 mmol/L (135-145)
[2024-08-24] MEDS: Albuterol/Iprat 2.5/0.5MG 3 ML AMPUL.NEB INHALE ×2 (07:54→11:25)
[2024-08-24] MEDS: Sertraline HCL 100 MG TABLET PO (08:42)
[2024-08-24] MEDS: Aspirin Enteric Coated 81 MG TABLET.DR PO (08:42)
[2024-08-24] MEDS: carvediloL 25 MG TABLET PO (08:42)
[2024-08-24] MEDS: Furosemide 40 MG/4 ML VIAL IVPUSH (08:42)
--- NOTE | 2024-08-24 09:53 | PM.DS ---
DS: Providers Provider Date of Service: 08/24/24 Date of admission: 08/22/24 21:46 Date of discharge: 08/24/24 Primary care physician: Bozena Dobbins MD Consults: 08/23/24 09:54 Consult to Wound Care Routine Reason for consultation: open wounds to left foot second and third digit DS: Diagnosis Discharge Diagnosis (1) Generalized anxiety disorder: Status: Acute DS: Summary Hospital Course Hospital Course: from initial hpi: 59-year-old female with a past medical history of HTN, HLD, dm, asthma, GERD, degenerative spine disease, obesity, SHANIQUA, anxiety presented to the hospital today with a chief complaint of shortness of breath. Patient reported that since yesterday she has been not feeling well; has been having cough and shortness of breath. Also had fevers yesterday. Reports having sputum production. Denies any chest pain or palpitations. Denies any nausea vomiting or diarrhea. Denies any urinary symptoms. Review of all other systems is negative except mentioned above ER course: Per ER team, patient on presentation noted to be short of breath, diffusely wheezing, chest x-ray showed right lower lobe pneumonia, patient tested positive for RSV. Patient was given ceftriaxone, azithromycin, nebulizers, steroids. Patient was also hypoxic to 89%. Placed on supplemental oxygen. hospital course: Patient was admitted for acute hypoxic respiratory failure secondary to moderate persistent asthma with acute decompensation due to RSV with possible bacterial pneumonia as well as acute on chronic diastolic CHF. Was treated with steroids, DuoNebs, ceftriaxone azithromycin and IV Lasix, patient was weaned down to room air at rest but still requiring 2 L on exertion and will be discharged on 2 L home O2 with exertion, shortness breast significantly improved. On discharge we will continue 5 more days of prednisone, Ceftin, azithromycin and will be started on Lasix maintenance. For diabetes was continued on basal bolus insulin. For hypothyroidism was continue levothyroxine. For morbid obesity weight loss is recommended. For SHANIQUA was given CPAP at night. Noted to have 202 blood cultures with coag-negative staph, this is likely contaminant and will not be treated. Patient is feeling better will be discharged home. Time Attestation Discharge Coordination Time (in mins): 32 Quality: Safe Use of Opioids Does Pt have an Active Cancer Diagnosis on the Problem List?: No Quality: Stroke Does the patient have a stroke diagnosis?: No Physical Exam Vital Signs: Vital Signs: Last Vital Signs Temp 96.9 F 08/24/24 07:24 Pulse 62 08/24/24 07:55 Resp 18 08/24/24 07:55 BP 147/74 H 08/24/24 07:24 Pulse Ox 94 08/24/24 07:24 O2 Del Method Nasal Cannula 08/24/24 07:24 O2 Flow Rate 2 08/24/24 07:24 BMI result Body Mass Index 52.5 General: AO X 3, no acute distress Resp: CTA bilateral, no accessory muscles used CVS: S1,S2,RRR GI: soft, non tender, non distended Neuro: motor grossly intact, alert Psych: appropriate affect, appropriate insight DS: Data Data Completed and Pending Labs on day of discharge: Laboratory Results - last 24 hr 08/23/24 08/23/24 08/23/24 11:28 16:55 20:40 WBC RBC Hgb Hct MCV MCH MCHC RDW Plt Count MPV Absolute Nucleated RBC Nucleated RBC % (auto) Sodium Potassium Chloride Carbon Dioxide Anion Gap BUN Creatinine Estim Creat Clear Calc Estimated GFR POC Glucose 148 H 154 H 155 H Random Glucose Calcium 08/24/24 08/24/24 06:32 07:26 WBC 7.7 RBC 5.21 Hgb 13.1 Hct 41.0 MCV 78.7 L MCH 25.1 L MCHC 32.0 RDW 15.9 Plt Count 238 MPV 10.4 Absolute Nucleated RBC 0.000 Nucleated RBC % (auto) 0.0 Sodium 140 Potassium 4.2 Chloride 105 Carbon Dioxide 26 Anion Gap 13 BUN 33 H Creatinine 1.03 Estim Creat Clear Calc 76.2 Estimated GFR 55 POC Glucose 140 H Random Glucose 138 H Calcium 9.2 Preliminary micro results at discharge 08/22/24 17:05 Blood Culture - Preliminary Blood - Venous Coag negative Staphylococcus 08/22/24 17:05 Blood Culture - Preliminary Blood - Venous Coag negative Staphylococcus Discharge Plan Discharge Anticipated Discharge Date/Time: 08/24/24 09:50 Patient Disposition: Home, Self-Care Discharge Diagnosis: pna, chf, asthma Referrals: Po,Bozena Herzog MD [Primary Care Provider] - 1 Week Discharge Medications: New furosemide [Lasix] 40 mg tablet 40 mg PO DAILY Qty: 90 0RF prednisone 20 mg tablet 40 mg PO DAILY Qty: 10 0RF cefuroxime axetil 500 mg tablet 500 mg PO BID Qty: 10 0RF azithromycin 500 mg tablet 500 mg PO DAILY 5 Days Qty: 5 0RF Continued (DME) CPAP full face mask medium AF 20 bilevel pressure 25/16 cm humidified air See Rx Instructions .Route .MEDSUPPLY Qty: 1 0RF Rx Instructions: As directed (DME) FreeStyle Telma 2 [place] Misc See Rx Instructions .ROUTE .MEDSUPPLY Qty: 1 0RF Rx Instructions: As directed (DME) lancets 28 gauge misc See Rx Instructions topical TID Qty: 100 3RF Rx Instructions: daily aspirin 81 mg tablet,delayed release (DR/EC) 81 mg PO DAILY Qty: 90 3RF albuterol sulfate [Ventolin HFA] 90 mcg/actuation HFA aerosol inhaler 2 puff inhalation Q4-6H PRN (Reason: for wheezing) Qty: 18 3RF sertraline 100 mg tablet 100 mg PO DAILY 90 Days Qty: 90 1RF carvedilol 25 mg tablet 25 mg PO BID Qty: 180 3RF metformin 500 mg tablet extended release 24 hr 500 mg PO BID 90 Days Qty: 180 2RF cholecalciferol (vitamin D3) 50 mcg (2,000 unit) capsule 50 mcg PO DAILY 90 Days Qty: 90 3RF budesonide-formoterol [Symbicort] 160-4.5 mcg/actuation HFA aerosol inhaler 2 puff PO BID Qty: 10.2 0RF atorvastatin 80 mg tablet 80 mg PO QPM 90 Days Qty: 90 1RF doxepin 100 mg capsule 100 mg PO BEDTIME 90 Days Qty: 90 1RF Jardiance 10 mg tablet 10 mg PO DAILY Qty: 30 5RF doxepin 25 mg capsule 25 mg PO BEDTIME Qty: 90 1RF albuterol sulfate 2.5 mg /3 mL (0.083 %) solution for nebulization 2.5 mg inhalation Q6-8H 15 Days Qty: 180 1RF oxycodone 30 mg tablet 30 mg PO BID PRN (Reason: pain) 30 Days Qty: 60 0RF sennosides-docusate sodium [Senexon-S] 8.6-50 mg tablet 1 tab PO DAILY levothyroxine 75 mcg tablet 75 mcg PO DAILY@0600 Trulicity 3 mg/0.5 mL pen injector 3 mg subcut TU (DME) transport Wheelchair See Rx Instructions .Route .MEDSUPPLY Qty: 1 0RF Rx Instructions: As directed (DME) blood pressure monitor [Blood Pressure Kit] Kit See Rx Instructions .ROUTE .MEDSUPPLY Qty: 1 0RF Rx Instructions: As directed XXL blood pressure cuff (DME) FreeStyle Telma 2 Sensor Kit See Rx Instructions .ROUTE .MEDSUPPLY Qty: 2 11RF Rx Instructions: every 2 weeks glucose [Dex4 Glucose] 4 gram tablet,chewable 16 g PO Q15M PRN (Reason: hypoglycemia) Qty: 10 3RF Rx Instructions: until symptoms of low blood sugar are controlled insulin glargine [Lantus Solostar U-100 Insulin] 100 unit/mL (3 mL) insulin pen 15 unit subcut BEDTIME (DME) FreeStyle Telma 3 Plus Sensor Device See Rx Instructions .ROUTE .MEDSUPPLY Qty: 2 11RF Rx Instructions: Apply 1 new sensor every 15 days as directed to monitor blood glucose continuously. Discharge Orders: Discharge Order (Routine); Ordered 08/24/24 Ordered By: Nam Larios Diet: Advance to usual diet Activity on Discharge: As tolerated Stand Alone Forms: Patient Portal Discharge page Print Language: Italian Care Plan Goals: recovery Health Concerns: pna, chf, asthma Plan of Treatment: 5 days ceftin, azithro, prednisone, start lasix weight loss Assessment: see above
[2024-08-24 11:13] LABS: Glucose, Whole Blood 243 mg/dL (60-115)
[2024-08-24] MEDS: Insulin Lispro 100 UNIT/ML 3 ML VIAL SUBCUT (11:32)
== END 2024-08-24 15:06 | disposition home or self-care (01) | DRG 141 ==
LOC: HO.ED 18:19 → HO.EDOVER 22:03 → HO.IMC 08-23 08:10
PROVIDERS: Physician Assistant; Registered Nurse Emergency; Admitting Provider Hospitalist; Emergency Provider Emergency Medicine; PCP Internal Medicine; Visit Provider Internal Medicine
DX: J45.41 Moderate persistent asthma with (acute) exacerbation (principal); J96.01 Acute respiratory failure with hypoxia; I50.33 Acute on chronic diastolic (congestive) heart failure; J15.9 Unspecified bacterial pneumonia; J44.0 Chronic obstructive pulmonary disease with (acute) lower respiratory infection; I11.0 Hypertensive heart disease with heart failure; E11.9 Type 2 diabetes mellitus without complications; Z68.43 Body mass index [BMI] 50.0-59.9, adult; F41.1 Generalized anxiety disorder; J44.1 Chronic obstructive pulmonary disease with (acute) exacerbation; B97.4 Respiratory syncytial virus as the cause of diseases classified elsewhere; G47.33 Obstructive sleep apnea (adult) (pediatric); E03.9 Hypothyroidism, unspecified; E66.01 Morbid (severe) obesity due to excess calories; Z71.3 Dietary counseling and surveillance; Z20.822 Contact with and (suspected) exposure to COVID-19; Z79.82 Long term (current) use of aspirin; Z79.890 Hormone replacement therapy; Z79.4 Long term (current) use of insulin; Z79.899 Other long term (current) drug therapy
CPT/HCPCS: 0241U; 36415; 71046; 80048; 80053; 82947; 83605; 83735; 83880; 84484; 85025; 85027; 87040; 87077; 87086; 87186; 87205; 93005; 94640; 94660; 99285; J0456; J0696; J1650; J1940; J2919; J3475

== ENCOUNTER → 2024-08-22 16:11 | Outpatient (BNV) | payer OTHER, SELFPAY | PROVIDERS: Emergency Provider Emergency Medicine; PCP Internal Medicine; Visit Provider Radiology Diagnostic Radiology | DX: R06.00 Dyspnea, unspecified (principal) | CPT/HCPCS: 71046 ==

== ENCOUNTER → 2024-08-22 16:35 | Outpatient (BNV) | payer OTHER, SELFPAY | PROVIDERS: Admitting Provider Hospitalist; Emergency Provider Emergency Medicine; PCP Internal Medicine; Visit Provider Internal Medicine | DX: R06.02 Shortness of breath (principal) | CPT/HCPCS: 93010 ==

== ENCOUNTER → 2024-08-22 21:46 | Outpatient (BNV) | payer OTHER, SELFPAY | PROVIDERS: Admitting Provider Hospitalist; Emergency Provider Emergency Medicine; PCP Internal Medicine; Visit Provider Internal Medicine | DX: F41.1 Generalized anxiety disorder (principal) | CPT/HCPCS: 99223; 99232; 99239 ==

== ENCOUNTER 2024-08-29 15:41 | Outpatient (AMB) | payer OTHER, SELFPAY ==
--- NOTE | 2024-08-29 15:45 | A.OFFPC_ITS ---
Vital Signs 08/29/24 15:47 Height 5 ft 2 in Weight 281 lb 2 oz BMI 51.4 BP 132/66 Blood Pressure Location Lt brachial Position Sitting Pulse 72 Pulse Source Pulse Oximeter Temp 97.3 F Temp Source Temporal Artery Scan Pulse Oximetry (%) 96 Oxygen Delivery Method Nasal Cannula Int[place] [facility] [place] Intake Note: Patient is here for hospital discharge follow up. [place] [facility] [place]. 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 today for HDF. Pmhx is significant for HTN, HLD, dm, asthma, GERD, degenerative spine disease, obesity, SHANIQUA, Anxiety [place] [facility] [place] a chief complaint of shortness of breath. She was admitted 08/22 - 08/24 for acute hypoxic respiratory failure secondary to moderate persistent asthma with acute decompensation due to RSV with possible bacterial pneumonia as well as acute on chronic diastolic CHF. Was treated with steroids, DuoNebs, ceftriaxone azithromycin and IV Lasix. She is currently on Oxygen 2 L during the day time. [facility] Medical History At risk for foot problem Controlled type 2 diabetes mellitus Asthma Right shoulder pain Hearing decreased Hypertension Post-traumatic osteoarthritis of left hip Hematuria Leg length discrepancy Otitis externa Colon cancer screening Allergic rhinitis COPD (chronic obstructive pulmonary disease) Hyperkalemia Hypoventilation associated with obesity syndrome Left ventricular hypertrophy Diabetic nephropathy Opioid dependence SHANIQUA (obstructive sleep apnea) Morbid obesity GERD (gastroesophageal reflux disease) Migraines Hypothyroidism Vitamin D deficiency Anxiety Essential hypertension Type 2 diabetes mellitus with diabetic polyneuropathy Lumbar back pain Surgical History Deficient knowledge of leg surgery History of hip surgery Hx of bladder endoscopy Hx of spinal surgery Family History Father HTN (hypertension) SHANIQUA (obstructive sleep apnea) Prostate cancer Additional heart attack (anterolateral wall) Mother Asthma Diabetes Brother Epilepsy Sister HTN (hypertension) Maternal Aunt Throat cancer Social History Household Members: Family Household Members Other:: brother Housing: House Are you a primary patient care technician to a significant other at home: No Do you presently have visiting nurse or other home services: Yes (reports every 6 months nurse comes by) Alcohol intake: never Patient Tobacco Use Status: Former Tobacco user Tobacco use type: Cigarette Years Smoked: 4 +/- e-Cigarette/Vaping Use: Never Used Second Hand Smoke Exposure: Yes service: No Current occupational status: disabled Cognitive needs: Yes (cane ) Hearing needs: No Vision needs: Yes (glasses ) Questionnaire Thrive Questionnaire Date Thrive assessed: 07/21/24 BEULAH-7 AMB Questionnaire BEULAH-7 Date BEULAH - 7 assessed: 07/21/24 Source: Developed by Drs. Waqas Albarran, Thelma Dumont, Ruben Oden and colleagues, with an educational valente from [employer]. Review of Systems Const All systems reviewed & are unremarkable except as noted in HPI and below Physical exam (Primary Care) Vital Signs: Last Vital Signs Temp 97.3 F 08/29/24 15:47 Pulse 72 08/29/24 15:47 BP 132/66 08/29/24 15:47 Pulse Ox 96 08/29/24 15:47 Oxygen Delivery Method Nasal Cannula 08/29/24 15:47 BMI result Body Mass Index 51.4 Tobacco/Smoking Status: Tobacco use Status Tobacco use date assessed 08/29/24 08/29/24 15:52 Patient Tobacco Use Status Former Tobacco user 08/29/24 15:52 Tobacco use type Cigarette 08/29/24 15:52 e-Cigarette/Vaping Use Never Used 08/29/24 15:52 Thrive Assessment: Date of Thrive Assessment Date Thrive assessed 07/21/24 08/29/24 15:52 Const General: no acute distress Nutritional Appearance: obese Orientation/consciousness: patient oriented x3 Resp Effort & Inspection: normal respiratory effort, able to speak in complete sentences and Actively coughing Auscultation: no crackles, no rales, no rhonchi and no wheezes Cardio Heart sounds: S1 normal heart sound present and S2 normal heart sound present Neuro General: patient oriented x3 Coding Level of Care Code Est Pt Level 4 (94383) Diagnoses Pneumonia of right lower lobe due to infectious organism J18.9 Laterality: right Lung location: lower lobe of lung Pneumonia type: due to unspecified organism Infection due to respiratory syncytial virus (RSV), unspecified infection type B33.8 RSV infection type: unspecified Time Spent (min) 30 Assessment & Plan Assessment & Plan (1) Pneumonia: Code(s): J18.9 - Pneumonia, unspecified organism Category: Medical Qualifiers: Laterality: right Lung location: lower lobe of lung Pneumonia type: due to unspecified organism Qualified Code(s): J18.9 - Pneumonia, unspecified organism Plan: Resolved. Completed Abx. Currently on Oxygen 2 L F/U with Pulmonology as scheduled. (2) Respiratory syncytial virus (RSV): Code(s): B33.8 - Other specified viral diseases Category: Medical Qualifiers: RSV infection type: unspecified Qualified Code(s): B33.8 - Other specified viral diseases Plan: Resolved. Completed Abx. Currently on Oxygen 2 L F/U with Pulmonology as scheduled. Medications: New dextromethorphan-guaifenesin 10-200 mg (Mucinex Cough-Chest Congestion HBP) 1 tab-cap PO Q6-8H PRN 30 caps 0RF cough B33.8 - Other specified viral diseases, J18.9 - Pneumonia, unspecified organism Refilled Ventolin HFA 90 mcg/actuation (albuterol sulfate) 2 puffs inhalation Q4-6H PRN 18 ea 0RF for wheezing NS J18.9 - Pneumonia, unspecified organism
[2024-08-29 15:47] VITALS: BP 132/66; PULSE 72; TEMP 36.3; O2SAT 96; BMI 51.4
== END 2024-08-29 17:26 | disposition home or self-care (01) ==
LOC: HO.HMCH 15:42
PROVIDERS: PCP Internal Medicine; Visit Provider Nurse Practitioner Family
DX: J18.9 Pneumonia, unspecified organism (principal); B33.8 Other specified viral diseases

== ENCOUNTER → 2024-08-29 15:41 | Outpatient (BNVA) | payer OTHER, SELFPAY | PROVIDERS: PCP Internal Medicine; Visit Provider Nurse Practitioner Family | DX: J18.9 Pneumonia, unspecified organism (principal); B33.8 Other specified viral diseases | CPT/HCPCS: 99212 ==

== ENCOUNTER 2024-09-23 14:45 | Outpatient (AMB) | payer OTHER, SELFPAY ==
--- NOTE | 2024-09-23 14:51 | A.OFFVIS_ITS ---
Vital Signs 09/23/24 14:55 Height 5 ft 2 in Weight 290 lb 9.108 oz BMI 53.1 BP 134/62 Blood Pressure Location Rt radial Position Sitting Pulse 70 Pulse Source Pulse Oximeter Pulse Oximetry (%) 97 Oxygen Delivery Method Room Air Intake Visit Reasons: Type II diabetes Intake Note: Patient present today to follow up on Type 2 Diabetes Mellitus. Last Diabetic Eye exam: Has an appointment October 13, 2024 Last Podiatry Visit: Appointment Pending. Random Glucose: 93 mg/dl HgA1C: 5.5% 07/21/2024 Business Applications Specialist Required: Yes Business Applications Specialist Language: Machine Castings Plasterer Services: Business Applications Specialist Present Business Applications Specialist Name: [id number] Information Interpreted: non-clinical & clinical Accompanied by: Self / Same As Patient Allergies lisinopril Adverse Reaction (Severe, Verified 09/23/24 14:56) hyperkalemia Medication List - Last Reconciled 09/23/24 by ADAM Carpenter albuterol sulfate 2.5 mg (3 mL) inhalation Q6-8H 15 days aspirin 81 mg PO DAILY atorvastatin 80 mg PO QPM 90 days blood pressure monitor (Blood Pressure Kit) As directed XXL blood pressure cuff blood-glucose sensor (FreeStyle Telma 3 Plus Sensor device) Apply 1 new sensor every 15 days as directed to monitor blood glucose continuously. budesonide-formoterol 160-4.5 mcg/actuation (Symbicort) 2 puffs PO BID carvedilol 25 mg PO BID cholecalciferol (vitamin D3) 50 mcg PO DAILY 90 days [CPAP full face mask medium AF 20 bilevel pressure 25/16 cm humidified air As directed] dextromethorphan-guaifenesin 10-200 mg (Mucinex Cough-Chest Congestion HBP) 1 tab-cap PO Q6-8H PRN doxepin 100 mg PO BEDTIME 90 days doxepin 25 mg PO BEDTIME dulaglutide (Trulicity) 3 mg (0.5 mL) subcut QWEEK 30 days empagliflozin (Jardiance) 10 mg PO DAILY flash glucose scanning reader (FreeStyle Telma 2 [place]) As directed flash glucose sensor (FreeStyle Telma 2 Sensor kit) every 2 weeks furosemide (Lasix) 40 mg PO DAILY glucose (Dex4 Glucose) 16 grams (4 x 4 gram) PO Q15M PRN insulin glargine (Lantus Solostar U-100 Insulin) 5 units subcut BEDTIME lancets daily levothyroxine 75 mcg PO DAILY@0600 metformin ER 500 mg PO BID 90 days oxycodone 30 mg PO BID PRN 30 days pen needle, diabetic 1 ea subcut DAILY 90 days sennosides-docusate sodium 8.6-50 mg (Senexon-S) 1 tab PO DAILY sertraline 100 mg PO DAILY 90 days [transport Wheelchair As directed] Ventolin HFA 90 mcg/actuation (albuterol sulfate) 2 puffs inhalation Q4-6H PRN NS HPI Comments Details: This is a 59-year-old female with a past medical history of asthma, osteoarthritis, GERD, anxiety, hypothyroidism, COPD, hyperlipidemia, hypertension, type 2 diabetes and SHANIQUA presenting for diabetic management. She had 1 interval hospitalization for COPD exacerbation and pneumonia. She was on supplemental oxygen for a few days after hospitalization, but she is back to her baseline now. Telma 3 data reviewed on phone: CGM active 92% Average glucose 116 98% of readings are in target range 3 hypoglycemic episodes within the past 30 days. Hemoglobin a1c 5.5% 07/21/2024. Current medication regimen: Trulicity 3 mg weekly, Jardiance 10 mg daily, Lant us 15 units nightly, metformin ER 500 mg twice daily. Compliance issues: None Hypoglycemia symptoms: Treated with candy. Hyperglycemia symptoms: none Eye exam: October 2023 She has an appointment with Podiatry in August, but she was hospitalized. She is going to reschedule this. Microvascular complications: neuropathy, nephropathy (CKD and microalbuminuria) Macrovascular complications: none She had an abdominal ultrasound in 2022 which demonstrated a normal appearing liver. Hypertension: treated with carvedilol 25 mg twice daily. Allergy to lisinopril. Lisinopril discontinued in the past due to hyperkalemia. Hyperlipidemia: treated with Atorvastatin. LDL at goal <100. ROS: Constitutional: No unexplained weight loss, fever, chills. Eyes: No vision changes Respiratory: No shortness of breath Cardiovascular: No chest pain Gastrointestinal: No anorexia, nausea, vomiting or diarrhea. No abdominal pain Skin: No rash or open wounds. Endocrine: No cold or heat intolerance. No polyuria or polydipsia. Physical exam: Constitutional: Alert, in no distress. Neck: Supple, Full range of motion. No lymphadenopathy. No palpable thyroid masses. Respiratory: Clear to auscultation. Cardiovascular: S1 S2 regular. No murmurs. Neurologic: No focal neurological deficits Extremities: Warm and well perfused. 1+ bilateral lower extremity edema. [facility] Medical History At risk for foot problem Controlled type 2 diabetes mellitus Asthma Right shoulder pain Hearing decreased Hypertension Post-traumatic osteoarthritis of left hip Hematuria Leg length discrepancy Otitis externa Colon cancer screening Allergic rhinitis COPD (chronic obstructive pulmonary disease) Hyperkalemia Hypoventilation associated with obesity syndrome Left ventricular hypertrophy Diabetic nephropathy Opioid dependence SHANIQUA (obstructive sleep apnea) Morbid obesity GERD (gastroesophageal reflux disease) Migraines Hypothyroidism Vitamin D deficiency Anxiety Essential hypertension Type 2 diabetes mellitus with diabetic polyneuropathy Lumbar back pain Surgical History Deficient knowledge of leg surgery History of hip surgery Hx of bladder endoscopy Hx of spinal surgery Family History Father HTN (hypertension) SHANIQUA (obstructive sleep apnea) Prostate cancer Additional heart attack (anterolateral wall) Mother Asthma Diabetes Brother Epilepsy Sister HTN (hypertension) Maternal Aunt Throat cancer Social History Household Members: Family Household Members Other:: brother Housing: House Are you a primary senior care manager to a significant other at home: No Do you presently have visiting nurse or other home services: Yes (reports every 6 months nurse comes by) Alcohol intake: never Patient Tobacco Use Status: Former Tobacco user Tobacco use type: Cigarette Years Smoked: 4 +/- e-Cigarette/Vaping Use: Never Used Second Hand Smoke Exposure: Yes service: No Current occupational status: disabled Cognitive needs: Yes (cane ) Hearing needs: No Vision needs: Yes (glasses ) Physical Exam Vital Signs: Last Vital Signs Pulse 70 09/23/24 14:55 BP 134/62 09/23/24 14:55 Pulse Ox 97 09/23/24 14:55 Oxygen Delivery Method Room Air 09/23/24 14:55 BMI result Body Mass Index 53.1 Results Reviewed Results Reviewed: Laboratory Last Values Glucose (Clinic) 93 mg/dL (60-115) 09/23/24 15:03 Laboratory Tests 02/04/24 02/04/24 08/22/24 11:55 11:58 17:22 Plt Count Creatinine Estimated GFR AST ALT B-Natriuretic Peptide 46 Triglycerides 96 LDL Cholesterol, Calc 74 HDL Cholesterol 34 L Vitamin B12 783 Urine Creatinine 114.78 Urine Microalbumin 167.0 Microalb/Creat Ratio 145.4 H 08/23/24 08/24/24 04:02 06:32 Plt Count 238 Creatinine 1.03 Estimated GFR 55 AST 33 H ALT 23 B-Natriuretic Peptide Triglycerides LDL Cholesterol, Calc HDL Cholesterol Vitamin B12 Urine Creatinine Urine Microalbumin Microalb/Creat Ratio Assessment & Plan Assessment & Plan (1) Controlled type 2 diabetes mellitus: Code(s): E11.9 - Type 2 diabetes mellitus without complications Category: Medical Qualifiers: Diabetes mellitus retirement insulin use: with watermaster use Diabetes mellitus complication status: with kidney complications Diabetes mellitus complication detail: with nephropathy Qualified Code(s): E11.21 - Type 2 diabetes mellitus with diabetic nephropathy; Z79.4 - senior care (current) use of insulin Plan In summary this is a 59-year-old female with well-controlled type 2 diabetes. Medication plan open (written instructions provided and Estonian and Bengali and reviewed with triple drum operator): Trulicity 3 mg weekly, Jardiance 10 mg daily, metformin ER 500 mg twice daily. Decrease Lantus to 5 units nightly. If your blood sugars are still in the target range more than 75% (green part of the graph) of the time after two weeks, you can try stopping Lantus. If you experience low blood sugar, treat this by eating a chewable fruit candy like skittles or jelly beans (about 8 pieces), 4 ounces (1/2 cup) of fruit juice (not diet), 1 tablespoon of honey or 4 glucose tablets. If your blood sugar is under 55, take double the amount of one of the above. Recheck your blood sugar in 15 minutes. Patient to consider referral to DE and equipment maint tech. Follow up in 3 months for type 2 diabetes. She will have fasting labs completed prior to her next visit. Orders: Orders Microalbumin, Random (w Creat) 3 Months E11.9 - Type 2 diabetes mellitus without complications Creatinine 3 Months E11.9 - Type 2 diabetes mellitus without complications Hemoglobin A1c 3 Months E11.9 - Type 2 diabetes mellitus without complications Lipid Panel 3 Months E78.5 - Hyperlipidemia, unspecified Vitamin B12 3 Months Z91.89 - Other specified personal risk factors, not elsewhere classified Patient Instructions: Medication plan: Trulicity 3 mg weekly, Jardiance 10 mg daily, metformin ER 500 mg twice daily. Decrease Lantus to 5 units nightly. If your blood sugars are still in the target range more than 75% (green part of the graph) of the time after two weeks, you can try stopping Lantus. If you experience low blood sugar, treat this by eating a chewable fruit candy like skittles or jelly beans (about 8 pieces), 4 ounces (1/2 cup) of fruit juice (not diet), 1 tablespoon of honey or 4 glucose tablets. If your blood sugar is under 55, take double the amount of one of the above. Recheck your blood sugar in 15 minutes. Plan de medicaci?n: Trulicity 3 mg semanal, Jardiance 10 mg diario, metformina de liberaci?n prolongada 500 mg dos veces al d?a. Reduzca la dosis de Lantus a 5 unidades por la noche. Si kami niveles de az?car en [place] se mantienen dentro del rango objetivo m?s del 75 % (parte gunjan del gr?fico) del tiempo despu?s de dos semanas, puede intentar suspender Lantus. Si experimenta niveles bajos de az?car en [place], tr?telo con un caramelo masticable de fruta lily Skittles o Jelly Beans (aproximadamente 8 piezas), 113 ml (1/2 taza) de jugo de fruta (no light), 1 cucharada de miel o 4 tabletas de glucosa. Si sandoval nivel de az?car en [place] es inferior a 55, tome el doble de la dosis de ez de los medicamentos mencionados. Vuelva a medir sandoval nivel de az?car en [place] en 15 minutos. Coding Level of Care Code Est Pt Level 4 (57177) Complex EM visit Add On G2211 Diagnoses Controlled type 2 diabetes mellitus with diabetic nephropathy, with long-term current use of insulin E11.21; Z79.4 Diabetes mellitus watermaster insulin use: with watermaster use Diabetes mellitus complication status: with kidney complications Diabetes mellitus complication detail: with nephropathy
[2024-09-23 14:55] VITALS: BP 134/62; PULSE 70; O2SAT 97; BMI 53.1
[2024-09-23 15:08] LABS: Glucose, Whole Blood 93 mg/dL (60-115)
== END 2024-09-23 15:32 | disposition home or self-care (01) ==
LOC: HO.ENCR 14:45
PROVIDERS: PCP Internal Medicine; Visit Provider Physician Assistant Medical
DX: E11.21 Type 2 diabetes mellitus with diabetic nephropathy (principal); Z79.4 Long term (current) use of insulin

== ENCOUNTER → 2024-09-23 14:45 | Outpatient (BNVA) | payer OTHER, SELFPAY | PROVIDERS: PCP Internal Medicine; Visit Provider Physician Assistant Medical | DX: E11.21 Type 2 diabetes mellitus with diabetic nephropathy (principal); Z79.4 Long term (current) use of insulin | CPT/HCPCS: 82947; 99212 ==

== ENCOUNTER 2024-10-23 15:19 | Outpatient (AMB) | payer OTHER, SELFPAY ==
[2024-10-23 15:43] VITALS: BP 160/78; PULSE 70; O2SAT 98; BMI 52.0
--- NOTE | 2024-10-23 15:43 | A.OFFVIS_ITS ---
Vital Signs 10/23/24 15:43 Height 5 ft 2 in Weight 284 lb 6.341 oz BMI 52.0 BP 160/78 H Blood Pressure Location Lt radial Position Sitting Pulse 70 Pulse Source Pulse Oximeter Pulse Oximetry (%) 98 Oxygen Delivery Method Room Air Intake Visit Reasons: Obstructive sleep apnea Intake Note: pt is here for SHANIQUA follow up, doing well. [employer] Principal Required: Yes [employer] Principal Services: [employer] Principal Present [employer] Principal Name: Vivian Allergies lisinopril Adverse Reaction (Severe, Verified 10/23/24 15:56) hyperkalemia Medication List - Last Reconciled 10/23/24 by Yusuf Whitfield MD albuterol sulfate 2.5 mg (3 mL) inhalation Q6-8H 15 days aspirin 81 mg PO DAILY atorvastatin 80 mg PO QPM 90 days blood pressure monitor (Blood Pressure Kit) As directed XXL blood pressure cuff blood-glucose sensor (FreeStyle Telma 3 Plus Sensor device) Apply 1 new sensor every 15 days as directed to monitor blood glucose continuously. budesonide-formoterol 160-4.5 mcg/actuation (Symbicort) 2 puffs PO BID carvedilol 25 mg PO BID cholecalciferol (vitamin D3) 50 mcg PO DAILY 90 days [CPAP full face mask medium AF 20 bilevel pressure 25/16 cm humidified air As directed] dextromethorphan-guaifenesin 10-200 mg (Mucinex Cough-Chest Congestion HBP) 1 tab-cap PO Q6-8H PRN doxepin 100 mg PO BEDTIME 90 days doxepin 25 mg PO BEDTIME dulaglutide (Trulicity) 3 mg (0.5 mL) subcut QWEEK 30 days empagliflozin (Jardiance) 10 mg PO DAILY flash glucose scanning reader (FreeStyle Telma 2 [place]) As directed flash glucose sensor (FreeStyle Telma 2 Sensor kit) every 2 weeks furosemide (Lasix) 40 mg PO DAILY glucose (Dex4 Glucose) 16 grams (4 x 4 gram) PO Q15M PRN insulin glargine (Lantus Solostar U-100 Insulin) 5 units subcut BEDTIME lancets daily levothyroxine 75 mcg PO DAILY@0600 metformin ER 500 mg PO BID 90 days oxycodone 30 mg PO BID PRN 30 days pen needle, diabetic 1 ea subcut DAILY 90 days sennosides-docusate sodium 8.6-50 mg (Senexon-S) 1 tab PO DAILY sertraline 100 mg PO DAILY 90 days [transport Wheelchair As directed] Ventolin HFA 90 mcg/actuation (albuterol sulfate) 2 puffs inhalation Q4-6H PRN NS Do you need a note to return to daycare/school/sports/work: No HPI HPI Obstructive sleep apnea: Details: 59 years old female is here for follow-up for COPD and obstructive sleep apnea. She was treated in [facility] in mid August for an acute exacerbation of COPD. Discharged home and was advised to use oxygen at home 2 L/minute. For COPD she continues to use Symbicort 2 puffs b.i.d. and uses Ventolin 2 puffs Q 6 hours only p.r.n. He did not need to use oxygen after discharge from the hospital. But she continues to use her CPAP every night very regularly and sleeps well. At present she denies any cough or. Expectoration or any wheezing She can walk around with mild shortness of breath. Weight nguyen there has been no change. [facility] Medical History At risk for foot problem Controlled type 2 diabetes mellitus Asthma Right shoulder pain Hearing decreased Hypertension Post-traumatic osteoarthritis of left hip Hematuria Leg length discrepancy Otitis externa Colon cancer screening Allergic rhinitis COPD (chronic obstructive pulmonary disease) Hyperkalemia Hypoventilation associated with obesity syndrome Left ventricular hypertrophy Diabetic nephropathy Opioid dependence SHANIQUA (obstructive sleep apnea) Morbid obesity GERD (gastroesophageal reflux disease) Migraines Hypothyroidism Vitamin D deficiency Anxiety Essential hypertension Type 2 diabetes mellitus with diabetic polyneuropathy Lumbar back pain Surgical History Deficient knowledge of leg surgery History of hip surgery Hx of bladder endoscopy Hx of spinal surgery Family History Father HTN (hypertension) SHANIQUA (obstructive sleep apnea) Prostate cancer Additional heart attack (anterolateral wall) Mother Asthma Diabetes Brother Epilepsy Sister HTN (hypertension) Maternal Aunt Throat cancer Social History Household Members: Family Household Members Other:: brother Housing: House Are you a primary critical care registered nurse to a significant other at home: No Do you presently have visiting nurse or other home services: Yes (reports every 6 months nurse comes by) Alcohol intake: never Patient Tobacco Use Status: Former Tobacco user Tobacco use type: Cigarette Years Smoked: 4 +/- e-Cigarette/Vaping Use: Never Used Second Hand Smoke Exposure: Yes service: No Current occupational status: disabled Cognitive needs: Yes (cane ) Hearing needs: No Vision needs: Yes (glasses ) Review of Systems Const All systems reviewed & are unremarkable except as noted in HPI and below Eyes Reports no additional complaints ENT Reports nasal congestion (Off and on) Card Denies chest pain, Denies irregular heart rhythm and Denies leg edema Resp Reports as per HPI GI Denies no additional complaints Denies no additional complaints Musc Reports abnormal gait (Slightly impaired locomotion due to morbid obesity, uses cane), Reports back pain and Reports arthralgias Skin/Breast Reports system reviewed and no additional complaints, except as documented Neuro Reports abnormal gait (Slightly impaired locomotion due to morbid obesity, uses cane) Psych Reports no additional complaints Physical Exam Vital Signs: Last Vital Signs Pulse 70 10/23/24 15:43 BP 160/78 H 10/23/24 15:43 Pulse Ox 98 10/23/24 15:43 Oxygen Delivery Method Room Air 10/23/24 15:43 BMI result Body Mass Index 52.0 Const General: comfortable, no acute distress, alert and awake Orientation/consciousness: patient oriented x3 HEENT Head: Yes normal to inspection General nose exam: No nasal polyps present and No nasal discharge present Face and sinus: Yes sinuses nontender Mouth: oropharynx abnormals (Crowded with Mallampati class 4) Throat: Yes posterior oropharynx normal Eyes General: appearance normal, both eyes and all related structures Neck Neck: Yes normal visual inspection, Yes no lymphadenopathy, Yes trachea midline, Yes no JVD and Yes other (Neck is grossly obese) Thyroid: Thyroid normal Chest Chest palpation & inspection: normal inspection of the chest, normal palpation of entire chest wall and no tenderness Resp Other: Percussion note not perceptible due to thick chest wall Breath sounds are distant especially over the basilar areas. No audible wheezes rhonchi or Creps. Cardio Palpation: PMI not normal (Not palpable) Rate: regular rate Rhythm: regular rhythm Heart sounds: no gallops and no murmurs GI Palpation (GI): Soft to palpation, nontender, No hepatosplenomegaly present, no masses and Other GI palpation findings present (Abdomen is grossly obese and protuberant) Auscultation: normal bowel sounds Back/Spine/Pelvis Thoracic/Lumbar Spine: thoracic and lumbar spine normal to inspection and thoraco-lumbar ROM limited Skin General skin exam: no rashes or lesions noted Neuro General: patient oriented x3, No gait normal (Slightly impaired and uses cane) and no focal motor deficits Cranial nerves: Yes CN's II-XII intact bilaterally Extrem General: Yes normal to inspection, Yes no clubbing, cyanosis or edema and Yes no calf tenderness Psych Appearance: grossly normal Speech and movement: Normal speech and movement present Results Reviewed Results Reviewed: Compliance report for the last 30 nights is reviewed. She has used 30/30 nights., 100% Average use it per night is 9 hours 22 minutes which includes some usage of the CPAP during daytime as well. She is on bilevel pressure of 25/16 cm. She does have some air leak and residual AHI is 4.5 Assessment & Plan Assessment & Plan (1) Morbid obesity: Comment: BMI= 52.0 THIS IS A CHRONIC PROBLEM, DIFFICULT FOR HER TO LOSE WEIGHT. BUT SHE IS TRYING HER BEST TO RESTRICT THE CALORIES INTAKE AND FOLLOW THE DIETARY INSTRUCTIONS. Code(s): E66.01 - Morbid (severe) obesity due to excess calories Category: Medical Plan: Discuss the routine measures to lose weight. For practical purposes she is not going to be able to lose much weight. (2) Allergic rhinitis: Comment: HAS INTERMITTENT NASAL CONGESTION DUE TO ALLERGIC RHINITIS, Code(s): J30.9 - Allergic rhinitis, unspecified Category: Medical Plan: Advised to continue using Nasacort 2 sprays in each nostril daily. (3) COPD (chronic obstructive pulmonary disease): Comment: Patient does have advanced chronic obstructive as well as restrictive pulmonary disease. Clinically it is staying very stable. Had a mild acute exacerbation about 2 months ago from which she recovered well. She does have chronic hypercapnic failure due to hypoventilation as well as COPD. Code(s): J44.9 - Chronic obstructive pulmonary disease, unspecified Category: Medical Plan: Symbicort 160-4.52 puffs b.i.d.. Ventolin HFA 2 puffs Q 4-6 hours p.r.n.. She uses BiPAP very regularly and so her respiratory failure has been under control. (4) SHANIQUA (obstructive sleep apnea): Comment: CHRONIC SLEEP APNEA ALONG WITH CHRONIC HYPOVENTILATION SYNDROME. WELL TREATED WITH THE USE OF BIPAP.( AIR- FIT F-20 PRESSURE 25/16 CMs ) SHE IS VERY COMPLIANT AND BENEFITTING. Code(s): G47.33 - Obstructive sleep apnea (adult) (pediatric) Category: Medical Plan: Commended for good compliance and advised to continue using the BiPAP every night. (5) Hypoventilation associated with obesity syndrome: Comment: SEE UNDER SHANIQUA , BEING TREATED SUCCESSFULLY WITH THE USE OF BIPAP. Code(s): E66.2 - Morbid (severe) obesity with alveolar hypoventilation Category: Medical Plan: Continue to use the BiPAP regularly every night Coding Level of Care Code Est Pt Level 4 (50957) Diagnoses Morbid obesity E66.01 Allergic rhinitis J30.9 COPD (chronic obstructive pulmonary disease) J44.9 SHANIQUA (obstructive sleep apnea) G47.33 Hypoventilation associated with obesity syndrome E66.2
== END 2024-10-23 16:30 | disposition home or self-care (01) ==
LOC: HO.HPS 15:20
PROVIDERS: PCP Internal Medicine; Visit Provider Internal Medicine
DX: E66.01 Morbid (severe) obesity due to excess calories (principal); J30.9 Allergic rhinitis, unspecified; J44.9 Chronic obstructive pulmonary disease, unspecified; G47.33 Obstructive sleep apnea (adult) (pediatric); E66.2 Morbid (severe) obesity with alveolar hypoventilation
CPT/HCPCS: 99214

== ENCOUNTER → 2024-10-23 15:19 | Outpatient (BNVA) | payer OTHER, SELFPAY | PROVIDERS: PCP Internal Medicine; Visit Provider Internal Medicine | DX: J44.9 Chronic obstructive pulmonary disease, unspecified (principal); J30.9 Allergic rhinitis, unspecified; G47.33 Obstructive sleep apnea (adult) (pediatric); E66.2 Morbid (severe) obesity with alveolar hypoventilation; E66.01 Morbid (severe) obesity due to excess calories; Z68.43 Body mass index [BMI] 50.0-59.9, adult | CPT/HCPCS: 99212 ==

== ENCOUNTER 2024-10-28 15:01 | Outpatient (AMB) | payer OTHER, SELFPAY ==
--- NOTE | 2024-10-28 15:24 | A.OFFPC_ITS ---
Vital Signs 10/28/24 15:44 10/28/24 16:18 Height 5 ft 2 in Weight 282 lb BMI 51.6 BP 182/82 H 120/80 Blood Pressure Location Lt brachial Lt brachial Position Sitting Sitting Pulse 58 Pulse Source Pulse Oximeter Temp 97.3 F Temp Source Temporal Artery Scan Pulse Oximetry (%) 100 Oxygen Delivery Method Room Air Intake Visit Reasons: DM L toe abrasion Weblogic Developer Required: Yes Weblogic Developer Language: English Accompanied by: Self / Same As Patient Allergies lisinopril Adverse Reaction (Severe, Verified 10/23/24 15:56) hyperkalemia Tobacco use date assessed: 08/29/24 Dental Screening Dental Screen Date: 07/21/24 HPI DM L toe abrasion HPI Details Jesus [id number] [facility] interpret . seeing podaitry [facility] Medical History At risk for foot problem Controlled type 2 diabetes mellitus Asthma Right shoulder pain Hearing decreased Hypertension Post-traumatic osteoarthritis of left hip Hematuria Leg length discrepancy Otitis externa Colon cancer screening Allergic rhinitis COPD (chronic obstructive pulmonary disease) Hyperkalemia Hypoventilation associated with obesity syndrome Left ventricular hypertrophy Diabetic nephropathy Opioid dependence SHANIQUA (obstructive sleep apnea) Morbid obesity GERD (gastroesophageal reflux disease) Migraines Hypothyroidism Vitamin D deficiency Anxiety Essential hypertension Type 2 diabetes mellitus with diabetic polyneuropathy Lumbar back pain Surgical History Deficient knowledge of leg surgery History of hip surgery Hx of bladder endoscopy Hx of spinal surgery Family History Father HTN (hypertension) SHANIQUA (obstructive sleep apnea) Prostate cancer Additional heart attack (anterolateral wall) Mother Asthma Diabetes Brother Epilepsy Sister HTN (hypertension) Maternal Aunt Throat cancer Social History Household Members: Family Household Members Other:: brother Housing: House Are you a primary care connector to a significant other at home: No Do you presently have visiting nurse or other home services: Yes (reports every 6 months nurse comes by) Alcohol intake: never Patient Tobacco Use Status: Former Tobacco user Tobacco use type: Cigarette Years Smoked: 4 +/- e-Cigarette/Vaping Use: Never Used Second Hand Smoke Exposure: Yes service: No Current occupational status: disabled Cognitive needs: Yes (cane ) Hearing needs: No Vision needs: Yes (glasses ) Questionnaire PHQ-9 Over the last 2 weeks, how often have you been bothered by any of the following problems? 1. Little interest or pleasure in doing things: several days 2. Feeling down, depressed, or hopeless: not at all 3. Trouble falling or staying asleep, or sleeping too much: several days 4. Feeling tired or having little energy: several days 5. Poor appetite or overeating: not at all 6. Feeling bad about yourself - or that you are a failure or have let yourself or your family down: not at all 7. Trouble concentrating on things, such as reading the newspaper or watching te levision: not at all 8. Moving or speaking so slowly that other people could have noticed. Or the opposite - being so fidgety or restless that you have been moving around a lot more than usual: not at all 9. Thoughts that you would be better off or of hurting yourself in some way: not at all Total score: 3 55540 - PHQ-9 Billing: Yes Source: Developed by Drs. Waqas Albarran, Thelma Dumont, Ruben Oden and colleagues, with an educational valente from [employer]. Thrive Questionnaire Date Thrive assessed: 10/28/24 I am a: Patient What is your living situation today?: I have a steady place to live Within the past 12 months, did the food you bought not last and you didn't have the money to get more?: I choose not to answer this question Within the past 12 months, did you worry whether your food would run out before you got money to buy more?: I choose not to answer this question Do you have trouble paying for medicines?: No Do you have trouble getting transportation to medical appointments?: No Do you have trouble paying your heating and electricity bill?: I choose not to answer this question Do you have trouble taking care of your child, family member or friend?: No Do you have trouble with day-to-day activities such as bathing, preparing meals, shopping, managing finances, etc.?: I choose not to answer this question Are you currently unemployed and looking for a job?: No Are you interested in more education?: I choose not to answer this question Please select the resources that you would like help with: None Currently or been in a relationship where the following occur: No concerns reported THRIVE Score: 0 AUDIT C Alcohol Use Questionnaire (AUDIT-C) 1. How often do you have a drink containing alcohol?: Never 3. How often do you have six or more drinks on one occasion?: Never Total Score: 0 BEULAH-7 AMB Questionnaire BEULAH-7 Date BEULAH - 7 assessed: 10/28/24 Feeling nervous, anxious, or on edge: 1 = Several days Not being able to stop or control worryin = Not at all Worrying too much about different things: 0 = Not at all Trouble relaxin = Not at all Being so restless that it is hard to sit still: 0 = Not at all Becoming easily annoyed or irritable: 1 = Several days Feeling afraid as if something awful might happen: 0 = Not at all Total BEULAH-7 score (0-4 normal; 5-9 mild; 10-14 moderate; 15-21 severe): 2 Source: Developed by Drs. Waqas Albarran, Thelma Dumont, Ruben Oden and colleagues, with an educational valente from [employer]. BEULAH-7 Assessment Billing BEULAH-7 Assessment Tool: BEULAH-7 Assessment 34851 Physical exam (Primary Care) Vital Signs: Last Vital Signs Temp 97.3 F 10/28/24 15:44 Pulse 58 10/28/24 15:44 BP 120/80 10/28/24 16:18 Pulse Ox 100 10/28/24 15:44 Oxygen Delivery Method Room Air 10/28/24 15:44 BMI result Body Mass Index 51.6 Tobacco/Smoking Status: Tobacco use Status Tobacco use date assessed 08/29/24 10/28/24 15:24 Patient Tobacco Use Status Former Tobacco user 10/28/24 15:24 Tobacco use type Cigarette 10/28/24 15:24 e-Cigarette/Vaping Use Never Used 10/28/24 15:24 PHQ-9: PHQ-9 Score PHQ-9: Total score 3 10/28/24 16:39 Thrive Assessment: Date of Thrive Assessment Date Thrive assessed 10/28/24 10/28/24 15:24 Currently or been in a relationship where the following occur: No concerns reported Const General: alert; No acute distress Eyes Conjunctivae: conjunctivae normal Resp Auscultation: clear to auscultation bilaterally Cardio Rate: regular rate Rhythm: regular rhythm GI Inspection: Yes normal to inspection Extrem General: Yes normal to inspection and No edema Office Meds tuberculin PPD 5 tub. unit/0.1 mL intradermal injection solution Performing Provider: Bozena Dobbins MD [facility] Administered by: Olive Sabillon LPN on 10/28/24 16:38 Dose Route Admin Location Dispensed Lot Number Expiration Date NDC Liability Claims Examiner 0.1 mL intradermal left forearm 0.1 mL [id number] 05/10/27 43077-890-53 [employer] Results AMB Hemoglobin A1c AMB Hemoglobin A1c 5.5 % Last Edit by ODILIA Easley on 10/28/24 16:13 Results Reviewed Results Reviewed: Laboratory Last Values Hgb A1c (Clinic) 5.5 % (4.0-6.0) 10/28/24 15:23 Coding Level of Care Code Est Pt Level 4 (53582) Complex EM visit Add On G2211 Diagnoses Type 2 diabetes mellitus with hyperglycemia, with long-term current use of insulin E11.65; Z79.4 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 Zeng Code(s): E11.65 - Type 2 diabetes mellitus with hyperglycemia Category: Medical Qualifiers: Diabetes mellitus longterm insulin use: with longterm use Qualified Code(s): E11.65 - Type 2 diabetes mellitus with hyperglycemia; Z79.4 - senior living (current) use of insulin Plan: Decrease the amount of carbohydrate intake, pasta, bread, rice and potatoes are all sugar and that is aside from all the sweet stuff, remember that fruits are good but they are Sweet also. Presently on Trulicity Jardiance Lantus at 5 units once a day metformin 500 mg twice a day (2) Hypercholesterolemia: Code(s): E78.00 - Pure hypercholesterolemia, unspecified Category: Medical Plan: Avoid fried foods, chicken skin, eggs, butter margarine, pastries and meat. Be it pork or beef they have a lot of cholesterol on atorvastatin 80 mg once a day (3) COPD (chronic obstructive pulmonary disease): Comment: Patient does have advanced chronic obstructive as well as restrictive pulmonary disease. Clinically it is staying very stable. Had a mild acute exacerbation about 2 months ago from which she recovered well. She does have chronic hypercapnic failure due to hypoventilation as well as COPD. Code(s): J44.9 - Chronic obstructive pulmonary disease, unspecified Category: Medical Plan: Patient follows up with Pulmonary on the Symbicort and Ventolin. (4) Hypothyroidism: Code(s): E03.9 - Hypothyroidism, unspecified Category: Medical Plan: Continue with thyroid medication (5) Generalized anxiety disorder: Comment: psychiatry q 2 weeks with counselling Code(s): F41.1 - Generalized anxiety disorder Category: Medical Plan: Continue with present therapy and counseling (6) GERD (gastroesophageal reflux disease): Code(s): K21.9 - Gastro-esophageal reflux disease without esophagitis Category: Medical Plan: Avoid the foods that causes that usually spicy foods, tomato products, juices, coffee, soda and foods that your sensitive to. After eating do not lie down, allow 3-4 hours before in lie down. And keep the head of bed above 30 degrees to avoid the acid from going up. (7) SHANIQUA (obstructive sleep apnea): Comment: CHRONIC SLEEP APNEA ALONG WITH CHRONIC HYPOVENTILATION SYNDROME. WELL TREATED WITH THE USE OF BIPAP.( AIR- FIT F-20 PRESSURE 25/16 CMs ) SHE IS VERY COMPLIANT AND BENEFITTING. Code(s): G47.33 - Obstructive sleep apnea (adult) (pediatric) Category: Medical Plan: Continue to use the CPAP more than 4 hours a night and benefits from this. (8) Lumbar back pain: Code(s): M54.5 - Low back pain Category: Medical Plan: Narcotic pain meds: Is being prescribed with the understanding that these medications are potentially addictive and should be used only when absolutely necessary and must always be secured. Any remaining pills should be safely disposed off appropriately. Patient is advised that narcotics can impaired judgment and one should not drive or operate heavy machinery while taking these medications. Never share these medications with anybody and do not leave them unattended. They will not be replaced under any circumstances. (9) Essential hypertension: Code(s): I10 - Essential (primary) hypertension Category: Medical Plan: Patient has carvedilol 25 mg twice a day Plan History of Present Illness The patient is a 59-year-old female presenting for follow-up management of multiple chronic conditions. Her medical history is complex due to morbid obesity and an array of associated conditions. Her type 2 diabetes mellitus is currently under control with medications including Trulicity, Jardiance, and Metformin, and her insulin regimen has recently been adjusted downward. She suffers from obstructive sleep apnea and is compliant with CPAP therapy. Hypertension and hypercholesterolemia are managed with Carvedilol and Atorvastatin, respectively. Her respiratory conditions include COPD and asthma. In August, she was hospitalized for acute respiratory complications related to an RSV infection and possible bacterial pneumonia, leading to shortness of breath and hypoxic respiratory failure. Currently, she continues with inhalers as per her specialist advice. Chronic low back pain is also being managed with narcotic medications. She has a history of generalized anxiety disorder and recently reported mild allergy symptoms but has not started any allergy-specific medications. Her health maintenance has been addressed with a discussion around vaccinations and pending mammography. Health Maintenance - Mammogram due for completion. - Pneumonia and tetanus vaccinations are current. - Discussion about shingles vaccination, recommended due to diabetes. - Monitoring of A1c levels, current result at 5.5. - Recorded LDL cholesterol level of 74 mg/dL from January 2024. - Ongoing management of diabetes with Trulicity, Jardiance, Lantus (reduced dose), and Metformin. Social History Review of Systems - Respiratory: Reports shortness of breath, recent RSV infection, Pneumonia history, uses CPAP. - Endocrine: Denies issues; Diabetes well-controlled. - Musculoskeletal: Reports chronic low back pain. - Psychological: Reports generalized anxiety disorder. - Cardiovascular: Denies symptoms; known hypertension. - Allergies: Reports recent onset of allergies and sore throat. - Gastrointestinal: Denies issues; has GERD. Physical Exam - Cardiovascular- BP results noted as stable. - Neurological- Standard vital signs recorded, but no specific details provided. Results Labs: - Bloodwork from August 24: Normal, with microcytosis noted. - Hemoglobin A1c: Last result was 5.5. - LDL cholesterol was 74 mg/dL in January 2024. Plan At this visit, the patient's management focused on maintaining her current medication regimen for obesity, diabetes, hypertension, COPD, and hypothyroidism while ensuring regular follow-up with pulmonology and endocrinology. The patient is encouraged to adhere to her diabetes management plan, including Trulicity, Jardiance, and the adjusted insulin dose. Respiratory health is being monitored with daily CPAP use and continued Ventolin and Symbicort. The possibility of shingles vaccination was discussed due to diabetes, and cholesterol remains under control. She should obtain a mammogram as part of her health maintenance. Lastly, the importance of anxiety management and potential weight management strategies was reinforced. Patient was informed and verbally consented to the use of an ambient scribe for clinic note documentation during this visit. Discussion Notes We reviewed the patient's recent medical history and current condition, emphasizing the control and management of her chronic conditions, including diabetes, hypertension, and her respiratory issues. It was noted her diabetes is well-controlled, and the insulin regimen potentially needs ongoing adjustment based on future blood glucose readings. CPAP therapy remains crucial for her sleep apnea, and diligent adherence to her inhaler regimen will help mitigate her COPD and asthma symptoms. Her previously stable cholesterol levels were acknowledged, affirming ongoing atorvastatin therapy. Although the patient has completed appropriate vaccinations, the introduction of a shingles vaccine was suggested to mitigate risk given her diabetic condition. We also discussed the importance of a scheduled mammogram and maintaining consistent follow-up appointments with her specialists for comprehensive care coordination. Continuous engagement in health promoting and weight management activities were encouraged to tackle obesity. Patient Instructions - Continue all current medications as prescribed. - Use CPAP for at least 4 hours nightly. - Schedule and complete the pending mammogram. - Consider receiving the shingles vaccine at a pharmacy. - Monitor blood sugar levels regularly and report any issues. - Maintain follow-up with the maintenance superintendent and forestry crew chief. - Manage anxiety through recommended therapies, and contact us if symptoms persist or worsen. - Purchase [id number] allergy medication, like Claritin or Evon, if allergy symptoms persist. - Follow a balanced diet to assist with diabetes management and weight control. - Be vigilant about any new or worsening symptoms and report them as needed. Orders: Orders AMB Hemoglobin A1c Today E11.21 - Type 2 diabetes mellitus with diabetic nephropathy, Z79.4 - intermission coordinator (current) use of insulin Comprehensive Met. Panel Today E11.65 - Type 2 diabetes mellitus with hyperglycemia, Z79.4 - senior living (current) use of insulin Creatinine Urine Today E11.65 - Type 2 diabetes mellitus with hyperglycemia, Z79.4 - senior living (current) use of insulin Microalbumin, Random (w Creat) Today E11.65 - Type 2 diabetes mellitus with hyperglycemia, Z79.4 - intermission coordinator (current) use of insulin Vitamin B12 and Folate Today E11.65 - Type 2 diabetes mellitus with hyperglycemia, Z79.4 - intermission coordinator (current) use of insulin IRON PROFILE Today E11.65 - Type 2 diabetes mellitus with hyperglycemia, Z79.4 - intermission coordinator (current) use of insulin Reticulocyte Count Today E11.65 - Type 2 diabetes mellitus with hyperglycemia, Z79.4 - intermission coordinator (current) use of insulin Ferritin Today E11.65 - Type 2 diabetes mellitus with hyperglycemia, Z79.4 - intermission coordinator (current) use of insulin Complete Blood Count Auto Diff Today E11.65 - Type 2 diabetes mellitus with hyperglycemia, Z79.4 - intermission coordinator (current) use of insulin Thyroid Stimulating Hormone Today E11.65 - Type 2 diabetes mellitus with hyperglycemia, Z79.4 - senior living (current) use of insulin Free T4 (Free Thyroxine) Today E11.65 - Type 2 diabetes mellitus with hyperglycemia, Z79.4 - senior living (current) use of insulin Hemoglobin A1c Today E11.65 - Type 2 diabetes mellitus with hyperglycemia, Z79.4 - intermission coordinator (current) use of insulin Lipid Panel Today E11.65 - Type 2 diabetes mellitus with hyperglycemia, E78.00 - Pure hypercholesterolemia, unspecified, Z79.4 - senior living (current) use of insulin Vitamin D 25-OH Total Today E11.65 - Type 2 diabetes mellitus with hyperglycemia, Z79.4 - intermission coordinator (current) use of insulin AMB PPD Planted Today Z11.1 - Encounter for screening for respiratory tuberculosis
[2024-10-28 15:44] VITALS: BP 182/82; PULSE 58; TEMP 36.3; O2SAT 100; BMI 51.6
[2024-10-28 16:18] VITALS: BP 120/80
== END 2024-10-28 16:47 | disposition home or self-care (01) ==
LOC: HO.HMCH 15:02
PROVIDERS: PCP Internal Medicine; Visit Provider Internal Medicine
DX: E11.65 Type 2 diabetes mellitus with hyperglycemia (principal); Z79.4 Long term (current) use of insulin; E78.00 Pure hypercholesterolemia, unspecified; J44.9 Chronic obstructive pulmonary disease, unspecified; E03.9 Hypothyroidism, unspecified; F41.1 Generalized anxiety disorder; K21.9 Gastro-esophageal reflux disease without esophagitis; G47.33 Obstructive sleep apnea (adult) (pediatric); M54.50 Low back pain, unspecified; I10 Essential (primary) hypertension; E11.21 Type 2 diabetes mellitus with diabetic nephropathy; Z11.1 Encounter for screening for respiratory tuberculosis

== ENCOUNTER → 2024-10-28 15:01 | Outpatient (BNVA) | payer OTHER, SELFPAY | PROVIDERS: PCP Internal Medicine; Visit Provider Internal Medicine | DX: E11.65 Type 2 diabetes mellitus with hyperglycemia (principal); E78.00 Pure hypercholesterolemia, unspecified; J44.9 Chronic obstructive pulmonary disease, unspecified; E03.9 Hypothyroidism, unspecified; F41.1 Generalized anxiety disorder; K21.9 Gastro-esophageal reflux disease without esophagitis; G47.33 Obstructive sleep apnea (adult) (pediatric); M54.50 Low back pain, unspecified; I10 Essential (primary) hypertension; E66.01 Morbid (severe) obesity due to excess calories; Z11.1 Encounter for screening for respiratory tuberculosis; Z79.899 Other long term (current) drug therapy; Z79.84 Long term (current) use of oral hypoglycemic drugs; Z99.89 Dependence on other enabling machines and devices; Z79.4 Long term (current) use of insulin | CPT/HCPCS: 83036; 86580; 96127; 99212 ==

== ENCOUNTER → 2024-10-31 09:53 | Outpatient (BNVA) | payer OTHER, SELFPAY | PROVIDERS: PCP Internal Medicine; Visit Provider Internal Medicine | DX: Z13.89 Encounter for screening for other disorder (principal) ==

== ENCOUNTER 2024-11-05 12:41 | Outpatient (AMB) | payer OTHER, SELFPAY ==
--- NOTE | 2024-11-05 12:54 | MHC.OFFVIS ---
Vital Signs 11/05/24 12:56 Height 5 ft 2 in Weight 273 lb 5.971 oz BMI 50.0 BP 150/64 H Blood Pressure Location Lt radial Position Sitting Pulse 73 Pulse Source Monitor Intake Visit Reasons: 1 yr f/up Intake Note: 1 yr f/up Head Custodian Required: Yes Head Custodian Language: Wood Mechanist Name: [id number] Accompanied by: Self / Same As Patient Allergies lisinopril Adverse Reaction (Severe, Verified 10/23/24 15:56) hyperkalemia Medication List - Last Reconciled 11/05/24 by Leoncio Le MD albuterol sulfate 2.5 mg (3 mL) inhalation Q6-8H 15 days aspirin 81 mg PO DAILY atorvastatin 80 mg PO QPM 90 days blood pressure monitor (Blood Pressure Kit) As directed XXL blood pressure cuff blood-glucose sensor (FreeStyle Telma 3 Plus Sensor device) Apply 1 new sensor every 15 days as directed to monitor blood glucose continuously. budesonide-formoterol 160-4.5 mcg/actuation (Symbicort) 2 puffs PO BID carvedilol 25 mg PO BID cholecalciferol (vitamin D3) 50 mcg PO DAILY 90 days [CPAP full face mask medium AF 20 bilevel pressure 25/16 cm humidified air As directed] dextromethorphan-guaifenesin 10-200 mg (Mucinex Cough-Chest Congestion HBP) 1 tab-cap PO Q6-8H PRN doxepin 100 mg PO BEDTIME 90 days doxepin 25 mg PO BEDTIME dulaglutide (Trulicity) 3 mg (0.5 mL) subcut QWEEK 30 days empagliflozin (Jardiance) 10 mg PO DAILY flash glucose scanning reader (FreeStyle Telma 2 [place]) As directed flash glucose sensor (FreeStyle Telma 2 Sensor kit) every 2 weeks glucose (Dex4 Glucose) 16 grams (4 x 4 gram) PO Q15M PRN insulin glargine (Lantus Solostar U-100 Insulin) 5 units (0.05 mL) subcut BEDTIME lancets daily levothyroxine 75 mcg PO DAILY@0600 metformin ER 500 mg PO BID 90 days oxycodone 30 mg PO BID PRN 30 days pen needle, diabetic 1 ea subcut DAILY 90 days sennosides-docusate sodium 8.6-50 mg (Senexon-S) 1 tab PO DAILY sertraline 100 mg PO DAILY 90 days [transport Wheelchair As directed] Ventolin HFA 90 mcg/actuation (albuterol sulfate) 2 puffs inhalation Q4-6H PRN NS HPI Comments Details: Pleasant 59-year-old female who is here for follow-up. She has background history of hypertension. She has been doing well. 02/21/2023: She returns for follow-up. Blood pressure control is good. She is taking amlodipine 10 mg daily along with carvedilol 25 mg twice a day. Blood pressure control is good. She is denying chest discomfort shortness of breath. Overall clinically stable. 11/07/23: She is here for follow-up. Blood pressure is well controlled. She is taking atorvastatin and last LDL cholesterol was 69, total cholesterol 122, triglycerides 98 and HDL 34. Denying chest pain or shortness of breath. 11/05/2024: She is here for follow-up. Denying chest pain or shortness of breath. Blood pressure is elevated. [facility] Medical History At risk for foot problem Controlled type 2 diabetes mellitus Asthma Right shoulder pain Hearing decreased Hypertension Post-traumatic osteoarthritis of left hip Hematuria Leg length discrepancy Otitis externa Colon cancer screening Allergic rhinitis COPD (chronic obstructive pulmonary disease) Hyperkalemia Hypoventilation associated with obesity syndrome Left ventricular hypertrophy Diabetic nephropathy Opioid dependence SHANIQUA (obstructive sleep apnea) Morbid obesity GERD (gastroesophageal reflux disease) Migraines Hypothyroidism Vitamin D deficiency Anxiety Essential hypertension Type 2 diabetes mellitus with diabetic polyneuropathy Lumbar back pain Surgical History Deficient knowledge of leg surgery History of hip surgery Hx of bladder endoscopy Hx of spinal surgery Family History Father HTN (hypertension) SHANIQUA (obstructive sleep apnea) Prostate cancer Additional heart attack (anterolateral wall) Mother Asthma Diabetes Brother Epilepsy Sister HTN (hypertension) Maternal Aunt Throat cancer Social History Household Members: Family Household Members Other:: brother Housing: House Are you a primary aged or disabled carer to a significant other at home: No Do you presently have visiting nurse or other home services: Yes (reports every 6 months nurse comes by) Alcohol intake: never Patient Tobacco Use Status: Former Tobacco user Tobacco use type: Cigarette Years Smoked: 4 +/- e-Cigarette/Vaping Use: Never Used Second Hand Smoke Exposure: Yes service: No Current occupational status: disabled Cognitive needs: Yes (cane ) Hearing needs: No Vision needs: Yes (glasses ) Review of Systems Const Denies chills, Denies fatigue, Denies fever(s), Denies frequent falls, Denies weakness, Denies weight gain and Denies weight loss ENT Denies dizziness Card Denies chest pain, Denies leg edema, Denies lightheadedness, Denies palpitations, Denies dyspnea and Denies dyspnea on exertion Resp Denies cough, Denies dyspnea and Denies dyspnea on exertion GI Denies hematochezia Musc Denies abnormal gait, Denies muscle weakness, Denies numbness, Denies radiating pain into limb and Denies tingling Neuro Denies abnormal gait, Denies dizziness, Denies frequent falls, Denies numbness, Denies tingling and Denies weakness Endo Denies fatigue and Denies palpitations Physical Exam Vital Signs: Last Vital Signs Pulse 73 11/05/24 12:56 BP 150/64 H 11/05/24 12:56 BMI result Body Mass Index 50.0 GENERAL APPEARANCE: in no acute distress, pleasant. NECK/THYROID: no carotid bruit, no jugular venous distention. SKIN: no suspicious lesions, warm and dry. HEART: no murmurs, regular rate and rhythm. LUNGS: clear to auscultation bilaterally. ABDOMEN: soft, nontender. EXTREMITIES: no edema. PERIPHERAL PULSES: equal. NEUROLOGIC: No gross deficits, AAO X 3 Office Procedures EKG Details: Sinus rhythm 73 beats per minute, normal axis, normal ECG, QTC 412 milliseconds. [id number], Complete Assessment & Plan Assessment & Plan (1) Hypercholesterolemia: Code(s): E78.00 - Pure hypercholesterolemia, unspecified Category: Medical (2) Essential hypertension: Code(s): I10 - Essential (primary) hypertension Category: Medical Plan Pleasant 59-year-old lady here for follow-up. She has background history of hypertension and hyperlipidemia. She is on atorvastatin 80 mg once a day. Lipid panel appears stable. Blood pressure is elevated. Adding hydrochlorothiazide 12.5 mg daily. We will arrange her to come back for blood pressure check in 2 weeks. Follow-up with nurse practitioner in 1 year. Thank you for allowing me to participate in the care of your patient. Please feel free to contact me if you have any questions. Medications: New hydrochlorothiazide 12.5 mg PO DAILY 90 tabs 3RF Coding Level of Care Code Est Pt Level 3 (68260) Diagnoses Hypercholesterolemia E78.00 Essential hypertension I10 CPT Codes EKG - CPT: 70921-[id number], Complete ([id number])
[2024-11-05 12:56] VITALS: BP 150/64; PULSE 73; BMI 50.0
== END 2024-11-05 13:25 | disposition home or self-care (01) ==
LOC: HO.HCS 12:42
PROVIDERS: PCP Internal Medicine; Visit Provider Internal Medicine Cardiovascular Disease
DX: E78.00 Pure hypercholesterolemia, unspecified (principal); I10 Essential (primary) hypertension
CPT/HCPCS: 93010; 99213

== ENCOUNTER 2024-11-05 12:41 | Outpatient (REF) | payer OTHER, SELFPAY ==
--- NOTE | ~2024-11-05 | XR_ITS ---
CLINICAL HISTORY: R76.11 - Nonspecific reaction to tuberculin skin test without active tub... Chest Radiographs, 2 views Comparison: CR - XR CHEST 2V - 08/22/24 16:[address]/OK/SR - CT ANGIO CHEST PE PROTOCOL - 02/19/23 19:34 EDT CR/SR - XR CHEST 2V - 07/11/22 09:26 EST Findings: Prominent sized heart. Normal mediastinal contours. No pneumothorax. No opacity. No pleural effusion. Normal upper abdomen. No acute fracture. Impression: No acute findings. This document has been electronically signed by: Rosamaria Tinajero MD on 11/06/2024 13:26:34
== END 2024-11-05 12:42 | disposition home or self-care (01) ==
LOC: HO.XRAY 12:41
PROVIDERS: PCP Internal Medicine; Visit Provider Internal Medicine
DX: E78.00 Pure hypercholesterolemia, unspecified (principal); I10 Essential (primary) hypertension; R76.11 Nonspecific reaction to tuberculin skin test without active tuberculosis
CPT/HCPCS: 71046; 93005; 99212

== ENCOUNTER → 2024-11-05 13:36 | Outpatient (BNV) | payer OTHER, SELFPAY | PROVIDERS: PCP Internal Medicine; Visit Provider Radiology Diagnostic Radiology | DX: R76.11 Nonspecific reaction to tuberculin skin test without active tuberculosis (principal) | CPT/HCPCS: 71046 ==

== ENCOUNTER → 2024-11-19 09:12 | Outpatient (BNVA) | payer OTHER, SELFPAY | PROVIDERS: PCP Internal Medicine; Visit Provider Internal Medicine Cardiovascular Disease ==

== ENCOUNTER 2024-11-21 15:13 | Outpatient (AMB) | payer OTHER, SELFPAY ==
--- NOTE | 2024-11-21 15:21 | MHC.PC.OV ---
Vital Signs 11/21/24 15:22 Height 5 ft 2 in Weight 276 lb 0.3 oz BMI 50.5 BP 130/76 Blood Pressure Location Rt brachial Position Sitting Pulse 74 Pulse Source Pulse Oximeter Temp 97.3 F Temp Source Temporal Artery Scan Pulse Oximetry (%) 96 Oxygen Delivery Method Room Air Intake Visit Reasons: Annual exam Intake Note: Patient is here today for a physical. Shoe Planner Required: Yes Shoe Planner Language: Produce Manager Name: Piero ([id number]) Information Interpreted: non-clinical & clinical Process Controls Technician: Not Required per policy Accompanied by: Self / Same As Patient Allergies lisinopril Adverse Reaction (Severe, Verified 11/21/24 15:58) hyperkalemia Medication List - Last Reconciled 11/21/24 by Caitlin Arroyo PA-C albuterol sulfate 2.5 mg (3 mL) inhalation Q6-8H 15 days aspirin 81 mg PO DAILY atorvastatin 80 mg PO QPM 90 days blood pressure monitor (Blood Pressure Kit) As directed XXL blood pressure cuff blood-glucose sensor (StaxxonStyle Telma 3 Plus Sensor device) Apply 1 new sensor every 15 days as directed to monitor blood glucose continuously. budesonide-formoterol 160-4.5 mcg/actuation (Symbicort) 2 puffs PO BID carvedilol 25 mg PO BID cholecalciferol (vitamin D3) 50 mcg PO DAILY 90 days [CPAP full face mask medium AF 20 bilevel pressure 25/16 cm humidified air As directed] doxepin 100 mg PO BEDTIME 90 days doxepin 25 mg PO BEDTIME dulaglutide (Trulicity) 3 mg (0.5 mL) subcut QWEEK 30 days empagliflozin (Jardiance) 10 mg PO DAILY flash glucose scanning reader (StaxxonStyle Telma 2 [place]) As directed glucose (Dex4 Glucose) 16 grams (4 x 4 gram) PO Q15M PRN hydrochlorothiazide 12.5 mg PO DAILY insulin glargine (Lantus Solostar U-100 Insulin) 5 units (0.05 mL) subcut BEDTIME lancets daily levothyroxine 75 mcg PO DAILY@0600 metformin ER 500 mg PO BID 90 days oxycodone 30 mg PO BID PRN 30 days pen needle, diabetic 1 ea subcut DAILY 90 days sennosides-docusate sodium 8.6-50 mg (Senexon-S) 1 tab PO DAILY sertraline 100 mg PO DAILY 90 days [transport Wheelchair As directed] Ventolin HFA 90 mcg/actuation (albuterol sulfate) 2 puffs inhalation Q4-6H PRN NS Tobacco use date assessed: 11/21/24 Dental Screening Dental Screen Date: 07/21/24 HPI Annual exam HPI Details 59 year old female with past medical history of COPD, diabetes mellitus, SHANIQUA, hypertension, hypercholesterolemia, hypothyroidism last seen 10/2024 coming in for annual exam. In review of the notes patient was seen by Cardiology 10/2024 hydrochlorothiazide 12.5 mg was added and continue to follow up yearly. teacher resource [employer] [id number] used for the duration of this visit. Patient has no acute concerns today. mammo: due last mammo 08/2023 eye doctor: yearly with Dr. Zeng pap smear: referral was placed to audit lead colonoscopy: referral was placed to gastro [facility] Medical History At risk for foot problem Controlled type 2 diabetes mellitus Asthma Right shoulder pain Hearing decreased Hypertension Post-traumatic osteoarthritis of left hip Hematuria Leg length discrepancy Otitis externa Colon cancer screening Allergic rhinitis COPD (chronic obstructive pulmonary disease) Hyperkalemia Hypoventilation associated with obesity syndrome Left ventricular hypertrophy Diabetic nephropathy Opioid dependence SHANIQUA (obstructive sleep apnea) Morbid obesity GERD (gastroesophageal reflux disease) Migraines Hypothyroidism Vitamin D deficiency Anxiety Essential hypertension Type 2 diabetes mellitus with diabetic polyneuropathy Lumbar back pain Surgical History Deficient knowledge of leg surgery History of hip surgery Hx of bladder endoscopy Hx of spinal surgery Family History Father HTN (hypertension) SHANIQUA (obstructive sleep apnea) Prostate cancer Additional heart attack (anterolateral wall) Mother Asthma Diabetes Brother Epilepsy Sister HTN (hypertension) Maternal Aunt Throat cancer Social History Household Members: Family Household Members Other:: brother Housing: House Are you a primary home care liaison to a significant other at home: No Do you presently have visiting nurse or other home services: Yes (reports every 6 months nurse comes by) Alcohol intake: never Patient Tobacco Use Status: Former Tobacco user Tobacco use type: Cigarette Years Smoked: 4 +/- e-Cigarette/Vaping Use: Never Used Second Hand Smoke Exposure: Yes service: No Current occupational status: disabled Cognitive needs: Yes (cane ) Hearing needs: No Vision needs: Yes (glasses ) Questionnaire Thrive Questionnaire Date Thrive assessed: 10/21/24 I am a: Patient What is your living situation today?: I have a steady place to live Within the past 12 months, did the food you bought not last and you didn't have the money to get more?: I choose not to answer this question Within the past 12 months, did you worry whether your food would run out before you got money to buy more?: I choose not to answer this question Do you have trouble paying for medicines?: No Do you have trouble getting transportation to medical appointments?: No Do you have trouble paying your heating and electricity bill?: I choose not to answer this question Do you have trouble taking care of your child, family member or friend?: No Do you have trouble with day-to-day activities such as bathing, preparing meals, shopping, managing finances, etc.?: I choose not to answer this question Are you currently unemployed and looking for a job?: No Are you interested in more education?: I choose not to answer this question Please select the resources that you would like help with: None Currently or been in a relationship where the following occur: No concerns reported THRIVE Score: 0 BEULAH-7 AMB Questionnaire BEULAH-7 Date BEULAH - 7 assessed: 10/28/24 Source: Developed by Drs. Waqas Albarran, Thelma Dumont, Ruben Oden and colleagues, with an educational valente from [employer]. Review of Systems Const Denies body aches, Denies chills, Denies fever(s), Denies headache(s) and Denies poor appetite Eyes Reports no additional complaints ENT Denies dysphagia, Denies dizziness, Denies headache(s) and Denies odynophagia Card Denies chest pain, Denies syncope, Denies edema, Denies irregular heart rhythm, Denies lightheadedness and Denies dyspnea Resp Denies cough and Denies dyspnea GI Denies abdominal pain, Denies constipation, Denies dysphagia, Denies diarrhea, Denies nausea, Denies odynophagia and Denies vomiting Reports no additional complaints Musc Reports no additional complaints and Denies abnormal gait Skin/Breast Reports system reviewed and no additional complaints, except as documented Neuro Denies abnormal gait, Denies dizziness, Denies syncope and Denies headache(s) Psych Reports no additional complaints Physical exam (Primary Care) Vital Signs: Last Vital Signs Temp 97.3 F 11/21/24 15:22 Pulse 74 11/21/24 15:22 BP 130/76 11/21/24 15:22 Pulse Ox 96 11/21/24 15:22 Oxygen Delivery Method Room Air 11/21/24 15:22 BMI result Body Mass Index 50.5 Tobacco/Smoking Status: Tobacco use Status Tobacco use date assessed 11/21/24 11/21/24 15:41 Patient Tobacco Use Status Former Tobacco user 11/21/24 15:41 Tobacco use type Cigarette 11/21/24 15:41 e-Cigarette/Vaping Use Never Used 11/21/24 15:41 Thrive Assessment: Date of Thrive Assessment Date Thrive assessed 10/21/24 11/21/24 15:41 Currently or been in a relationship where the following occur: No concerns reported Const General: cooperative, healthy appearing, comfortable and no acute distress Orientation/consciousness: patient oriented x3 HENMT Head: Yes normocephalic Ears: hearing grossly normal bilaterally, external ears normal, TM's normal bilaterally and EAC's normal General nose exam: Normal external nose present Face and sinus: Yes normal facial exam and Yes sinuses nontender Mouth: Normal oral and palatal mucosa present and tongue normal Throat: Yes posterior oropharynx normal Eyes General: appearance normal, both eyes and all related structures Conjunctivae: conjunctivae normal Pupils: Equal, round and reactive pupils present EOM: EOMs intact bilaterally and No Nystagmus present Neck Neck: Yes normal visual inspection, Yes full ROM and Yes no lymphadenopathy Chest Chest palpation & inspection: normal inspection of the chest Resp Effort & Inspection: normal respiratory effort Auscultation: clear to auscultation bilaterally, no crackles, no rales, no rhonchi, no wheezes and breath sounds present Cardio Rate: regular rate Rhythm: regular rhythm Peripheral pulses: radial pulses present and dorsalis pedis present GI Inspection: Yes normal to inspection and No Abdominal wall edema Palpation (GI): Soft to palpation, not firm and nontender Auscultation: normal bowel sounds Rectal Exam - Female: deferred General: Yes no CVA tenderness Back/Spine/Pelvis Back: no CVA tenderness Skin General skin exam: no rashes or lesions noted Neuro General: patient oriented x3 Cranial nerves: Yes Equal, round and reactive pupils present, Yes Midline tongue present, Yes Ability to bilaterally elevate shoulders present and No Nystagmus present Gait exam (Neuro): Normal gait present Extrem General: Yes normal to inspection, Yes full ROM, No no pedal edema and No edema Psych Speech and movement: Normal speech and movement present Affect: normal affect Insight: Good insight present (Psych) Judgement: Good judgement present (Psych) Coding Level of Care Code Est Pt Prev Care 40-64y([id number]) Diagnoses Controlled type 2 diabetes mellitus with diabetic nephropathy, with long-term current use of insulin E11.21; Z79.4 Diabetes mellitus adjunct faculty for medical terminology insulin use: with adjunct faculty for medical terminology use Diabetes mellitus complication status: with kidney complications Diabetes mellitus complication detail: with nephropathy Moderate persistent asthma with acute exacerbation J45.909 Asthma severity: mild Asthma persistence: unspecified Asthma complication type: uncomplicated GERD (gastroesophageal reflux disease) K21.9 Generalized anxiety disorder F41.1 Hypothyroidism E03.9 COPD (chronic obstructive pulmonary disease) J44.9 Hypercholesterolemia E78.00 Essential hypertension I10 Type 2 diabetes mellitus with hyperglycemia, with long-term current use of insulin E11.65; Z79.4 Diabetes mellitus usp insulin use: with usp use SHANIQUA (obstructive sleep apnea) G47.33 Morbid obesity E66.01 Assessment & Plan Assessment & Plan (1) Controlled type 2 diabetes mellitus: Code(s): E11.9 - Type 2 diabetes mellitus without complications Category: Medical Qualifiers: Diabetes mellitus adjunct faculty for medical terminology insulin use: with adjunct faculty for medical terminology use Diabetes mellitus complication status: with kidney complications Diabetes mellitus complication detail: with nephropathy Qualified Code(s): E11.21 - Type 2 diabetes mellitus with diabetic nephropathy; Z79.4 - FDC (current) use of insulin Plan: Decrease the amount of carbohydrates such as pasta, bread, rice, and potatoes and limit the amount of sweets. Although fruits are generally healthy they should be eaten in moderation as they are still high in sugar. Hemoglobin A1c goal of less than 7%. Last A1c was WNL. Continue on current medication regimen. (2) Asthma: Comment: SHE HAS MILD REACTIVE AIRWAYS AND HAS INTERMITTENT COUGH WITH SOME WHEEZING, PROBABLY DUE TO MILD BRONCHIAL ASTHMA. Code(s): J45.909 - Unspecified asthma, uncomplicated Category: Medical Qualifiers: Asthma severity: mild Asthma persistence: unspecified Asthma complication type: uncomplicated Qualified Code(s): J45.909 - Unspecified asthma, uncomplicated Plan: Asthma currently controlled on present medications. Continue on Symbicort and albuterol as needed.? Avoid triggers such as allergies. Continue to follow with pulmonology. (3) GERD (gastroesophageal reflux disease): Code(s): K21.9 - Gastro-esophageal reflux disease without esophagitis Category: Medical Plan: Avoid trigger foods such as citrus, tomato products, soda, caffeine, spicy foods and other foods that may be irritating to your stomach. Avoid laying flat 3-4 hours after eating and elevate the head of the bed 30 degrees to prevent acid from moving into the esophagus. (4) Generalized anxiety disorder: Comment: psychiatry q 2 weeks with counselling Code(s): F41.1 - Generalized anxiety disorder Category: Medical Plan: Feels symptoms are well managed with the Sertraline at this time and plan to continue to follow with counseling every 2 weeks. (5) Hypothyroidism: Code(s): E03.9 - Hypothyroidism, unspecified Category: Medical Plan: Continue to monitor thyroid function and continue on levothyroxine 75mcg. (6) COPD (chronic obstructive pulmonary disease): Comment: Patient does have advanced chronic obstructive as well as restrictive pulmonary disease. Clinically it is staying very stable. Had a mild acute exacerbation about 2 months ago from which she recovered well. She does have chronic hypercapnic failure due to hypoventilation as well as COPD. Code(s): J44.9 - Chronic obstructive pulmonary disease, unspecified Category: Medical Plan: Patient feels COPD is well managed at this time she rarely uses her albuterol inhaler. She does routinely take her Symbicort twice daily. (7) Hypercholesterolemia: Code(s): E78.00 - Pure hypercholesterolemia, unspecified Category: Medical Plan: Avoid foods that are high in cholesterol such as red meat, fried foods, eggs and baked goods. Triglyceride goal of less than 150 and LDL goal of less than 100. Continue on Atorvastatin 80mg. Last LDL at goal updated blood work was ordered. (8) Essential hypertension: Code(s): I10 - Essential (primary) hypertension Category: Medical Plan: Continue on current blood pressure medication. Avoid salt intake and encourage healthy diet and regular exercise. (9) Type 2 diabetes mellitus with hyperglycemia: Comment: [place] [facility] 03/2023, Dr. Zeng Code(s): E11.65 - Type 2 diabetes mellitus with hyperglycemia Category: Medical Qualifiers: Diabetes mellitus usp insulin use: with usp use Qualified Code(s): E11.65 - Type 2 diabetes mellitus with hyperglycemia; Z79.4 - terminal makeup operator (current) use of insulin Plan: Decrease the amount of carbohydrates such as pasta, bread, rice, and potatoes and limit the amount of sweets. Although fruits are generally healthy they should be eaten in moderation as they are still high in sugar. Hemoglobin A1c goal of less than 7%. (10) SHANIQUA (obstructive sleep apnea): Comment: CHRONIC SLEEP APNEA ALONG WITH CHRONIC HYPOVENTILATION SYNDROME. WELL TREATED WITH THE USE OF BIPAP.( AIR- FIT F-20 PRESSURE 25/16 CMs ) SHE IS VERY COMPLIANT AND BENEFITTING. Code(s): G47.33 - Obstructive sleep apnea (adult) (pediatric) Category: Medical Plan: Uses CPAP faithfully at least 4 hours a night and benefits from this therapy. (11) Morbid obesity: Comment: BMI= 52.0 THIS IS A CHRONIC PROBLEM, DIFFICULT FOR HER TO LOSE WEIGHT. BUT SHE IS TRYING HER BEST TO RESTRICT THE CALORIES INTAKE AND FOLLOW THE DIETARY INSTRUCTIONS. Code(s): E66.01 - Morbid (severe) obesity due to excess calories Category: Medical Plan: Healthy diet and regular exercise is encouraged. Continue on Trulicity weekly for diabetes and weight loss. Plan The patient will continue her current antihypertensive regimen with hydrochlorothiazide, as her blood pressure is well-controlled. A referral for a mammogram has been placed, as she is due for this screening. Additionally, referrals for a colonoscopy and Pap smear have been made to ensure comprehensive preventative care. The patient is scheduled for cataract surgery with Dr. Lyn, and her vision will continue to be monitored. Her diabetes management is effective, with an HbA1c of 5.5, and no changes to her current regimen are necessary. She will maintain her CPAP use for sleep apnea, with no reported issues. Her anxiety and depression are well-managed with sertraline and counseling, and she will continue with her current treatment plan. Follow-up appointments are scheduled to monitor her progress and address any new concerns. This note was constructed using voice recognition software. While every effort has been made to ensure accuracy and lock corner machine operator, still areas may have been included sometimes these areas may affect the content or meeting of the given symptoms. Total time spent caring for the patient today was 30 minutes. This includes time spent before the visit reviewing the chart, time spent during the visit, and time spent after the visit and documentation. Patient was informed and verbally consented to the use of an ambient scribe for clinic note documentation during this visit. Orders: Orders MM tomosynthesis screening BI Today Z12.31 - Encounter for screening mammogram for malignant neoplasm of breast Referrals Gastroenterology Referral Z12.11 - Encounter for screening for malignant neoplasm of colon ESTATE CONSERVATOR Referral Z12.4 - Encounter for screening for malignant neoplasm of cervix
[2024-11-21 15:22] VITALS: BP 130/76; PULSE 74; TEMP 36.3; O2SAT 96; BMI 50.5
== END 2024-11-21 16:23 | disposition home or self-care (01) ==
LOC: HO.HMCH 15:14
PROVIDERS: PCP Internal Medicine
DX: Z00.00 Encounter for general adult medical examination without abnormal findings (principal); E11.21 Type 2 diabetes mellitus with diabetic nephropathy; Z79.4 Long term (current) use of insulin; J44.9 Chronic obstructive pulmonary disease, unspecified; E11.65 Type 2 diabetes mellitus with hyperglycemia; E66.01 Morbid (severe) obesity due to excess calories; Z68.43 Body mass index [BMI] 50.0-59.9, adult; J45.909 Unspecified asthma, uncomplicated; K21.9 Gastro-esophageal reflux disease without esophagitis; F41.1 Generalized anxiety disorder; E03.9 Hypothyroidism, unspecified; E78.00 Pure hypercholesterolemia, unspecified

== ENCOUNTER → 2024-11-21 15:13 | Outpatient (BNVA) | payer OTHER, SELFPAY | PROVIDERS: PCP Internal Medicine | DX: Z00.00 Encounter for general adult medical examination without abnormal findings (principal); J44.9 Chronic obstructive pulmonary disease, unspecified; G47.33 Obstructive sleep apnea (adult) (pediatric); I10 Essential (primary) hypertension; E78.00 Pure hypercholesterolemia, unspecified; E03.9 Hypothyroidism, unspecified; E11.21 Type 2 diabetes mellitus with diabetic nephropathy; E11.65 Type 2 diabetes mellitus with hyperglycemia; K21.9 Gastro-esophageal reflux disease without esophagitis; F41.1 Generalized anxiety disorder; E66.01 Morbid (severe) obesity due to excess calories; Z68.43 Body mass index [BMI] 50.0-59.9, adult; Z79.4 Long term (current) use of insulin | CPT/HCPCS: 99396 ==

== ENCOUNTER 2024-12-01 10:22 | Outpatient (AMB) | payer OTHER, SELFPAY ==
--- NOTE | 2024-12-01 10:26 | A.OFFPC_ITS ---
Vital Signs 12/01/24 10:27 Height 5 ft 2 in Weight 282 lb 3.067 oz BMI 51.6 BP 136/78 Blood Pressure Location Lt brachial Position Sitting Pulse 71 Pulse Source Pulse Oximeter Temp 97.9 F Temp Source Oral Pulse Oximetry (%) 98 Oxygen Delivery Method Room Air Intake Visit Reasons: Preop Stacker Attendant Required: Yes Stacker Attendant Name: [id number] Accompanied by: Self / Same As Patient Allergies lisinopril Adverse Reaction (Severe, Verified 12/01/24 10:59) hyperkalemia Medication List - Last Reconciled 12/01/24 by NGOZI Galvan albuterol sulfate 2.5 mg (3 mL) inhalation Q6-8H 15 days aspirin 81 mg PO DAILY atorvastatin 80 mg PO QPM 90 days blood pressure monitor (Blood Pressure Kit) As directed XXL blood pressure cuff blood-glucose sensor ([employer]Style Telma 3 Plus Sensor device) Apply 1 new sensor every 15 days as directed to monitor blood glucose continuously. budesonide-formoterol 160-4.5 mcg/actuation (Symbicort) 2 puffs PO BID carvedilol 25 mg PO BID cholecalciferol (vitamin D3) 50 mcg PO DAILY 90 days [CPAP full face mask medium AF 20 bilevel pressure 25/16 cm humidified air As directed] doxepin 100 mg PO BEDTIME 90 days doxepin 25 mg PO BEDTIME dulaglutide (Trulicity) 3 mg (0.5 mL) subcut QWEEK 30 days empagliflozin (Jardiance) 10 mg PO DAILY flash glucose scanning reader ([employer] Telma 2 Rousseau) As directed glucose (Dex4 Glucose) 16 grams (4 x 4 gram) PO Q15M PRN hydrochlorothiazide 12.5 mg PO DAILY insulin glargine (Lantus Solostar U-100 Insulin) 5 units (0.05 mL) subcut BEDTIME lancets daily levothyroxine 75 mcg PO DAILY@0600 metformin ER 500 mg PO BID 90 days oxycodone 30 mg PO BID PRN 30 days pen needle, diabetic 1 ea subcut DAILY 90 days sennosides-docusate sodium 8.6-50 mg (Senexon-S) 1 tab PO DAILY sertraline 100 mg PO DAILY 90 days [transport Wheelchair As directed] Ventolin HFA 90 mcg/actuation (albuterol sulfate) 2 puffs inhalation Q4-6H PRN NS Tobacco use date assessed: 12/01/24 Dental Screening Dental Screen Date: 12/01/24 Did you have a dental visit in the last 12 months?: Yes Did you have a dental problem in the last 6 months where you did not have access to dental care?: No Was dental information given to patient?: Patient has dentist HPI Preop HPI Details The patient is a 59-year-old female, patient of Dr. Dobbins, last seen in office on 08/21/2024 The patient is presenting with a need for preoperative evaluation for cataract surgery. She reports longstanding cataracts significantly impacting her vision. The patient is scheduled to have her right eye cataract surgery on 12/08/24 and left eye on 12/22/2024 Surgeon for/location: Domo Duncan at [facility] Anesthesia: Mac. Patient reports left hip surgery in the past with general anesthesia without any issues Patient denies any post surgery hypothermia or clotting disorder and she is not on any blood thinners. The patient is only on aspirin 81 mg daily, which is a low risk and should be continued. The patient is on Trulicity 3 mg q.week-we will this medication a week before procedure Jardiance 10 mg should be held 3 days before procedure Metformin 500mg hold the dose of the night before the procedure Lantus 5 units hold the night before procedure Discussed with the recommendations with the patient, and she reports that she was already given a list of the medication that she should hold and for how long. Medical history is significant for controlled type 2 diabetes, asthma, GERD, constipation, COPD, hypothyroidism, essential hypertension, SHANIQUA, and morbid obesity Patient denies chest pain, SOB, heart palpitation and dizziness [facility] Medical History At risk for foot problem Controlled type 2 diabetes mellitus Asthma Right shoulder pain Hearing decreased Hypertension Post-traumatic osteoarthritis of left hip Hematuria Leg length discrepancy Otitis externa Colon cancer screening Allergic rhinitis COPD (chronic obstructive pulmonary disease) Hyperkalemia Hypoventilation associated with obesity syndrome Left ventricular hypertrophy Diabetic nephropathy Opioid dependence SHANIQUA (obstructive sleep apnea) Morbid obesity GERD (gastroesophageal reflux disease) Migraines Hypothyroidism Vitamin D deficiency Anxiety Essential hypertension Type 2 diabetes mellitus with diabetic polyneuropathy Lumbar back pain Surgical History Deficient knowledge of leg surgery History of hip surgery Hx of bladder endoscopy Hx of spinal surgery Family History Father HTN (hypertension) SHANIQUA (obstructive sleep apnea) Prostate cancer Additional heart attack (anterolateral wall) Mother Asthma Diabetes Brother Epilepsy Sister HTN (hypertension) Maternal Aunt Throat cancer Social History Household Members: Family Household Members Other:: brother Housing: House Are you a primary urgent care physician assistant to a significant other at home: No Do you presently have visiting nurse or other home services: Yes (reports every 6 months nurse comes by) Alcohol intake: never Patient Tobacco Use Status: Former Tobacco user Tobacco use type: Cigarette Years Smoked: 4 +/- e-Cigarette/Vaping Use: Never Used Second Hand Smoke Exposure: Yes service: No Current occupational status: disabled Cognitive needs: Yes (cane ) Hearing needs: No Vision needs: Yes (glasses ) Questionnaire PHQ-9 Over the last 2 weeks, how often have you been bothered by any of the following problems? 1. Little interest or pleasure in doing things: several days 2. Feeling down, depressed, or hopeless: not at all 3. Trouble falling or staying asleep, or sleeping too much: several days 4. Feeling tired or having little energy: several days 5. Poor appetite or overeating: not at all 6. Feeling bad about yourself - or that you are a failure or have let yourself or your family down: not at all 7. Trouble concentrating on things, such as reading the newspaper or watching television: not at all 8. Moving or speaking so slowly that other people could have noticed. Or the opposite - being so fidgety or restless that you have been moving around a lot more than usual: not at all 9. Thoughts that you would be better off or of hurting yourself in some way: not at all Total score: 3 Source: Developed by Drs. Waqas Albarran, Thelma Dumont, Ruben Oden and colleagues, with an educational valente from [employer]. Thrive Questionnaire Date Thrive assessed: 12/01/24 I am a: Patient What is your living situation today?: I have a steady place to live Within the past 12 months, did the food you bought not last and you didn't have the money to get more?: I choose not to answer this question Within the past 12 months, did you worry whether your food would run out before you got money to buy more?: I choose not to answer this question Do you have trouble paying for medicines?: No Do you have trouble getting transportation to medical appointments?: No Do you have trouble paying your heating and electricity bill?: I choose not to answer this question Do you have trouble taking care of your child, family member or friend?: No Do you have trouble with day-to-day activities such as bathing, preparing meals, shopping, managing finances, etc.?: I choose not to answer this question Are you currently unemployed and looking for a job?: No Are you interested in more education?: I choose not to answer this question Please select the resources that you would like help with: None Currently or been in a relationship where the following occur: No concerns reported THRIVE Score: 0 AUDIT C Alcohol Use Questionnaire (AUDIT-C) 1. How often do you have a drink containing alcohol?: Never 3. How often do you have six or more drinks on one occasion?: Never Total Score: 0 BEULAH-7 AMB Questionnaire BEULAH-7 Date BEULAH - 7 assessed: 12/01/24 Feeling nervous, anxious, or on edge: 0 = Not at all Not being able to stop or control worryin = Not at all Worrying too much about different things: 0 = Not at all Trouble relaxin = Not at all Being so restless that it is hard to sit still: 0 = Not at all Becoming easily annoyed or irritable: 0 = Not at all Feeling afraid as if something awful might happen: 0 = Not at all Total BEULAH-7 score (0-4 normal; 5-9 mild; 10-14 moderate; 15-21 severe): 0 Source: Developed by Drs. Waqas Albarran, Thelma Dumont, Ruben Oden and colleagues, with an educational valente from [employer]. Review of Systems Const Denies headache(s) Eyes Reports change in vision, Reports decreased night vision and Denies loss of vision ENT Denies vertigo, Denies dizziness, Denies headache(s) and Denies sore throat Card Denies chest pain, Denies leg edema and Denies lightheadedness Resp Denies cough, Denies hemoptysis and Denies wheezing GI Denies abdominal pain, Denies melena, Denies constipation, Denies diarrhea and Denies vomiting Denies urinary frequency, Denies dysuria and Denies urinary urgency Musc Reports back pain (Low back), Denies arthralgias, Denies joint swelling, Denies numbness and Denies tingling Skin/Breast Denies lesions and Denies rash Neuro Denies Abnormal speech present, Denies behavioral changes, Denies vertigo, Denies dizziness, Denies headache(s), Denies loss of vision, Denies memory loss, Denies numbness and Denies tingling Psych Denies anxiety, Denies behavioral changes, Denies depression, Denies memory loss and Denies panic attacks Ranjith/Lymph Denies easy bleeding and Denies easy bruising Aller/Immun Denies wheezing Physical exam (Primary Care) Vital Signs: Last Vital Signs Temp 97.9 F 12/01/24 10:27 Pulse 71 12/01/24 10:27 BP 136/78 12/01/24 10:27 Pulse Ox 98 12/01/24 10:27 Oxygen Delivery Method Room Air 12/01/24 10:27 BMI result Body Mass Index 51.6 Tobacco/Smoking Status: Tobacco use Status Tobacco use date assessed 12/01/24 12/01/24 10:29 Patient Tobacco Use Status Former Tobacco user 12/01/24 10:29 Tobacco use type Cigarette 12/01/24 10:29 e-Cigarette/Vaping Use Never Used 12/01/24 10:29 PHQ-9: PHQ-9 Score PHQ-9: Total score 3 12/01/24 20:14 Thrive Assessment: Date of Thrive Assessment Date Thrive assessed 12/01/24 12/01/24 10:29 Currently or been in a relationship where the following occur: No concerns reported Const General: healthy appearing, no acute distress, alert and awake Nutritional Appearance: well nourished Orientation/consciousness: oriented to person, oriented to place and oriented to time HENMT Ears: TM's normal bilaterally General nose exam: Normal nasal mucous membranes and turbinates present Eyes Conjunctivae: conjunctivae normal Sclerae: sclerae normal Pupils: Equal, round and reactive pupils present Neck Neck: Yes no lymphadenopathy and Yes no JVD Thyroid: Thyroid normal Carotids: no bruits Resp Effort & Inspection: normal respiratory effort and not tachypneic Auscultation: no crackles, no rales, no rhonchi and no wheezes Cardio Rate: regular rate Rhythm: regular rhythm Heart sounds: no murmurs and normal S1 and S2 GI Palpation (GI): Soft to palpation, nontender, no hepatomegaly and no splenomegaly Auscultation: normal bowel sounds General: Yes no CVA tenderness Back/Spine/Pelvis Back: no CVA tenderness Thoracic/Lumbar Spine: No lumbar spinal tenderness Skin General skin exam: no rashes or lesions noted and dry skin Neuro General: oriented to person, oriented to place and oriented to time Cranial nerves: Yes Equal, round and reactive pupils present Speech: No Abnormal speech present Gait exam (Neuro): Normal gait present Motor exam (neuro): no tremor noted Extrem Right upper extremity: full ROM Left upper extremity: full ROM Right lower extremity: full ROM; no edema Left lower extremity: full ROM; no edema Psych Mental Status: mental status grossly normal Speech and movement: Normal speech and movement present Affect: normal affect Attitude: cooperative Thought process: Normal thought process present Results AMB Hemoglobin A1c AMB Hemoglobin A1c 5.7 % Last Edit by REBECA Khan on 12/01/24 11 :19 Results Reviewed Results Reviewed: Laboratory Last Values Hgb A1c (Clinic) 5.7 % (4.0-6.0) 12/01/24 11:14 Laboratory Tests 08/24/24 06:32 WBC 7.7 RBC 5.21 Hgb 13.1 Hct 41.0 RDW 15.9 Plt Count 238 Sodium 140 Potassium 4.2 Chloride 105 Carbon Dioxide 26 Anion Gap 13 BUN 33 H Creatinine 1.03 Estim Creat Clear Calc 76.2 Estimated GFR 55 Coding Level of Care Code Est Pt Level 4 (64099) Diagnoses Preoperative clearance Z01.818 Essential hypertension I10 Controlled type 2 diabetes mellitus with diabetic nephropathy, with long-term current use of insulin E11.21; Z79.4 Diabetes mellitus halfway insulin use: with halfway use Diabetes mellitus complication status: with kidney complications Diabetes mellitus complication detail: with nephropathy Hypothyroidism, unspecified type E03.9 Hypothyroidism type: unspecified Morbid obesity E66.01 Moderate persistent asthma with acute exacerbation J45.909 Asthma severity: mild Asthma persistence: unspecified Asthma complication type: uncomplicated Chronic obstructive pulmonary disease, unspecified COPD type J44.9 COPD type: unspecified COPD SHANIQUA (obstructive sleep apnea) G47.33 Time Spent (min) 43 Assessment & Plan Assessment & Plan (1) Preoperative clearance: Code(s): Z01.818 - Encounter for other preprocedural examination Category: Medical Plan: Recent blood work 08/2024 is in optimal range for this procedure, and EKG normal sinus Regarding preop clearance, the patient is at acceptable risk for proposed surgery. Reviewed with the patient that no surgery is completely free of risk and that this examination is to assist the surgeon in reviewing informed consent. (2) Essential hypertension: Code(s): I10 - Essential (primary) hypertension Category: Medical Plan: BP 136/78 Reinforced low-sodium diet Continue hydrochlorothiazide 12.5 mg daily, carvedilol 25 mg b.i.d. 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 The patient will be holding Trulicity a week before procedure, empagliflozin 3 days before procedure, and metformin 500 mg the night dose before the procedure along with holding Lantus 5 units night before the procedure (4) Hypothyroidism: Code(s): E03.9 - Hypothyroidism, unspecified Category: Medical Qualifiers: Hypothyroidism type: unspecified Qualified Code(s): E03.9 - Hypothyroidism, unspecified Plan: Continue levothyroxine 75 mcg daily (5) Morbid obesity: Comment: BMI= 52.0 THIS IS A CHRONIC PROBLEM, DIFFICULT FOR HER TO LOSE WEIGHT. BUT SHE IS TRYING HER BEST TO RESTRICT THE CALORIES INTAKE AND FOLLOW THE DIETARY INSTRUCTIONS. Code(s): E66.01 - Morbid (severe) obesity due to excess calories Category: Medical Plan: Encouraged to exercise for at least 10-20 minutes a day/5 days a week Healthy eating discussed. Encouraged to eat fruits/vegetables, protein- fish/baked chicken, and to avoid salty/fried foods, sweets, caffeine and carbohydrates. Encouraged to increase water intake 6-8 glasses a day (6) Asthma: Comment: SHE HAS MILD REACTIVE AIRWAYS AND HAS INTERMITTENT COUGH WITH SOME WHEEZING, PROBABLY DUE TO MILD BRONCHIAL ASTHMA. Code(s): J45.909 - Unspecified asthma, uncomplicated Category: Medical Qualifiers: Asthma severity: mild Asthma persistence: unspecified Asthma complication type: uncomplicated Qualified Code(s): J45.909 - Unspecified asthma, uncomplicated Plan: Denies shortness of breath Continue Ventolin HFA 90 mcg/actuation 2 puffs inhalation Q 4-6 H p.r.n., budesonide-formoterol 160-4.5 mcg/actuation 2 puffs b.i.d. and albuterol sulfate 2.5 mg neb treatment q.6 to 8 H (7) COPD (chronic obstructive pulmonary disease): Comment: Patient does have advanced chronic obstructive as well as restrictive pulmonary disease. Clinically it is staying very stable. Had a mild acute exacerbation about 2 months ago from which she recovered well. She does have chronic hypercapnic failure due to hypoventilation as well as COPD. Code(s): J44.9 - Chronic obstructive pulmonary disease, unspecified Category: Medical Qualifiers: COPD type: unspecified COPD Qualified Code(s): J44.9 - Chronic obstructive pulmonary disease, unspecified Plan: Denies shortness of breath Continue Ventolin HFA 90 mcg/actuation 2 puffs inhalation Q 4-6 H p.r.n., budesonide-formoterol 160-4.5 mcg/actuation 2 puffs b.i.d. and albuterol sulfate 2.5 mg neb treatment q.6 to 8 H Lifestyle modifications like smoking cessation. Wear a mask when around irritants, fumes, or particulate matter (e.g., painting, lawn mowing). Increase humidification at home, especially in the winter. Annual flu shots and the pneumonia shot can mitigate exacerbation. Increase fluids if not contraindicated because of heart failure. (8) SHANIQUA (obstructive sleep apnea): Comment: CHRONIC SLEEP APNEA ALONG WITH CHRONIC HYPOVENTILATION SYNDROME. WELL TREATED WITH THE USE OF BIPAP.( AIR- FIT F-20 PRESSURE 25/16 CMs ) SHE IS VERY COMPLIANT AND BENEFITTING. Code(s): G47.33 - Obstructive sleep apnea (adult) (pediatric) Category: Medical Plan: Continue CPAP Orders: Orders AMB Hemoglobin A1c Today Z13.9 - Encounter for screening, unspecified
[2024-12-01 10:27] VITALS: BP 136/78; PULSE 71; TEMP 36.6; O2SAT 98; BMI 51.6
== END 2024-12-01 11:22 | disposition home or self-care (01) ==
LOC: HO.HMCH 10:23
PROVIDERS: PCP Internal Medicine
DX: Z01.818 Encounter for other preprocedural examination (principal); I10 Essential (primary) hypertension; E11.21 Type 2 diabetes mellitus with diabetic nephropathy; Z79.4 Long term (current) use of insulin; E03.9 Hypothyroidism, unspecified; E66.01 Morbid (severe) obesity due to excess calories; J45.909 Unspecified asthma, uncomplicated; J44.9 Chronic obstructive pulmonary disease, unspecified; G47.33 Obstructive sleep apnea (adult) (pediatric); Z13.9 Encounter for screening, unspecified

== ENCOUNTER → 2024-12-01 10:22 | Outpatient (BNVA) | payer OTHER, SELFPAY | PROVIDERS: PCP Internal Medicine | DX: Z01.818 Encounter for other preprocedural examination (principal); H26.9 Unspecified cataract; I10 Essential (primary) hypertension; E11.21 Type 2 diabetes mellitus with diabetic nephropathy; E03.9 Hypothyroidism, unspecified; E66.01 Morbid (severe) obesity due to excess calories; J44.9 Chronic obstructive pulmonary disease, unspecified; G47.33 Obstructive sleep apnea (adult) (pediatric); Z68.43 Body mass index [BMI] 50.0-59.9, adult; Z79.4 Long term (current) use of insulin | CPT/HCPCS: 83036; 99212 ==

== ENCOUNTER 2024-12-08 06:05 | Day surgery (SDC) | payer OTHER, SELFPAY ==
[2024-12-02 15:24] VITALS: BMI 51.6
--- NOTE | 2024-12-04 14:59 | HO.ANESPROP2 ---
Documented by User: Stella Liu NP 12/04/24 15:00 HPI - Anesthesia Eval Consult details Narrative: 59yo F for Right Cataract Extraction IOL Insertion BMI 51.6 No previous cataract on record Anesthesia Pre-Procedure Meds Is the patient on any of the following meds?: GLP1/DPP4 and SGLT2 Inhib PMFSH Active Problems Active Problems: All Active Problems Preoperative clearance (Acute) Positive PPD (Acute) Preop exam for internal medicine (Acute) Osteoarthritis of right shoulder (Acute) Wrist pain, right (Acute) Osteoarthritis of left hip (Acute) Lumbar degenerative disc disease (Acute) Knee pain, left (Acute) Constipation (Acute) Closed left hip fracture (Acute) Pre-op examination (Acute) Generalized anxiety disorder (Acute) Cervical cancer screening (Acute) Hiatal hernia (Acute) Hypercholesterolemia (Acute) Type 2 diabetes mellitus with hyperglycemia (Acute) At risk for foot problem (Acute) Controlled type 2 diabetes mellitus (Acute) Asthma (Acute) Colon cancer screening (Acute) GERD (gastroesophageal reflux disease) (Acute) Allergic rhinitis (Acute) Hypothyroidism (Acute) COPD (chronic obstructive pulmonary disease) (Acute) Essential hypertension (Acute) Hypoventilation associated with obesity syndrome (Acute) Type 2 diabetes mellitus with diabetic polyneuropathy (Acute) SHANIQUA (obstructive sleep apnea) (Acute) Morbid obesity (Acute) Lumbar back pain (Acute) Past Medical History Medical History At risk for foot problem Controlled type 2 diabetes mellitus Asthma Right shoulder pain Hearing decreased Hypertension Post-traumatic osteoarthritis of left hip Hematuria Leg length discrepancy Otitis externa Colon cancer screening Allergic rhinitis COPD (chronic obstructive pulmonary disease) Hyperkalemia Hypoventilation associated with obesity syndrome Left ventricular hypertrophy Diabetic nephropathy Opioid dependence SHANIQUA (obstructive sleep apnea) Morbid obesity GERD (gastroesophageal reflux disease) Migraines Hypothyroidism Vitamin D deficiency Anxiety Essential hypertension Type 2 diabetes mellitus with diabetic polyneuropathy Lumbar back pain Family History Family History Father HTN (hypertension) SHANIQUA (obstructive sleep apnea) Prostate cancer Additional heart attack (anterolateral wall) Mother Asthma Diabetes Brother Epilepsy Sister HTN (hypertension) Maternal Aunt Throat cancer Surgical History Surgical History History of surgery on lower extremity History of hip surgery Hx of bladder endoscopy Hx of spinal surgery Social History Social History Household Members: Family Household Members Other:: brother Housing: House Are you a primary respiratory care practitioner to a significant other at home: No Do you presently have visiting nurse or other home services: Yes (reports every 6 months nurse comes by) Alcohol intake: never Patient Tobacco Use Status: Former Tobacco user Tobacco use type: Cigarette Years Smoked: 4 +/- e-Cigarette/Vaping Use: Never Used Second Hand Smoke Exposure: Yes Use of substances other than those prescribed or required for medical reasons: No Have you been hit, kicked, punched, or otherwise hurt by someone within the past year? If so, by whom?: No Spiritual Healthcare Practices: no [employer] Healthcare Practices: no Cultural Healthcare Practices: no Are you DNR?: No Advance Directives: No Advance Directives Information Provided: Yes Advance Directives on File: No FDLMP: n/a service: No Current occupational status: disabled Cognitive needs: Yes (cane ) Hearing needs: No Vision needs: Yes (glasses ) Meds Allergies Allergy/AdvReac Type Severity Reaction Status Date / Time lisinopril AdvReac Severe hyperkalemi Verified 12/01/24 10:59 a Home Medications ?Medication ?Instructions ?Recorded ?Confirmed ?Last Taken ?Type levothyroxine 75 mcg tablet 75 mcg PO DAILY@0600 08/22/24 12/02/24 Unknown History Exam Height,Weight and Vital Signs: Height 5 ft 2 in Weight 127.913 kg Assessment and Plan Assessment Anesthesia Assessment: Chart Reviewed Documented by User: Bonnie Wetzel MD 12/08/24 07:34 PMFSH Past Medical History Medical History At risk for foot problem Controlled type 2 diabetes mellitus Asthma Right shoulder pain Hearing decreased Hypertension Post-traumatic osteoarthritis of left hip Hematuria Leg length discrepancy Otitis externa Colon cancer screening Allergic rhinitis COPD (chronic obstructive pulmonary disease) Hyperkalemia Hypoventilation associated with obesity syndrome Left ventricular hypertrophy Diabetic nephropathy Opioid dependence SHANIQUA (obstructive sleep apnea) Morbid obesity GERD (gastroesophageal reflux disease) Migraines Hypothyroidism Vitamin D deficiency Anxiety Essential hypertension Type 2 diabetes mellitus with diabetic polyneuropathy Lumbar back pain Family History Family History Father HTN (hypertension) SHANIQUA (obstructive sleep apnea) Prostate cancer Additional heart attack (anterolateral wall) Mother Asthma Diabetes Brother Epilepsy Sister HTN (hypertension) Maternal Aunt Throat cancer Family history of problems with anesthesia: No Surgical History Surgical History History of surgery on lower extremity History of hip surgery Hx of bladder endoscopy Hx of spinal surgery History of Problems with Anesthesia: No Social History Social History Household Members: Family Household Members Other:: brother Housing: House Are you a primary respiratory care practitioner to a significant other at home: No Do you presently have visiting nurse or other home services: Yes (reports every 6 months nurse comes by) Alcohol intake: never Patient Tobacco Use Status: Former Tobacco user Tobacco use type: Cigarette Years Smoked: 4 +/- e-Cigarette/Vaping Use: Never Used Second Hand Smoke Exposure: Yes Use of substances other than those prescribed or required for medical reasons: No Have you been hit, kicked, punched, or otherwise hurt by someone within the past year? If so, by whom?: No Spiritual Healthcare Practices: no [employer] Healthcare Practices: no Cultural Healthcare Practices: no Are you DNR?: No Advance Directives: No Advance Directives Information Provided: Yes Advance Directives on File: No FDLMP: n/a service: No Current occupational status: disabled Cognitive needs: Yes (cane ) Hearing needs: No Vision needs: Yes (glasses ) Meds Allergies Allergy/AdvReac Type Severity Reaction Status Date / Time lisinopril AdvReac Severe hyperkalemi Verified 12/01/24 10:59 a Home Medications ?Medication ?Instructions ?Recorded ?Confirmed ?Last Taken ?Type levothyroxine 75 mcg tablet 75 mcg PO DAILY@0600 08/22/24 12/02/24 Unknown History Exam Airway Mallampati Class: III TM Dist: <=3cm Neck ROM: Limited Heart: rrr Lungs: cta Assessment and Plan Assessment Anesthesia Assessment: Anesthesia Plan Discussed Final Anesthetic Review Family History of Problems with Anesthesia: No History of Problems with Anesthesia: No NPO: Yes ASA Class: IV Final Preanesthetic Review: No Changes in Pt Med Stat, Meds/Allgs Chart Reviewed, Consent Obtained/Reviewed and Anes Risks/Benef Reviewed Patient Risk: Intermediate Procedure Risk: Low Anesthetic Plan Anesthetic Plan: MAC: Disposition: Standard PACU
[2024-12-08 06:29] VITALS: BP 142/54; PULSE 77; RESP 18; TEMP 36.8; O2SAT 96; BMI 52.7
[2024-12-08] MEDS: Tetracaine HCl/PF 0.5% Oph Sol 4 ML DROPS 1 DROP EYE-RIGHT (06:32)
[2024-12-08] MEDS: Cyclopentolate 1 % Ophth Sol 2 ML DRPBTL 1 DROP EYE-RIGHT ×3 (06:34→06:46)
[2024-12-08] MEDS: Phenylephrine HCL 2.5% Oph SoL 2 ML BOTTLE 1 DROP EYE-RIGHT ×3 (06:39→06:47)
[2024-12-08] MEDS: Ketorolac Tromethamine 0.5% Op 5 ML DROPS 1 DROP EYE-RIGHT ×3 (06:40→06:48)
[2024-12-08] MEDS: Tropicamide 1 % Ophth Sol 3 ML BTL 1 DROP EYE-RIGHT ×3 (06:41→06:50)
[2024-12-08 06:45] LABS: Glucose, Whole Blood 87 mg/dL (60-115)
[2024-12-08] MEDS: Lactated Ringers 500 ML 50 ML IV (06:48)
--- NOTE | 2024-12-08 07:03 | MHC.SHP ---
Pre-Procedural Eval Section A - 24 Hr Update-Section A only Date of Service: 12/08/24 The patient is an INPATIENT: No Changes since office visit: No Cold of Flu in the past 2 weeks, No New Medical Problems, No Changes in Medication and No Patient answered all questions The patient has been examined within 24 hours of the surgical procedure. The History & Physical has been completed within 30 days and I have reviewed it.: Yes Section B - Complete if H&P > 30 days Chief Complaint: Age-related nuclear cataract, right eye Allergies: Allergies Allergy/AdvReac Type Severity Reaction Status Date / Time lisinopril AdvReac Severe hyperkalemi Verified 12/01/24 10:59 a Plan Diagnosis/Plan: Unchanged I have reviewed the history and physical and performed a pertinent physical examination on my patient. No changes have occurred unless specified. Time Spent With Patient Time: Total time managing care of this patient today ____ minutes.
--- NOTE | 2024-12-08 07:06 | HO.PNOPHT ---
Ophthalmology Procedure Procedure Date of Service: 12/08/24 Ophthalmology Viscoelastic: Healon Duet Dual Pack Pro Ophthalmology Lenses: IOL Acrysof MP - MA60AC (8) Procedure Notes: PREOPERATIVE DIAGNOSIS: Decreased visual acuity right eye secondary to cataract POSTOPERATIVE DIAGNOSIS: Same PROCEDURE: Right cataract extraction with intraocular lens insertion SURGEON: Domo Duncan M.D. ANESTHESIA: Topical/MAC ESTIMATED BLOOD LOSS: None COMPLICATIONS: None After obtaining informed consent, the patient was brought to the operating room suite and placed in the supine position. After adequate sedation per anesthesia, topical drops of Tetracaine were given to the right eye. The eye was then prepped and draped in the usual sterile fashion. The operating room microscope was then positioned over the operative eye and a lid speculum placed. A paracentesis was created. Viscoelastic was then instilled into the anterior chamber. A three plane incision was then created temporally, utilizing a 2.85 mm keratome. Capsulotomy forceps were then utilized to create a circular tear capsulotomy. Hydrodissection and hydrodelineation were carried out until adequate mobilization of the nucleus occurred. Phacoemulsification was then utilized to remove the dense central nucleus followed by removal of the cortical material utilizing the automated aspiration irrigation unit. Viscoelastic was instilled into the posterior capsular bag followed by placement of a posterior chamber intraocular lens without difficulty. The residual Viscoelastic was then removed utilizing the automated IA machine. The wound was checked and found to be watertight. The patient tolerated the procedure well and the lid speculum was removed. Intracameral injection of Vigamox 0.1 mL followed by a subtenon injection of Kenalog-40 0.2 mL were administered. The patient will be seen in the a.m.
[2024-12-08 07:50] VITALS: BP 148/69; PULSE 66; RESP 16; TEMP 36.1; O2SAT 98
[2024-12-08 08:05] VITALS: BP 139/64; PULSE 65; RESP 16; TEMP 36.2; O2SAT 97
== END 2024-12-08 08:07 | disposition home or self-care (01) ==
PROVIDERS: PCP Internal Medicine; Visit Provider Ophthalmology
PROC: (CPT 66985; principal; 2024-12-08 07:30)
DX: H25.11 Age-related nuclear cataract, right eye (principal); H54.7 Unspecified visual loss; H35.031 Hypertensive retinopathy, right eye; H18.613 Keratoconus, stable, bilateral; H11.133 Conjunctival pigmentations, bilateral; H17.89 Other corneal scars and opacities; E11.21 Type 2 diabetes mellitus with diabetic nephropathy; I10 Essential (primary) hypertension; J45.909 Unspecified asthma, uncomplicated; E03.9 Hypothyroidism, unspecified; G47.33 Obstructive sleep apnea (adult) (pediatric); E66.01 Morbid (severe) obesity due to excess calories; Z68.43 Body mass index [BMI] 50.0-59.9, adult; Z79.82 Long term (current) use of aspirin; Z79.4 Long term (current) use of insulin; Z79.84 Long term (current) use of oral hypoglycemic drugs; Z79.85 Long-term (current) use of injectable non-insulin antidiabetic drugs; Z79.51 Long term (current) use of inhaled steroids; Z79.899 Other long term (current) drug therapy; Z99.89 Dependence on other enabling machines and devices; Z88.8 Allergy status to other drugs, medicaments and biological substances; Z87.891 Personal history of nicotine dependence
CPT/HCPCS: 66984; 82947; J2250; J3301; V2630

== ENCOUNTER 2024-12-22 06:33 | Day surgery (SDC) | payer OTHER, SELFPAY ==
[2024-12-02 15:28] VITALS: BMI 51.6
--- NOTE | 2024-12-19 11:47 | HO.ANESPROP2 ---
Documented by User: Stella Liu NP 12/19/24 11:50 HPI - Anesthesia Eval Consult details Narrative: 59yo F for Left Cataract Extraction IOL Insertion Right eye 12/08/24: [facility] 1 Anesthesia Pre-Procedure Meds Is the patient on any of the following meds?: GLP1/DPP4 and SGLT2 Inhib PMFSH Active Problems Active Problems: All Active Problems Preoperative clearance (Acute) Positive PPD (Acute) Preop exam for internal medicine (Acute) Osteoarthritis of right shoulder (Acute) Wrist pain, right (Acute) Osteoarthritis of left hip (Acute) Lumbar degenerative disc disease (Acute) Knee pain, left (Acute) Constipation (Acute) Closed left hip fracture (Acute) Pre-op examination (Acute) Generalized anxiety disorder (Acute) Cervical cancer screening (Acute) Hiatal hernia (Acute) Hypercholesterolemia (Acute) Type 2 diabetes mellitus with hyperglycemia (Acute) At risk for foot problem (Acute) Controlled type 2 diabetes mellitus (Acute) Asthma (Acute) Colon cancer screening (Acute) GERD (gastroesophageal reflux disease) (Acute) Allergic rhinitis (Acute) Hypothyroidism (Acute) COPD (chronic obstructive pulmonary disease) (Acute) Essential hypertension (Acute) Hypoventilation associated with obesity syndrome (Acute) Type 2 diabetes mellitus with diabetic polyneuropathy (Acute) SHANIQUA (obstructive sleep apnea) (Acute) Morbid obesity (Acute) Lumbar back pain (Acute) Past Medical History Medical History At risk for foot problem Controlled type 2 diabetes mellitus Asthma Right shoulder pain Hearing decreased Hypertension Post-traumatic osteoarthritis of left hip Hematuria Leg length discrepancy Otitis externa Colon cancer screening Allergic rhinitis COPD (chronic obstructive pulmonary disease) Hyperkalemia Hypoventilation associated with obesity syndrome Left ventricular hypertrophy Diabetic nephropathy Opioid dependence SHANIQUA (obstructive sleep apnea) Morbid obesity GERD (gastroesophageal reflux disease) Migraines Hypothyroidism Vitamin D deficiency Anxiety Essential hypertension Type 2 diabetes mellitus with diabetic polyneuropathy Lumbar back pain Family History Family History Father HTN (hypertension) SHANIQUA (obstructive sleep apnea) Prostate cancer Additional heart attack (anterolateral wall) Mother Asthma Diabetes Brother Epilepsy Sister HTN (hypertension) Maternal Aunt Throat cancer Family history of problems with anesthesia: No Surgical History Surgical History History of surgery on lower extremity History of hip surgery Hx of bladder endoscopy Hx of spinal surgery History of Problems with Anesthesia: No Social History Social History Household Members: Family Household Members Other:: brother Housing: House Are you a primary point of care technician to a significant other at home: No Do you presently have visiting nurse or other home services: Yes (reports every 6 months nurse comes by) Alcohol intake: never Patient Tobacco Use Status: Former Tobacco user Tobacco use type: Cigarette Years Smoked: 4 +/- e-Cigarette/Vaping Use: Never Used Second Hand Smoke Exposure: Yes Use of substances other than those prescribed or required for medical reasons: No Have you been hit, kicked, punched, or otherwise hurt by someone within the past year? If so, by whom?: No Spiritual Healthcare Practices: no Zoroastrianism Healthcare Practices: no Cultural Healthcare Practices: no Are you DNR?: No Advance Directives: No Advance Directives Information Provided: Yes Advance Directives on File: No FDLMP: n/a service: No Current occupational status: disabled Cognitive needs: Yes (cane ) Hearing needs: No Vision needs: Yes (glasses ) Meds Allergies Allergy/AdvReac Type Severity Reaction Status Date / Time lisinopril AdvReac Severe hyperkalemi Verified 12/22/24 07:10 a Home Medications ?Medication ?Instructions ?Recorded ?Confirmed ?Last Taken ?Type levothyroxine 75 mcg tablet 75 mcg PO DAILY@0600 08/22/24 12/02/24 Unknown History Exam Height,Weight and Vital Signs: Height 5 ft 2 in Weight 127.913 kg Assessment and Plan Assessment Anesthesia Assessment: Chart Reviewed Final Anesthetic Review Family History of Problems with Anesthesia: No History of Problems with Anesthesia: No Documented by User: Sai Castaneda MD 12/22/24 07:51 PMFSH Past Medical History Medical History At risk for foot problem Controlled type 2 diabetes mellitus Asthma Right shoulder pain Hearing decreased Hypertension Post-traumatic osteoarthritis of left hip Hematuria Leg length discrepancy Otitis externa Colon cancer screening Allergic rhinitis COPD (chronic obstructive pulmonary disease) Hyperkalemia Hypoventilation associated with obesity syndrome Left ventricular hypertrophy Diabetic nephropathy Opioid dependence SHANIQUA (obstructive sleep apnea) Morbid obesity GERD (gastroesophageal reflux disease) Migraines Hypothyroidism Vitamin D deficiency Anxiety Essential hypertension Type 2 diabetes mellitus with diabetic polyneuropathy Lumbar back pain Family History Family History Father HTN (hypertension) SHANIQUA (obstructive sleep apnea) Prostate cancer Additional heart attack (anterolateral wall) Mother Asthma Diabetes Brother Epilepsy Sister HTN (hypertension) Maternal Aunt Throat cancer Surgical History Surgical History History of surgery on lower extremity History of hip surgery Hx of bladder endoscopy Hx of spinal surgery Social History Social History Household Members: Family Household Members Other:: brother Housing: House Are you a primary point of care technician to a significant other at home: No Do you presently have visiting nurse or other home services: Yes (reports every 6 months nurse comes by) Alcohol intake: never Patient Tobacco Use Status: Former Tobacco user Tobacco use type: Cigarette Years Smoked: 4 +/- e-Cigarette/Vaping Use: Never Used Second Hand Smoke Exposure: Yes Use of substances other than those prescribed or required for medical reasons: No Have you been hit, kicked, punched, or otherwise hurt by someone within the past year? If so, by whom?: No Spiritual Healthcare Practices: no Zoroastrianism Healthcare Practices: no Cultural Healthcare Practices: no Are you DNR?: No Advance Directives: No Advance Directives Information Provided: Yes Advance Directives on File: No FDLMP: n/a service: No Current occupational status: disabled Cognitive needs: Yes (cane ) Hearing needs: No Vision needs: Yes (glasses ) Meds Allergies Allergy/AdvReac Type Severity Reaction Status Date / Time lisinopril AdvReac Severe hyperkalemi Verified 12/22/24 07:10 a Home Medications ?Medication ?Instructions ?Recorded ?Confirmed ?Last Taken ?Type levothyroxine 75 mcg tablet 75 mcg PO DAILY@0600 08/22/24 12/02/24 Unknown History Exam Airway Mallampati Class: III TM Dist: >3cm Neck ROM: Full Assessment and Plan Assessment Anesthesia Assessment: Anesthesia Plan Discussed Final Anesthetic Review NPO: Yes ASA Class: IV Final Preanesthetic Review: No Changes in Pt Med Stat, Meds/Allgs Chart Reviewed, Consent Obtained/Reviewed and Anes Risks/Benef Reviewed Patient Risk: Intermediate Procedure Risk: Low Anesthetic Plan Anesthetic Plan: MAC: Disposition: Standard PACU
[2024-12-22 07:11] VITALS: BP 138/68; PULSE 67; RESP 18; TEMP 36.6; O2SAT 96
[2024-12-22] MEDS: Lactated Ringers 500 ML 50 ML IV (07:13)
--- NOTE | 2024-12-22 07:18 | MHC.SHP ---
Pre-Procedural Eval Section A - 24 Hr Update-Section A only Date of Service: 12/22/24 The patient is an INPATIENT: No Changes since office visit: No Cold of Flu in the past 2 weeks, No New Medical Problems, No Changes in Medication and No Patient answered all questions The patient has been examined within 24 hours of the surgical procedure. The History & Physical has been completed within 30 days and I have reviewed it.: Yes Section B - Complete if H&P > 30 days Chief Complaint: Age-related nuclear cataract, left eye Allergies: Allergies Allergy/AdvReac Type Severity Reaction Status Date / Time lisinopril AdvReac Severe hyperkalemi Verified 12/22/24 07:10 a Plan Diagnosis/Plan: Unchanged I have reviewed the history and physical and performed a pertinent physical examination on my patient. No changes have occurred unless specified. Time Spent With Patient Time: Total time managing care of this patient today ____ minutes.
[2024-12-22] MEDS: Tropicamide 1 % Ophth Sol 3 ML BTL 1 DROP EYE-LEFT ×3 (07:35→07:41)
[2024-12-22] MEDS: Cyclopentolate 1 % Ophth Sol 2 ML DRPBTL 1 DROP EYE-LEFT ×3 (07:35→07:40)
[2024-12-22] MEDS: Ketorolac Tromethamine 0.5% Op 5 ML DROPS 1 DROP EYE-LEFT ×3 (07:35→07:41)
[2024-12-22] MEDS: Phenylephrine HCL 2.5% Oph SoL 2 ML BOTTLE 1 DROP EYE-LEFT ×3 (07:39→07:42)
[2024-12-22 07:49] LABS: Glucose, Whole Blood 101 mg/dL (60-115)
--- NOTE | 2024-12-22 08:56 | MHC.SHP ---
Pre-Procedural Eval Section A - 24 Hr Update-Section A only Date of Service: 12/22/24 Section B - Complete if H&P > 30 days Chief Complaint: Age-related nuclear cataract, left eye Allergies: Allergies Allergy/AdvReac Type Severity Reaction Status Date / Time lisinopril AdvReac Severe hyperkalemi Verified 12/22/24 07:10 a Plan I have reviewed the history and physical and performed a pertinent physical examination on my patient. No changes have occurred unless specified. Time Spent With Patient Time: Total time managing care of this patient today ____ minutes.
--- NOTE | 2024-12-22 08:56 | HO.PNOPHT ---
Ophthalmology Procedure Procedure Date of Service: 12/22/24 Ophthalmology Viscoelastic: Healon Duet Dual Pack Pro Ophthalmology Lenses: IOL Acrysof MP - MA60AC (22.5) Procedure Notes: PREOPERATIVE DIAGNOSIS: Decreased visual acuity left eye secondary to cataract POSTOPERATIVE DIAGNOSIS: Same PROCEDURE: Left cataract extraction with intraocular lens insertion SURGEON: Domo Duncan M.D. ANESTHESIA: Topical/MAC ESTIMATED BLOOD LOSS: None COMPLICATIONS: None After obtaining informed consent, the patient was brought to the operation room suite and placed in the supine position. After adequate sedation per anesthesia, topical drops of Tetracaine were given to the left eye. The eye was then prepped and draped in the usual sterile fashion. The operating room microscope was then positioned over the operative eye and a lid speculum placed. A paracentesis was created. Viscoelastic was then instilled into the anterior chamber. A three plane incision was then created temporally, utilizing a 2.85 mm keratome. Capsulotomy forceps were then utilized to create a circular tear capsulotomy. Hydrodissection and hydrodelineation were carried out until adequate mobilization of the nucleus occurred. Phacoemulsification was then utilized to remove the dense central nucleus followed by removal of the cortical material utilizing the automated aspiration irrigation unit. Viscoat elastic was instilled into the posterior capsular bag followed by placement of a posterior chamber intraocular lens without difficulty. The residual Viscoat elastic was then removed utilizing the automated IA machine. The wound was check and found to be watertight. The patient tolerated the procedure well and the lid speculum was removed. Intracameral injection of Vigamox 0.1 mL followed by a subtenon injection of Kenalog-40 0.2 mL were administered. The patient will be seen in the a.m.
[2024-12-22 09:20] VITALS: BP 128/63; PULSE 60; RESP 16; TEMP 36.1; O2SAT 97
[2024-12-22 09:35] VITALS: BP 135/66; PULSE 61; RESP 16; O2SAT 100
== END 2024-12-22 09:38 | disposition home or self-care (01) ==
PROVIDERS: PCP Internal Medicine; Visit Provider Ophthalmology
PROC: (CPT 66985; principal; 2024-12-22 08:50)
DX: H25.12 Age-related nuclear cataract, left eye (principal); H54.7 Unspecified visual loss; H40.052 Ocular hypertension, left eye; H18.613 Keratoconus, stable, bilateral; H11.133 Conjunctival pigmentations, bilateral; E11.9 Type 2 diabetes mellitus without complications; I10 Essential (primary) hypertension; I51.7 Cardiomegaly; Z79.84 Long term (current) use of oral hypoglycemic drugs; Z79.82 Long term (current) use of aspirin; Z79.51 Long term (current) use of inhaled steroids; Z79.899 Other long term (current) drug therapy; Z88.8 Allergy status to other drugs, medicaments and biological substances
CPT/HCPCS: 66984; 82947; J2250; J3010; J3301; V2630

== ENCOUNTER 2024-12-23 14:47 | Outpatient (AMB) | payer OTHER, SELFPAY ==
[2024-12-23 15:00] VITALS: BP 132/62; PULSE 72; O2SAT 96; BMI 51.2
--- NOTE | 2024-12-23 15:00 | A.OFFVIS_ITS ---
Vital Signs 12/23/24 15:00 Height 5 ft 2 in Weight 279 lb 12.266 oz BMI 51.2 BP 132/62 Blood Pressure Location Rt radial Position Sitting Pulse 72 Pulse Source Pulse Oximeter Pulse Oximetry (%) 96 Oxygen Delivery Method Room Air Intake Visit Reasons: T2DM Intake Note: Patient present today to follow up on Type 2 Diabetes Mellitus. Last Diabetic Eye exam: Had cataract surgery yesterday Left eye 2024, follow up is on 01/21/2025. Last Podiatry Visit: August 2024 Random Glucose: 98 mg/dl HgA1C: 5.7% 12/01/2024 Dough Molder Required: Yes Dough Molder Language: Golf Course Designer Services: Dough Molder Present Dough Molder Name: [facility] Information Interpreted: non-clinical & clinical Accompanied by: Self / Same As Patient Allergies lisinopril Adverse Reaction (Severe, Verified 12/23/24 15:02) hyperkalemia HPI Comments Details: This is a 59-year-old female with a past medical history of asthma, osteoarthritis, GERD, anxiety, hypothyroidism, COPD, hyperlipidemia, hypertension, type 2 diabetes and SHANIQUA presenting for diabetic management. Telma 3 data reviewed on phone: 99% of readings are in target range 1% hypgoglycemia Hemoglobin a1c 5.7% 12/01/2024. Current medication regimen: Trulicity 3 mg weekly, Jardiance 10 mg daily, Lantus 5 units nightly, metformin ER 500 mg twice daily. Compliance issues: None Hypoglycemia symptoms: She had 1 episode with a blood sugar of 69. She did not feel well that day and had not eaten. She treated this and checked for a rise and sugar. Hyperglycemia symptoms: none Microvascular complications: neuropathy, nephropathy (CKD and microalbuminuria) Macrovascular complications: none Hypertension: treated with carvedilol 25 mg twice daily. Lisinopril discontinued in the past due to hyperkalemia. Hyperlipidemia: treated with Atorvastatin. LDL at goal <100. ROS: Constitutional: No unexplained weight loss, fever, chills. Eyes: No vision changes Respiratory: No shortness of breath Cardiovascular: No chest pain Gastrointestinal: No anorexia, nausea, vomiting or diarrhea. No abdominal pain Skin: No rash or open wounds. Endocrine: No cold or heat intolerance. No polyuria or polydipsia. Physical exam: Constitutional: Alert, in no distress. Neck: Supple, Full range of motion. No lymphadenopathy. No palpable thyroid masses. Respiratory: Clear to auscultation. Cardiovascular: S1 S2 regular. No murmurs. Neurologic: No focal neurological deficits Feet: Warm and well perfused. No clubbing, cyanosis or edema. Intact DP pulse. Decreased vibratory sensation. Intact sensation to monofilament. Shallow sores and calluses on the tops of the toes and hammer toe deformities noted. [facility] Medical History At risk for foot problem Controlled type 2 diabetes mellitus Asthma Right shoulder pain Hearing decreased Hypertension Post-traumatic osteoarthritis of left hip Hematuria Leg length discrepancy Otitis externa Colon cancer screening Allergic rhinitis COPD (chronic obstructive pulmonary disease) Hyperkalemia Hypoventilation associated with obesity syndrome Left ventricular hypertrophy Diabetic nephropathy Opioid dependence SHANIQUA (obstructive sleep apnea) Morbid obesity GERD (gastroesophageal reflux disease) Migraines Hypothyroidism Vitamin D deficiency Anxiety Essential hypertension Type 2 diabetes mellitus with diabetic polyneuropathy Lumbar back pain Surgical History Hx of cataract surgery History of surgery on lower extremity History of hip surgery Hx of bladder endoscopy Hx of spinal surgery Family History Father HTN (hypertension) SHANQIUA (obstructive sleep apnea) Prostate cancer Additional heart attack (anterolateral wall) Mother Asthma Diabetes Brother Epilepsy Sister HTN (hypertension) Maternal Aunt Throat cancer Social History Household Members: Family Household Members Other:: brother Housing: House Are you a primary child care lead teacher to a significant other at home: No Do you presently have visiting nurse or other home services: Yes (reports every 6 months nurse comes by) Alcohol intake: never Patient Tobacco Use Status: Former Tobacco user Tobacco use type: Cigarette Years Smoked: 4 +/- e-Cigarette/Vaping Use: Never Used Second Hand Smoke Exposure: Yes service: No Current occupational status: disabled Cognitive needs: Yes (cane ) Hearing needs: No Vision needs: Yes (glasses ) Physical Exam Vital Signs: Last Vital Signs Pulse 72 12/23/24 15:00 BP 132/62 12/23/24 15:00 Pulse Ox 96 12/23/24 15:00 Oxygen Delivery Method Room Air 12/23/24 15:00 BMI result Body Mass Index 51.2 Results Reviewed Results Reviewed: Laboratory Tests 02/04/24 02/04/24 08/22/24 11:55 11:58 17:22 Plt Count Creatinine Estimated GFR AST ALT B-Natriuretic Peptide 46 Triglycerides 96 LDL Cholesterol, Calc 74 HDL Cholesterol 34 L Vitamin B12 783 Urine Creatinine 114.78 Urine Microalbumin 167.0 Microalb/Creat Ratio 145.4 H 08/23/24 08/24/24 04:02 06:32 Plt Count 238 Creatinine 1.03 Estimated GFR 55 AST 33 H ALT 23 B-Natriuretic Peptide Triglycerides LDL Cholesterol, Calc HDL Cholesterol Vitamin B12 Urine Creatinine Urine Microalbumin Microalb/Creat Ratio Assessment & Plan Assessment & Plan (1) Controlled type 2 diabetes mellitus: Code(s): E11.9 - Type 2 diabetes mellitus without complications Category: Medical Plan In summary this is a 59-year-old female with well-controlled type 2 diabetes. Medication plan open (written instructions provided and Serbian and Montserratian and reviewed with dog handler or trainer): Continue Trulicity 3 mg weekly, Jardiance 10 mg daily, metformin ER 500 mg twice daily. Stop Lantus. If you have further episodes of low blood sugars, decrease Metformin ER 500 mg to 1 tablet daily. If you experience low blood sugar, treat this by eating a chewable fruit candy like skittles or jelly beans (about 8 pieces), 4 ounces (1/2 cup) of fruit juice (not diet), 1 tablespoon of honey or 4 glucose tablets. If your blood sugar is under 55, take double the amount of one of the above. Recheck your blood sugar in 15 minutes. Referred to dietitian. Referred to Podiatry. Follow up in 3 months for type 2 diabetes. Reminded to have lab work done. Orders: Referrals Supplier Quality Nutrition Referral E11.65 - Type 2 diabetes mellitus with hyperglycemia Patient Instructions: Continue Trulicity 3 mg weekly, Jardiance 10 mg daily, metformin ER 500 mg twice daily. Stop Lantus insulin completely. If you have further episodes of low blood sugars, decrease Metformin ER 500 mg t o 1 tablet daily. If you experience low blood sugar, treat this by eating a chewable fruit candy like skittles or jelly beans (about 8 pieces), 4 ounces (1/2 cup) of fruit juice (not diet), 1 tablespoon of honey or 4 glucose tablets. If your blood sugar is under 55, take double the amount of one of the above. Recheck your blood sugar in 15 minutes. Contin?e con Trulicity 3 mg semanalmente, Jardiance 10 mg al d?a y metformina de liberaci?n prolongada 500 mg dos veces al d?a. Suspenda la insulina Lantus por completo. Si presenta episodios posteriores de hipoglucemia, reduzca la dosis de metfo rmina de liberaci?n prolongada 500 mg a 1 tableta al d?a. Si experimenta hipoglucemia, tr?[place] consumiendo un caramelo masticable de fruta lily Skittles o Jelly Beans (aproximadamente 8 piezas), 113 ml (1/2 taza) de jugo de fruta (no light), 1 cucharada de miel o 4 tabletas de glucosa. Si sandoval nivel de az?car en [place] es inferior a 55, tome el doble de la dosis de ez de los medicamentos mencionados. Vuelva a medir sandoval nivel de az?car en [place] en 15 minutos. Coding Level of Care Code Est Pt Level 4 (73051) Complex EM visit Add On G2211 Diagnoses Controlled type 2 diabetes mellitus E11.9
[2024-12-23 15:13] LABS: Glucose, Whole Blood 98 mg/dL (60-115)
== END 2024-12-23 15:30 | disposition home or self-care (01) ==
LOC: HO.ENCR 14:48
PROVIDERS: PCP Internal Medicine; Visit Provider Physician Assistant Medical
DX: E11.9 Type 2 diabetes mellitus without complications (principal)

== ENCOUNTER → 2024-12-23 14:47 | Outpatient (BNVA) | payer OTHER, SELFPAY | PROVIDERS: PCP Internal Medicine; Visit Provider Physician Assistant Medical | DX: E11.9 Type 2 diabetes mellitus without complications (principal); J45.909 Unspecified asthma, uncomplicated; K21.9 Gastro-esophageal reflux disease without esophagitis; F41.9 Anxiety disorder, unspecified; E03.9 Hypothyroidism, unspecified; E78.5 Hyperlipidemia, unspecified; J44.9 Chronic obstructive pulmonary disease, unspecified | CPT/HCPCS: 82947; 99212 ==

== ENCOUNTER 2025-02-18 15:16 | Outpatient (AMB) | payer OTHER, SELFPAY ==
[2025-02-18 15:21] VITALS: BP 140/72; PULSE 75; O2SAT 99; BMI 51.8
--- NOTE | 2025-02-18 15:21 | A.OFFVIS_ITS ---
Vital Signs 02/18/25 15:21 Height 5 ft 2 in Weight 283 lb BMI 51.8 BP 140/72 H Blood Pressure Location Rt radial Position Sitting Pulse 75 Pulse Source Pulse Oximeter Pulse Oximetry (%) 99 Oxygen Delivery Method Room Air Intake Visit Reasons: Obstructive sleep apnea Intake Note: Patient is here for a follow up on SHANIQUA, no new symptoms Liquefied Natural Gas Plant Operator Required: Yes Liquefied Natural Gas Plant Operator Name: Casi Sarmiento Theresa Allergies lisinopril Adverse Reaction (Severe, Verified 02/18/25 15:38) hyperkalemia Medication List - Last Reconciled 02/18/25 by Yusuf Whitfield MD albuterol sulfate 2.5 mg (3 mL) inhalation Q6-8H 15 days aspirin 81 mg PO DAILY atorvastatin 80 mg PO QPM 90 days blood pressure monitor (Blood Pressure Kit) As directed XXL blood pressure cuff blood-glucose sensor (LeadPointyle Telma 3 Plus Sensor device) Apply 1 new sensor every 15 days as directed to monitor blood glucose continuously. budesonide-formoterol 160-4.5 mcg/actuation (Symbicort) 2 puffs PO BID carvedilol 25 mg PO BID cholecalciferol (vitamin D3) 50 mcg PO DAILY 90 days [CPAP full face mask medium AF 20 bilevel pressure 25/16 cm humidified air As directed] doxepin 100 mg PO BEDTIME 90 days doxepin 25 mg PO BEDTIME dulaglutide (Trulicity) 3 mg (0.5 mL) subcut QWEEK 30 days empagliflozin (Jardiance) 10 mg PO DAILY flash glucose scanning reader (MetaLogicsStyle Telma 2 [place]) As directed glucose (Dex4 Glucose) 16 grams (4 x 4 gram) PO Q15M PRN hydrochlorothiazide 12.5 mg PO DAILY lancets daily levothyroxine 75 mcg PO DAILY@0600 metformin ER 500 mg PO BID 90 days oxycodone 30 mg PO BID PRN 30 days pen needle, diabetic 1 ea subcut DAILY 90 days sennosides-docusate sodium 8.6-50 mg (Senexon-S) 1 tab PO DAILY sertraline 100 mg PO DAILY 90 days [transport Wheelchair As directed] Ventolin HFA 90 mcg/actuation (albuterol sulfate) 2 puffs inhalation Q4-6H PRN NS Do you need a note to return to daycare/school/sports/work: No HPI HPI Obstructive sleep apnea: Details: 59 years old female with morbid obesity BMI 51.8, has SHANIQUA/nocturnal hypoxemia and COPD. Since our last visit 4 months ago she is doing very well and has remained stable. She does use the bipap every night regularly with pressure setting 25/16 . And sleeps good at least for 6-7 hours per night. Patient has stationary O2 concentrator at home and was supposed to use O2 2 L/minute along with the BiPAP. But after her discharge from the hospital in August of this year, she used O2 only for a few nights and then stopped using it. But she does use BiPAP very regularly. She feels good. Has had no worsening of her respiratory status or congestive heart failure. Denies any cough or expectoration. She is asking for the O2 concentrator to be removed from her house. [facility] Medical History Diabetic neuropathy At risk for foot problem Controlled type 2 diabetes mellitus Asthma Right shoulder pain Hearing decreased Hypertension Post-traumatic osteoarthritis of left hip Hematuria Leg length discrepancy Otitis externa Colon cancer screening Allergic rhinitis COPD (chronic obstructive pulmonary disease) Hyperkalemia Hypoventilation associated with obesity syndrome Left ventricular hypertrophy Diabetic nephropathy Opioid dependence SHANIQUA (obstructive sleep apnea) Morbid obesity GERD (gastroesophageal reflux disease) Migraines Hypothyroidism Vitamin D deficiency Anxiety Essential hypertension Type 2 diabetes mellitus with diabetic polyneuropathy Lumbar back pain Surgical History Hx of cataract surgery History of surgery on lower extremity History of hip surgery Hx of bladder endoscopy Hx of spinal surgery Family History Father HTN (hypertension) SHANIQUA (obstructive sleep apnea) Prostate cancer Additional heart attack (anterolateral wall) Mother Asthma Diabetes Brother Epilepsy Sister HTN (hypertension) Maternal Aunt Throat cancer Social History Household Members: Family Household Members Other:: brother Housing: House Are you a primary customer care assistant to a significant other at home: No Do you presently have visiting nurse or other home services: Yes (reports every 6 months nurse comes by) Alcohol intake: never Patient Tobacco Use Status: Former Tobacco user Tobacco use type: Cigarette Years Smoked: 4 +/- e-Cigarette/Vaping Use: Never Used Second Hand Smoke Exposure: Yes service: No Current occupational status: disabled Cognitive needs: Yes (cane ) Hearing needs: No Vision needs: Yes (glasses ) Review of Systems Const All systems reviewed & are unremarkable except as noted in HPI and below Eyes Reports no additional complaints ENT Reports nasal congestion (Off and on) Card Denies chest pain, Denies irregular heart rhythm and Denies leg edema Resp Reports as per HPI GI Denies no additional complaints Denies no additional complaints Musc Reports abnormal gait (Slightly impaired locomotion due to morbid obesity, uses cane), Reports back pain and Reports arthralgias Skin/Breast Reports system reviewed and no additional complaints, except as documented Neuro Reports abnormal gait (Slightly impaired locomotion due to morbid obesity, uses cane) Psych Reports no additional complaints Physical Exam Vital Signs: Last Vital Signs Pulse 75 02/18/25 15:21 BP 140/72 H 02/18/25 15:21 Pulse Ox 99 02/18/25 15:21 Oxygen Delivery Method Room Air 02/18/25 15:21 BMI result Body Mass Index 51.8 Const General: comfortable, no acute distress, alert and awake Orientation/consciousness: patient oriented x3 HEENT Head: Yes normal to inspection General nose exam: No nasal polyps present and No nasal discharge present Face and sinus: Yes sinuses nontender Mouth: oropharynx abnormals (Crowded with Mallampati class 4) Throat: Yes posterior oropharynx normal Eyes General: appearance normal, both eyes and all related structures Neck Neck: Yes normal visual inspection, Yes no lymphadenopathy, Yes trachea midline, Yes no JVD and Yes other (Neck is grossly obese) Thyroid: Thyroid normal Chest Chest palpation & inspection: normal inspection of the chest, normal palpation of entire chest wall and no tenderness Resp Other: Percussion note not perceptible due to thick chest wall Breath sounds are distant especially over the basilar areas. No audible wheezes rhonchi or Creps. Cardio Palpation: PMI not normal (Not palpable) Rate: regular rate Rhythm: regular rhythm Heart sounds: no gallops and no murmurs GI Palpation (GI): Soft to palpation, nontender, No hepatosplenomegaly present, no masses and Other GI palpation findings present (Abdomen is grossly obese and protuberant) Auscultation: normal bowel sounds Back/Spine/Pelvis Thoracic/Lumbar Spine: thoracic and lumbar spine normal to inspection and thoraco-lumbar ROM limited Skin General skin exam: no rashes or lesions noted Neuro General: patient oriented x3, No gait normal (Slightly impaired and uses cane) and no focal motor deficits Cranial nerves: Yes CN's II-XII intact bilaterally Extrem General: Yes normal to inspection, Yes no clubbing, cyanosis or edema and Yes no calf tenderness Psych Appearance: grossly normal Speech and movement: Normal speech and movement present Results Reviewed Results Reviewed: Compliance report for the last 30 nights is reviewed and she has used 100% of the nights with average usage per night 6 hours 51 minutes. She is on BiPAP with pressure setting of 25/16 cm. There is moderate amount of air leak and residual AHI of 9.4 Assessment & Plan Assessment & Plan (1) COPD (chronic obstructive pulmonary disease): Comment: Patient does have advanced chronic obstructive as well as restrictive pulmonary disease. Clinically it is staying very stable. She does have chronic hypercapnic failure due to hypoventilation as well as COPD. Code(s): J44.9 - Chronic obstructive pulmonary disease, unspecified Category: Medical Qualifiers: COPD type: unspecified COPD Qualified Code(s): J44.9 - Chronic obstructive pulmonary disease, unspecified Plan: Advised to continue using Symbicort 160-4.52 puffs b.i.d. Albuterol HFA 2 puffs q.4-6 hours p.r.n. or alternatively she can use albuterol solution in the nebulizer. Q 4-6 hours p.r.n. (2) Asthma: Comment: SHE HAS MILD REACTIVE AIRWAYS AND HAS INTERMITTENT COUGH WITH SOME WHEEZING, PROBABLY DUE TO MILD BRONCHIAL ASTHMA. THE SYMPTOMS ARE MINIMAL AT THIS TIME. Code(s): J45.909 - Unspecified asthma, uncomplicated Category: Medical Qualifiers: Asthma severity: mild Asthma persistence: unspecified Asthma complication type: uncomplicated Qualified Code(s): J45.909 - Unspecified asthma, uncomplicated Plan: SEE THE TREATMENT UNDER COPD (3) SHANIQUA (obstructive sleep apnea): Comment: CHRONIC SLEEP APNEA ALONG WITH CHRONIC HYPOVENTILATION SYNDROME. WELL TREATED WITH THE USE OF BIPAP.( AIR- FIT F-20 PRESSURE 25/16 CMs ) SHE IS VERY COMPLIANT AND BENEFITTING. SHE IS SUPPOSED TO USE O2 2 L/MINUTE ALONG WITH BIPAP. HOWEVER SINCE HER LAST VISIT SHE HAS NOT USED ANY OXYGEN AND CLAIMS THAT SHE SLEEPS GOOD . Code(s): G47.33 - Obstructive sleep apnea (adult) (pediatric) Category: Medical Plan: COMMENDED FOR GOOD COMPLIANCE AND ADVISED TO CONTINUE USING THE BIPAP EVERY NIGHT REGULARLY. PLAN TO DO OVERNIGHT OXIMETRY RECORDING ON ROOM AIR BUT USING BIPAP. THEN DECIDE IF SHE STILL NEEDS OXYGEN ALONG WITH THE BIPAP PER NOT. (4) Morbid obesity: Comment: BMI= 51.8 THIS IS A CHRONIC PROBLEM, DIFFICULT FOR HER TO LOSE WEIGHT. BUT SHE IS TRYING HER BEST TO RESTRICT THE CALORIES INTAKE AND FOLLOW THE DIETARY INSTRUCTIONS. Code(s): E66.01 - Morbid (severe) obesity due to excess calories Category: Medical Plan: WE DID DISCUSS ABOUT THE DIET AND THERE IS NO FURTHER INTERVENTION THAT CAN BE PROVIDED, (5) Allergic rhinitis: Comment: HAS INTERMITTENT NASAL CONGESTION DUE TO ALLERGIC RHINITIS, IT IS WELL CONTROLLED AT THIS TIME. Code(s): J30.9 - Allergic rhinitis, unspecified Category: Medical Plan: NO ACTIVE TREATMENT NEEDED Coding Level of Care Code Est Pt Level 4 (36131) Diagnoses Chronic obstructive pulmonary disease, unspecified COPD type J44.9 COPD type: unspecified COPD Moderate persistent asthma with acute exacerbation J45.909 Asthma severity: mild Asthma persistence: unspecified Asthma complication type: uncomplicated SHANIQUA (obstructive sleep apnea) G47.33 Morbid obesity E66.01 Allergic rhinitis J30.9
--- OUTSIDE RECORDS SUMMARY | 2025-02-18 18:16 | XMS_ITS | Clinical Summary ---
Author Organization [facility] Address [address] [place] [address] Phone Care Team Providers Care Microelectronics Assembler Name Role Phone Bozena Dobbins MD Primary Care Provider [phone] Social History Tobacco Use Types Packs/Day Years Used Date Smoking Tobacco: Never Assessed Comments Unknown Sex and Gender Information Value Date Recorded Sex Assigned at Not on file Legal Sex Female 7:16 AM EST Gender Identity Not on file Sexual Orientation Not on file Plan of Treatment Health Maintenance Due Date Last Done Comments Breast Cancer Screening 1965 DTaP,Tdap,and Td Vaccines (1 - Tdap) 1984 Hepatitis B Vaccines (1 of 3 - 19+ 3-dose series) 1984 Pneumococcal Vaccine: 50+ Ye ars (1 of 2 - PCV) 1984 Cervical Cancer Screening: P ap Smear 1986 Zoster Vaccines (1 of 2) 2015 Colorectal Cancer Screening: Colonoscopy 06/03/2024 HIV Screening 06/03/2024 Hepatitis C Screening 06/03/2024 Social Influencers of Health Screening 06/03/2024 Depression Screening 06/11/2024 COVID-19 Vaccine ( - 2023-2 5 season) 2025 Influenza Vaccine (#1) 2025 RSV Immunization Adult Patie nts (1 - 1-dose 75+ series) 2040 HIB [...] patient's age to complete this topic Meningococcal B Vaccine Aged Out No l onger eligible based on patient's age to complete this topic RSV Immunization Patients Un shamika 20 months Aged Out No longer eligible b ased on patient's age to complete this topic Varicella Vaccines Aged Out No longer eligible based on patient's age to complete this topic Insurance [facility] Care Teams Microelectronics Assembler Relationship Specialty Start Date End Date Bozena Dobbins MD [address] [place] [address] Dr [address] [facility] [place], [place] [id number] PCP - General Internal Medicine 06/03/24
== END 2025-02-18 15:39 | disposition home or self-care (01) ==
LOC: HO.HPS 15:17
PROVIDERS: PCP Internal Medicine; Visit Provider Internal Medicine
DX: J44.9 Chronic obstructive pulmonary disease, unspecified (principal); J45.909 Unspecified asthma, uncomplicated; G47.33 Obstructive sleep apnea (adult) (pediatric); E66.01 Morbid (severe) obesity due to excess calories; J30.9 Allergic rhinitis, unspecified
CPT/HCPCS: 99214

== ENCOUNTER → 2025-02-18 15:16 | Outpatient (BNVA) | payer OTHER, SELFPAY | PROVIDERS: PCP Internal Medicine; Visit Provider Internal Medicine | DX: G47.33 Obstructive sleep apnea (adult) (pediatric) (principal); J44.9 Chronic obstructive pulmonary disease, unspecified; J45.909 Unspecified asthma, uncomplicated; E66.01 Morbid (severe) obesity due to excess calories; Z68.43 Body mass index [BMI] 50.0-59.9, adult | CPT/HCPCS: 99212 ==

== ENCOUNTER 2025-02-24 | Outpatient (REF) | payer OTHER, SELFPAY ==
--- OUTSIDE RECORDS SUMMARY | 2025-03-23 09:56 | XMS_ITS | Clinical Summary ---
Author Organization 175 [facility] Address [address] [place] [address] Phone Care Team Providers Care Legislators Name Role Phone Bozena Dobbins MD Primary Care Provider [phone] Social History Tobacco Use Types Packs/Day Years Used Date Smoking Tobacco: Never Assessed Comments Unknown Sex and Gender Information Value Date Recorded Sex Assigned at Not on file Legal Sex Female 7:16 AM EST Gender Identity Not on file Sexual Orientation Not on file Plan of Treatment Upcoming Encounters Date Type Department Care Team ([facility] st Contact Info) Description 06/02/2025 3:00 PM EST Office Visit Orthopedic Surgery [place] [phone] [phone] Mata Green, DPM [address] [phone] Health Maintenance Due Date Last Done Comments Breast Cancer Screening 1965 Colorectal Cancer Screening: Colonoscopy 1965 DTaP,Tdap,and Td Vaccines (1 - Tdap) 1984 Hepatitis B Vaccines (1 of 3 - 19+ 3-dose series) 1984 Pneumococcal Vaccine: 50+ Ye ars (1 of 2 - PCV) 1984 Cervical Cancer Screening: P ap Smear 1986 Zoster Vaccines (1 of 2) 2015 HIV Screening 06/03/2024 Hepatitis C Screening 06/03/2024 [...] patient's age to complete this topic Insurance [facility] [place] [address] Care Teams Legislators Relationship Specialty Start Date End Date Bozena Dobbins MD [address] [place] [address] [address] [facility] [place], [place] [id number] PCP - General Internal Medicine 06/03/24
== END 2025-02-24 00:01 | disposition home or self-care (01) ==
LOC: CF
PROVIDERS: Visit Provider Nurse Practitioner
DX: Z01.818 Encounter for other preprocedural examination (principal); R76.11 Nonspecific reaction to tuberculin skin test without active tuberculosis; J44.89 Other specified chronic obstructive pulmonary disease; J96.12 Chronic respiratory failure with hypercapnia; E66.2 Morbid (severe) obesity with alveolar hypoventilation; Z12.11 Encounter for screening for malignant neoplasm of colon; Z83.719 Family history of colon polyps, unspecified; Z68.43 Body mass index [BMI] 50.0-59.9, adult; Z87.891 Personal history of nicotine dependence
CPT/HCPCS: 99212

== ENCOUNTER 2025-02-24 08:45 | Outpatient (AMB) | payer OTHER, SELFPAY ==
--- NOTE | 2025-02-24 08:59 | MHC.OFFVIS ---
Vital Signs 02/24/25 09:02 Height 5 ft 2 in Weight 278 lb 3.574 oz BMI 50.9 BP 171/76 H Blood Pressure Location Lt radial Position Sitting Pulse 67 Intake Visit Reasons: colo rescreen pauline 2022 Intake Note: Patient in office today for colonoscopy screening. CC: Patient states that she was never called to schedule colonoscopy after her colo screening in 2022. Patient denies having any GI symptoms or concerns. Director Of Physical Education Required: Yes Director Of Physical Education Language: Guatem[place] Allergies lisinopril Adverse Reaction (Severe, Verified 02/24/25 09:05) hyperkalemia HPI HPI colo rescreen pauline 2022: Details: Assessment & Plan (1) Pre-op examination: ?Code(s): Z01.818 - Encounter for other preprocedural examination ?Plan: [place] #Marissa dsouza She complains of 3 episodes of blood filling the bowel the bowel, but this was accompanied by urinary urge but nothing coming out. She also had suprapubic pain...but she is not completely sure if the blood was from the urine. We will get a urinalysis, but if she determines that the bleeding is vaginal she really would need to see a traffic analyst as she is post menopause.? She denies any CIc or diarrhea. During the 3 episodes she did have some nausea and CP. There are no prior problems with anesthesia or sedation. She has COPD/asthma and restrictive lung disease managed by Dr. Whitfield, no cardiac problems. No ID problems There is no known FHX of CRC or polyps. (2) Hematuria: ?Code(s): R31.9 - Hematuria, unspecified (3) COPD (chronic obstructive pulmonary disease): ?Comment: DOING WELL ON THE CURRENT REGIMEN, AND WILL CONTINUE THE SAME. TX? AIDDUO [id number]? ONE INH BID , ? ? ? VENTOLIN 2 PUFFS Q 4-6 HRS PRN ? ? ? ALSO USES ALBUTEROL SOLUTION IN THE NEBULIZER, Q 4-6 HOURS P.R.N. WHEN AT HOME. ?Code(s): J44.9 - Chronic obstructive pulmonary disease, unspecified (4) Hypoventilation associated with obesity syndrome: ?Comment: SEE UNDER SHANIQUA , ? BEING TREATED SUCCESSFULLY WITH THE USE OF BIPAP. ?Code(s): E66.2 - Morbid (severe) obesity with alveolar hypoventilation (5) SHANIQUA (obstructive sleep apnea): ?Comment: CHRONIC SLEEP APNEA ALONG WITH CHRONIC HYPOVENTILATION SYNDROME. WELL TREATED WITH THE USE OF BIPAP.( AF-20 PRESSURE 25/16 CMs ) SHE IS VERY COMPLIANT AND BENEFITTING. ADVISED TO CONTINUE THE SAME AND INSTRUCTED TO TIGHTEN THE STRAPS LITTLE BIT MORE AT NIGHT. ?Code(s): G47.33 - Obstructive sleep apnea (adult) (pediatric) (6) Morbid obesity: ?Comment: THIS IS A CHRONIC PROBLEM, DIFFICULT FOR HER TO LOSE WEIGHT.? BUT SHE IS TRYING HER BEST TO RESTRICT THE CALORIES INTAKE AND FOLLOW THE DIETARY INSTRUCTIONS. HAS LOST TO ABOUT 10 LB IN THE LAST 3 MONTHS. ?Code(s): E66.01 - Morbid (severe) obesity due to excess calories ? ? ? Orders: Orders UA CC w/rflx Micro + Cult 06/21/22 R31.9 - Hematuria, unspecified, Z01.818 - Encounter for other preprocedural examination ? Medications: New peg 3350-electrolytes 236-22.74-6.74 -5.86 gram (Golytely) ?? until fecal effluent is clear; do not exceed a total volume of 2,000 mL 240 mL? PO Q10M 1 day 4,000 mL 0RF Z12.11 - Encounter for screening for malignant neoplasm of colon ? LABS:NO RECENT CHEM PROFILE Laboratory Tests 08/24/24 10/31/24 06:32 10:11 WBC 7.7 Hgb 13.1 Hct 41.0 MCV 78.7 L MCH 25.1 L Plt Count 238 TB PPD Skin Test Clinic Positive COLONOSCOPY BIOPSY TODAY'S VISIT [place] # [facility] [employer] Patient was last seen in 2021 at that time the colonoscopy was not obtained for unknown reasons There are no prior problems with anesthesia or sedation. She has COPD/asthma and restrictive lung disease managed by Dr. Whitfield, no cardiac Her brother had colon polyps removed recently. [facility] Medical History (Updated 02/24/25 @ 10:35 by LUANN Odell) Preop exam for internal medicine Preoperative clearance Cervical cancer screening Colon cancer screening Diabetic neuropathy At risk for foot problem Controlled type 2 diabetes mellitus Asthma Right shoulder pain Hearing decreased Hypertension Post-traumatic osteoarthritis of left hip Hematuria Leg length discrepancy Otitis externa Allergic rhinitis COPD (chronic obstructive pulmonary disease) Hyperkalemia Hypoventilation associated with obesity syndrome Left ventricular hypertrophy Diabetic nephropathy Opioid dependence SHANIQUA (obstructive sleep apnea) Morbid obesity GERD (gastroesophageal reflux disease) Migraines Hypothyroidism Vitamin D deficiency Anxiety Essential hypertension Type 2 diabetes mellitus with diabetic polyneuropathy Lumbar back pain Surgical History Hx of cataract surgery History of surgery on lower extremity History of hip surgery Hx of bladder endoscopy Hx of spinal surgery Family History Father HTN (hypertension) SHANIQUA (obstructive sleep apnea) Prostate cancer Additional heart attack (anterolateral wall) Mother Asthma Diabetes Brother Epilepsy Sister HTN (hypertension) Maternal Aunt Throat cancer Social History Household Members: Family Household Members Other:: brother Housing: House Are you a primary healthcare insurance sales agent to a significant other at home: No Do you presently have visiting nurse or other home services: Yes (reports every 6 months nurse comes by) Alcohol intake: never Patient Tobacco Use Status: Former Tobacco user Tobacco use type: Cigarette Years Smoked: 4 +/- e-Cigarette/Vaping Use: Never Used Second Hand Smoke Exposure: Yes service: No Current occupational status: disabled Cognitive needs: Yes (cane ) Hearing needs: No Vision needs: Yes (glasses ) Review of Systems Const Denies fatigue, Denies fever(s), Denies night sweats, Denies poor appetite and Denies weight loss Eyes Details: glasses Reports requires corrective lenses ENT Reports Normal hearing present, Denies dental pain, Denies dysphagia, Denies hearing loss, Denies mouth pain, Denies odynophagia, Denies throat swelling, Denies tongue swelling and Reports other (Dentition adequate) Card Reports no additional complaints Resp Reports no additional complaints GI Details: Denies abdominal pain, Denies melena, Denies bloating, Denies hematochezia, Reports constipation, Denies GI cramping, Denies dysphagia, Denies excessive flatus, Denies early satiety, Reports heartburn, Denies diarrhea, Denies nausea, Denies odynophagia, Denies vomiting and Denies hematemesis Skin/Breast Denies pruritus, Denies lesions, Denies rash and Denies jaundice Neuro Reports Normal hearing present and Denies Abnormal speech present Endo Denies fatigue Aller/Immun Denies throat swelling and Denies tongue swelling Physical Exam Vital Signs: Last Vital Signs Pulse 67 02/24/25 09:02 BP 171/76 H 02/24/25 09:02 BMI result Body Mass Index 50.9 Const General: cooperative, no acute distress, well developed and well groomed Nutritional Appearance: well nourished and obese morbidly obese Orientation/consciousness: oriented to person, oriented to place and oriented to time Limitations: language barrier and ambulation with cane HEENT Head: Yes normocephalic and Yes atraumatic Eyes General: appearance normal, both eyes and all related structures Pupils: Equal, round and reactive pupils present Neck Neck: Yes normal visual inspection and Yes no lymphadenopathy Thyroid: Thyroid normal Resp Effort & Inspection: normal respiratory effort and able to speak in complete sentences Auscultation: clear to auscultation bilaterally Cardio Rate: regular rate Rhythm: regular rhythm Heart sounds: Normal, physiologic split S2 sound present Peripheral pulses: radial pulses present and posterior tibial pulses present GI Inspection: No distended, Yes Abdominal panniculus present, Yes obesity and Yes striae Palpation (GI): Soft to palpation, nontender, no guarding, not rigid and No hepatosplenomegaly present Percussion: Yes normal to percussion Auscultation: normal bowel sounds Rectal Exam - Female: deferred Skin General skin exam: no rashes or lesions noted, turgor normal, skin not dry, no jaundice, No spider nevi and no striae Rashes: no rashes Nails: normal Neuro General: oriented to person, oriented to place and oriented to time Cranial nerves: Yes Equal, round and reactive pupils present and Yes Normal hearing present Speech: No Abnormal speech present Extrem General: Yes normal to inspection, No clubbing, No cyanosis, Yes edema and Yes venous stasis dermatitis (right huston) Psych Appearance: grossly normal and well kempt Mental Status: mental status grossly normal Speech and movement: Normal speech and movement present Affect: normal affect Attitude: cooperative Thought process: Normal thought process present and not confabulating Thought content: Normal thought content present Insight: Fair insight present (Psych) Judgement: Fair judgement present (Psych) Results Reviewed Results Reviewed: Laboratory Tests 08/24/24 10/31/24 06:32 10:11 WBC 7.7 Hgb 13.1 Hct 41.0 MCV 78.7 L MCH 25.1 L Plt Count 238 TB P[facility] Positive Assessment & Plan Assessment & Plan (1) Pre-op examination: Code(s): Z01.818 - Encounter for other preprocedural examination Category: Medical (2) Family history of polyps in the colon: Comment: BROTHER Code(s): Z83.719 - Family history of colon polyps, unspecified Category: Medical (3) Positive PPD: Code(s): R76.11 - Nonspecific reaction to tuberculin skin test without active tuberculosis Category: Medical (4) COPD (chronic obstructive pulmonary disease): Comment: Patient does have advanced chronic obstructive as well as restrictive pulmonary disease. Clinically it is staying very stable. She does have chronic hypercapnic failure due to hypoventilation as well as COPD. Code(s): J44.9 - Chronic obstructive pulmonary disease, unspecified Category: Medical Qualifiers: COPD type: unspecified COPD Qualified Code(s): J44.9 - Chronic obstructive pulmonary disease, unspecified (5) SHANIQUA (obstructive sleep apnea): Comment: CHRONIC SLEEP APNEA ALONG WITH CHRONIC HYPOVENTILATION SYNDROME. WELL TREATED WITH THE USE OF BIPAP.( AIR- FIT F-20 PRESSURE 25/16 CMs ) SHE IS VERY COMPLIANT AND BENEFITTING. SHE IS SUPPOSED TO USE O2 2 L/MINUTE ALONG WITH BIPAP. HOWEVER SINCE HER LAST VISIT SHE HAS NOT USED ANY OXYGEN AND CLAIMS THAT SHE SLEEPS GOOD . Code(s): G47.33 - Obstructive sleep apnea (adult) (pediatric) Category: Medical (6) Morbid obesity: Comment: BMI= 51.8 THIS IS A CHRONIC PROBLEM, DIFFICULT FOR HER TO LOSE WEIGHT. BUT SHE IS TRYING HER BEST TO RESTRICT THE CALORIES INTAKE AND FOLLOW THE DIETARY INSTRUCTIONS. Code(s): E66.01 - Morbid (severe) obesity due to excess calories Category: Medical Plan [place] # [employer] Patient was last seen in 2021 at that time the colonoscopy was not obtained for unknown reasons There are no prior problems with anesthesia or sedation. She has COPD/asthma and restrictive lung disease managed by Dr. Whitfield, no cardiac Her brother had colon polyps removed recently. Orders: Orders Quantiferon TB Gold Plus 1 Today R76.11 - Nonspecific reaction to tuberculin skin test without active tuberculosis Comprehensive Met. Panel Today Z01.818 - Encounter for other preprocedural examination Referrals GI Procedure Notification Z12.11 - Encounter for screening for malignant neoplasm of colon Medications: New sodium,potassium,mag sulfates 17.5-3.13-1.6 gram (Suprep Bowel Prep Kit) 480 mL orally; FOR COLONOSCOPY PREP 354 mL 0RF Coding Level of Care Code New Pt Level 3 (53370) Diagnoses Pre-op examination Z01.818 Family history of polyps in the colon Z83.719 Positive PPD R76.11 Chronic obstructive pulmonary disease, unspecified COPD type J44.9 COPD type: unspecified COPD SHANIQUA (obstructive sleep apnea) G47.33 Morbid obesity E66.01
[2025-02-24 09:02] VITALS: BP 171/76; PULSE 67; BMI 50.9
== END 2025-02-24 09:25 | disposition home or self-care (01) ==
LOC: HO.HGI 08:46
PROVIDERS: PCP Internal Medicine; Visit Provider Nurse Practitioner
DX: Z01.818 Encounter for other preprocedural examination (principal); Z83.719 Family history of colon polyps, unspecified; R76.11 Nonspecific reaction to tuberculin skin test without active tuberculosis; J44.9 Chronic obstructive pulmonary disease, unspecified; G47.33 Obstructive sleep apnea (adult) (pediatric); E66.2 Morbid (severe) obesity with alveolar hypoventilation
CPT/HCPCS: 99213

== ENCOUNTER 2025-02-27 06:43 | Outpatient (REF) | payer OTHER, SELFPAY ==
[2025-02-27 06:58] LABS: MANUAL DIFF FLAG NO
[2025-02-27 07:53] LABS: Hematocrit 41.5 % (37.0-47.0); Hemoglobin 13.1 g/dl (12.0-16.0); Imm Gran Abs Auto 0.04 X10*3/uL (0.00-0.03); Imm Gran Pct Auto 0.5 % (0.0-0.4); Lymphocytes Absolute Auto 2.1 X10*3/uL (1.2-4.9); Mean Corpuscular HGB Conc 31.6 g/dl (31.0-35.0); Mean Corpuscular Hemoglobin 25.3 pg (27.0-33.0); Mean Corpuscular Volume 80.3 fL (80.0-98.0); NRBC Abs Auto 0.000 X10*3/uL (0.0-0.012); NRBC Pct Auto 0.0 /100WBC (0.0-0.2); Platelet Count 245 X10*3/uL (160-400); Red Blood Count 5.17 X10*6/uL (4.20-5.50); Reticulocytes Absolute 0.067 X10*6/uL (0.026-0.095); White Blood Count 7.7 X10*3/uL (4.8-10.8)
[2025-02-27 07:55] LABS: Total Hemoglobin (HGBA1C) 3386.8515 umol/L
[2025-02-27 08:38] LABS: Alanine Aminotransferase 37 U/L (0-31); Albumin Level 4.3 g/dL (3.5-5.0); Alkaline Phosphatase 108 U/L (39-117); Anion Gap 13 (12-20); Aspartate Amino Transferase 27 U/L (5-31); Blood Urea Nitrogen 26 mg/dL (9-16); Calcium 9.3 mg/dL (8.4-10.2); Carbon Dioxide 26 mmol/L (22-29); Chloride 105 mmol/L (96-108); Cholesterol 114 mg/dL (<200); Estimated Glomerular Filt Rate 47; HDL Cholesterol 31 mg/dL (>40); Iron 42 mcg/dL (30-160); Percent Iron Saturation 16 % (15-50); Potassium 4.4 mmol/L (3.3-5.1); Sodium 140 mmol/L (135-145); Total Iron Binding Capacity 267 mcg/dL (228-428); Total Protein 8.2 g/dL (6.5-8.0); Triglycerides 106 mg/dL (<150); Unsaturated Iron Binding 225 ug/dL
[2025-02-27 08:42] LABS: Ferritin 67 ng/mL (10-250); Free T4 (Free Thyroxine) 1.19 ng/dL (0.71-1.85); Thyroid Stimulating Hormone 1.19 uIU/mL (0.32-4.0)
[2025-02-27 08:46] LABS: Folate 9.1 ng/mL (> or = 4.0); Vitamin B12 738 pg/mL (200-900)
[2025-02-27 09:29] LABS: Microalbum/Creatinine Ratio Ur 14.4 ug/mg cr (<30)
[2025-03-03 07:19] LABS: Quantiferon TB Gold Plus 1 NEGATIVE (NEGATIVE); TB Test (QFT) Mitogen -Nil 7.90 IU/mL; TB Test (QFT) Nil 0.02 IU/mL; TB Test (QFT) Plus TB1 -Nil 0.01 IU/mL; TB Test (QFT) Plus TB2 -Nil 0.01 IU/mL
[2025-03-03 13:18] LABS: TS Negative Control Passed; TS Panel A 0; TS Panel B 0; TS Positive Control Passed; TSpotTB Negative (Negative)
== END 2025-02-27 06:44 | disposition home or self-care (01) ==
LOC: HO.LAB 06:43
PROVIDERS: Absent Provider Nurse Practitioner; PCP Internal Medicine; Referring Provider Internal Medicine; Visit Provider Physician Assistant Medical
DX: E11.65 Type 2 diabetes mellitus with hyperglycemia (principal); R76.11 Nonspecific reaction to tuberculin skin test without active tuberculosis; E78.00 Pure hypercholesterolemia, unspecified; Z79.4 Long term (current) use of insulin
CPT/HCPCS: 36415; 80053; 80061; 82043; 82306; 82570; 82607; 82728; 82746; 83036; 83540; 84439; 84443; 85025; 85045; 86480; 86481

== ENCOUNTER 2025-03-04 09:28 | Outpatient (AMB) | payer OTHER, SELFPAY ==
[2025-03-04 09:47] VITALS: BP 132/72; PULSE 70; O2SAT 96; BMI 50.5
--- NOTE | 2025-03-04 09:47 | A.OFFPC_ITS ---
Vital Signs 03/04/25 09:47 Height 5 ft 2 in Weight 276 lb BMI 50.5 BP 132/72 Blood Pressure Location Lt radial Position Sitting Pulse 70 Pulse Source Pulse Oximeter Pulse Oximetry (%) 96 Oxygen Delivery Method Room Air Intake Visit Reasons: DM Allergies lisinopril Adverse Reaction (Severe, Verified 03/04/25 09:47) hyperkalemia Medication List - Last Reconciled 03/04/25 by Bozena Dobbins MD albuterol sulfate 2.5 mg (3 mL) inhalation Q6-8H 15 days aspirin 81 mg PO DAILY atorvastatin 80 mg PO QPM 90 days blood pressure monitor (Blood Pressure Kit) As directed XXL blood pressure cuff blood-glucose sensor (AirWatchyle Telma 3 Plus Sensor device) Apply 1 new sensor every 15 days as directed to monitor blood glucose continuously. budesonide-formoterol 160-4.5 mcg/actuation (Symbicort) 2 puffs PO BID carvedilol 25 mg PO BID cholecalciferol (vitamin D3) 50 mcg PO DAILY 90 days [CPAP full face mask medium AF 20 bilevel pressure 25/16 cm humidified air As directed] doxepin 100 mg PO BEDTIME 90 days doxepin 25 mg PO BEDTIME dulaglutide (Trulicity) 3 mg (0.5 mL) subcut QWEEK 30 days empagliflozin (Jardiance) 10 mg PO DAILY flash glucose scanning reader ([employer] Telma 2 [place]) As directed glucose (Dex4 Glucose) 16 grams (4 x 4 gram) PO Q15M PRN hydrochlorothiazide 12.5 mg PO DAILY lancets daily levothyroxine 75 mcg PO DAILY@0600 metformin ER 500 mg PO BID 90 days oxycodone 30 mg PO BID PRN 30 days pen needle, diabetic 1 ea subcut DAILY 90 days sennosides-docusate sodium 8.6-50 mg (Senexon-S) 1 tab PO DAILY sertraline 100 mg PO DAILY 90 days sodium,potassium,mag sulfates 17.5-3.13-1.6 gram (Suprep Bowel Prep Kit) 480 mL orally; FOR COLONOSCOPY PREP [transport Wheelchair As directed] Ventolin HFA 90 mcg/actuation (albuterol sulfate) 2 puffs inhalation Q4-6H PRN NS Tobacco use date assessed: 03/04/25 Dental Screening Dental Screen Date: 12/01/24 HPI DM HPI Details anya [id number] [facility] Medical History (Updated 02/24/25 @ 10:35 by LUANN Odell) Preop exam for internal medicine Preoperative clearance Cervical cancer screening Colon cancer screening Diabetic neuropathy At risk for foot problem Controlled type 2 diabetes mellitus Asthma Right shoulder pain Hearing decreased Hypertension Post-traumatic osteoarthritis of left hip Hematuria Leg length discrepancy Otitis externa Allergic rhinitis COPD (chronic obstructive pulmonary disease) Hyperkalemia Hypoventilation associated with obesity syndrome Left ventricular hypertrophy Diabetic nephropathy Opioid dependence SHANIQUA (obstructive sleep apnea) Morbid obesity GERD (gastroesophageal reflux disease) Migraines Hypothyroidism Vitamin D deficiency Anxiety Essential hypertension Type 2 diabetes mellitus with diabetic polyneuropathy Lumbar back pain Surgical History Hx of cataract surgery History of surgery on lower extremity History of hip surgery Hx of bladder endoscopy Hx of spinal surgery Family History Father HTN (hypertension) SHANIQUA (obstructive sleep apnea) Prostate cancer Additional heart attack (anterolateral wall) Mother Asthma Diabetes Brother Epilepsy Sister HTN (hypertension) Maternal Aunt Throat cancer Social History Household Members: Family Household Members Other:: brother Housing: House Are you a primary healthcare specialist to a significant other at home: No Do you presently have visiting nurse or other home services: Yes (reports every 6 months nurse comes by) Alcohol intake: never Patient Tobacco Use Status: Former Tobacco user Tobacco use type: Cigarette Years Smoked: 4 +/- e-Cigarette/Vaping Use: Never Used Second Hand Smoke Exposure: Yes service: No Current occupational status: disabled Cognitive needs: Yes (cane ) Hearing needs: No Vision needs: Yes (glasses ) Questionnaire Thrive Questionnaire Date Thrive assessed: 10/21/24 I am a: Patient What is your living situation today?: I have a steady place to live Within the past 12 months, did the food you bought not last and you didn't have the money to get more?: I choose not to answer this question Within the past 12 months, did you worry whether your food would run out before you got money to buy more?: I choose not to answer this question Do you have trouble paying for medicines?: No Do you have trouble getting transportation to medical appointments?: No Do you have trouble paying your heating and electricity bill?: I choose not to answer this question Do you have trouble taking care of your child, family member or friend?: No Do you have trouble with day-to-day activities such as bathing, preparing meals, shopping, managing finances, etc.?: I choose not to answer this question Are you currently unemployed and looking for a job?: No Are you interested in more education?: I choose not to answer this question Please select the resources that you would like help with: None Currently or been in a relationship where the following occur: No concerns reported THRIVE Score: 0 BEULAH-7 AMB Questionnaire BEULAH-7 Date BEULAH - 7 assessed: 12/01/24 Source: Developed by Drs. Waqas Albarran, Thelma Dumont, Ruben Oden and colleagues, with an educational valente from [facility]. Physical exam (Primary Care) Vital Signs: Last Vital Signs Pulse 70 03/04/25 09:47 BP 132/72 03/04/25 09:47 Pulse Ox 96 03/04/25 09:47 Oxygen Delivery Method Room Air 03/04/25 09:47 BMI result Body Mass Index 50.5 Tobacco/Smoking Status: Tobacco use Status Tobacco use date assessed 03/04/25 03/04/25 09:48 Patient Tobacco Use Status Former Tobacco user 03/04/25 09:48 Tobacco use type Cigarette 03/04/25 09:48 e-Cigarette/Vaping Use Never Used 03/04/25 09:48 Thrive Assessment: Date of Thrive Assessment Date Thrive assessed 10/21/24 03/04/25 09:48 Currently or been in a relationship where the following occur: No concerns reported Const General: alert; No acute distress Eyes Conjunctivae: conjunctivae normal Resp Auscultation: clear to auscultation bilaterally Cardio Rate: regular rate Rhythm: regular rhythm GI Inspection: Yes normal to inspection Extrem General: Yes normal to inspection and No edema Coding Level of Care Code Est Pt Level 4 (33015) Complex EM visit Add On G2211 Diagnoses Chronic obstructive pulmonary disease, unspecified COPD type J44.9 COPD type: unspecified COPD SHANIQUA (obstructive sleep apnea) G47.33 Morbid obesity E66.01 Type 2 diabetes mellitus with hyperglycemia, with long-term current use of insulin E11.65; Z79.4 Diabetes mellitus long term care phlebotomist insulin use: with long term care phlebotomist use Hypothyroidism, unspecified type E03.9 Hypothyroidism type: unspecified Essential hypertension I10 Hypercholesterolemia E78.00 Generalized anxiety disorder F41.1 Lumbar degenerative disc disease M51.36 Assessment & Plan Assessment & Plan (1) COPD (chronic obstructive pulmonary disease): Comment: Patient does have advanced chronic obstructive as well as restrictive pulmonary disease. Clinically it is staying very stable. She does have chronic hypercapnic failure due to hypoventilation as well as COPD. Code(s): J44.9 - Chronic obstructive pulmonary disease, unspecified Category: Medical Qualifiers: COPD type: unspecified COPD Qualified Code(s): J44.9 - Chronic obstructive pulmonary disease, unspecified Plan: Patient follows up with Pulmonary on albuterol inhaler as needed as well as Symbicort (2) SHANIQUA (obstructive sleep apnea): Comment: CHRONIC SLEEP APNEA ALONG WITH CHRONIC HYPOVENTILATION SYNDROME. WELL TREATED WITH THE USE OF BIPAP.( AIR- FIT F-20 PRESSURE 25/16 CMs ) SHE IS VERY COMPLIANT AND BENEFITTING. SHE IS SUPPOSED TO USE O2 2 L/MINUTE ALONG WITH BIPAP. HOWEVER SINCE HER LAST VISIT SHE HAS NOT USED ANY OXYGEN AND CLAIMS THAT SHE SLEEPS GOOD . Code(s): G47.33 - Obstructive sleep apnea (adult) (pediatric) Category: Medical Plan: Continue to use the CPAP more than 4 hours a night and benefits from this. Patient follows up with Pulmonary (3) Morbid obesity: Comment: BMI= 51.8 THIS IS A CHRONIC PROBLEM, DIFFICULT FOR HER TO LOSE WEIGHT. BUT SHE IS TRYING HER BEST TO RESTRICT THE CALORIES INTAKE AND FOLLOW THE DIETARY INSTRUCTIONS. Code(s): E66.01 - Morbid (severe) obesity due to excess calories Category: Medical Plan: Discussed about Trulicity and ways to lose the weight. (4) Type 2 diabetes mellitus with hyperglycemia: Comment: [facility] 03/2023, Dr. Zeng Code(s): E11.65 - Type 2 diabetes mellitus with hyperglycemia Category: Medical Qualifiers: Diabetes mellitus long term care phlebotomist insulin use: with shelter use Qualified Code(s): E11.65 - Type 2 diabetes mellitus with hyperglycemia; Z79.4 - terminal superintendent (current) use of insulin Plan: Decrease the amount of carbohydrate intake, pasta, bread, rice and potatoes are all sugar and that is aside from all the sweet stuff, remember that fruits are good but they are Sweet also. Hemoglobin A1c goal of less than 6.5. Patient on Jardiance 10 mg once a day Trulicity 3 mg once a week metformin 500 mg twice a day (5) Hypothyroidism: Code(s): E03.9 - Hypothyroidism, unspecified Category: Medical Qualifiers: Hypothyroidism type: unspecified Qualified Code(s): E03.9 - Hypothyroidism, unspecified Plan: Continue with thyroid medication (6) Essential hypertension: Code(s): I10 - Essential (primary) hypertension Category: Medical Plan: Continue with blood pressure medication. Decrease salt intake and exercise patient is on hydrochlorothiazide 12.5 mg once a day carvedilol 25 mg twice a day (7) Hypercholesterolemia: Code(s): E78.00 - Pure hypercholesterolemia, unspecified Category: Medical Plan: Avoid fried foods, chicken skin, eggs, butter margarine, pastries and meat. Be it pork or beef they have a lot of cholesterol LDL goal of less than 100 and triglyceride of less than 150 on atorvastatin 80 mg once a day (8) Generalized anxiety disorder: Comment: psychiatry q 2 weeks with counselling Code(s): F41.1 - Generalized anxiety disorder Category: Medical Plan: Continue with counseling and therapy (9) Lumbar degenerative disc disease: Code(s): M51.36 - Other intervertebral disc degeneration, lumbar region Category: Medical Plan: Narcotic pain meds: Is being prescribed with the understanding that these medications are potentially addictive and should be used only when absolutely necessary and must always be secured. Any remaining pills should be safely disposed off appropriately. Patient is advised that narcotics can impaired judgment and one should not drive or operate heavy machinery while taking these medications. Never share these medications with anybody and do not leave them unattended. They will not be replaced under any circumstances. Plan History of Present Illness The patient is a 59-year-old female presenting for a follow-up visit. The patient has a history of morbid obesity, which has been a significant concern impacting her overall health. Weight management has been challenging, and discussions have been held regarding medication adjustments to aid weight loss. The patient is currently on Trulicity, with plans to transition to [facility] to assist with weight reduction and diabetes management. The patient has diabetes mellitus, which is currently managed with a regimen including Jardiance, Trulicity, and Metformin. Her hemoglobin A1c is well- controlled at 6.0, indicating effective management of her blood glucose levels. The patient has a history of obstructive sleep apnea and is compliant with BIPAP therapy, which she uses nightly. This condition is stable, and she continues to benefit from the therapy. Chronic low back pain is managed with pain medication, although specific medications were not detailed in the conversation. The patient has hypoventilation syndrome, which is being monitored as part of her respiratory care. Hypertension is managed with hydrochlorothiazide and carvedilol, with recent adjustments to her medication regimen. Her blood pressure is being closely monitored to ensure optimal control. The patient has chronic obstructive pulmonary disease (COPD) and asthma, for which she uses Symbicort and albuterol inhalers as needed. Her COPD is stable, and she follows up regularly with pulmonary care. The patient has hypothyroidism, which is managed with thyroid medication. Gastroesophageal reflux disease (GERD) is part of her medical history, and she has followed up with gastroenterology for further management. Hypercholesterolemia is managed with atorvastatin, and her LDL cholesterol is well-controlled at 62 mg/dL. The patient has cataracts and has been following up with ophthalmology for her eye care. Preventative care measures include a scheduled mammogram and a colonoscopy, which are part of her routine health maintenance. Health Maintenance - Mammogram scheduled for April 22 - Colonoscopy scheduled - Shingles vaccination: First dose received, second dose scheduled in two months Social History Review of Systems - Respiratory: Reports use of CPAP nightly, uses Symbicort and albuterol inhalers as needed - Endocrine: Reports diabetes management with Jardiance, Trulicity, and Metformin Physical Exam Results - Labs: Normal blood count, no anemia, normal white blood cell and platelet count - Labs: Electrolytes normal, renal function with creatinine of 1.18 and GFR of 47 - Labs: Hemoglobin A1c at 6.0, liver function stable, LDL cholesterol at 62 mg/dL - Labs: Vitamin D mildly low at 28, thyroid function normal, urine test showed proteinuria Plan Patient was informed and verbally consented to the use of an ambient scribe for clinic note documentation during this visit. 1. Morbid Obesity The patient is currently on Trulicity for weight management, with plans to transition to [facility] to assist with weight reduction and diabetes management. The effectiveness of Mounjaro will be evaluated after three weeks, with potential dose adjustments based on weight loss outcomes. 2. Diabetes Mellitus The patient's diabetes is managed with Jardiance, Trulicity, and Metformin, aiming for a hemoglobin A1c goal of less than 6.5. Her current A1c is 6.0, indicating good control, and she will continue with the current regimen. 3. Obstructive Sleep Apnea The patient is compliant with BIPAP therapy, using it nightly, which has stabilized her condition. 4. Hypertension Hypertension is managed with hydrochlorothiazide and carvedilol, with recent adjustments to ensure optimal blood pressure control. 5. Chronic Obstructive Pulmonary Disease (Copd) The patient uses Symbicort and albuterol inhalers as needed, and her COPD is stable with regular pulmonary follow-up. 6. Hypercholesterolemia Hypercholesterolemia is managed with atorvastatin, and her LDL cholesterol is well-controlled at 62 mg/dL. Discussion Notes During the visit, we discussed the patient's current management of diabetes with Jardiance, Trulicity, and Metformin, aiming for a hemoglobin A1c goal of less than 6.5. We also addressed the transition from Trulicity to Mounjaro to aid in weight loss and diabetes control, with plans to evaluate the effectiveness after three weeks. The patient's hypertension management was reviewed, with recent adjustments to her medication regimen to ensure optimal control. We emphasized the importance of compliance with BIPAP therapy for obstructive sleep apnea and regular follow-up for COPD management. Patient Instructions - Continue current diabetes medications: Jardiance, Trulicity, and Metformin. - Transition from Trulicity to Mounjaro as discussed, and monitor weight loss progress. - Use BIPAP nightly for sleep apnea. - Follow up with pulmonary care as scheduled. - Adhere to hypertension medication regimen: hydrochlorothiazide and carvedilol. - Maintain atorvastatin for cholesterol management. - Attend scheduled mammogram and colonoscopy appointments. Medications: New tirzepatide (Mounjaro) for 4 weeks 2.5 mg (0.5 mL) subcut QWEEK 2 mL 1RF E66.01 - Morbid (severe) obesity due to excess calories Discontinued dulaglutide (Trulicity) Discontinued Reason: Doctor's Order 3 mg (0.5 mL) subcut QWEEK 30 days 2.5 mL 0RF
--- OUTSIDE RECORDS SUMMARY | 2025-03-04 11:19 | XMS_ITS | Clinical Summary ---
Author Organization 175 [facility] Address [address] [place] [address] Phone Care Team Providers Care [place] Name Role Phone Bozena Dobbins MD Primary Care Provider [phone] Social History Tobacco Use Types Packs/Day Years Used Date Smoking Tobacco: Never Assessed Comments Unknown Sex and Gender Information Value Date Recorded Sex Assigned at Not on file Legal Sex Female 7:16 AM EST Gender Identity Not on file Sexual Orientation Not on file Plan of Treatment Upcoming Encounters Date Type Department Care Team ([facility] st Contact Info) Description 06/02/2025 3:00 PM EST Office Visit Orthopedic Surgery [place] [id number] [phone] Mata Green, DPM [address] [phone] Health Maintenance Due Date Last Done Comments [...] complete this topic RSV Immunization Patients Un shamiak 20 months Aged Out No longer eligible b ased on patient's age to complete this topic Varicella Vaccines Aged Out No longer eligible based on patient's age to complete this topic Insurance [facility] Care Teams [place] Relationship Specialty Start Date End Date Bozena Dobbins MD [address] [place] [address] [address] [facility] [place], [place] [id number] PCP - General Internal Medicine 06/03/24
== END 2025-03-04 10:48 | disposition home or self-care (01) ==
LOC: HO.HMCH 09:29
PROVIDERS: PCP Internal Medicine; Visit Provider Internal Medicine
DX: J44.9 Chronic obstructive pulmonary disease, unspecified (principal); E66.01 Morbid (severe) obesity due to excess calories; E11.65 Type 2 diabetes mellitus with hyperglycemia; Z68.43 Body mass index [BMI] 50.0-59.9, adult; Z79.4 Long term (current) use of insulin; G47.33 Obstructive sleep apnea (adult) (pediatric); E03.9 Hypothyroidism, unspecified; I10 Essential (primary) hypertension; E78.00 Pure hypercholesterolemia, unspecified; F41.1 Generalized anxiety disorder; M51.369 Other intervertebral disc degeneration, lumbar region without mention of lumbar back pain or lower extremity pain

== ENCOUNTER → 2025-03-04 09:28 | Outpatient (BNVA) | payer OTHER, SELFPAY | PROVIDERS: PCP Internal Medicine; Visit Provider Internal Medicine | DX: E11.65 Type 2 diabetes mellitus with hyperglycemia (principal); J44.9 Chronic obstructive pulmonary disease, unspecified; G47.33 Obstructive sleep apnea (adult) (pediatric); E66.01 Morbid (severe) obesity due to excess calories; E03.9 Hypothyroidism, unspecified; I10 Essential (primary) hypertension; E78.00 Pure hypercholesterolemia, unspecified; F41.1 Generalized anxiety disorder; M51.360 Other intervertebral disc degeneration, lumbar region with discogenic back pain only; R06.89 Other abnormalities of breathing; K21.9 Gastro-esophageal reflux disease without esophagitis; Z79.4 Long term (current) use of insulin; Z68.43 Body mass index [BMI] 50.0-59.9, adult; Z79.899 Other long term (current) drug therapy; Z79.84 Long term (current) use of oral hypoglycemic drugs; Z99.89 Dependence on other enabling machines and devices | CPT/HCPCS: 99212 ==

== ENCOUNTER 2025-03-31 14:03 | Outpatient (AMB) | payer OTHER, SELFPAY ==
[2025-03-31 14:10] VITALS: BP 132/72; PULSE 70; O2SAT 97; BMI 51.7
--- NOTE | 2025-03-31 14:10 | MHC.OFFVIS ---
Vital Signs 03/31/25 14:10 Height 5 ft 2 in Weight 282 lb 10.122 oz BMI 51.7 BP 132/72 Blood Pressure Location Lt brachial Position Sitting Pulse 70 Pulse Source Pulse Oximeter Pulse Oximetry (%) 97 Oxygen Delivery Method Room Air Intake Visit Reasons: Type II Diabetes Intake Note: Patient present today to follow up on Type 2 Diabetes Mellitus.? Last Diabetic Eye exam: Last month, [facility]. Last Podiatry Visit: August 2024 Random Glucose: 81 ? mg/dl HgA1C: 6.0% 02/27/2025 Garnett Feeder Required: Yes Garnett Feeder Services: Garnett Feeder Present Garnett Feeder Name: Maame [id number] Information Interpreted: non-clinical & clinical Accompanied by: Self / Same As Patient Allergies lisinopril Adverse Reaction (Severe, Verified 03/31/25 14:17) hyperkalemia Medication List - Last Reconciled 03/31/25 by ADAM Carpenter albuterol sulfate 2.5 mg (3 mL) inhalation Q6-8H 15 days aspirin 81 mg PO DAILY atorvastatin 80 mg PO QPM 90 days blood pressure monitor (Blood Pressure Kit) As directed XXL blood pressure cuff blood-glucose sensor (FreeStyle Telma 3 Plus Sensor device) Apply 1 new sensor every 15 days as directed to monitor blood glucose continuously. budesonide-formoterol 160-4.5 mcg/actuation (Symbicort) 2 puffs PO BID carvedilol 25 mg PO BID cholecalciferol (vitamin D3) 50 mcg PO DAILY 90 days [CPAP full face mask medium AF 20 bilevel pressure 25/16 cm humidified air As directed] doxepin 100 mg PO BEDTIME 90 days doxepin 25 mg PO BEDTIME empagliflozin (Jardiance) 10 mg PO DAILY flash glucose scanning reader (FreeStyle Telma 2 [employer]) As directed glucose (Dex4 Glucose) 16 grams (4 x 4 gram) PO Q15M PRN hydrochlorothiazide 12.5 mg PO DAILY lancets daily levothyroxine 75 mcg PO DAILY@0600 metformin ER 500 mg PO DAILY oxycodone 30 mg PO BID PRN 30 days pen needle, diabetic 1 ea subcut DAILY 90 days sennosides-docusate sodium 8.6-50 mg (Senexon-S) 1 tab PO DAILY sertraline 100 mg PO DAILY 90 days sodium,potassium,mag sulfates 17.5-3.13-1.6 gram (Suprep Bowel Prep Kit) 480 mL orally; FOR COLONOSCOPY PREP tirzepatide (Mounjaro) 5 mg (0.5 mL) subcut QWEEK [transport Wheelchair As directed] Ventolin HFA 90 mcg/actuation (albuterol sulfate) 2 puffs inhalation Q4-6H PRN NS HPI Comments Details: This is a 59-year-old female with a past medical history of asthma, osteoarthritis, GERD, anxiety, hypothyroidism, COPD, hyperlipidemia, hypertension, type 2 diabetes and SHANIQUA presenting for diabetic management. Patient does not have CGM today because it's on back order at the pharmacy. They told her it will be ready in a week. Hemoglobin a1c 6.0% 02/27/25. Current medication regimen: Mounjaro 2.5 mg weekly Jardiance 10 mg daily, metformin ER 500 mg twice daily. Past medications: Trulicity stopped and started Mounjaro for weight loss Lantus discontinued due to no longer being needed Compliance issues: None Hypoglycemia symptoms: She had 1 episode with a blood sugar of 69. She did not feel well that day and had not eaten. She treated this and checked for a rise and sugar. Hyperglycemia symptoms: none Microvascular complications: neuropathy, nephropathy (CKD and microalbuminuria). GFR decreased to 47. Patient was told to stop NSAIDs. She was taking Ibuprofen as needed. Macrovascular complications: none Hypertension: treated with carvedilol 25 mg twice daily and hydrochlorothiazide 12.5 mg daily. Lisinopril discontinued in the past due to hyperkalemia. Hyperlipidemia: treated with Atorvastatin. LDL at goal <100. She has a podiatry appointment scheduled in April. ROS: Constitutional: No unexplained weight loss, fever, chills. Eyes: No vision changes Respiratory: No shortness of breath Cardiovascular: No chest pain Gastrointestinal: No anorexia, nausea, vomiting or diarrhea. No abdominal pain Skin: No rash or open wounds. Endocrine: No cold or heat intolerance. No polyuria or polydipsia. Physical exam: Constitutional: Alert, in no distress. Neck: Supple, Full range of motion. No lymphadenopathy. No palpable thyroid masses. Respiratory: Clear to auscultation. Cardiovascular: S1 S2 regular. No murmurs. Neurologic: No focal neurological deficits Feet: Warm and well perfused. No clubbing, cyanosis or edema. Intact DP pulses. Calluses on the tops of the toes and hammer toe deformities noted. [facility] Medical History (Updated 03/31/25 @ 15:09 by ADAM Carpenter) CKD (chronic kidney disease) stage 3, GFR 30-59 ml/min Preop exam for internal medicine Preoperative clearance Cervical cancer screening Colon cancer screening Diabetic neuropathy At risk for foot problem Controlled type 2 diabetes mellitus Asthma Right shoulder pain Hearing decreased Hypertension Post-traumatic osteoarthritis of left hip Hematuria Leg length discrepancy Otitis externa Allergic rhinitis COPD (chronic obstructive pulmonary disease) Hyperkalemia Hypoventilation associated with obesity syndrome Left ventricular hypertrophy Diabetic nephropathy Opioid dependence SHANIQUA (obstructive sleep apnea) Morbid obesity GERD (gastroesophageal reflux disease) Migraines Hypothyroidism Vitamin D deficiency Anxiety Essential hypertension Type 2 diabetes mellitus with diabetic polyneuropathy Lumbar back pain Surgical History Hx of cataract surgery History of surgery on lower extremity History of hip surgery Hx of bladder endoscopy Hx of spinal surgery Family History Father HTN (hypertension) SHANIQUA (obstructive sleep apnea) Prostate cancer Additional heart attack (anterolateral wall) Mother Asthma Diabetes Brother Epilepsy Sister HTN (hypertension) Maternal Aunt Throat cancer Social History Household Members: Family Household Members Other:: brother Housing: House Are you a primary day care center director to a significant other at home: No Do you presently have visiting nurse or other home services: Yes (reports every 6 months nurse comes by) Alcohol intake: never Patient Tobacco Use Status: Former Tobacco user Tobacco use type: Cigarette Years Smoked: 4 +/- e-Cigarette/Vaping Use: Never Used Second Hand Smoke Exposure: Yes service: No Current occupational status: disabled Cognitive needs: Yes (cane ) Hearing needs: No Vision needs: Yes (glasses ) Physical Exam Vital Signs: Last Vital Signs Pulse 70 03/31/25 14:10 BP 132/72 03/31/25 14:10 Pulse Ox 97 03/31/25 14:10 Oxygen Delivery Method Room Air 03/31/25 14:10 BMI result Body Mass Index 51.7 Results Reviewed Results Reviewed: Laboratory Last Values Glucose (Clinic) 81 mg/dL (60-115) 03/31/25 14:26 Laboratory Tests 02/27/25 02/27/25 06:52 06:56 Creatinine 1.18 Estimated GFR 47 Hemoglobin A1c % 6.0 AST 27 ALT 37 H Triglycerides 106 Cholesterol 114 LDL Cholesterol, Calc 62 HDL Cholesterol 31 L Vitamin B12 738 TSH 1.19 Urine Creatinine 117.94 Urine Microalbumin 17.0 Microalb/Creat Ratio 14.4 Assessment & Plan Assessment & Plan (1) Controlled type 2 diabetes mellitus: Code(s): E11.9 - Type 2 diabetes mellitus without complications Category: Medical Qualifiers: Diabetes mellitus correction insulin use: with correction use Diabetes mellitus complication status: with kidney complications Diabetes mellitus complication detail: with nephropathy Qualified Code(s): E11.21 - Type 2 diabetes mellitus with diabetic nephropathy; Z79.4 - intermediate manager (current) use of insulin (2) CKD (chronic kidney disease) stage 3, GFR 30-59 ml/min: Code(s): N18.30 - Chronic kidney disease, stage 3 unspecified Category: Medical Qualifiers: Chronic kidney disease stage 3 subtype: stage 3a (GFR 45-59) Qualified Code(s): N18.31 - Chronic kidney disease, stage 3a (3) Hypercholesterolemia: Code(s): E78.00 - Pure hypercholesterolemia, unspecified Category: Medical (4) Essential hypertension: Code(s): I10 - Essential (primary) hypertension Category: Medical Plan In summary this is a 59-year-old female with well-controlled type 2 diabetes with renal complications. Sample Telma 3 plus provided to patient-advised to call if she is not able to get this from the pharmacy after a week. She has a backup glucometer. Reduce Metformin ER to 500 mg daily, continue Jardiance 10 mg daily and avoid NSAIDs due to renal function. Continue carvedilol and hydrochlorothiazide for now. She had hyperkalemia with lisinopril. Refer to nephrology. LDL cholesterol near goal. She is going to continue efforts at weight loss and increase the dose of her GLP 1. Recommended Mediterranean diet. Continue atorvastatin 80 mg. Increase Mounjaro to 5 mg weekly to promote weight loss. Side effects reviewed. Reviewed treatment of hypoglycemia. Upcoming podiatry appointment in April. Follow up in 3 months for type 2 diabetes. Orders: Referrals Nephrology Referral ADAM Carpenter N18.30 - Chronic kidney disease, stage 3 unspecified Medications: New tirzepatide (Mounjaro) 5 mg (0.5 mL) subcut QWEEK 2 mL 3RF ADAM Carpenter Changed From metformin ER 500 mg PO BID 90 days 180 tabs 2RF To metformin ER 500 mg PO DAILY Lorenver O Po, Discontinued tirzepatide (Mounjaro) for 4 weeks Discontinued Reason: Doctor's Order 2.5 mg (0.5 mL) subcut QWEEK 2 mL 1RF E66.01 - Morbid (severe) obesity due to excess calories Patient Instructions: Increase Mounjaro to 5 mg weekly Decrease Metformin to 500 mg once daily Continue Jardiance 10 mg daily If you have low sugars stop Metformin If you experience low blood sugar, treat this by eating a chewable fruit candy like skittles or jelly beans (about 8 pieces), 4 ounces (1/2 cup) of fruit juice (not diet), 1 tablespoon of honey or 4 glucose tablets. If your blood sugar is under 50, take double the amount of one of the above. Recheck your blood sugar in 15 minutes. Aumente la dosis de Mounjaro a 5 mg semanales. Disminuya la dosis de metformina a 500 mg ganesh vez al d?a. Contin?e con Jardiance 10 mg al d?a. Si tiene niveles bajos de az?car, suspenda la metformina. Si experimenta niveles bajos de az?car, tr?telo con un caramelo masticable de fruta lily Skittles o Jelly Beans (aproximadamente 8 piezas), 113 ml (1/2 taza) de jugo de fruta (no light), 1 cucharada de miel o 4 tabletas de glucosa. Si sandoval nivel de az?car en [place] es inferior a 50, tome el doble de la dosis de ez de los medicamentos mencionados. Vuelva a medir sandoval nivel de az?car en francheska en 15 minutos. Coding Level of Care Code Est Pt Level 4 (87832) Diagnoses Controlled type 2 diabetes mellitus with diabetic nephropathy, with long-term current use of insulin E11.21; Z79.4 Diabetes mellitus termite exterminator insulin use: with termite exterminator use Diabetes mellitus complication status: with kidney complications Diabetes mellitus complication detail: with nephropathy Stage 3a chronic kidney disease N18.31 Chronic kidney disease stage 3 subtype: stage 3a (GFR 45-59) Hypercholesterolemia E78.00 Essential hypertension I10
[2025-03-31 14:31] LABS: Glucose, Whole Blood 81 mg/dL (60-115)
== END 2025-03-31 15:04 | disposition home or self-care (01) ==
LOC: HO.ENCR 14:04
PROVIDERS: PCP Internal Medicine; Visit Provider Physician Assistant Medical
DX: E11.21 Type 2 diabetes mellitus with diabetic nephropathy (principal); Z79.4 Long term (current) use of insulin; N18.31 Chronic kidney disease, stage 3a; E78.00 Pure hypercholesterolemia, unspecified; I10 Essential (primary) hypertension

== ENCOUNTER → 2025-03-31 14:03 | Outpatient (BNVA) | payer OTHER, SELFPAY | PROVIDERS: PCP Internal Medicine; Visit Provider Physician Assistant Medical | DX: E11.21 Type 2 diabetes mellitus with diabetic nephropathy (principal); N18.31 Chronic kidney disease, stage 3a; I10 Essential (primary) hypertension; E78.00 Pure hypercholesterolemia, unspecified; Z79.4 Long term (current) use of insulin | CPT/HCPCS: 82947; 99212 ==

== ENCOUNTER 2025-04-22 09:48 | Outpatient (REF) | payer OTHER, SELFPAY ==
--- NOTE | ~2025-04-22 | MM_ITS ---
EXAMINATION: MM SCREENING DIGITAL BREAST TOMOSYNTHESIS, BILATERAL CLINICAL INFORMATION: Screening. Asymptomatic. COMPARISON: Mammography: Comparison is made with available priors TECHNIQUE: Digital breast mammography with tomosynthesis is performed in both the craniocaudal and mediolateral oblique views along with computer-aided detection (CAD). FINDINGS: The breasts are almost entirely fatty. There are no significant masses, abnormal calcifications, or other abnormalities. MM/MM tomosynthesis screening BI IMPRESSION: No mammographic evidence of malignancy. ASSESSMENT: BI-RADS Category 1: Negative RECOMMENDATION: Routine annual mammography screening. 1 year F/U This examination should not preclude the clinical evaluation of a suspicious palpable abnormality. This patient's information was entered into a reminder system with a target due date for their next mammogram. Electronically signed by: Lori Ruffin DO 04/24/2025 09:35 AM ROSANNE
--- OUTSIDE RECORDS SUMMARY | 2025-04-22 11:14 | XMS_ITS | Clinical Summary ---
Author Organization [address] [facility] Address [address] [place] [address] Phone Care Team Providers Care Airport Operations Manager Name Role Phone Bozena Dobbins MD Primary Care Provider [phone] Social History Tobacco Use Types Packs/Day Years Used Date Smoking Tobacco: Never Assessed Comments Unknown Sex and Gender Information Value Date Recorded Sex Assigned at Not on file Legal Sex Female 7:16 AM EST Gender Identity Not on file Sexual Orientation Not on file Plan of Treatment Upcoming Encounters Date Type Department Care Team ([facility] st Contact Info) Description 06/02/2025 3:00 PM EST Office Visit Orthopedic Surgery [place] [id number] [address] [place]ata [place], DPM [address] [address] Health Maintenance Due Date Last [...] patient's age to complete this topic Insurance [employer] Care Teams Airport Operations Manager Relationship Specialty Start Date End Date Bozena Dobbins MD [address] [place] [address] [address] [facility] [place], [place] [id number] PCP - General Internal Medicine 06/03/24
== END 2025-04-22 09:49 | disposition home or self-care (01) ==
LOC: HO.MAMMO 09:48
PROVIDERS: PCP Internal Medicine
DX: Z12.31 Encounter for screening mammogram for malignant neoplasm of breast (principal)
CPT/HCPCS: 77063; 77067

== ENCOUNTER → 2025-04-22 10:30 | Outpatient (BNV) | payer OTHER, SELFPAY | PROVIDERS: PCP Internal Medicine; Visit Provider Internal Medicine | DX: Z12.31 Encounter for screening mammogram for malignant neoplasm of breast (principal) | CPT/HCPCS: 77063; 77067 ==

== ENCOUNTER 2025-04-24 10:15 | Outpatient (AMB) | payer OTHER, SELFPAY ==
[2025-04-24 10:26] VITALS: BP 128/70; PULSE 88; O2SAT 96; BMI 51.2
--- NOTE | 2025-04-24 10:26 | HO.NEPHOV_ITS ---
Vital Signs 04/24/25 10:26 Height 5 ft 2 in Weight 280 lb BMI 51.2 BP 128/70 Blood Pressure Location Lt radial Position Sitting Pulse 88 Pulse Source Pulse Oximeter Pulse Oximetry (%) 96 Oxygen Delivery Method Room Air Intake Visit Reasons: INP: CKD STG 3 Hotel Or Motel Receptionist Required: Yes Hotel Or Motel Receptionist Name: Lachelle [phone] Accompanied by: Self / Same As Patient Allergies lisinopril Adverse Reaction (Severe, Verified 04/24/25 10:35) hyperkalemia Medication List - Last Reconciled 04/24/25 by Calvin Parra MD albuterol sulfate 2.5 mg (3 mL) inhalation Q6-8H 15 days aspirin 81 mg PO DAILY atorvastatin 80 mg PO QPM 90 days blood pressure monitor (Blood Pressure Kit) As directed XXL blood pressure cuff blood-glucose sensor (dscoveredyle Telma 3 Plus Sensor device) Apply 1 new sensor every 15 days as directed to monitor blood glucose continuously. budesonide-formoterol 160-4.5 mcg/actuation (Symbicort) 2 puffs PO BID carvedilol 25 mg PO BID cholecalciferol (vitamin D3) 50 mcg PO DAILY 90 days [CPAP full face mask medium AF 20 bilevel pressure 25/16 cm humidified air As directed] doxepin 100 mg PO BEDTIME 90 days doxepin 25 mg PO BEDTIME empagliflozin (Jardiance) 10 mg PO DAILY flash glucose scanning reader (ActifiStyle Telma 2 [employer]) As directed glucose (Dex4 Glucose) 16 grams (4 x 4 gram) PO Q15M PRN hydrochlorothiazide 12.5 mg PO DAILY lancets daily levothyroxine 75 mcg PO DAILY@0600 metformin ER 500 mg PO DAILY oxycodone 30 mg PO BID PRN 30 days pen needle, diabetic 1 ea subcut DAILY 90 days sennosides-docusate sodium 8.6-50 mg (Senexon-S) 1 tab PO DAILY sertraline 100 mg PO DAILY 90 days tirzepatide (Mounjaro) 5 mg (0.5 mL) subcut QWEEK [transport Wheelchair As directed] Ventolin HFA 90 mcg/actuation (albuterol sulfate) 2 puffs inhalation Q4-6H PRN NS HPI Comments Details: The patient is a 59-year-old female referred for CKD Cr 1.18 and eGFR of 47 ml/mt She reports a history of chronic kidney disease, which has been present for several months. The patient has a history of diabetes mellitus for approximately 15 years, with blood sugar reportedly under control. She also has a history of essential hypertension, diagnosed around the same time as her diabetes. Additionally, she has asthma, which is part of her medical history. She is on Maunjaro since February and lost 4 lbs The patient experiences constipation and takes medication twice daily to manage it, although the specific medication name is unknown. She reports adequate water intake. The patient has undergone left hip surgery 11 times due to an accident, indicating a significant surgical history. [facility] Medical History (Updated 03/31/25 @ 15:09 by ADAM Carpenter) CKD (chronic kidney disease) stage 3, GFR 30-59 ml/min Preop exam for internal medicine Preoperative clearance Cervical cancer screening Colon cancer screening Diabetic neuropathy At risk for foot problem Controlled type 2 diabetes mellitus Asthma Right shoulder pain Hearing decreased Hypertension Post-traumatic osteoarthritis of left hip Hematuria Leg length discrepancy Otitis externa Allergic rhinitis COPD (chronic obstructive pulmonary disease) Hyperkalemia Hypoventilation associated with obesity syndrome Left ventricular hypertrophy Diabetic nephropathy Opioid dependence SHANIQUA (obstructive sleep apnea) Morbid obesity GERD (gastroesophageal reflux disease) Migraines Hypothyroidism Vitamin D deficiency Anxiety Essential hypertension Type 2 diabetes mellitus with diabetic polyneuropathy Lumbar back pain Surgical History Hx of cataract surgery History of surgery on lower extremity History of hip surgery Hx of bladder endoscopy Hx of spinal surgery Family History Father HTN (hypertension) SHANIQUA (obstructive sleep apnea) Prostate cancer Additional heart attack (anterolateral wall) Mother Asthma Diabetes Brother Epilepsy Sister HTN (hypertension) Maternal Aunt Throat cancer Social History Household Members: Family Household Members Other:: brother Housing: House Are you a primary post anesthesia care unit nurse to a significant other at home: No Do you presently have visiting nurse or other home services: Yes (reports every 6 months nurse comes by) Alcohol intake: never Patient Tobacco Use Status: Former Tobacco user Tobacco use type: Cigarette Years Smoked: 4 +/- e-Cigarette/Vaping Use: Never Used Second Hand Smoke Exposure: Yes service: No Current occupational status: disabled Cognitive needs: Yes (cane ) Hearing needs: No Vision needs: Yes (glasses ) Review of Systems Const Denies fever(s) and Denies weight loss Card Denies chest pain Resp Denies cough and Denies hemoptysis GI Denies abdominal pain, Denies diarrhea and Denies nausea Musc Denies back pain Neuro Denies focal weakness Physical Exam Vital Signs: Last Vital Signs Pulse 88 04/24/25 10:26 BP 128/70 04/24/25 10:26 Pulse Ox 96 04/24/25 10:26 Oxygen Delivery Method Room Air 04/24/25 10:26 BMI result Body Mass Index 51.2 Const General: comfortable Nutritional Appearance: well nourished Orientation/consciousness: patient oriented x3 HEENT Head: No normal to inspection Mouth: moist mucous membranes Neck Neck: Yes supple and Yes no JVD Resp Auscultation: clear to auscultation bilaterally and no rales Cardio Jugular venous distension: no JVD Palpation: no palpable S3 and no palpable S4 Heart sounds: no rubs GI Palpation (GI): Soft to palpation and nontender Percussion: No Fluid wave present General: Yes no CVA tenderness Back/Spine/Pelvis Back: no CVA tenderness Skin General skin exam: no rashes or lesions noted Neuro General: patient oriented x3 Extrem General: Yes no pedal edema and No clubbing Results Reviewed Nephrology Results: Hgb, (12.0-16.0) 13.1 g/dl 02/27/25 WBC, (4.8-10.8) 7.7 X10*3/uL 02/27/25 Plt Count, (160-400) 245 X10*3/uL 02/27/25 Sodium, (135-145) 140 mmol/L 02/27/25 Potassium, (3.3-5.1) 4.4 mmol/L 02/27/25 Chloride, (96-108) 105 mmol/L 02/27/25 Carbon Dioxide, (22-29) 26 mmol/L 02/27/25 BUN, (9-16) 26 mg/dL H 02/27/25 Creatinine, (0.5-1.4) 1.18 mg/dL 02/27/25 Calcium, (8.4-10.2) 9.3 mg/dL 02/27/25 Urine Creatinine 117.94 mg/dL 02/27/25 Assessment & Plan Assessment & Plan (1) Essential hypertension: Code(s): I10 - Essential (primary) hypertension Category: Medical (2) Controlled type 2 diabetes mellitus: Code(s): E11.9 - Type 2 diabetes mellitus without complications Category: Medical Qualifiers: Diabetes mellitus complication detail: with nephropathy Diabetes mellitus complication status: with kidney complications 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 BUT SHE IS TRYING HER BEST TO RESTRICT THE CALORIES INTAKE AND FOLLOW THE DIETARY INSTRUCTIONS. Code(s): E66.01 - Morbid (severe) obesity due to excess calories Category: Medical (4) CKD (chronic kidney disease) stage 3, GFR 30-59 ml/min: Code(s): N18.30 - Chronic kidney disease, stage 3 unspecified Category: Medical Qualifiers: Chronic kidney disease stage 3 subtype: stage 3a (GFR 45-59) Qualified Code(s): N18.31 - Chronic kidney disease, stage 3a Plan [age] Year old woman with morbid obesity along with diabetes mellitus and hypertension with CKD. Baseline creatinine is around 1.1 mg/dL. Her GFR is about 47 mL/minute. Differential diagnosis include hypertensive diabetic kidney disease in the setting of obesity. Obstruction should be ruled out. Based on recent lab studies I do not believe she has any active glomerular nephritis or interstitial disease at this time. Workup initiated as below. Goal is to slow the progression of renal disease. Maintain blood pressure less than 130/80 Maintain A1c less than 7%. She needs weight loss and I agree with Crystal Currently she is not on any IZABEL inhibitors or ARB use. I will check urine protein creatinine ratio and start her on IZABEL inhibition as needed. Encouraged her to stay on low-sodium diet. Further workup and management will be based on the outcome of the baseline investigations as ordered. . Orders: Orders BIJU Reflex Titer and Pattern Today E66.01 - Morbid (severe) obesity due to excess calories, I10 - Essential (primary) hypertension, N18.31 - Chronic kidney disease, stage 3a Complement C3 Today E66.01 - Morbid (severe) obesity due to excess calories, I10 - Essential (primary) hypertension, N18.31 - Chronic kidney disease, stage 3a Protein Electrophoresis, Serum Today E66.01 - Morbid (severe) obesity due to excess calories, I10 - Essential (primary) hypertension, N18.31 - Chronic kidney disease, stage 3a US renal BI Today E66.01 - Morbid (severe) obesity due to excess calories, I10 - Essential (primary) hypertension, N18.31 - Chronic kidney disease, stage 3a Comprehensive Met. Panel Today E66.01 - Morbid (severe) obesity due to excess calories, I10 - Essential (primary) hypertension, N18.31 - Chronic kidney disease, stage 3a Complete Blood Count no Diff Today E66.01 - Morbid (severe) obesity due to excess calories, I10 - Essential (primary) hypertension, N18.31 - Chronic kidney disease, stage 3a Creatinine Urine Today E66.01 - Morbid (severe) obesity due to excess calories, I10 - Essential (primary) hypertension, N18.31 - Chronic kidney disease, stage 3a Total Protein Urine Random Today E66.01 - Morbid (severe) obesity due to excess calories, I10 - Essential (primary) hypertension, N18.31 - Chronic kidney disease, stage 3a UA and rflx microscopic Today E66.01 - Morbid (severe) obesity due to excess calories, I10 - Essential (primary) hypertension, N18.31 - Chronic kidney disease, stage 3a Anti Glomerular Basement Memb Today E66.01 - Morbid (severe) obesity due to excess calories, I10 - Essential (primary) hypertension, N18.31 - Chronic kidney disease, stage 3a Complement C4 Today E66.01 - Morbid (severe) obesity due to excess calories, I10 - Essential (primary) hypertension, N18.31 - Chronic kidney disease, stage 3a Coding Level of Care Code New Pt Level 4 (20281) Diagnoses Essential hypertension I10 Controlled type 2 diabetes mellitus with diabetic nephropathy, with long-term current use of insulin E11.21; Z79.4 Diabetes mellitus complication detail: with nephropathy Diabetes mellitus complication status: with kidney complications 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
--- OUTSIDE RECORDS SUMMARY | 2025-04-24 12:52 | XMS_ITS | Clinical Summary ---
Author Organization [address] [facility] Address [address] [place] [address] Phone Care Team Providers Care Management Supervisor Name Role Phone Bozena Dobbins MD Primary Care Provider [phone] Social History Tobacco Use Types Packs/Day Years Used Date Smoking Tobacco: Never Assessed Comments Unknown Sex and Gender Information Value Date Recorded Sex Assigned at Not on file Legal Sex Female 7:16 AM EST Gender Identity Not on file Sexual Orientation Not on file Plan of Treatment Upcoming Encounters Date Type Department Care Team ([facility] st Contact Info) Description 06/02/2025 3:00 PM EST Office Visit Orthopedic Surgery [place] [id number] [address] Mata Green, DPM [address] [address] Health Maintenance Due Date Last [...] Depression Screening 06/11/2024 COVID-19 Vaccine ( - 2024-2 6 season) 2025 Influenza Vaccine (#1) 2025 RSV [...] patient's age to complete this topic Insurance [employer] [employer] Care Teams Management Supervisor Relationship Specialty Start Date End Date Bozena Dobbins MD [address] [place] [address] [address] [facility] [place], [place] [id number] PCP - General Internal Medicine 06/03/24
== END 2025-04-24 10:49 | disposition home or self-care (01) ==
LOC: HO.HKA 10:16
PROVIDERS: PCP Internal Medicine; Referring Provider Physician Assistant Medical; Visit Provider Internal Medicine Hypertension Specialist
DX: I10 Essential (primary) hypertension (principal); E11.21 Type 2 diabetes mellitus with diabetic nephropathy; Z79.4 Long term (current) use of insulin; E66.01 Morbid (severe) obesity due to excess calories; N18.31 Chronic kidney disease, stage 3a
CPT/HCPCS: 99204

== ENCOUNTER → 2025-04-24 10:15 | Outpatient (BNVA) | payer OTHER, SELFPAY | PROVIDERS: PCP Internal Medicine; Referring Provider Physician Assistant Medical; Visit Provider Internal Medicine Hypertension Specialist | DX: I12.9 Hypertensive chronic kidney disease with stage 1 through stage 4 chronic kidney disease, or unspecified chronic kidney disease (principal); E11.22 Type 2 diabetes mellitus with diabetic chronic kidney disease; E11.21 Type 2 diabetes mellitus with diabetic nephropathy; N18.31 Chronic kidney disease, stage 3a; Z79.4 Long term (current) use of insulin; E66.01 Morbid (severe) obesity due to excess calories; Z68.43 Body mass index [BMI] 50.0-59.9, adult; Z87.891 Personal history of nicotine dependence | CPT/HCPCS: 99202 ==